=== PATIENT | female | born 1960 | race Caucasian/White ===

== ENCOUNTER → 2019-04-04 08:46 | Outpatient (BNVA) | payer BC, SELFPAY | PROVIDERS: Family Provider Nurse Practitioner Family; Visit Provider Psychiatry & Neurology Psychiatry | DX: F33.42 Major depressive disorder, recurrent, in full remission (principal) | CPT/HCPCS: 99212 ==

== ENCOUNTER → 2019-08-03 07:28 | Outpatient (BNVA) | payer BC, SELFPAY | PROVIDERS: Family Provider Nurse Practitioner Family; Visit Provider Psychiatry & Neurology Psychiatry | DX: F33.42 Major depressive disorder, recurrent, in full remission (principal) | CPT/HCPCS: 99212 ==

== ENCOUNTER → 2019-10-04 07:47 | Outpatient (BNVA) | payer BC, SELFPAY | PROVIDERS: Family Provider Nurse Practitioner Family; Visit Provider Psychiatry & Neurology Psychiatry | DX: F33.42 Major depressive disorder, recurrent, in full remission (principal) | CPT/HCPCS: 99212 ==

== ENCOUNTER 2020-01-16 07:02 | Outpatient (CLI) | payer BC, SELFPAY ==
--- NOTE | 2020-01-16 07:04 | US_ITS ---
WS: [id number] RIGHT UPPER QUADRANT ULTRASOUND HISTORY: UPPER ABD PAIN COMPARISON: None available. Liver: 15.4 cm in length. Normal size liver. Surface of the liver is slightly irregular suggesting ci rrhosis. Mildly coarsened echotexture. No bile duct dilatation. Gallbladder: Moderately distended gallbladder with stones. No pericholecystic fluid or gallbladder wa ll thickening. CBD: 0.4 cm Pancreas: Poorly visualized. Right kidney: 10.0 cm in length. Normal size and echogenicity. No hydronephrosis or mass. Aorta and IVC: Unremarkable abdominal aorta and IVC. There is a large fluid collection in the central abdomen extending over a length of 20 cm x 24 cm tra nsversely. There is mild nodularity in the posterior wall without significant increased vascularity. US/US gall bladder [id number] IMPRESSION: 1. Cholelithiasis without evidence for acute cholecystitis at this time. 2. Large minimally complex cystic mass with a few mural nodules within the per itoneal cavity. Mural nodules do not have increased vascularity by ultrasound. Cystic mass measures 20 x 24 cm. Favor this is probably ovarian in etiology and arising from the pelvis. Differential includes cystadenoma and cystadenocarcin mary. Recommend follow-up with [facility] and CT abdomen and pelvis with IV and oral co ntrast.
--- NOTE | 2020-01-16 07:05 | US_ITS ---
WS: [id number] THYROID ULTRASOUND HISTORY: HYPOTHROIDISM COMPARISON: None available. Right lobe: 3.6 cm x 0.7 cm x 1.1 cm. Volume: 1.5 cm3. Small ill-defined gland with poor margins. No nodules or increased vascularity. No adenopathy. Left lobe: 4.2 cm x 1.0 cm x 1.2 cm. Volume: 2.7 cm3. Small size gland is heterogeneous and hypoechoic to isoechoic to the adjacent soft tissue structures. No mass or nodule. No adenopathy. Isthmus: 0.3 cm. US/US thyroid [id number] IMPRESSION: Small thyroid gland consistent with diagnosis of hypothyroidism. No nodules are identified.
== END 2020-01-16 07:03 | disposition home or self-care (01) ==
LOC: RAD 07:03
PROVIDERS: Visit Provider Nurse Practitioner Family
DX: R10.10 Upper abdominal pain, unspecified (principal); E03.9 Hypothyroidism, unspecified; K80.20 Calculus of gallbladder without cholecystitis without obstruction
CPT/HCPCS: 76536; 76705

== ENCOUNTER 2020-02-05 08:59 | Outpatient (CLI) | payer BC, SELFPAY ==
--- NOTE | 2020-02-05 09:26 | CT_ITS ---
WS: [id number] CT ABDOMEN PELVIS TECHNIQUE: Contrast-enhanced CT of the abdomen and pelvis with coronal and sagittal reformatted image s. CLINICAL INFORMATION: ABNORMAL FINDINGS ON DIAGNOSTIC IMAGING OF OTHER ABDOMINAL R COMPARISON: CT 8 23,019 DLP: 1201.[address] scans at [facility] use at least one of these dose optimization techniques: automat ed exposure control; mA and/or kV adjustment per patient size (includes targeted exams where dose is matched to clinical indication); or iterative reconstruction. FINDINGS: Again seen is the large slightly complex cystic mass with a mural nodules similar to the re cent ultrasound. This measures approximately 15.3 x 23.8 x 22.1 cm. This appears to arise from the pe lvis and most likely represents ovarian neoplasm. Displacement of the surrounding bowel loops. Recomm end [employer] consultation for resection. Impingement on the dorsal superior aspect of the bladder. Normal liver. Normal portal vein and splenic vein. Small pericardial cyst is unchanged. Lung bases ar e well aerated. Splenic granulomas. Fatty atrophy of the pancreas. Adrenal glands are normal. Normal renal parenchymal enhancement. No hydronephrosis. Atrophic kidneys bilaterally. Small amount of free fluid in the pelvis. Normal caliber abdominal aorta. No pelvic or inguinal lymph adenopathy.Cholelithiasis. No gallbladder wall thickening or pericholecystic fluid. Prior postoperative changes gastric bypass. CT/CT abdomen pelvis w con* [id number] IMPRESSION: 1. Again seen is the large cystic lesion with mural nodularity arising from th e pelvis likely ovarian neoplasm such as cystadenoma/cystadenocarcinoma measuri ng 15.3 x 23.8 x 22.1 CM. Recommend [employer] consultation for resection. 2. Small amount of free fluid in the pelvis. 3. Cholelithiasis. 4. Prior gastric bypass. 5. Stable small pericardial cyst. 6. No visualized abdominal pelvic or inguinal lymphadenopathy.
[2020-02-05] MEDS: iohexol 300 mg/mL 50 mL Btl PO (11:17)
[2020-02-05] MEDS: iohexol 300 mg/mL 100 mL Btl IV (11:26)
== END 2020-02-05 09:00 | disposition home or self-care (01) ==
LOC: RADWPI 09:04
PROVIDERS: PCP Nurse Practitioner Family; Visit Provider Nurse Practitioner Family
DX: R93.89 Abnormal findings on diagnostic imaging of other specified body structures (principal); Z98.84 Bariatric surgery status; Q24.8 Other specified congenital malformations of heart; K80.20 Calculus of gallbladder without cholecystitis without obstruction
CPT/HCPCS: 74177; Q9967

== ENCOUNTER → 2020-02-06 08:48 | Outpatient (BNVA) | payer BC, SELFPAY | PROVIDERS: PCP Nurse Practitioner Family; Visit Provider Obstetrics & Gynecology | DX: R19.00 Intra-abdominal and pelvic swelling, mass and lump, unspecified site (principal) | CPT/HCPCS: 86304 ==

== ENCOUNTER 2020-02-16 07:41 | Outpatient (CLI) | payer BC, SELFPAY ==
--- NOTE | 2020-02-16 07:47 | MM_ITS ---
WS: [id number] Bilateral screening digital mammogram, 02/16/2020 Clinical Data: SCREENING Comparison: 08/26/2018, 06/10/2016, 08/02/2014. Findings: The breast parenchymal pattern shows fat replacement. No spiculated masses or clustered calcification s are seen. There are no secondary signs of carcinoma. MM/[place] [id number] Impression: 1. Negative bilateral mammogram unchanged. 2. Recommend annual screening mammograms. BIRADS: 1-Negative FOLLOW UP: 1 Year Follow-up The CAD credit checker was used.
== END 2020-02-16 07:42 | disposition home or self-care (01) ==
LOC: RADSHAW 07:44
PROVIDERS: PCP Nurse Practitioner Family; Visit Provider Nurse Practitioner Family
DX: Z12.31 Encounter for screening mammogram for malignant neoplasm of breast (principal)
CPT/HCPCS: 77067

== ENCOUNTER → 2020-03-20 07:31 | Outpatient (BNVA) | payer BC, SELFPAY | PROVIDERS: PCP Nurse Practitioner Family; Visit Provider Psychiatry & Neurology Psychiatry | DX: F33.42 Major depressive disorder, recurrent, in full remission (principal) | CPT/HCPCS: 99213 ==

== ENCOUNTER 2020-03-25 14:00 | Outpatient (CLI) | payer OTHER, SELFPAY ==
--- NOTE | 2020-03-25 16:59 | ONC CON_ITS ---
Dr. Cheek New Patient Note Patient: Alecia Meier I Unit #: [id number]: 1960 Dicatated By: Barbara Cheek M.D.Date of Visit: Mar 25, 2020 Onc MED New Patient/Consult Referring Physician: Dr. Ander Mtz M.D. History of Present Illness: Ms. Alecia meier, is a 60-year-old female recently developed progressive abdominal/pelvic pain for which she was evaluated by Dr. Gutierrez TECHNOLOGY SPECIALIST and subsequently underwent abdominal sonogram which confirmed a large complex ovarian mass and her tumor marker CA-125 was checked on February 06, 2020 was elevated at, 55.[address] scan of abdomen pelvis confirmed large cystic lesion with mural nodularity arising from pelvis likely ovarian neoplasm size 15.3 x 23 .8 x 22.1. Small amount of free fluid in the pelvis. Cholelithiasis. Prior gastric bypass but no visible pelvic or inguinal lymphadenopathy. Patient was referred to Dr. Mtz in [place] and on February 29, 2020 she underwent right resection of ovarian cancer, bilateral salpingo-oophorectomy, total abdominal hysterectomy, pelvic and para-aortic lymphadenectomy, omentectomy, multiple biopsies including right hemidiaphragm and final pathology report came back showed a right ovarian tumor size about 10 cm, endometrioid adenocarcinoma, intact, grade 3 e.g. T1 a, 10 lymph nodes were examined showed no evidence of metastatic disease e.g. N0 stage I immunohistochemistry was positive for p16, p53, Ki-67 and vimentin consistent with high-grade endometrioid carcinoma, Patient tolerated procedure well and based on high-grade e.g. grade 3 ovarian endometrioid carcinoma, as per patient she was recommended adjuvant chemotherapy with 6 cycles carboplatin/Taxol.. Patient is a diabetic, also has history of morbid obesity for which she underwent gastric bypass in 1999, as per patient about 2 years ago she was diagnosed with persistent anemia and she did require 3 units of packed RBC during her recent bilateral oophorectomy/hysterectomy done on February 29, 2020. Denies any specific complaint today, no fever chills, no nausea or vomiting, no diarrhea or constipation, no abdominal pain she has healed up pretty well from recent surgery. Past Medical History: Ms. Meier's medical history consists of history of MRSA, hyperlipidemia, hypothyroidism, opoid dependence, osteoarthritis, and type II diabetes. Past Surgical History: Ms. Meier's surgical/procedural history consists of hysterectomy/bilateral salpingectomy-oophorectomy in 2019, colonoscopy in 2018, and gastric bypass in 1999. Medications: All Day Allergy 1 Tablet (of 10 mg) Oral daily, Atorvastatin Calcium 1 Tablet (of 10 mg) Oral daily, busPIRone HCl 1 Tablet (of 15 mg) Oral b.i.d., Euthyrox 1 Tablet (of 175 mcg) Oral daily, Glucophage 1 Tablet (of 850 mg) Oral daily, Januvia 1 Tablet (of 25 mg) Oral daily, Lisinopril 1 Tablet (of 10 mg) Oral daily, Naprosyn 1 Tablet (of 500 mg) Oral b.i.d. PRN, Slow Release Iron 1 Tablet (of 47.5 mg) Tablet, controlled release Oral daily, traMADol HCl 1 Tablet (of 50 mg) Oral t.i.d. PRN, Tums Tablet, chewable Oral PRN, Zoloft 2 Tablet (of 100 mg) Oral daily Allergies: Amoxicillin and Cephalexin. Social History: Ms. Meier is single. Ms. Meier has never smoked. She drinks occasionally. drinks 1-2 glasses of alcohol every 4-6months. Family History: Ms. Meier's mother at age 76: breast cancer, and stroke, and uterine cancer. Ms. Meier's father at age 76: heart disease, and lung cancer. Review Of Symptoms: Constitutional - Appetite is diminished and weight is decreased. No fever, night sweats, or hot flashes. Energy level is poor, ENMT - Positive for sinus congestion/drainage. No mouth sores. No sore throat or difficulty swallowing, Hematologic/Lymphatic - Positive for easy bruising/bleeding, Respiratory - No shortness of breath. No cough. No pleuritic pain or hemoptysis, Cardiovascular - No angina pain. No palpitations, Gastrointestinal - No nausea or vomiting. Positive for heartburn and acid reflux. No diarrhea. Positive for constipation. No blood in the stool or black stools, Genitourinary (F) - No dysuria or hematuria. No urinary frequency. No urgency or incontinence, Musculoskeletal - Positive for joint pain, Neurologic - Positive for headache, dizziness and numbness/tingling. No other focal neurologic symptoms, Psychiatric - Positive for anxiety, depression and insomnia. Vital Signs: Performed on Mar 25, 2020 14:48: 5, 2, 0.00 (LOW), sq.m, 96 %, 90 /min, 18 /min, 126/75 mm(hg), 96.8 F (LOW), and 197.2 lbs (HIGH). Performance Status: 0 - Fully active, able to carry on all predisease activities without restrictions. (ECOG) Physical Examination: ENMT - No mouth sores, no thrush, no jaundice, Respiratory - Lungs are clear to auscultation, Cardiovascular - Regular rate and rhythm of heart, Abdomen - Soft, bowel sounds present, well-healed midline surgical scar, Extremities - No visible edema. Lab/Imaging: Most recent lab results are not available for this patient. Impression: Grade 3 ovarian endometrioid carcinoma status post right resection of ovarian cancer, bilateral salpingo-oophorectomy, total abdominal hysterectomy, pelvic and para-aortic lymphadenectomy, omentectomy, multiple biopsies including right hemidiaphragm done on February 29, 2020 Final pathology report confirmed 10 cm sized tumor involving the right ovary, endometrioid adenocarcinoma, grade 3, intact, peritoneal fluid negative implants negative and 0 out of 10 lymph nodes showed metastatic disease e.g. pT1a limited to 1 ovary (capsule intact). p N 0, MX stage I Immunohistochemistry were positive for p16, p53, Ki-67, vimentin, pattern consistent with high-grade endometrial carcinoma History of diabetes mellitus, Gastric bypass surgery for morbid obesity in 2000 Anemia since 2018, status post 3 units of packed RBCs on February 29 2020 during bilateral oophorectomy/hysterectomy for right ovarian cancer Plan: Discussed with patient regarding her disease status and treatment option, as per pathology report patient has grade 3 ovarian endometrioid carcinoma involving the right ovary for which she underwent bilateral salpingo-oophorectomy/hysterectomy on February 29, 2020, has tolerated procedure very well now with good healing. As per patient, being high risk for recurrence, she was recommended adjuvant chemotherapy with carboplatin/Taxol x6 and patient lives in [place] and decided to transfer her care to cancer center here in [place] for further adjuvant chemotherapy. Patient said she did some research on Internet and now kind of skeptical regarding systemic chemotherapy as one of her colleagues has gone through chemotherapy with significant side effects. Patient was reassured and was offered second opinion and evaluation for clinical trial, if available at tertiary care center, patient agreed, in that case , we will refer her to [facility]OLOGY SPECIALIST oncology at [place] regarding evaluation for clinical trial/second opinion. Patient will return to clinic 1 week after visit to [place] with CBC CMP and iron studies and B12 level as patient has history of gastric bypass and there is a possibility of combined iron/B12 deficiency due to malabsorption.. Signed By: Barbara Cheek M.D. <<Signature on File>>
== END 2020-03-25 14:01 | disposition home or self-care (01) ==
LOC: ONCMED 14:08
PROVIDERS: PCP Nurse Practitioner Family; Visit Provider Internal Medicine Hematology & Oncology
DX: C56.1 Malignant neoplasm of right ovary (principal); D64.9 Anemia, unspecified; Z90.722 Acquired absence of ovaries, bilateral; Z90.710 Acquired absence of both cervix and uterus; Z98.84 Bariatric surgery status; Z86.39 Personal history of other endocrine, nutritional and metabolic disease
CPT/HCPCS: 99205

== ENCOUNTER → 2020-05-01 12:57 | Outpatient (BNVA) | payer OTHER, SELFPAY | PROVIDERS: PCP Nurse Practitioner Family; Visit Provider Nurse Practitioner Family | DX: Z20.828 Contact with and (suspected) exposure to other viral communicable diseases (principal) | CPT/HCPCS: 87635 ==

== ENCOUNTER 2020-05-06 10:07 | Emergency (ER) | payer OTHER, SELFPAY ==
[2020-05-06 10:10] VITALS: BP 175/95; PULSE 78; RESP 20; TEMP 36.8; O2SAT 93; BMI 31.4
--- NOTE | 2020-05-06 10:23 | XRR_ITS ---
PROCEDURE INFORMATION: Exam: XR Chest Exam date and time: 05/06/2020 10:37 AM Age: 60 years old Clinical indication: Shortness of breath; Additional info: SOB TECHNIQUE: Imaging protocol: XR of the chest Views: 1 view. COMPARISON: No relevant prior studies available. FINDINGS: Lungs: Mild linear scarring or atelectasis is present in both lungs. There is no pneumonia. Pleural spaces: Unremarkable. No pleural effusion. No pneumothorax. Heart/Mediastinum: Unremarkable. No cardiomegaly. Bones/joints: Unremarkable. XR/XR chest 1V portable [id number] IMPRESSION: No acute cardiopulmonary abnormality.
--- NOTE | 2020-05-06 10:25 | ECG_ITS ---
[facility] Test Date: 2020-05-06 Pat Name: Alecia Meier Department: Room: Gender: Female Reimbursement Spec: : 1960 Requested By: Reyes Lowery Order Number: [id number] Joshua MD: CARLOS RONDON Measurements Intervals [place] Rate: 77 P: 0 IN: 186 QRS: -52 QRSD: 94 T: 58 QT: 388 QTc: 441 Interpretive Statements SINUS RHYTHM PATTERN CONSISTENT WITH PULMONARY DISEASE LEFT ANTERIOR FASCICULAR BLOCK [QRS AXIS <= -45, QR IN I, RS IN II] No previous ECG available for comparison Electronically Signed On 05-06-2020 18:28:37 DIVERSITY MANAGER by CARLOS RONDON [id number]
[2020-05-06 10:33] VITALS: BP 105/69; PULSE 93; RESP 20; O2SAT 90
--- NOTE | 2020-05-06 10:33 | ED_ITS ---
HPI - COVID General: Chief Complaint: COVID symptoms Stated Complaint: difficulty breathing, covid+ Time Seen by Provider: 05/06/20 10:13 Triage information: Has fever, cough or shortness of breath . Exposure to COVID + person last 14 days History of Present Illness: HPI Narrative: Patient is a 60-year-old female comes to the ED with shortness of breath. Past medical history of diabetes, hypertension, hyperlipidemia and was just diagnosed with ovarian cancer. She had total hysterectomy, there is not started any chemotherapy yet. Patient tested positive for COVID-19 on May 01 and says her symptoms started on April 28. She describes her shortness of breath as chest tightness and feels like she cannot take a deep enough breath. She reports shortness of breath worsens on exertion. Denies any chest pain. Patient does report being more anxious now that she tested positive for COVID-19 and is worried about her shortness of breath symptom. She reports very mild cough that is dry nonproductive. She had diarrhea for a day approximately 3 days ago but that has since resolved. Denies any history of DVT or PE. COVID 19 common symptoms: positive cough, non-productive cough, dyspnea, fatigue and loss of sense of smell and/or taste; negative fever(s), chills, productive cough, headache(s), throat pain, nasal congestion, nausea, vomiting or diarrhea COVID 19 other sytmptoms: negative chest pain COVID Results: Nasal/Oral Coronavirus 2019 PCR Detected H 05/01/20 12:57 05/01/20 Review of Systems Const: Reports: fatigue; Denies: fever(s) or chills Eyes: Denies: change in vision or eye discomfort ENMT: Denies: throat pain, odynophagia, nasal discharge or nasal congestion Card: Reports: dyspnea on exertion; Denies: chest pain, palpitations, edema, swelling of feet/ankles or orthopnea Resp: Reports: dyspnea and non-productive cough; Denies: productive cough GI: Denies: abdominal pain, nausea, vomiting, diarrhea, constipation or hematochezia : Denies: flank pain, dysuria or hematuria Musc: Denies: neck pain, back pain or extremity swelling Skin/Breast: Denies: rash or new lesions Neuro: Denies: headache(s), numbness in extremities or weakness in extremities Psych: Reports: anxiety (increased anxiety and worry since being diagnosed with COVID) PFSH ED PFSH: Medical History Major depressive disorder, recurrent, in full remission Family History Sister Clotting disorder Diabetes Thyroid condition Father Hyperlipidemia Hypertension Heart disease Mother Hyperlipidemia Hypertension Stroke Breast cancer mid 50's Family/Other Colon cancer paternal aunt Denies family history of Ovarian cancer Anesthesia complication Bleeding disorder Uterine cancer Social History Smoking and tobacco status: never smoked Alcohol intake: current Alcohol intake frequency: holidays/special occasions only Alcohol type: wine Physical Exam Const: COMMON NORMALS: no acute distress, patient oriented x3, healthy appearing and alert GENERAL APPEARANCE: cooperative and comfortable HENMT: COMMON NORMALS: normocephalic HEAD & SCALP: normocephalic MOUTH: Normal oral and palatal mucosa present THROAT: posterior oropharynx normal and uvula midline Neck/C-Spine: COMMON NORMALS: supple GENERAL: Yes normal visual inspection Resp: COMMON NORMALS: normal respiratory effort, No retractions, No use of a ccessory muscles and clear to auscultation bilaterally EFFORT & INSPECTION: Yes able to speak in complete sentences, No tachypneic, No respiratory distress and No labored AUSCULTATION: clear to auscultation bilaterally Cardio: COMMON NORMALS: regular rate, regular rhythm, S1 normal heart sound present, S2 normal heart sound present, No gallops present (Cardio), No clicks present (Cardio), No murmurs present (Cardio) and Peripheral pulses 2+ throughout RATE: regular rate RHYTHM: regular rhythm HEART SOUNDS: S1 normal heart sound present and S2 normal heart sound present PERIPHERAL PULSES: Peripheral pulses 2+ throughout GI: COMMON NORMALS: Normal to inspection, nondistended, normoactive bowel sounds present, Soft to palpation, non-tender and no masses PALPATION: Yes Soft to palpation : COMMON NORMALS: Yes no CVA tenderness BLADDER/KIDNEY EXAM: Yes no CVA tenderness Back/Pelvis: COMMON NORMALS: no CVA tenderness Extremity: COMMON NORMALS: normal to inspection and no pedal edema Neuro: COMMON NORMALS: patient oriented x3 and moves all extremities SENSORIUM/ORIENTATION: Yes alert Psych: MOOD & AFFECT: Yes anxious (Patient says she is been stressed and worried since testing positive for Co) Skin: GENERAL SKIN EXAM: dry skin Course ED course: I discussed with patient the possibility of getting the monoclonal antibody treatment for Covid while here in the ED. Patient has a positive Covid test and has a past medical history of diabetes, hypertension and ovarian cancer. Patient's symptoms started approximately 8 days ago so she qualifies for treatment. I discussed the risk and benefits of monoclonal antibody treatment and patient agreed signed the consent form to receive treatment. Consultations: Consultation #1: I placed order for patient to receive IV monoclonal antibody treatment. I then contacted the pharmacy to let them know about order and they said they will have it sent here to the ED once it is ready. Time: 13:47 Vital Signs: Vital signs: Vital Signs Temperature 98.3 F 05/06/20 10:10 Pulse Rate 77 05/06/20 15:48 Respiratory Rate 18 05/06/20 15:48 Blood Pressure 114/63 05/06/20 15:48 Pulse Oximetry 98 05/06/20 15:48 MDM - COVID MDM Narrative: Medical decision making narrative: Patient is a 60-year-old female comes to the ED with shortness of breath and tested positive for COVID- 19. COVID-19 test positive on May 01. Patient has a past medical history of hypertension, cervical cancer, hyperlipidemia and diabetes. Vitals were stable and patient's O2 saturation was 98% and respirations were 18. Exam was unremarkable besides patient seeming a bit anxious and worried about COVID-19. Lungs were clear to auscultation bilaterally. CBC and CMP were unremarkable. EKG showed normal sinus rhythm and no signs of [place]. Troponin negative. Chest x- ray showed no acute findings. D-dimer is elevated at 1.07. CTA of the chest was performed and it showed no PE, but did notate some possible bilateral lower lobe pneumonia, likely viral. Patient was given IV fluids and Solu-Medrol while here in the ED and I discussed with her the option of getting monoclonal antibody treatment. Patient wanted to get monoclonal antibody treatment and she signed the consent form. She was given IV monoclonal antibody treatment here in the ED. Patient was diagnosed with COVID-19 and discharged with a prescription for azithromycin and Medrol Dosepak. Return to ED precautions given. She was instructed on continuing her self quarantine. Follow-up with PCP in 7 to 10 days. Patient is to agree with plan. Lab Data: Attestation: I reviewed the patient's lab results. Labs: Lab Results 05/06/20 05/06/20 05/06/20 Range/Units 10:23 10:23 10:23 WBC 4.2 (4.0-10.0) 10^3/ uL RBC 3.93 L (4.1-5.3) 10^6/u L Hgb 11.4 L (11.5-15.3) g/dL Hct 37.0 (37.0-47.0) % MCV 94.1 (81-99) fL MCH 29.0 (28.0-34.0) pg MCHC 30.8 (30.0-36.0) g/dL RDW 14.0 (12.1-15.1) % Plt Count 206 (130-400) 10^3/c mm MPV 11.4 H (7.4-10.4) fL Neut % (Auto) 75.5 % Lymph % (Auto) 17.9 % [place] % (Auto) 5.0 % Eos % (Auto) 0.9 % Baso % (Auto) 0.2 % Neut # (Auto) 3.20 (1.8-7.7) 10^3/u L Lymph # (Auto) 0.8 (0.8-4.8) 10^3/u L [place] # (Auto) 0.2 (0.2-0.9) 10^3/u L Eos # (Auto) 0.0 (0.0-0.8) 10^3/u L Baso # (Auto) 0.0 (0.0-0.1) 10^3/u L Nucleated RBC % (a uto) 0 % Nucleated RBCs # 0.0 /100WBC D-Dimer (0-0.59) ug/mIFE U Sodium 137 (136-145) mmol/L Potassium 4.4 (3.5-5.1) mmol/L Chloride 101 (98-107) mmol/L Carbon Dioxide 23 (22-29) mmol/L Anion Gap 17.4 (5-19) BUN 19 (8-23) mg/dL Creatinine 0.9 (0.5-0.9) mg/dL GFR Calculation 63.9 L (90-130) mL/min Glucose 261 H (65-115) mg/dL Calculated Osmolal ity 295 (285-295) mOsm/k g Calcium 8.7 (8.5-10.5) mg/dL Total Bilirubin 0.4 (0.15-1.2) mg/dL AST 19 (0-32) U/L ALT 13 (0-33) U/L Alkaline Phosphata se 106 H (35-105) IU/L Troponin T Baselin e 9 (0-10) ng/L Troponin T 120 Min robert (0-10) ng/L Delta Troponin T (0-10) ABS# Total Protein 6.9 (6.6-8.7) g/dL Albumin 3.7 (3.5-5.2) g/dL Globulin 3.2 (1.3-4.6) g/dL 05/06/20 05/06/20 Range/Units 10:23 13:10 WBC (4.0-10.0) 10^3/ uL RBC (4.1-5.3) 10^6/u L Hgb (11.5-15.3) g/dL Hct (37.0-47.0) % MCV (81-99) fL MCH (28.0-34.0) pg MCHC (30.0-36.0) g/dL RDW (12.1-15.1) % Plt Count (130-400) 10^3/c mm MPV (7.4-10.4) fL Neut % (Auto) % Lymph % (Auto) % [place] % (Auto) % Eos % (Auto) % Baso % (Auto) % Neut # (Auto) (1.8-7.7) 10^3/u L Lymph # (Auto) (0.8-4.8) 10^3/u L [place] # (Auto) (0.2-0.9) 10^3/u L Eos # (Auto) (0.0-0.8) 10^3/u L Baso # (Auto) (0.0-0.1) 10^3/u L Nucleated RBC % (a uto) % Nucleated RBCs # /100WBC D-Dimer 1.07 H (0-0.59) ug/mIFE U Sodium (136-145) mmol/L Potassium (3.5-5.1) mmol/L Chloride (98-107) mmol/L Carbon Dioxide (22-29) mmol/L Anion Gap (5-19) BUN (8-23) mg/dL Creatinine (0.5-0.9) mg/dL GFR Calculation (90-130) mL/min Glucose (65-115) mg/dL Calculated Osmolal ity (285-295) mOsm/k g Calcium (8.5-10.5) mg/dL Total Bilirubin (0.15-1.2) mg/dL AST (0-32) U/L ALT (0-33) U/L Alkaline Phosphata se (35-105) IU/L Troponin T Baselin e (0-10) ng/L Troponin T 120 Min robert 9.35 (0-10) ng/L Delta Troponin T 0.35 (0-10) ABS# Total Protein (6.6-8.7) g/dL Albumin (3.5-5.2) g/dL Globulin (1.3-4.6) g/dL Imaging Data: CXR: Attestation: I personally reviewed and interpreted this imaging study as follows: Radiologist's impression: [facility] [address] XRay Report Signed Patient: Alecia Meier I Unit #: [id number] : 1960 Age/Sex: 60 / F ADM Date: 05/06/20 Loc: ER Room/Bed: Attending Dr: Ordering Provider/Ordering MD: Reyes Lowery Date of Service: 05/06/20 Procedure(s): XR chest 1V portable [id number] Accession Number(s): [id number] Report Number: [id number] PROCEDURE INFORMATION: Exam: XR Chest Exam date and time: 05/06/2020 10:37 AM Age: 60 years old Clinical indication: Shortness of breath; Additional info: SOB TECHNIQUE: Imaging protocol: XR of the chest Views: 1 view. COMPARISON: No relevant prior studies available. FINDINGS: Lungs: Mild linear scarring or atelectasis is present in both lungs. There is no pneumonia. Pleural spaces: Unremarkable. No pleural effusion. No pneumothorax. Heart/Mediastinum: Unremarkable. No cardiomegaly. Bones/joints: Unremarkable. XR/XR chest 1V portable [id number] IMPRESSION: No acute cardiopulmonary abnormality. Dictated By: Deny Patricia Signed By: Deny Patricia Signed Date/Time: 05/06/20 1050 DD/ 1049 CT Chest: Attestation: I personally reviewed and interpreted this imaging study as follows: Radiologist's impression: [facility] [address] [place] [address] CT Scan Report Signed Patient: Alecia Meier I Unit #: [id number] : 1960 Age/Sex: 60 / F ADM Date: 05/06/20 Loc: ER Room/Bed: Attending Dr: Ordering Provider/Ordering MD: Reyes Lowery Date of Service: 05/06/20 Procedure(s): CT angio chest PE protcl [id number] Accession Number(s): [id number] Report Number: [id number] WS: [id number] CT CHEST ANGIOGRAPHY WITH REFORMATS HISTORY: sob TECHNIQUE: Contiguous axial images are obtained through the chest during arterial injection of intravenous contrast. Images are reconstructed to evaluate the pulmonary arteries. MIP imaging also reviewed. All CT scans at [facility] use at least one of these dose optimization techniques: automated exposure control; mA and/or kV adjustment per patient size (includes targeted exams where dose is matched to clinical indication); or iterative reconstruction. CONTRAST: Omnipaque 350; 95 mL IV. DLP: 453.66 mGy.cm COMPARISON: None available. Very good opacification of the pulmonary arteries. Pulmonary artery is mildly prominent. No central luminal filling defects. Mild atherosclerosis aorta. There is no aneurysm. Mild enlargement of the LEFT heart chambers. No RIGHT heart strain. No pericardial or pleural effusions. Multifocal, multi lobar scattered groundglass opacifications. Increasing areas of consolidation in the periphery of the upper lungs. Mild peribronchial cuffing with lymphoid tissue. There are a few mildly prominent lymph nodes but no adenopathy. Low-attenuation mass adjacent to the RIGHT heart is probably a pericardial cyst. This was also present on the prior study from 02/05/2020 and better visualized as there was no motion at that time. Thought to be a pericardial cyst. Prior gastric bypass. Cholelithiasis. CT/CT angio chest PE protcl [id number] IMPRESSION: 1. No pulmonary embolism. 2. Bilateral groundglass opacifications and bronchial wall thickening, greatest in the lower lung alba. Correlate for pneumonitis. Covid 19 within the differential. 3. Stable pericardial cyst. 4. Cholelithiasis without acute cholecystitis. 5. Prior gastric bypass. Dictated By: Ashia Nugent DO Signed By: Ashia Nugent DO Signed Date/Time: 05/06/20 1303 DD/ 1256 EKG Data: EKG 1: Attestation: I personally reviewed and interpreted this EKG as follows: EKG interpretation date: 05/06/20 Interpretation: Sinus rhythm, 77 bpm, no ST segment elevation or depression seen. COVID Results: Nasal/Oral Coronavirus 2019 PCR Detected H 05/01/20 12:57 05/01/20 Discharge Plan Discharge Patient Disposition: Home Clinical Impression: COVID-19 Condition: Stable Prescriptions: New azithromycin 250 mg tablet See Rx Instructions .ROUTE .COMPLEX Qty: 6 RF: 0 Medrol (Alexander) 4 mg tablets,dose pack See Rx Instructions .ROUTE .COMPLEX Qty: 21 RF: 0 No Action multivitamin Tablet 1 tab PO DAILY@18 RF: 0 Januvia 25 mg tablet 25 mg PO DAILY@18 RF: 0 tramadol 50 mg tablet 50 mg PO TID PRN (Reason: Pain) RF: 0 naproxen sodium [Aleve] 220 mg tablet 440 mg PO BID PRN (Reason: Pain) RF: 0 atorvastatin 10 mg tablet 10 mg PO DAILY@2200 RF: 0 metformin 850 mg tablet 850 mg PO DAILY@08 RF: 0 lisinopril 10 mg tablet 10 mg PO DAILY@08 RF: 0 acetaminophen [Tylenol Extra Strength] 500 mg tablet 500 mg PO Q6H PRN (Reason: Pain) RF: 0 loratadine [Claritin] 10 mg tablet 10 mg PO DAILY@08 RF: 0 levothyroxine 175 mcg Tablet 175 mcg PO DAILY@08 RF: 0 Zoloft 100 mg tablet 200 mg PO DAILY@18 RF: 0 buspirone 15 mg tablet 15 mg PO BID@08,22 RF: 0 Discharge Orders: Discharge ED (Routine); Ordered 05/06/20 Ordered By: Reyes Lowery Referrals: Marialuisa Molina FNP [Primary Care Provider] - Discharge Diet: Regular Discharge Activity: Resume usual activity Patient Instructions: Upper Respiratory Infection (ED), Viral Syndrome (ED) Activity Restrictions/Additional Instructions: Follow-up with medical provider as directed in 7 to 10 days for reevaluation. Continue self quarantine as instructed. Take medications as prescribed. Drink plenty of fluids and stay hydrated. Take [id number] Tylenol or ibuprofen for any fevers. Return to the ER or your medical provider if condition worsens. Please read and understand discharge instructions. If any questions, please ask. Coding Level of Care Code ED Cad Technician for Lito Li Exam Comprehensive
[2020-05-06 10:35] LABS: Basophils % 0.2 %; Eosinophils % 0.9 %; Hemoglobin 11.4 g/dL (11.5-15.3); Lymphocytes # 0.8 10^3/uL (0.8-4.8); Lymphocytes % 17.9 %; Mean Corpuscular HGB Conc 30.8 g/dL (30.0-36.0); Mean Corpuscular Volume 94.1 fL (81-99); Mean Platelet Volume 11.4 fL (7.4-10.4); Monocytes # 0.2 10^3/uL (0.2-0.9); Neutrophils % 75.5 %; Nucleated Red Blood Cells % 0 %; Platelet Count 206 10^3/cmm (130-400); Red Blood Count 3.93 10^6/uL (4.1-5.3); White Blood Count 4.2 10^3/uL (4.0-10.0)
[2020-05-06 10:55] LABS: Troponin(5th) Baseline 9 ng/L (0-10)
[2020-05-06 11:19] LABS: D Dimer 1.07 ug/mIFEU (0-0.59)
[2020-05-06 11:22] LABS: Alanine Aminotransferase 13 U/L (0-33); Albumin Level 3.7 g/dL (3.5-5.2); Alkaline Phosphatase 106 IU/L (35-105); Anion Gap 17.4 (5-19); Aspartate Amino Transferase 19 U/L (0-32); Blood Urea Nitrogen 19 mg/dL (8-23); Calcium 8.7 mg/dL (8.5-10.5); Carbon Dioxide 23 mmol/L (22-29); Chloride 101 mmol/L (98-107); Globulin 3.2 g/dL (1.3-4.6); Glomerular Filtration Rate 63.9 mL/min (90-130); Glucose 261 mg/dL (65-115); Osmolality Calculated 295 mOsm/kg (285-295); Potassium 4.4 mmol/L (3.5-5.1); Sodium 137 mmol/L (136-145); Total Bilirubin 0.4 mg/dL (0.15-1.2); Total Protein 6.9 g/dL (6.6-8.7)
--- NOTE | 2020-05-06 11:47 | CT_ITS ---
WS: [id number] CT CHEST ANGIOGRAPHY WITH REFORMATS HISTORY: sob TECHNIQUE: Contiguous axial images are obtained through the chest during arterial injection of intrav enous contrast. Images are reconstructed to evaluate the pulmonary arteries. MIP imaging also reviewe d. All CT scans at [facility] use at least one of these dose optimization techniques: aut omated exposure control; mA and/or kV adjustment per patient size (includes targeted exams where dose is matched to clinical indication); or iterative reconstruction. CONTRAST: Omnipaque 350; 95 mL IV. DLP: 453.66 mGy.cm COMPARISON: None available. Very good opacification of the pulmonary arteries. Pulmonary artery is mildly prominent. No central l uminal filling defects. Mild atherosclerosis aorta. There is no aneurysm. Mild enlargement of the LEF T heart chambers. No RIGHT heart strain. No pericardial or pleural effusions. Multifocal, multi lobar scattered groundglass opacifications. Increasing areas of consolidation in th e periphery of the upper lungs. Mild peribronchial cuffing with lymphoid tissue. There are a few mild ly prominent lymph nodes but no adenopathy. Low-attenuation mass adjacent to the RIGHT heart is proba venancio a pericardial cyst. This was also present on the prior study from 02/05/2020 and better visualized as there was no motion at that time. Thought to be a pericardial cyst. Prior gastric bypass. Cholelithiasis. CT/CT angio chest PE protcl [id number] IMPRESSION: 1. No pulmonary embolism. 2. Bilateral groundglass opacifications and bronchial wall thickening, greates t in the lower lung alba. Correlate for pneumonitis. Covid 19 within the diff erential. 3. Stable pericardial cyst. 4. Cholelithiasis without acute cholecystitis. 5. Prior gastric bypass.
--- NOTE | 2020-05-06 12:25 | ECG_ITS ---
[facility] Test Date: 2020-05-06 Pat Name: Alecia Meier Department: Room: Gender: Female Administrative Manager: : 1960 Requested By: Reyes Lowery Order Number: [id number] Joshua MD: CARLOS RONDON Measurements Intervals [place] Rate: 77 P: 17 [place]: 183 QRS: -42 QRSD: 96 T: 38 QT: 386 QTc: 437 Interpretive Statements SINUS RHYTHM LEFT AXIS DEVIATION [QRS AXIS < -30] PATTERN CONSISTENT WITH PULMONARY DISEASE Compared to ECG 05/06/2020 10:17:54 Left-axis deviation now present Left anterior fascicular block no longer present Electronically Signed On 05-06-2020 18:30:32 C PROGRAMMER by CARLOS RONDON [email or web address]
[2020-05-06] MEDS: sodium chloride 0.9% 1,000 ML 999 ML IV (12:50)
[2020-05-06 13:03] VITALS: BP 123/65; PULSE 82; RESP 20; O2SAT 98
[2020-05-06] MEDS: LORazepam 2 mg/mL INJ 1 mL 1 MG IVP (13:06)
[2020-05-06 14:00] VITALS: BP 95/61; PULSE 75; RESP 18; O2SAT 96
[2020-05-06 14:16] LABS: Troponin 5 2HR 9.35 ng/L (0-10); Troponin 5 2HR Delta 0.35 ABS# (0-10)
[2020-05-06 15:00] VITALS: BP 125/73; PULSE 75; RESP 18; O2SAT 98
[2020-05-06 15:48] VITALS: BP 114/63; PULSE 77; RESP 18; O2SAT 98
== END 2020-05-06 16:10 | disposition home or self-care (01) ==
PROVIDERS: Emergency Provider Physician Assistant; PCP Nurse Practitioner Family
DX: U07.1 COVID-19 (principal); Z79.84 Long term (current) use of oral hypoglycemic drugs
CPT/HCPCS: 36415; 71045; 71275; 80053; 84484; 85025; 85378; 93005; 96365; 96375; 99284; J2060; J2930; J7030; Q9967

== ENCOUNTER → 2020-05-09 08:01 | Outpatient (BNVA) | payer OTHER, SELFPAY | PROVIDERS: PCP Nurse Practitioner Family; Visit Provider Psychiatry & Neurology Psychiatry | DX: F33.42 Major depressive disorder, recurrent, in full remission (principal) | CPT/HCPCS: 99213 ==

== ENCOUNTER 2020-05-15 09:53 | Outpatient (CLI) | payer OTHER, SELFPAY ==
[2020-05-15 10:39] LABS: Basophils % 0.6 %; Eosinophils # 0.1 10^3/uL (0.0-0.8); Eosinophils % 1.6 %; Hematocrit 33.6 % (37.0-47.0); Hemoglobin 10.3 g/dL (11.5-15.3); Lymphocytes # 1.7 10^3/uL (0.8-4.8); Lymphocytes % 23.3 %; Mean Corpuscular HGB Conc 30.7 g/dL (30.0-36.0); Mean Corpuscular Hemoglobin 29.4 pg (28.0-34.0); Mean Platelet Volume 10.4 fL (7.4-10.4); Monocytes # 0.4 10^3/uL (0.2-0.9); Monocytes % 6.2 %; Neutrophils # 4.78 10^3/uL (1.8-7.7); Neutrophils % 67.5 %; Nucleated Red Blood Cells % 0 %; Platelet Count 303 10^3/cmm (130-400); Red Cell Distribution Width 14.8 % (12.1-15.1); White Blood Count 7.1 10^3/uL (4.0-10.0)
[2020-05-15 11:03] LABS: Alanine Aminotransferase 12 U/L (0-33); Albumin Level 3.4 g/dL (3.5-5.2); Alkaline Phosphatase 90 IU/L (35-105); Anion Gap 11.9 (5-19); Aspartate Amino Transferase 11 U/L (0-32); Blood Urea Nitrogen 18 mg/dL (8-23); Calcium 8.7 mg/dL (8.5-10.5); Carbon Dioxide 25 mmol/L (22-29); Chloride 105 mmol/L (98-107); Ferritin 267 ng/mL (15-150); Globulin 3.1 g/dL (1.3-4.6); Glomerular Filtration Rate 56.6 mL/min (90-130); Glucose 157 mg/dL (65-115); Iron 82 ug/dL (37-145); Osmolality Calculated 289 mOsm/kg (285-295); Percent Saturation 36.7 % (20-50); Potassium 4.9 mmol/L (3.5-5.1); Sodium 137 mmol/L (136-145); Total Bilirubin 0.3 mg/dL (0.15-1.2); Total Iron Binding Capacity 223 mcg/dl; Total Protein 6.5 g/dL (6.6-8.7); Unsaturated Iron Binding 141 ug/dL (112-347)
[2020-05-15 11:23] LABS: Folate Level 5.1 ng/mL (4.8-37.3)
== END 2020-05-15 09:54 | disposition home or self-care (01) ==
LOC: ONCMED 09:56
PROVIDERS: PCP Nurse Practitioner Family; Visit Provider Internal Medicine Hematology & Oncology
DX: C56.1 Malignant neoplasm of right ovary (principal)
CPT/HCPCS: 36415; 80053; 82728; 82746; 83540; 83550; 85025

== ENCOUNTER 2020-05-16 05:43 | Outpatient (CLI) | payer OTHER, SELFPAY ==
--- NOTE | 2020-05-16 09:40 | ONC FU_ITS ---
Dr. Cheek follow up note Patient: Alecia Meier I Unit #: [id number]: 1960 Dicatated By: Barbara Cheek M.D.Date of Visit:May 16, 2020 Onc Med Follow-up/Prog Note History of Present Illness: Ms. Alecia meier, is a 60-year-old female recently developed progressive abdominal/pelvic pain for which she was evaluated by Dr. Gutierrez [employer] and subsequently underwent abdominal sonogram which confirmed a large complex ovarian mass and her tumor marker CA-125 was checked on February 06, 2020 was elevated at, 55.[address] scan of abdomen pelvis confirmed large cystic lesion with mural nodularity arising from pelvis likely ovarian neoplasm size 15.3 x 23 .8 x 22.1. Small amount of free fluid in the pelvis. Cholelithiasis. Prior gastric bypass but no visible pelvic or inguinal lymphadenopathy. Patient was referred to Dr. Mtz in [place] and on February 29, 2020 she underwent right resection of ovarian cancer, bilateral salpingo-oophorectomy, total abdominal hysterectomy, pelvic and para-aortic lymphadenectomy, omentectomy, multiple biopsies including right hemidiaphragm and final pathology report came back showed a right ovarian tumor size about 10 cm, endometrioid adenocarcinoma, intact, grade 3 e.g. T1 a, 10 lymph nodes were examined showed no evidence of metastatic disease e.g. N0 stage I immunohistochemistry was positive for p16, p53, Ki-67 and vimentin consistent with high-grade endometrioid carcinoma, Patient tolerated procedure well and based on high-grade e.g. grade 3 ovarian endometrioid carcinoma, as per patient she was recommended adjuvant chemotherapy with 6 cycles carboplatin/Taxol.. Patient is a diabetic, also has history of morbid obesity for which she underwent gastric bypass in 1999, as per patient about 2 years ago she was diagnosed with persistent anemia and she did require 3 units of packed RBC during her recent bilateral oophorectomy/hysterectomy done on February 29, 2020. Denies any specific complaint today, no fever chills, no nausea or vomiting, no diarrhea or constipation, no abdominal pain she has healed up pretty well from recent surgery. At patient's request, she was referred to [facility] [employer] [employer] oncology for second opinion and evaluation for clinical trial where she was seen by Dr. Luis Post on May 15, 2019 and his recommendations were that he agreed with her original diagnosis and recommended her to proceed with 6 cycles of carboplatin/Taxol, As per patient on May 03, 2020 she was diagnosed with Covid infection and had some breathing difficulty so went to [facility] last week, as per patient she was given some kind of infusion which is usually given within 10 days of infection and after that he felt better and last Wednesday, health department informed her that her 2 weeks quarantine is over. Came for follow-up, denies any specific complaint except chronic generalized weakness and fatigue but no fever chills, no nausea or vomiting, no shortness of breath, no jaundice, no skin rash, no diarrhea or constipation as per patient she liked Dr. Post [employer] oncology at [facility] and now ready to proceed with adjuvant chemotherapy with carboplatin/Taxol as per patient she was informed about all the side effects and possible benefits including acute and chronic peripheral neuropathy, nausea vomiting or allergic reaction or hyperglycemia especially with steroids. Medications: All Day Allergy 1 Tablet (of 10 mg) Oral daily, Atorvastatin Calcium 1 Tablet (of 10 mg) Oral daily, busPIRone HCl 1 Tablet (of 15 mg) Oral b.i.d., Euthyrox 1 Tablet (of 175 mcg) Oral daily, Glucophage 1 Tablet (of 850 mg) Oral daily, Januvia 1 Tablet (of 25 mg) Oral daily, Lisinopril 1 Tablet (of 10 mg) Oral daily, Naprosyn 1 Tablet (of 500 mg) Oral b.i.d. PRN, Slow Release Iron 1 Tablet (of 47.5 mg) Tablet, controlled release Oral daily, traMADol HCl 1 Tablet (of 50 mg) Oral t.i.d. PRN, Tums Tablet, chewable Oral PRN, Zoloft 2 Tablet (of 100 mg) Oral daily Allergies: Amoxicillin and Cephalexin. Review of Systems: Review of Systems is not available for this patient. Vital Signs: Performed on May 16, 2020 08:16 Weight - 197.8 lbs (HIGH) BSA - sq.m BMI - 0.00 (LOW) Temperature - 97.2 F (LOW) Pulse - 105 /min (HIGH) Respiration - 18 /min BP - 112/57 mm(hg) O2 Sat - 96 % Pain - 0 Fatigue - 5 Performance Status: 0 - Fully active, able to carry on all predisease activities without restrictions. (ECOG) Physical Examination: ENMT - No mouth sores, no thrush, no jaundice, Respiratory - Lungs are clear to auscultation, Cardiovascular - Regular rate and rhythm of heart, Abdomen - , Bowel sounds present, Extremities - No visible edema. Lab/Imaging: Most recent lab results are not available for this patient. Impression: Grade 3 ovarian endometrioid carcinoma status post right resection of ovarian cancer, bilateral salpingo-oophorectomy, total abdominal hysterectomy, pelvic and para-aortic lymphadenectomy, omentectomy, multiple biopsies including right hemidiaphragm done on February 29, 2020 Final pathology report confirmed 10 cm sized tumor involving the right ovary, endometrioid adenocarcinoma, grade 3, intact, peritoneal fluid negative implants negative and 0 out of 10 lymph nodes showed metastatic disease e.g. pT1a limited to 1 ovary (capsule intact). p N 0, MX stage I Immunohistochemistry were positive for p16, p53, Ki-67, vimentin, pattern consistent with high-grade endometrial carcinoma History of diabetes mellitus, Gastric bypass surgery for morbid obesity in 2000 Anemia since 2018, status post 3 units of packed RBCs on February 29 2020 during bilateral oophorectomy/hysterectomy for right ovarian cancer Plan: Discussed with patient regarding her labs white blood count 7.1 hemoglobin 10.3 hematocrit 33.6 platelets 303,000 CMP within normal limits iron saturation 36.7% ferritin 267, folic acid 5.1, iron 82, TIBC 223 Clinically, patient doing well with no new signs symptom except chronic generalized weakness and fatigue, patient went to [facility], [employer] [employer] oncology, where she was evaluated by Dr. Post, who recommended 6 cycles of chemotherapy with carboplatin/Taxol, as per patient he did discuss with her about all the side effects, possible benefits associate with chemotherapy and she agreed and ready to proceed with adjuvant chemotherapy with carboplatin/Taxol. At this point, will consider carboplatin AUC 6 and Taxol 175 mg per metered squared every 3 weeks x 6, all the side effects, possible benefits including but not limited to nausea vomiting, bone marrow suppression, hair loss, peripheral neuropathy especially with Taxol, hyperglycemia especially with steroids, patient is diabetic. Were mentioned further teaching will done by chemotherapy nurse. We will obtain approval from her insurance prior to the treatment. We will also consider Port-A-Cath placement. Patient prefer Dr. Apodaca as she knows him well. We will refer her to him for Port-A-Cath placement in the meantime will obtain approval from her insurance. Also consider diabetic teaching especially regarding sliding scale She will return to clinic 1 week after chemotherapy is initiated with CBC and CMP. Signed By: Barbara Cheek M.D. <<Signature on File>>
[2020-05-17 01:15] LABS: Vitamin B12 > 2000 pg/mL (232-1245)
== END 2020-05-16 05:44 | disposition home or self-care (01) ==
LOC: ONCMED 05:47
PROVIDERS: PCP Nurse Practitioner Family; Visit Provider Internal Medicine Hematology & Oncology
DX: C56.1 Malignant neoplasm of right ovary (principal); E11.9 Type 2 diabetes mellitus without complications; E66.01 Morbid (severe) obesity due to excess calories; D50.9 Iron deficiency anemia, unspecified; D51.9 Vitamin B12 deficiency anemia, unspecified; R53.1 Weakness; R53.82 Chronic fatigue, unspecified; Z79.899 Other long term (current) drug therapy
CPT/HCPCS: 82607; 99215

== ENCOUNTER 2020-06-03 08:51 | Day surgery (SDC) | payer OTHER, SELFPAY ==
[2020-05-31 14:45] VITALS: BMI 31.1
--- NOTE | 2020-06-03 08:58 | SC_ITS ---
WS: [id number] C-arm fluoroscopy for port placement, 06/03/2020. Clinical Data: Powerport Placement Comparison: Portable chest, 05/06/2020 Findings: A right internal jugular venous catheter has been inserted. It ends in the superior vena cava. SC/C-arm FL for CVA [id number] Impression: Placement of right internal jugular venous catheter.
--- NOTE | 2020-06-03 09:08 | W.PM.OPSUD ---
Surgery/Procedure H&P Update DATE OF PROCEDURE: June 03, 2020 DATE H&P PERFORMED: 05/23/20 H&P UPDATE INFORMATION: I have reviewed H&P completed within last 30 days, I have examined patient prior to procedure and No changes to prior documentation PREOP DIAGNOSIS: Ovarian cancer PRIMARY INDICATION FOR PROCEDURE: The same PLANNED PROCEDURE: Operation Date: 06/03/20 10:20 Proposed Procedures p Portacath Placement 00292 c56.9(Not Applicable) - Brenden Apodaca MD
[2020-06-03 09:33] LABS: Glucose Point of Care 97 mg/dL (70-110)
[2020-06-03] MEDS: sodium chloride 0.9% 1,000 ML 30 ML IV (09:33)
[2020-06-03 09:34] VITALS: BP 121/59; PULSE 62; RESP 18; TEMP 36.7; O2SAT 94
--- NOTE | 2020-06-03 10:31 | ANES.PREANE2 ---
Pre-Anesthetic Assessment Pre-Anesthetic Assessment: Height/Weight: Height 1.7 m Weight 90.265 kg Temp Pulse Resp BP Pulse Ox 98.1 F 62 18 121/59 94 06/03/20 09:34 06/03/20 09:34 06/03/20 09:34 06/03/20 09:34 06/03/20 09:34 Preop Diagnosis: Ovarian cancer Proposed Procedure: Operation Date: 06/03/20 10:20 Proposed Procedures p Portacath Placement 24934 c56.9(Not Applicable) - Brenden Apodaca MD Familial anesthetic complications: None Was Beta Stephen taken within 24 hours: N/A Was Clonidine taken within 24 hours: N/A Last intake: Intake Last Liquid Date 06/02/20 Last Liquid Time 23:00 Last Solid Date 06/02/20 Last Solid Time 23:00 Social: Social History: No alcohol and No tobacco Exam: Pre-Anes Outpt Exam: alert, oriented x 3, clear to auscultation bilaterally and regular rate & rhythm Airway: Cervical ROM: WNL MP: 3 Dentition: False Additional comments: 4 remaining teeth, 1 has hole in it CV/HEM: CV/HEM: HTN Metabolic: Metabolic: DM, Morbid obesity and Thyroid Anesthetic Plan: ASA status: 3 Anesthesia: MAC Risk of > 500 ml blood loss (7ml/kg in children): No Meds/Allergies Current Medications: Current Medications Generic Name Dose Route Start Last Admin Trade Name Freq PRN Reason Stop Dose Admin Sodium Chloride 1,000 mls @ 30 ml s/hr 06/03/20 09:00 06/03/20 09:33 Sodium Chloride 0.9% IV 06/04/20 08:59 30 mls/hr .Q24H DELIA Administration PFSH Anesthesia PFSH: Medical History Major depressive disorder, recurrent, in full remission Family History Sister Clotting disorder Diabetes Thyroid condition Father Hyperlipidemia Hypertension Heart disease Mother Hyperlipidemia Hypertension Stroke Breast cancer mid 50's Family/Other Colon cancer paternal aunt Denies family history of Ovarian cancer Anesthesia complication Bleeding disorder Uterine cancer Social History Smoking and tobacco status: never smoked Alcohol intake: current Alcohol intake frequency: holidays/special occasions only Alcohol type: wine Data Anesthesia Other Labs: Laboratory Results - last 48 hr 06/03/20 09:28 POC Glucose 97 Cardiac Studies: No Data to Display
[2020-06-03] MEDS: clindamycin 600 MG/50 ML PREMIX 100 MG IV (11:33)
[2020-06-03] MEDS: heparin, porcine 1,000 unit/mL INJ 10 mL 6000 UNIT INJECTION (12:15)
--- NOTE | 2020-06-03 12:25 | SCC_ITS ---
Procedure Done: Transinternal jugular vein PowerPort placement under ultrasound and fluoroscopic guidance. All interpretation was done by me through the whole entire procedure 15.4 seconds of fluoroscopic guidance, for a cumulative dose of 3.54 mGy, was provided to Dr. Apodaca by the radiology department. C-arm images of the chest were saved for the patient's permanent record. BARBARA
[2020-06-03] MEDS: lidocaine 2% INJ 20 mL INJECTION (12:31)
--- NOTE | 2020-06-03 12:43 | P.OP_ITS ---
Operative Report Date of procedure: June 03, 2020 Pre-op Diagnosis: Ovarian cancer Procedure Done: Transinternal jugular vein PowerPort placement under ultrasound and fluoroscopic guidance. All interpretation was done by me through the whole entire procedure Implants: Right internal jugular vein PowerPort placement Surgeon: Brenden Apodaca Apartment Assistant Manager: Vincent Zarco Circulating nurse [place] Anesthesia: MAC (Rhea Lawrence) Estimated blood loss (mL): 10 Condition: stable Disposition: same day Brief History: This is a pleasant 60 years old female patient with history of ovarian cancer referred to my practice for PowerPort placement. Full H&P and informed consent per chart Procedure: U/S Guided IJ access Patient was identified in the holding area and taken to the operative room and placed in supine position IV propofol was given by the anesthesia provider ,both arms were tucked,Time-out was done verifying the patient's name/date of stephanie h/planned procedure and destination after the procedure, all were in agreement. SCDs confirmed to be functioning, preoperative antibiotics administered per protocol, and beta isis protocol was confirmed, appropriate positioning of the patient was done by me. Medications were reviewed to assess for anticoagulant usage. Risks and benefits and prevention of central line associated blood stream infection (CLABSI) were discussed with the patient/CPOA, and a consent was obtained. Monitors were in place and monitored throughout the procedure. All necessary supplies were available prior to start. Hand hygiene was completed prior to starting. Maximum barrier technique was utilized including a sterile gown, sterile gloves with a hat and mask. Site was was prepped with [chlorhexidine] and a full body drape was placed. 5 mL of 2% lidocaine was injected into the skin with a 25 gauge needle. Prep& drape was done under the usual sterile technique, lidocaine 2% was injected at the site of the stick, started by right subclavian vein and arterial blood was retrieved after 2 sticks and at that point I decided to deviate my attention to the right internal jugular vein Right internal Juglar vein stick that retrieved venous blood was obtained from the first stick under ultrasound guidance and there was no evidence of intraluminal thrombosis, interpretation was done by me through the whole entire procedure, a guidewire was then threaded and under the guidance of fluoroscopy position was confirmed to be in the IVC and my interpretation, there was some PVC changes,were gone after the wire was pulled out some,at that point the guidewire was secured to the drapes with a hemostat and the needle was taken out. Attention was then deviated towards creation of a pocket for the port were lidocaine 2% was injected using an 15 blade knife skin incision was created at the right upper Chest,dissection using the Bovie to create a pocket for the Port-A-Cath to be accommodated, hemostasis was secured, after the port being appropriately flushed it was inserted into the pocket and a tunneler was used to accommodate the catheter of the port cath to be delivered through the incision first created at the site of the stick. I was able to retrieve the catheter at the index site of the stick. At that point under fluoroscopy an estimated length was measured for the catheter and was cut at the designed level, followed by that a dilator with the sheath introduced onto the guidewire the dilator and the wire were retrieved and the catheter of the port was introduced via the sheath where it was peeled off and the catheter maintained to be in the SVC that was confirmed with fluoroscopy, and the fluoroscopy interpretation was done by me throughout the entire procedure. Multiple flushes of the port was done by heparin and I was able to retrieve without difficulty venous blood as well as appropriate flushing was achieved. The port was kept in its pocket, 3-0 Vicryl deep subdermal interrupted sutures, skin was then closed by 4-0 Monocryl as subcuticular closure. The stick site was closed by 4-0 Monocryl and Dermabond was used followed by dressing. Patient tolerated the procedure well was taken to the recovery area Count was correct at the end of the procedure I was present for the whole entire procedure
[2020-06-03 12:46] VITALS: BP 118/87; PULSE 95; RESP 20; TEMP 36.2; O2SAT 94
--- NOTE | 2020-06-03 12:47 | XRR_ITS ---
PROCEDURE INFORMATION: Exam: XR Chest Exam date and time: 06/03/2020 12:59 PM Age: 60 years old Clinical indication: Other vascular access device placement or adjustment; Port; Additional info: Status post right internal jugular vein powerport placed TECHNIQUE: Imaging protocol: XR of the chest Views: 1 view. COMPARISON: CR XR chest 1V portable [id number] 05/06/2020 10:25 AM FINDINGS: Tubes, catheters and devices: There is a right IJ catheter whose tip is in the superior vena cava. Lungs: Unremarkable. No consolidation. Pleural spaces: Unremarkable. No pleural effusion. No pneumothorax. Heart/Mediastinum: Unremarkable. No cardiomegaly. Bones/joints: Unremarkable. XR/XR chest 1V portable [id number] IMPRESSION: There is a right IJ catheter whose tip is in the superior vena cava.
[2020-06-03 12:50] VITALS: BP 104/58; PULSE 93; RESP 13; O2SAT 94
[2020-06-03 12:55] VITALS: BP 120/75; PULSE 90; RESP 16; TEMP 36.4; O2SAT 95
[2020-06-03 13:04] VITALS: BP 135/76; PULSE 99; RESP 18; TEMP 36.1; O2SAT 100
--- NOTE | 2020-06-03 17:49 | ANE.PACU2 ---
Inpatient post-anesthesia follow up: Airway intact: Yes Vital signs: Temperature 97 F Pulse Rate 99 Respiratory Rate 18 Blood Pressure 135/76 Pulse Oximetry 100 Oxygen Delivery Me thod Room Air Oxygen Flow Rate Fraction of Inspir ed Oxygen Hydration adequate: Yes Nausea and vomiting: No Pain level: 2 Mental status: Baseline
== END 2020-06-03 13:55 | disposition home or self-care (01) ==
PROVIDERS: PCP Nurse Practitioner Family; Visit Provider Surgery
PROC: (CPT 36561; principal; 2020-06-03 10:10)
DX: C56.9 Malignant neoplasm of unspecified ovary (principal); I10 Essential (primary) hypertension; E11.9 Type 2 diabetes mellitus without complications; E66.01 Morbid (severe) obesity due to excess calories; Z68.31 Body mass index [BMI] 31.0-31.9, adult; Z79.84 Long term (current) use of oral hypoglycemic drugs; F33.9 Major depressive disorder, recurrent, unspecified
CPT/HCPCS: 36561; 36416; 71045; 77001; 82962; 96365; C1788; J1644; J2704; J3010; J3490; J7030

== ENCOUNTER 2020-06-12 07:58 | Outpatient (CLI) | payer OTHER, SELFPAY ==
[2020-06-12 08:34] LABS: Basophils % 0.5 %; Eosinophils # 0.1 10^3/uL (0.0-0.8); Eosinophils % 1.5 %; Hematocrit 33.2 % (37.0-47.0); Hemoglobin 10.2 g/dL (11.5-15.3); Lymphocytes # 1.3 10^3/uL (0.8-4.8); Lymphocytes % 20.9 %; Mean Corpuscular HGB Conc 30.7 g/dL (30.0-36.0); Mean Corpuscular Hemoglobin 29.9 pg (28.0-34.0); Mean Corpuscular Volume 97.4 fL (81-99); Mean Platelet Volume 10.3 fL (7.4-10.4); Monocytes # 0.4 10^3/uL (0.2-0.9); Monocytes % 7.2 %; Neutrophils # 4.17 10^3/uL (1.8-7.7); Neutrophils % 69.6 %; Nucleated Red Blood Cells % 0 %; Platelet Count 217 10^3/cmm (130-400); Red Blood Count 3.41 10^6/uL (4.1-5.3); Red Cell Distribution Width 14.7 % (12.1-15.1)
[2020-06-12 09:14] LABS: Alanine Aminotransferase 14 U/L (0-33); Albumin Level 3.8 g/dL (3.5-5.2); Alkaline Phosphatase 107 IU/L (35-105); Anion Gap 12.5 (5-19); Aspartate Amino Transferase 17 U/L (0-32); Blood Urea Nitrogen 18 mg/dL (8-23); Carbon Dioxide 24 mmol/L (22-29); Chloride 104 mmol/L (98-107); Globulin 2.9 g/dL (1.3-4.6); Glomerular Filtration Rate 73.2 mL/min (90-130); Glucose 152 mg/dL (65-115); Osmolality Calculated 287 mOsm/kg (285-295); Potassium 4.5 mmol/L (3.5-5.1); Sodium 136 mmol/L (136-145); Total Bilirubin 0.2 mg/dL (0.15-1.2); Total Protein 6.7 g/dL (6.6-8.7)
== END 2020-06-12 07:59 | disposition home or self-care (01) ==
LOC: ONCMED 08:02
PROVIDERS: PCP Nurse Practitioner Family; Visit Provider Internal Medicine Medical Oncology
DX: C56.1 Malignant neoplasm of right ovary (principal)
CPT/HCPCS: 36591; 80053; 85025

== ENCOUNTER 2020-06-13 06:11 | Outpatient (CLI) | payer OTHER, SELFPAY ==
[2020-06-13] MEDS: famotidine 20 mg/2 mL INJ IVP (08:55)
[2020-06-13] MEDS: sodium chloride 0.9% 250 ML 75 ML IV (08:55)
[2020-06-13] MEDS: diphenhydrAMINE 50 mg/mL SDV 1mL 25 MG IV (08:56)
[2020-06-13] MEDS: palonosetron 0.25 mg/5 mL SDV IV (09:00)
[2020-06-13] MEDS: fosaprepitant 150 MG in sodium chloride 0.9% 150 ML 300 MG IV (09:18)
== END 2020-06-13 06:12 | disposition home or self-care (01) ==
LOC: ONCMED 06:13
PROVIDERS: PCP Nurse Practitioner Family; Visit Provider Internal Medicine Medical Oncology
DX: Z51.11 Encounter for antineoplastic chemotherapy (principal); C56.1 Malignant neoplasm of right ovary
CPT/HCPCS: 96367; 96375; 96413; 96415; 96417; J1100; J1200; J1453; J2469; J3490; J7030; J7040; J7050; J9045; J9267

== ENCOUNTER 2020-06-20 06:20 | Outpatient (CLI) | payer OTHER, SELFPAY ==
[2020-06-20 14:06] LABS: Basophils % 0.9 %; Eosinophils # 0.1 10^3/uL (0.0-0.8); Eosinophils % 1.8 %; Hematocrit 35.2 % (37.0-47.0); Hemoglobin 10.9 g/dL (11.5-15.3); Lymphocytes # 1.1 10^3/uL (0.8-4.8); Lymphocytes % 34.5 %; Mean Corpuscular Hemoglobin 29.1 pg (28.0-34.0); Mean Corpuscular Volume 94.1 fL (81-99); Monocytes # 0.1 10^3/uL (0.2-0.9); Monocytes % 2.7 %; Neutrophils # 1.96 10^3/uL (1.8-7.7); Neutrophils % 59.8 %; Nucleated Red Blood Cells % 0 %; Platelet Count 159 10^3/cmm (130-400); Red Blood Count 3.74 10^6/uL (4.1-5.3); Red Cell Distribution Width 13.9 % (12.1-15.1); White Blood Count 3.3 10^3/uL (4.0-10.0)
[2020-06-20 14:27] LABS: Alanine Aminotransferase 18 U/L (0-33); Albumin Level 3.7 g/dL (3.5-5.2); Alkaline Phosphatase 101 IU/L (35-105); Anion Gap 14.7 (5-19); Aspartate Amino Transferase 14 U/L (0-32); Blood Urea Nitrogen 20 mg/dL (8-23); Calcium 8.5 mg/dL (8.5-10.5); Carbon Dioxide 21 mmol/L (22-29); Chloride 102 mmol/L (98-107); Globulin 3.1 g/dL (1.3-4.6); Glomerular Filtration Rate 73.2 mL/min (90-130); Glucose 144 mg/dL (65-115); Osmolality Calculated 281 mOsm/kg (285-295); Potassium 4.7 mmol/L (3.5-5.1); Sodium 133 mmol/L (136-145); Total Bilirubin 0.2 mg/dL (0.15-1.2); Total Protein 6.8 g/dL (6.6-8.7)
[2020-06-20 15:33] LABS: Slide Review Slide Review Perform
[2020-06-20] MEDS: famotidine 20 mg/2 mL INJ IVP (16:00)
[2020-06-20] MEDS: ondansetron 2 mg/ML SDV 2 mL 8 MG IV (16:02)
[2020-06-20] MEDS: sodium chloride 0.9% 1,000 ML 999 ML IV (16:05)
--- NOTE | 2020-07-07 00:52 | ONC FU_ITS ---
[facility] Patient Note Patient: Alecia Meier I Unit #: [id number]: 1960 Dictated By: Kate ButtDate of Visit: Jun 20, 2020 Onc MED Follow-Up/Prog Note Chief Complaint: Ovarian endometrioid carcinoma History of Present Illness: Ms. Meier is a 60-year-old female with a history of progressive abdominal/pelvic pain. She was evaluated by Dr. Gutierrez BOTTLING ROOM WORKER and subsequently underwent abdominal ultrasoud which confirmed a large complex ovarian mass. Her tumor marker/CA-125 was checked on February 06, 2020 was elevated at 55.5. Further evaluation with CT scan of abdomen pelvis confirmed large cystic lesion with mural nodularity arising from pelvis- likely ovarian neoplasm. The size of the mass was 15.3 x 23 .8 x 22.1 cm. Small amount of free fluid in the pelvis. Cholelithiasis. Prior gastric bypass but no visible pelvic or inguinal lymphadenopathy. Ms Meier was referred to Dr. Mtz in [place]. On February 29, 2020 she underwent right resection of ovarian cancer, bilateral salpingo-oophorectomy, total abdominal hysterectomy, pelvic and para-aortic lymphadenectomy, omentectomy and multiple biopsies including right hemidiaphragm. The final pathology report came back showed a right ovarian tumor size about 10 cm, endometrioid adenocarcinoma, intact, grade 3 e.g. T1 a. 10 lymph nodes were examined showed no evidence of metastatic disease e.g. N0 stage I Immunohistochemistry was positive for p16, p53, Ki-67 and vimentin consistent with high-grade endometrioid carcinoma. Patient tolerated procedure well and based on high-grade e.g. grade 3 ovarian endometrioid carcinoma, as per patient she was recommended adjuvant chemotherapy with 6 cycles carboplatin/Taxol. Patient is a diabetic, also has history of morbid obesity for which she underwent gastric bypass in 1999, as per patient about 2 years ago she was diagnosed with persistent anemia and she did require 3 units of packed RBC during her recent bilateral oophorectomy/hysterectomy done on February 29, 2020. Ms Meier was referred to [facility] BOTTLING ROOM WORKER oncology for second opinion at her request and evaluation for clinical trial. She was seen by Dr. Luis Post on May 15, 2019. His recommendations were that he agreed with her original diagnosis and recommended her to proceed with 6 cycles of carboplatin/Taxol. As per patient on May 03, 2020 she was diagnosed with Covid infection and had some breathing difficulty so went to [facility]. She did receive monoclonal antibody treatment for the COVID-19 and tolerated it well. She underwent transinternal jugular vein entheses right internal jugular vein) power port placement per Dr. Apodaca on June 03, 2020. She began her first cycle of carboplatin paclitaxel on June 13, 2020. Mrs. Meier is here today for day 8 follow-up. She states she has had a rough week and that she has had some weakness fatigue and nausea. She is just washed out. She states her appetite is down. She denies any new pain. She denies any diarrhea. She is had no peripheral neuropathy symptoms at this point. She denies any fever or chills. She denies mouth sores, sore throat or difficulty swallowing. She states her breathing is about the same may be somewhat more difficult overall but is improved today. She states that the first couple days after treatment she felt good within spent the weekend in bed and has not felt well since. She states that she notices that she is more anxious and irritable than is normal for her. We discussed that this is related to the steroid premeds. She verbalized understanding. Her ECOG today is 2. Past Medical History: History of MRSA Hyperlipidemia Hypothyroidism Opoid dependence Osteoarthritis Type II diabetes Covid in 2020 Past Surgical History: COVID 19 2nd vaccine in 2020 Covid vaccine #1 in 2020 Hysterectomy/bilateral salpingectomy-oophorectomy in 2019 Colonoscopy in 2018 Gastric bypass in 1999 Allergies: Amoxicillin and Cephalexin. Medications: All Day Allergy 1 Tablet (of 10 mg) Oral daily Atorvastatin Calcium 1 Tablet (of 10 mg) Oral daily busPIRone HCl 1 Tablet (of 15 mg) Oral b.i.d. Euthyrox 1 Tablet (of 175 mcg) Oral daily Glucophage 1 Tablet (of 850 mg) Oral daily Januvia 1 Tablet (of 25 mg) Oral daily Lisinopril 1 Tablet (of 10 mg) Oral daily Naprosyn 1 Tablet (of 500 mg) Oral b.i.d. PRN Slow Release Iron 1 Tablet (of 47.5 mg) Tablet, controlled release Oral daily traMADol HCl 1 Tablet (of 50 mg) Oral t.i.d. PRN Tums Tablet, chewable Oral PRN Zoloft 2 Tablet (of 100 mg) Oral daily Family History: Ms. Meier's mother at age 76: breast cancer, and stroke, and uterine cancer. Ms. Meier's father at age 76: heart disease, and lung cancer. Social History: Ms. Meier is single. Ms. Meier has never smoked. She drinks occasionally. drinks 1-2 glasses of alcohol every 4-6months. Review Of Symptoms: Vital Signs: Performed on Jun 20, 2020 17:21 Height - 67.00 in Pulse - 77 /min Respiration - 18 /min O2 Sat - 99 % Performed on Jun 20, 2020 15:11 Height - 67.00 in Weight - 195.2 lbs (LOW) BSA - 2.00 sq.m BMI - 30.57 (HIGH) Temperature - 97.6 F (LOW) Pulse - 127 /min (HIGH) Respiration - 18 /min BP - 146/84 mm(hg) (HIGH) O2 Sat - 97 % Pain - 3,2 - Ambulatory/capable of all self-care, unable to perform any work activities. Up and about more than 50% of waking hours. (ECOG) Physical Examination: Constitutional Alert, oriented, no acute distress. Skin pink, warm and dry. Head Normocephalic; atraumatic. Eyes Conjunctivae and sclerae are clear and without icterus. Pupils are reactive and equal. ENMT No oral exudates, ulcers, masses, thrush or mucositis. Oropharynx clear. Tongue normal. Neck Supple without masses or thyromegaly. No jugular venous distension. Hematologic/Lymphatic No petechiae or purpura. No tender or palpable lymph nodes in the cervical or supraclavicular areas. Respiratory Lungs are clear to auscultation without rhonchi or wheezing. Cardiovascular Regular rate and rhythm of heart without murmurs,clicks, gallops or rubs. Chest Right venous access device insertion site has healed well. Abdomen Non-tender, non-distended, no masses or ascites. Good bowel sounds noted in all quads. No guarding or rebound tenderness. No pulsatile masses. Back/Spine Non-tender to palpation. Extremities No visible deformities, no cyanosis, clubbing or edema. Musculoskeletal No tenderness or swelling, normal range of motion without obvious weakness. Integumentary No rashes or lesions. Neurologic No sensory or motor deficits, normal cerebellar function, normal gait. Psychiatric Alert and oriented times three. Coherent speech. Verbalizes understanding of our discussions today. Laboratory:Test performed on July 04, 2020 10:19 Sodium 140 mmol/L Potassium 4.9 mmol/L Chloride 108 mmol/L CO2 24 mmol/L Anion Gap 12.9 BUN 23 mg/dL Creatinine 0.9 mg/dL Cr Clearance (Est) 94.1500 mL/min eGFR 63.9 mL/min Glucose 84 mg/dL Osmolality - Calculated 293 mOsm/kg Calcium 8.0 mg/dL Protein, Total 6.2 g/dL Albumin 3.7 g/dL Globulin 2.5 g/dL Bilirubin, Total 0.2 mg/dL ALT (SGPT) 16 U/L AST (SGOT) 17 U/L Alkaline Phosphatase 140 IU/L WBC 3.9 10 3/uL RBC 2.85 10 6/uL HGB 8.4 g/dL HCT 27.4 % MCV 96.1 fL MCH 29.5 pg MCHC 30.7 g/dL RDW 14.6 % Platelet Count 150 10 3/cmm MPV 9.9 fL Neutrophils 2.46 10 3/uL Lymphocytes 1.1 10 3/uL Monocytes 0.3 10 3/uL Eosinophils 0.0 10 3/uL Basophils 0.0 10 3/uL Neutrophil % 62.6 % Lymphocyte % 26.7 % Monocyte % 8.4 % Eosinophil % 0.5 % Basophils % 0.5 % NRBC % 0 % Test performed on Jun 20, 2020 13:45 CBC Slide Review Slide Review Perform SLIDE REVIEW AGREES WITH AUTOMATED RESULTS Impression: Grade 3 ovarian endometrioid carcinoma status post right resection of ovarian cancer, bilateral salpingo-oophorectomy, total abdominal hysterectomy, pelvic and para-aortic lymphadenectomy, omentectomy, multiple biopsies including right hemidiaphragm done on February 29, 2020 Final pathology report confirmed 10 cm sized tumor involving the right ovary, endometrioid adenocarcinoma, grade 3, intact, peritoneal fluid negative implants negative and 0 out of 10 lymph nodes showed metastatic disease e.g. pT1a limited to 1 ovary (capsule intact). p N 0, MX stage I Immunohistochemistry were positive for p16, p53, Ki-67, vimentin, pattern consistent with high-grade endometrial carcinoma History of diabetes mellitus, Gastric bypass surgery for morbid obesity in 2000 Anemia since 2018, status post 3 units of packed RBCs on February 29 2020 during bilateral oophorectomy/hysterectomy for right ovarian cancer Plan: PROBLEMS ADDRESSED TODAY 1. Grade 3 ovarian endometrioid carcinoma status post right resection of ovarian cancer, bilateral salpingo-oophorectomy, total abdominal hysterectomy, pelvic and para-aortic lymphadenectomy, omentectomy, multiple biopsies including right hemidiaphragm done on February 29, 2020 Final pathology report confirmed 10 cm sized tumor involving the right ovary, endometrioid adenocarcinoma, grade 3, intact, peritoneal fluid negative implants negative and 0 out of 10 lymph nodes showed metastatic disease e.g. pT1a limited to 1 ovary (capsule intact). p N 0, MX stage I Immunohistochemistry were positive for p16, p53, Ki-67, vimentin, pattern consistent with high-grade endometrial carcinoma. She began her first cycle of chemotherapy with carboplatin paclitaxel on June 13, 2020. A. Today's labs reviewed in detail and discussed with Ms. Meier and a copy was given to her. WBC 3.3, hemoglobin 10.9, platelets 1 59,000, ANC is 1960. Random glucose 144 creatinine 0.8 LFTs are normal. Weight is 195.2 which is down 2 pounds from May 16, 2020. B. She has had nausea, fatigue and dehydration over the last week. She received supportive care with hydration and antiemetics today. C. We will plan to see her back in 1 week with CBC CMP for follow-up given that she has felt so washed out with cycle 1. D. She may repeat hydration daily if needed and antiemetics if warranted. E. Mrs. Meier is encouraged to contact us in the interim should questions or problems arise. F. Total time spent with this patient's care today including review of records prior to her visit; discussion of treatment plan, side effect identification and management as well as answering multiple questions and discussion and post visit documentation was 60 minutes. Signed By: Kate Butt-, [facility] Barbara Cheek MD <<Signature on File>>
== END 2020-06-20 06:21 | disposition home or self-care (01) ==
LOC: ONCMED 06:21
PROVIDERS: PCP Nurse Practitioner Family; Visit Provider Nurse Practitioner
DX: C56.1 Malignant neoplasm of right ovary (principal); E78.5 Hyperlipidemia, unspecified; E03.9 Hypothyroidism, unspecified; E11.9 Type 2 diabetes mellitus without complications; Z79.899 Other long term (current) drug therapy
CPT/HCPCS: 80053; 85025; 96361; 96365; 96375; 99215; J1100; J2405; J3490; J7030

== ENCOUNTER 2020-06-21 09:01 | Outpatient (CLI) | payer OTHER, SELFPAY ==
[2020-06-21] MEDS: famotidine 20 mg/2 mL INJ IVP (09:38)
[2020-06-21] MEDS: ondansetron 2 mg/ML SDV 2 mL 8 MG IV (09:40)
[2020-06-21] MEDS: sodium chloride 0.9% 1,000 ML 999 ML IV (09:57)
== END 2020-06-21 09:02 | disposition home or self-care (01) ==
PROVIDERS: PCP Nurse Practitioner Family; Visit Provider Nurse Practitioner
DX: C56.1 Malignant neoplasm of right ovary (principal); Z79.899 Other long term (current) drug therapy
CPT/HCPCS: 96361; 96365; 96375; J1100; J2405; J3490; J7030

== ENCOUNTER 2020-06-26 07:03 | Outpatient (CLI) | payer OTHER, SELFPAY ==
[2020-06-26 13:07] LABS: Basophils % 0.4 %; Eosinophils # 0.1 10^3/uL (0.0-0.8); Eosinophils % 2.1 %; Hematocrit 30.3 % (37.0-47.0); Hemoglobin 9.6 g/dL (11.5-15.3); Lymphocytes # 1.5 10^3/uL (0.8-4.8); Lymphocytes % 61.4 %; Mean Corpuscular HGB Conc 31.7 g/dL (30.0-36.0); Mean Corpuscular Hemoglobin 29.7 pg (28.0-34.0); Mean Corpuscular Volume 93.8 fL (81-99); Mean Platelet Volume 10.8 fL (7.4-10.4); Monocytes # 0.3 10^3/uL (0.2-0.9); Monocytes % 12.7 %; Nucleated Red Blood Cells % 0 %; Platelet Count 72 10^3/cmm (130-400); Red Blood Count 3.23 10^6/uL (4.1-5.3); Red Cell Distribution Width 13.7 % (12.1-15.1); White Blood Count 2.4 10^3/uL (4.0-10.0)
[2020-06-26 13:11] LABS: Neutrophils # 0.54 10^3/uL (1.8-7.7)
[2020-06-26 13:28] LABS: Alanine Aminotransferase 15 U/L (0-33); Albumin Level 3.6 g/dL (3.5-5.2); Alkaline Phosphatase 113 IU/L (35-105); Anion Gap 13.6 (5-19); Aspartate Amino Transferase 14 U/L (0-32); Blood Urea Nitrogen 16 mg/dL (8-23); Calcium 8.2 mg/dL (8.5-10.5); Carbon Dioxide 22 mmol/L (22-29); Chloride 105 mmol/L (98-107); Globulin 2.5 g/dL (1.3-4.6); Glomerular Filtration Rate 73.2 mL/min (90-130); Glucose 96 mg/dL (65-115); Osmolality Calculated 283 mOsm/kg (285-295); Potassium 4.6 mmol/L (3.5-5.1); Sodium 136 mmol/L (136-145); Total Bilirubin 0.2 mg/dL (0.15-1.2); Total Protein 6.1 g/dL (6.6-8.7)
--- NOTE | 2020-07-09 10:58 | ONC FU_ITS ---
[facility] Patient Note Patient: Alecia Meier I Unit #: [id number]: 1960 Dictated By: Kate ButtDate of Visit: Jun 26, 2020 Onc MED Follow-Up/Prog Note Chief Complaint: Ovarian endometrioid carcinoma History of Present Illness: Ms. Meier is a 60-year-old female with a history of progressive abdominal/pelvic pain. She was evaluated by Dr. Gutierrez DESIGN PROJECT MANAGER and subsequently underwent abdominal ultrasoud which confirmed a large complex ovarian mass. Her tumor marker/CA-125 was checked on February 06, 2020 was elevated at 55.5. Further evaluation with CT scan of abdomen pelvis confirmed large cystic lesion with mural nodularity arising from pelvis- likely ovarian neoplasm. The size of the mass was 15.3 x 23 .8 x 22.1 cm. Small amount of free fluid in the pelvis. Cholelithiasis. Prior gastric bypass but no visible pelvic or inguinal lymphadenopathy. Ms Meier was referred to Dr. Mtz in [place]. On February 29, 2020 she underwent right resection of ovarian cancer, bilateral salpingo-oophorectomy, total abdominal hysterectomy, pelvic and para-aortic lymphadenectomy, omentectomy and multiple biopsies including right hemidiaphragm. The final pathology report came back showed a right ovarian tumor size about 10 cm, endometrioid adenocarcinoma, intact, grade 3 e.g. T1 a. 10 lymph nodes were examined showed no evidence of metastatic disease e.g. N0 stage I Immunohistochemistry was positive for p16, p53, Ki-67 and vimentin consistent with high-grade endometrioid carcinoma. Patient tolerated procedure well and based on high-grade e.g. grade 3 ovarian endometrioid carcinoma, as per patient she was recommended adjuvant chemotherapy with 6 cycles carboplatin/Taxol. Ms Meier is a diabetic, also has history of morbid obesity for which she underwent gastric bypass in 1999, as per patient about 2 years ago she was diagnosed with persistent anemia and she did require 3 units of packed RBC during her recent bilateral oophorectomy/hysterectomy done on February 29, 2020. Ms Meier was referred to [facility] DESIGN PROJECT MANAGER oncology for second opinion at her request and evaluation for clinical trial. She was seen by Dr. Luis Post on May 15, 2019. His recommendations were that he agreed with her original diagnosis and recommended her to proceed with 6 cycles of carboplatin/Taxol. As per patient on May 03, 2020 she was diagnosed with Covid infection and had some breathing difficulty so went to [facility]. She did receive monoclonal antibody treatment for the COVID-19 and tolerated it well. She underwent transinternal jugular vein entheses right internal jugular vein) power port placement per Dr. Apodaca on June 03, 2020. She began her first cycle of carboplatin paclitaxel on June 13, 2020. Mrs. Meier is here today for day 14 follow-up of cycle 1 Carboplatin/paclitaxel. She was seen last week for day 8 follow-up and had required supportive care due to dehydration. She states she is feeling much better today. She is eating better. She states she is still fatigued. She denies any fever or chills. She has had no complaints of night sweats or hot flashes. She states she is had some intermittent nausea that is well controlled with her antiemetics at home. She denies any diarrhea. She denies any constipation. She has had some performance status decline since her treatment but still trying to work at [id number] where she has been employed for quite some time. She denies any bruising or bleeding. She denies any hemoptysis. She states her breathing is about the same for her. She denies any peripheral neuropathy at this time. Her ECOG is 2. Past Medical History: History of MRSA Hyperlipidemia Hypothyroidism Opoid dependence Osteoarthritis Type II diabetes Covid in 2020 Past Surgical History: COVID 19 2nd vaccine in 2020 Right internal jugular vein PowerPort placement???Dr. Apodaca in 2020 Covid vaccine #1 in 2020 Hysterectomy/bilateral salpingectomy-oophorectomy in 2019 Colonoscopy in 2018 Gastric bypass in 1999 Allergies: Amoxicillin and Cephalexin. Medications: All Day Allergy 1 Tablet (of 10 mg) Oral daily Atorvastatin Calcium 1 Tablet (of 10 mg) Oral daily busPIRone HCl 1 Tablet (of 15 mg) Oral b.i.d. Euthyrox 1 Tablet (of 175 mcg) Oral daily Glucophage 1 Tablet (of 850 mg) Oral daily Januvia 1 Tablet (of 25 mg) Oral daily Lisinopril 1 Tablet (of 10 mg) Oral daily Naprosyn 1 Tablet (of 500 mg) Oral b.i.d. PRN Slow Release Iron 1 Tablet (of 47.5 mg) Tablet, controlled release Oral daily traMADol HCl 1 Tablet (of 50 mg) Oral t.i.d. PRN Tums Tablet, chewable Oral PRN Zoloft 2 Tablet (of 100 mg) Oral daily Family History: Ms. Meier's mother at age 76: breast cancer, and stroke, and uterine cancer. Ms. Meier's father at age 76: heart disease, and lung cancer. Social History: Ms. Meier is single. Ms. Meier has never smoked. She drinks occasionally. drinks 1-2 glasses of alcohol every 4-6months. Review Of Symptoms: <See Above> Vital Signs: Performed on Jun 26, 2020 14:07 Height - 67.00 in Weight - 205.2 lbs (HIGH) BSA - 2.04 sq.m BMI - 32.14 (HIGH) Temperature - 97.0 F (LOW) Pulse - 72 /min Respiration - 18 /min BP - 130/73 mm(hg) O2 Sat - 96 % Pain - 0,1 - No physically strenuous activity, but ambulatory and able to carry out light or sedentary work (e.g. office work, light house work). (ECOG) Physical Examination: Constitutional Alert, oriented, no acute distress. Skin pink, warm and dry. Head Normocephalic; atraumatic. Eyes Conjunctivae and sclerae are clear and without icterus. Pupils are reactive and equal. Neck Supple without masses or thyromegaly. No jugular venous distension. Hematologic/Lymphatic No petechiae or purpura. No tender or palpable lymph nodes in the cervical or supraclavicular areas. Respiratory Lungs are clear to auscultation without rhonchi or wheezing. Cardiovascular Regular rate and rhythm of heart without murmurs,clicks, gallops or rubs. Chest Right venous access device insertion site has healed well. Abdomen Non-tender, non-distended, no masses or ascites. Good bowel sounds noted in all quads. No guarding or rebound tenderness. No pulsatile masses. Back/Spine Non-tender to palpation. Extremities No visible deformities, no cyanosis, clubbing or edema. Musculoskeletal No tenderness or swelling, normal range of motion without obvious weakness. Integumentary No rashes or lesions. Neurologic No sensory or motor deficits, normal cerebellar function, normal gait. Psychiatric Alert and oriented times three. Coherent speech. Verbalizes understanding of our discussions today. Laboratory:see flow sheet and below Impression: Grade 3 ovarian endometrioid carcinoma status post right resection of ovarian cancer, bilateral salpingo-oophorectomy, total abdominal hysterectomy, pelvic and para-aortic lymphadenectomy, omentectomy, multiple biopsies including right hemidiaphragm done on February 29, 2020 Final pathology report confirmed 10 cm sized tumor involving the right ovary, endometrioid adenocarcinoma, grade 3, intact, peritoneal fluid negative implants negative and 0 out of 10 lymph nodes showed metastatic disease e.g. pT1a limited to 1 ovary (capsule intact). p N 0, MX stage I Immunohistochemistry were positive for p16, p53, Ki-67, vimentin, pattern consistent with high-grade endometrial carcinoma History of diabetes mellitus, Gastric bypass surgery for morbid obesity in 2000 Anemia since 2018, status post 3 units of packed RBCs on February 29 2020 during bilateral oophorectomy/hysterectomy for right ovarian cancer Plan/Problems Addressed at this Visit: 1. Grade 3 ovarian endometrioid carcinoma status post right resection of ovarian cancer, bilateral salpingo-oophorectomy, total abdominal hysterectomy, pelvic and para-aortic lymphadenectomy, omentectomy, multiple biopsies including right hemidiaphragm done on February 29, 2020 Final pathology report confirmed 10 cm sized tumor involving the right ovary, endometrioid adenocarcinoma, grade 3, intact, peritoneal fluid negative implants negative and 0 out of 10 lymph nodes showed metastatic disease e.g. pT1a limited to 1 ovary (capsule intact). p N 0, MX stage I Immunohistochemistry were positive for p16, p53, Ki-67, vimentin, pattern consistent with high-grade endometrial carcinoma. She began her first cycle of chemotherapy with carboplatin paclitaxel on June 13, 2020. A. Today's labs reviewed in detail and discussed with Ms. Meier and a copy was given to her. WBC 2.4, hemoglobin 9.6, platelets 72,000, ANC is 540. Potassium 4.6 creatinine 0.8 random glucose is 96 LFTs are normal. Her weight is 205 today. B. She has had nausea, fatigue and dehydration for the first week after cycle 1. She received supportive care with hydration and antiemetics. She states she is feeling better overall today. C. She will start Zithromax for neutropenia as she has allergies to amoxicillin and cephalexin. She states she has been able to take Zithromax in the past with no problems. She has had problems with other antibiotics and that they upset her stomach. She is unsure about Levaquin but states she knows she can take Zithromax. D. I requested a PA for Neupogen 480 mcg for 3 days for chemo induced neutropenia with an ANC on day 14 of 540. E. I have also requested a PA for Neulasta on pro with cycle 2 for chemo induced neutropenia with an ANC of cycle 1 day 14 of 540. Her ANC prior to cycle 1 was 4170. F. We will plan to see her back in 1 week with CBC CMP for follow-up. She kenton be due for cycle 2 day 1 at that time. D. She may repeat hydration daily if needed and antiemetics if warranted. E. Mrs. Meier is encouraged to contact us in the interim should questions or problems arise. F. We did discuss potential side effects of growth factor support including bone pain, low-grade fever, nausea, fatigue, malaise and she was encouraged to try Claritin daily. She takes this routinely already for seasonal allergies. G. Ms. Meier was instructed to contact us in interim should she have any signs or symptoms of infection, any temperature greater than 100.4 or any concerns. Total time spent with this patient's care today including review of records prior to her visit; discussion of treatment plan, side effect identification and management/neutropenic precaution education as well as answering multiple questions and discussion and post visit documentation was 50 minutes. Signed By: Kate Butt-SAMANTHA, CLARY Cheek MD <<Signature on File>>
== END 2020-06-26 07:04 | disposition home or self-care (01) ==
LOC: ONCMED 07:06
PROVIDERS: PCP Nurse Practitioner Family; Visit Provider Nurse Practitioner
DX: C56.1 Malignant neoplasm of right ovary (principal); D50.9 Iron deficiency anemia, unspecified; E78.5 Hyperlipidemia, unspecified; E03.9 Hypothyroidism, unspecified; F11.20 Opioid dependence, uncomplicated; E11.9 Type 2 diabetes mellitus without complications; Z86.16 Personal history of COVID-19; Z79.899 Other long term (current) drug therapy
CPT/HCPCS: 36415; 36591; 80053; 85025; 99215

== ENCOUNTER 2020-06-27 07:58 | Outpatient (CLI) | payer OTHER, SELFPAY | END 2020-06-27 07:59 | disposition home or self-care (01) | PROVIDERS: PCP Nurse Practitioner Family; Visit Provider Nurse Practitioner | DX: C56.1 Malignant neoplasm of right ovary (principal) | CPT/HCPCS: 96372; Q5101 ==

== ENCOUNTER 2020-06-28 06:10 | Outpatient (CLI) | payer OTHER, SELFPAY ==
[2020-06-28 08:56] LABS: Basophils # 0.1 10^3/uL (0.0-0.1); Basophils % 0.7 %; Eosinophils % 0.1 %; Hematocrit 28.3 % (37.0-47.0); Hemoglobin 8.9 g/dL (11.5-15.3); Lymphocytes # 0.6 10^3/uL (0.8-4.8); Lymphocytes % 7.9 %; Mean Corpuscular HGB Conc 31.4 g/dL (30.0-36.0); Mean Corpuscular Hemoglobin 30.3 pg (28.0-34.0); Mean Corpuscular Volume 96.3 fL (81-99); Mean Platelet Volume 10.1 fL (7.4-10.4); Monocytes # 0.6 10^3/uL (0.2-0.9); Monocytes % 7.3 %; Neutrophils # 6.63 10^3/uL (1.8-7.7); Neutrophils % 82.1 %; Nucleated Red Blood Cells % 0 %; Platelet Count 52 10^3/cmm (130-400); Red Blood Count 2.94 10^6/uL (4.1-5.3); Red Cell Distribution Width 14.1 % (12.1-15.1); White Blood Count 8.1 10^3/uL (4.0-10.0)
[2020-06-28 09:34] LABS: Slide Review Slide Review Perform
== END 2020-06-28 06:11 | disposition home or self-care (01) ==
LOC: ONCMED 06:11
PROVIDERS: PCP Nurse Practitioner Family; Visit Provider Internal Medicine Hematology & Oncology
DX: C56.1 Malignant neoplasm of right ovary (principal)
CPT/HCPCS: 36591; 85025; 96372; Q5101

== ENCOUNTER 2020-07-25 05:33 | Outpatient (RCR) | payer OTHER, SELFPAY ==
[2020-07-04 10:39] LABS: Basophils % 0.5 %; Eosinophils % 0.5 %; Hematocrit 27.4 % (37.0-47.0); Hemoglobin 8.4 g/dL (11.5-15.3); Lymphocytes # 1.1 10^3/uL (0.8-4.8); Lymphocytes % 26.7 %; Mean Corpuscular HGB Conc 30.7 g/dL (30.0-36.0); Mean Corpuscular Hemoglobin 29.5 pg (28.0-34.0); Mean Corpuscular Volume 96.1 fL (81-99); Mean Platelet Volume 9.9 fL (7.4-10.4); Monocytes # 0.3 10^3/uL (0.2-0.9); Monocytes % 8.4 %; Neutrophils # 2.46 10^3/uL (1.8-7.7); Neutrophils % 62.6 %; Nucleated Red Blood Cells % 0 %; Platelet Count 150 10^3/cmm (130-400); Red Blood Count 2.85 10^6/uL (4.1-5.3); Red Cell Distribution Width 14.6 % (12.1-15.1); White Blood Count 3.9 10^3/uL (4.0-10.0)
[2020-07-04 11:01] LABS: Alanine Aminotransferase 16 U/L (0-33); Albumin Level 3.7 g/dL (3.5-5.2); Alkaline Phosphatase 140 IU/L (35-105); Anion Gap 12.9 (5-19); Aspartate Amino Transferase 17 U/L (0-32); Blood Urea Nitrogen 23 mg/dL (8-23); Carbon Dioxide 24 mmol/L (22-29); Chloride 108 mmol/L (98-107); Globulin 2.5 g/dL (1.3-4.6); Glomerular Filtration Rate 63.9 mL/min (90-130); Glucose 84 mg/dL (65-115); Osmolality Calculated 293 mOsm/kg (285-295); Potassium 4.9 mmol/L (3.5-5.1); Sodium 140 mmol/L (136-145); Total Bilirubin 0.2 mg/dL (0.15-1.2); Total Protein 6.2 g/dL (6.6-8.7)
[2020-07-04] MEDS: sodium chloride 0.9% 250 ML 75 ML IV (12:40)
[2020-07-04] MEDS: palonosetron 0.25 mg/5 mL SDV IV (12:43)
[2020-07-04] MEDS: famotidine 20 mg/2 mL INJ IVP (12:45)
[2020-07-04] MEDS: diphenhydrAMINE 50 mg/mL SDV 1mL 25 MG IV (12:46)
[2020-07-04] MEDS: dexamethasone 20 MG in sodium chloride 0.9% 50 ML 187 MG IV (12:48)
[2020-07-04 13:23] LABS: Ferritin 316 ng/mL (15-150); Iron 61 ug/dL (37-145); Percent Saturation 21.3 % (20-50); Total Iron Binding Capacity 286 mcg/dl; Unsaturated Iron Binding 225 ug/dL (112-347)
[2020-07-04 13:39] LABS: Folate Level 5.2 ng/mL (4.8-37.3)
[2020-07-04 14:28] LABS: Vitamin B12 > 2000 pg/mL (232-1245)
[2020-07-04] MEDS: pegfilgrastim 6 mg/0.6 mL Kit (onpro) SUBCUT (17:35)
[2020-07-04] MEDS: sodium chloride 0.9% (100 ml) 100 ML 75 ML (17:42)
--- NOTE | 2020-07-09 11:10 | ONC FU_ITS ---
[facility] Patient Note Patient: Alecia Meier I Unit #: [id number]: 1960 Dictated By: Kate ButtDate of Visit: July 04, 2020 Onc MED Follow-Up/Prog Note Chief Complaint: Ovarian endometrioid carcinoma History of Present Illness: Ms. Meier is a 60-year-old female with a history of progressive abdominal/pelvic pain. She was evaluated by Dr. Gutierrez DIGITAL COORDINATOR and subsequently underwent abdominal ultrasoud which confirmed a large complex ovarian mass. Her tumor marker/CA-125 was checked on February 06, 2020 was elevated at 55.5. Further evaluation with CT scan of abdomen pelvis confirmed large cystic lesion with mural nodularity arising from pelvis- likely ovarian neoplasm. The size of the mass was 15.3 x 23 .8 x 22.1 cm. Small amount of free fluid in the pelvis. Cholelithiasis. Prior gastric bypass but no visible pelvic or inguinal lymphadenopathy. Ms Meier was referred to Dr. Mtz in [place]. On February 29, 2020 she underwent right resection of ovarian cancer, bilateral salpingo-oophorectomy, total abdominal hysterectomy, pelvic and para-aortic lymphadenectomy, omentectomy and multiple biopsies including right hemidiaphragm. The final pathology report came back showed a right ovarian tumor size about 10 cm, endometrioid adenocarcinoma, intact, grade 3 e.g. T1 a. 10 lymph nodes were examined showed no evidence of metastatic disease e.g. N0 stage I Immunohistochemistry was positive for p16, p53, Ki-67 and vimentin consistent with high-grade endometrioid carcinoma. Patient tolerated procedure well and based on high-grade e.g. grade 3 ovarian endometrioid carcinoma, as per patient she was recommended adjuvant chemotherapy with 6 cycles carboplatin/Taxol. Patient is a diabetic, also has history of morbid obesity for which she underwent gastric bypass in 1999, as per patient about 2 years ago she was diagnosed with persistent anemia and she did require 3 units of packed RBC during her recent bilateral oophorectomy/hysterectomy done on February 29, 2020. Ms Meier was referred to [facility] DIGITAL COORDINATOR oncology for second opinion at her request and evaluation for clinical trial. She was seen by Dr. Luis Post on May 15, 2019. His recommendations were that he agreed with her original diagnosis and recommended her to proceed with 6 cycles of carboplatin/Taxol. As per patient on May 03, 2020 she was diagnosed with Covid infection and had some breathing difficulty so went to [facility] She did receive monoclonal antibody treatment for the COVID-19 and tolerated it well. She underwent transinternal jugular vein entheses right internal jugular vein) power port placement per Dr. Apodaca on June 03, 2020. She began her first cycle of carboplatin paclitaxel on June 13, 2020. Ms. Meier is here today for follow-up. She is due for cycle 2-day 1 carboplatin paclitaxel. She did have dehydration and declined performance status with cycle 1. She required intermittent hydration with her last hydration and supportive care with antiemetics on June 21, 2020. She did have chemo induced neutropenia on day 14 with ANC of 540. She required Neupogen 40 for 3 doses. She is here today for reassessment. She states overall she feels pretty good. She did have some bone pain with the Neupogen. She has had hydrocodone in the past for pain and states this works well for her. She very rarely uses it states her last prescription was like in December . She states she has been working. She is tolerating this well though she does have fatigue but recovers well with rest. Her appetite is good. Her energy overall is fair. She is able to do all her ADLs at home without any assistance. She denies any mouth sores, sore throat or difficulty swallowing. She denies any fever or chills. She is had no signs or symptoms of infection even with the neutropenia. She denies hemoptysis or cough. She denies any orthopnea. Has had no chest pain or palpitations. She denies any bowel or bladder issues. She has had some intermittent neuropathy symptoms but those have completely resolved. She states that that was pre-existing and does not feel that it is any worse than what it has been. She has not had any hot flashes or night sweats. She states she has occasional nausea but that is well controlled with antiemetics if she even takes them. She states sometimes it is goes away on its own if she tries to eat something. She has no new concerns today. Her ECOG is 1 today. Past Medical History: History of MRSA Hyperlipidemia Hypothyroidism Opoid dependence Osteoarthritis Type II diabetes Covid in 2020 Past Surgical History: COVID 19 2nd vaccine in 2020 Right internal jugular vein PowerPort placement???Dr. Apodaca in 2020 Covid vaccine #1 in 2020 Hysterectomy/bilateral salpingectomy-oophorectomy in 2019 Colonoscopy in 2018 Gastric bypass in 1999 Allergies: Amoxicillin and Cephalexin. Medications: All Day Allergy 1 Tablet (of 10 mg) Oral daily Atorvastatin Calcium 1 Tablet (of 10 mg) Oral daily busPIRone HCl 1 Tablet (of 15 mg) Oral b.i.d. Euthyrox 1 Tablet (of 175 mcg) Oral daily Glucophage 1 Tablet (of 850 mg) Oral daily Januvia 1 Tablet (of 25 mg) Oral daily Lisinopril 1 Tablet (of 10 mg) Oral daily Naprosyn 1 Tablet (of 500 mg) Oral b.i.d. PRN Slow Release Iron 1 Tablet (of 47.5 mg) Tablet, controlled release Oral daily traMADol HCl 1 Tablet (of 50 mg) Oral t.i.d. PRN Tums Tablet, chewable Oral PRN Zoloft 2 Tablet (of 100 mg) Oral daily Family History: Ms. Meier's mother at age 76: breast cancer, and stroke, and uterine cancer. Ms. Meier's father at age 76: heart disease, and lung cancer. Social History: Ms. Meier is single. Ms. Meier has never smoked. She drinks occasionally. drinks 1-2 glasses of alcohol every 4-6months. Review Of Symptoms: <See Above> Vital Signs: Performed on July 04, 2020 17:48 Height - 67.00 in Temperature - 97.2 F (LOW) Pulse - 80 /min Respiration - 18 /min BP - 124/76 mm(hg) O2 Sat - 97 % Performed on July 04, 2020 11:47 Height - 67.00 in Weight - 208.6 lbs (HIGH) BSA - 2.06 sq.m BMI - 32.67 (HIGH) Temperature - 97.1 F (LOW) Pulse - 88 /min Respiration - 18 /min BP - 132/76 mm(hg) O2 Sat - 96 % Pain - 2 Fatigue - 5,1 - No physically strenuous activity, but ambulatory and able to carry out light or sedentary work (e.g. office work, light house work). (ECOG) Physical Examination: Constitutional Alert, oriented, no acute distress. Skin pink, warm and dry. Head Normocephalic; atraumatic. Eyes Conjunctivae and sclerae are clear and without icterus. Pupils are reactive and equal. ENMT No oral exudates, ulcers, masses, thrush or mucositis. Oropharynx clear. Tongue normal. Neck Supple without masses or thyromegaly. No jugular venous distension. Hematologic/Lymphatic No petechiae or purpura. No tender or palpable lymph nodes in the cervical or supraclavicular areas. Respiratory Lungs are clear to auscultation without rhonchi or wheezing. Cardiovascular Regular rate and rhythm of heart without murmurs,clicks, gallops or rubs. Chest Right venous access device insertion site has healed well. Abdomen Non-tender, non-distended, no masses or ascites. Good bowel sounds noted in all quads. No guarding or rebound tenderness. No pulsatile masses. Back/Spine Non-tender to palpation. Extremities No visible deformities, no cyanosis, clubbing or edema. Musculoskeletal No tenderness or swelling, normal range of motion without obvious weakness. Integumentary No rashes or lesions. Neurologic No sensory or motor deficits, normal cerebellar function, normal gait. Psychiatric Alert and oriented times three. Coherent speech. Verbalizes understanding of our discussions today. Laboratory:Test performed on July 04, 2020 12:30 Ferritin 316 ng/mL Folate, Serum 5.2 ng/mL Iron 61 mcg/dL Vitamin B12 > 2000 pg/mL Iron Binding Capacity (TIBC) 286 mcg/dl % Iron Saturation 21.3 % UIBC 225 mcg/dL Test performed on July 04, 2020 10:19 Sodium 140 mmol/L Potassium 4.9 mmol/L Chloride 108 mmol/L CO2 24 mmol/L Anion Gap 12.9 BUN 23 mg/dL Creatinine 0.9 mg/dL Cr Clearance (Est) 94.1500 mL/min eGFR 63.9 mL/min Glucose 84 mg/dL Osmolality - Calculated 293 mOsm/kg Calcium 8.0 mg/dL Protein, Total 6.2 g/dL Albumin 3.7 g/dL Globulin 2.5 g/dL Bilirubin, Total 0.2 mg/dL ALT (SGPT) 16 U/L AST (SGOT) 17 U/L Alkaline Phosphatase 140 IU/L WBC 3.9 10 3/uL RBC 2.85 10 6/uL HGB 8.4 g/dL HCT 27.4 % MCV 96.1 fL MCH 29.5 pg MCHC 30.7 g/dL RDW 14.6 % Platelet Count 150 10 3/cmm MPV 9.9 fL Neutrophils 2.46 10 3/uL Lymphocytes 1.1 10 3/uL Monocytes 0.3 10 3/uL Eosinophils 0.0 10 3/uL Basophils 0.0 10 3/uL Neutrophil % 62.6 % Lymphocyte % 26.7 % Monocyte % 8.4 % Eosinophil % 0.5 % Basophils % 0.5 % NRBC % 0 % Test performed on Jun 20, 2020 13:45 CBC Slide Review Slide Review Perform SLIDE REVIEW AGREES WITH AUTOMATED RESULTS Impression: Grade 3 ovarian endometrioid carcinoma status post right resection of ovarian cancer, bilateral salpingo-oophorectomy, total abdominal hysterectomy, pelvic and para-aortic lymphadenectomy, omentectomy, multiple biopsies including right hemidiaphragm done on February 29, 2020 Final pathology report confirmed 10 cm sized tumor involving the right ovary, endometrioid adenocarcinoma, grade 3, intact, peritoneal fluid negative implants negative and 0 out of 10 lymph nodes showed metastatic disease e.g. pT1a limited to 1 ovary (capsule intact). p N 0, MX stage I Immunohistochemistry were positive for p16, p53, Ki-67, vimentin, pattern consistent with high-grade endometrial carcinoma History of diabetes mellitus, Gastric bypass surgery for morbid obesity in 2000 Anemia since 2018, status post 3 units of packed RBCs on February 29 2020 during bilateral oophorectomy/hysterectomy for right ovarian cancer Plan/Problems Addressed at this Visit: 1. Grade 3 ovarian endometrioid carcinoma status post right resection of ovarian cancer, bilateral salpingo-oophorectomy, total abdominal hysterectomy, pelvic and para-aortic lymphadenectomy, omentectomy, multiple biopsies including right hemidiaphragm done on February 29, 2020 Final pathology report confirmed 10 cm sized tumor involving the right ovary, endometrioid adenocarcinoma, grade 3, intact, peritoneal fluid negative implants negative and 0 out of 10 lymph nodes showed metastatic disease e.g. pT1a limited to 1 ovary (capsule intact). p N 0, MX stage I Immunohistochemistry were positive for p16, p53, Ki-67, vimentin, pattern consistent with high-grade endometrial carcinoma. She began her first cycle of chemotherapy with carboplatin paclitaxel on June 13, 2020. A. She will proceed with cycle 2-day 1 carboplatin Taxol. B. She will receive 20 mg of IV dexamethasone as she did not take her premed steroids. I offered to delay her but she has had to schedule her work schedule around her chemotherapy and is concerned that this will jeopardize her unemployment if she does not follow through with her current schedule. She is aware of the risk of anaphylaxis and is willing to proceed. She has been instructed to contact the nurses if any changes occur during administration of the chemotherapy today. C. She will have Neulasta on pro with cycle 2 for chemo induced neutropenia with an ANC of cycle 1 day 14 of 540. Her ANC prior to cycle 1 was 4170. F. We will plan to see her back in 3 weeks with CBC CMP for follow-up. She kenton be due for cycle 3 day 1 at that time. WE will check interim labs to monitor for chemotherapy induced neutropenia. D. She may repeat hydration daily if needed and antiemetics if warranted. E. Mrs. Meier is encouraged to contact us in the interim should questions or problems arise. F. We did discuss potential side effects of growth factor support including bone pain, low-grade fever, nausea, fatigue, malaise and she was encouraged to try Claritin daily. She takes this routinely already for seasonal allergies. G. We will refill her hydrocodone 5/325 for as needed use if she has bone pain related to the Neulasta. H. I have requested iron studies and B12 be drawn today as well given her anemia. She has had gastric bypass surgery in the past. If these labs cannot be added today we can draw them with her next blood counts next week. Signed By: Kate Butt-, BRIGITTE Cheek MD <<Signature on File>>
[2020-07-18 08:38] LABS: Basophils % 0.2 %; Eosinophils % 0.5 %; Hematocrit 23.2 % (37.0-47.0); Hemoglobin 7.4 g/dL (11.5-15.3); Lymphocytes # 1.5 10^3/uL (0.8-4.8); Lymphocytes % 24.9 %; Mean Corpuscular HGB Conc 31.9 g/dL (30.0-36.0); Mean Corpuscular Volume 97.1 fL (81-99); Mean Platelet Volume 11.8 fL (7.4-10.4); Monocytes # 0.4 10^3/uL (0.2-0.9); Monocytes % 6.9 %; Neutrophils % 66.8 %; Nucleated Red Blood Cells % 0 %; Platelet Count 43 10^3/cmm (130-400); Red Blood Count 2.39 10^6/uL (4.1-5.3); White Blood Count 5.8 10^3/uL (4.0-10.0)
[2020-07-18 09:05] LABS: Alanine Aminotransferase 14 U/L (0-33); Albumin Level 3.7 g/dL (3.5-5.2); Alkaline Phosphatase 138 IU/L (35-105); Anion Gap 14.7 (5-19); Aspartate Amino Transferase 14 U/L (0-32); Blood Urea Nitrogen 18 mg/dL (8-23); Calcium 8.1 mg/dL (8.5-10.5); Carbon Dioxide 23 mmol/L (22-29); Chloride 107 mmol/L (98-107); Globulin 2.6 g/dL (1.3-4.6); Glomerular Filtration Rate 85.4 mL/min (90-130); Glucose 102 mg/dL (65-115); Osmolality Calculated 292 mOsm/kg (285-295); Potassium 4.7 mmol/L (3.5-5.1); Sodium 140 mmol/L (136-145); Total Bilirubin 0.2 mg/dL (0.15-1.2); Total Protein 6.3 g/dL (6.6-8.7)
[2020-07-18 09:07] LABS: Estmated Average Glucose 126
[2020-07-18 09:15] LABS: Chol HDL Ratio 3.83 mg/dL (0.0-4.40); Cholesterol 134 mg/dL (0-200); HDL Cholesterol 35 mg/dL (60-100); LDL Cholesterol Calculated 60 mg/dL (50-129); Thyroid Stimulating Hormone 7.89 uIU/mL (0.27-4.20); Triglycerides 196 mg/dL (0-150); VLDL Cholestrol Calculation 39 mg/dL (0-30)
[2020-07-24 08:46] LABS: Basophils % 0.2 %; Eosinophils % 0.2 %; Hematocrit 22.3 % (37.0-47.0); Lymphocytes # 1.3 10^3/uL (0.8-4.8); Lymphocytes % 26.1 %; Mean Corpuscular HGB Conc 31.4 g/dL (30.0-36.0); Mean Corpuscular Hemoglobin 31.1 pg (28.0-34.0); Mean Corpuscular Volume 99.1 fL (81-99); Mean Platelet Volume 10.5 fL (7.4-10.4); Monocytes # 0.4 10^3/uL (0.2-0.9); Monocytes % 7.8 %; Neutrophils # 3.32 10^3/uL (1.8-7.7); Neutrophils % 65.1 %; Nucleated Red Blood Cells % 0 %; Platelet Count 70 10^3/cmm (130-400); Red Blood Count 2.25 10^6/uL (4.1-5.3); Red Cell Distribution Width 16.8 % (12.1-15.1); White Blood Count 5.1 10^3/uL (4.0-10.0)
[2020-07-24 08:58] LABS: Alanine Aminotransferase 9 U/L (0-33); Albumin Level 3.8 g/dL (3.5-5.2); Alkaline Phosphatase 128 IU/L (35-105); Anion Gap 12.6 (5-19); Aspartate Amino Transferase 11 U/L (0-32); Blood Urea Nitrogen 20 mg/dL (8-23); Calcium 8.3 mg/dL (8.5-10.5); Carbon Dioxide 23 mmol/L (22-29); Chloride 106 mmol/L (98-107); Globulin 2.8 g/dL (1.3-4.6); Glomerular Filtration Rate 73.2 mL/min (90-130); Glucose 108 mg/dL (65-115); Osmolality Calculated 287 mOsm/kg (285-295); Potassium 4.6 mmol/L (3.5-5.1); Sodium 137 mmol/L (136-145); Total Bilirubin 0.2 mg/dL (0.15-1.2); Total Protein 6.6 g/dL (6.6-8.7)
[2020-07-25] MEDS: diphenhydrAMINE 25 mg Capsule PO (10:00)
[2020-07-25] MEDS: sodium chloride 0.9% 250 ML 999 ML IV (10:00)
[2020-07-25] MEDS: acetaminophen 325 mg Tablet 650 MG PO (10:00)
[2020-07-25] MEDS: dexamethasone 10 mg/mL INJ 5 MG IVP (12:50)
[2020-07-25 12:55] VITALS: BP 126/59; PULSE 75; RESP 18; TEMP 36.8; O2SAT 99
[2020-07-25] MEDS: FUROsemide 10 mg/mL SDV 2mL 20 MG IV (14:40)
[2020-07-25 14:45] VITALS: BP 149/80; BP 149/82; PULSE 77; RESP 18; TEMP 36.7; O2SAT 99
--- NOTE | 2020-07-26 13:34 | ONC FU_ITS ---
Dr. Cheek follow up note Patient: Alecia Meier I Unit #: [id number]: 1960 Dicatated By: Barbara Cheek M.D.Date of Visit:July 25, 2020 Onc Med Follow-up/Prog Note History of Present Illness: Ms. Meier is a 60-year-old female with a history of progressive abdominal/pelvic pain. She was evaluated by Dr. Gutierrez INVENTORY ADMINISTRATOR and subsequently underwent abdominal ultrasoud which confirmed a large complex ovarian mass. Her tumor marker/CA-125 was checked on February 06, 2020 was elevated at 55.5. Further evaluation with CT scan of abdomen pelvis confirmed large cystic lesion with mural nodularity arising from pelvis- likely ovarian neoplasm. The size of the mass was 15.3 x 23 .8 x 22.1 cm. Small amount of free fluid in the pelvis. Cholelithiasis. Prior gastric bypass but no visible pelvic or inguinal lymphadenopathy. Ms Meier was referred to Dr. Mtz in [place]. On February 29, 2020 she underwent right resection of ovarian cancer, bilateral salpingo-oophorectomy, total abdominal hysterectomy, pelvic and para-aortic lymphadenectomy, omentectomy and multiple biopsies including right hemidiaphragm. The final pathology report came back showed a right ovarian tumor size about 10 cm, endometrioid adenocarcinoma, intact, grade 3 e.g. T1 a. 10 lymph nodes were examined showed no evidence of metastatic disease e.g. N0 stage I Immunohistochemistry was positive for p16, p53, Ki-67 and vimentin consistent with high-grade endometrioid carcinoma. Patient tolerated procedure well and based on high-grade e.g. grade 3 ovarian endometrioid carcinoma, as per patient she was recommended adjuvant chemotherapy with 6 cycles carboplatin/Taxol. Patient is a diabetic, also has history of morbid obesity for which she underwent gastric bypass in 1999, as per patient about 2 years ago she was diagnosed with persistent anemia and she did require 3 units of packed RBC during her recent bilateral oophorectomy/hysterectomy done on February 29, 2020. Ms Meier was referred to [facility] INVENTORY ADMINISTRATOR oncology for second opinion at her request and evaluation for clinical trial. She was seen by Dr. Luis Post on May 15, 2019. His recommendations were that he agreed with her original diagnosis and recommended her to proceed with 6 cycles of carboplatin/Taxol. As per patient on May 03, 2020 she was diagnosed with Covid infection and had some breathing difficulty so went to [facility]. She did receive monoclonal antibody treatment for the COVID-19 and tolerated it well. She underwent transinternal jugular vein entheses right internal jugular vein) power port placement per Dr. Apodaca on June 03, 2020. She began her first cycle of carboplatin paclitaxel on June 13, 2020. Came for follow-up, complaining of generalized weakness and fatigue, dyspnea on exertion, palpitation, patient has history of gastric bypass, now on oral iron by PMD complaining of off and on indigestion. Denies any melena or hematochezia, denies any hemoptysis or hematemesis, denies any jaundice tolerating systemic chemotherapy with carboplatin/Taxol well otherwise Medications: All Day Allergy 1 Tablet (of 10 mg) Oral daily, Atorvastatin Calcium 1 Tablet (of 10 mg) Oral daily, busPIRone HCl 1 Tablet (of 15 mg) Oral b.i.d., Euthyrox 1 Tablet (of 175 mcg) Oral daily, Glucophage 1 Tablet (of 850 mg) Oral daily, Januvia 1 Tablet (of 25 mg) Oral daily, Lisinopril 1 Tablet (of 10 mg) Oral daily, Naprosyn 1 Tablet (of 500 mg) Oral b.i.d. PRN, Slow Release Iron 1 Tablet (of 47.5 mg) Tablet, controlled release Oral daily, traMADol HCl 1 Tablet (of 50 mg) Oral t.i.d. PRN, Tums Tablet, chewable Oral PRN, Zoloft 2 Tablet (of 100 mg) Oral daily Allergies: Amoxicillin and Cephalexin. Review of Systems: Review of Systems is not available for this patient. Vital Signs: Performed on July 25, 2020 08:16 Height - 67.00 in Weight - 209.4 lbs (HIGH) BSA - 2.06 sq.m BMI - 32.80 (HIGH) Temperature - 96.9 F (LOW) Pulse - 98 /min Respiration - 18 /min BP - 134/68 mm(hg) O2 Sat - 99 % Pain - 0 Fatigue - 5 Performance Status: 1 - No physically strenuous activity, but ambulatory and able to carry out light or sedentary work (e.g. office work, light house work). (ECOG) Physical Examination: ENMT - No mouth sores, no thrush, no jaundice, Respiratory - Lungs are clear to auscultation, Cardiovascular - Regular rate and rhythm of heart, Abdomen - Soft, bowel sounds present, Extremities - No visible edema or rash. Lab/Imaging: Test performed on July 04, 2020 12:30 Ferritin 316 ng/mL Folate, Serum 5.2 ng/mL Iron 61 mcg/dL Vitamin B12 > 2000 pg/mL Iron Binding Capacity (TIBC) 286 mcg/dl % Iron Saturation 21.3 % UIBC 225 mcg/dL Test performed on July 04, 2020 10:19 Sodium 140 mmol/L Potassium 4.9 mmol/L Chloride 108 mmol/L CO2 24 mmol/L Anion Gap 12.9 BUN 23 mg/dL Creatinine 0.9 mg/dL Cr Clearance (Est) 94.1500 mL/min eGFR 63.9 mL/min Glucose 84 mg/dL Osmolality - Calculated 293 mOsm/kg Calcium 8.0 mg/dL Protein, Total 6.2 g/dL Albumin 3.7 g/dL Globulin 2.5 g/dL Bilirubin, Total 0.2 mg/dL ALT (SGPT) 16 U/L AST (SGOT) 17 U/L Alkaline Phosphatase 140 IU/L WBC 3.9 10 3/uL RBC 2.85 10 6/uL HGB 8.4 g/dL HCT 27.4 % MCV 96.1 fL MCH 29.5 pg MCHC 30.7 g/dL RDW 14.6 % Platelet Count 150 10 3/cmm MPV 9.9 fL Neutrophils 2.46 10 3/uL Lymphocytes 1.1 10 3/uL Monocytes 0.3 10 3/uL Eosinophils 0.0 10 3/uL Basophils 0.0 10 3/uL Neutrophil % 62.6 % Lymphocyte % 26.7 % Monocyte % 8.4 % Eosinophil % 0.5 % Basophils % 0.5 % NRBC % 0 % Test performed on Jun 20, 2020 13:45 CBC Slide Review Slide Review Perform SLIDE REVIEW AGREES WITH AUTOMATED RESULTS Impression: Grade 3 ovarian endometrioid carcinoma status post right resection of ovarian cancer, bilateral salpingo-oophorectomy, total abdominal hysterectomy, pelvic and para-aortic lymphadenectomy, omentectomy, multiple biopsies including right hemidiaphragm done on February 29, 2020 Final pathology report confirmed 10 cm sized tumor involving the right ovary, endometrioid adenocarcinoma, grade 3, intact, peritoneal fluid negative implants negative and 0 out of 10 lymph nodes showed metastatic disease e.g. pT1a limited to 1 ovary (capsule intact). p N 0, MX stage I Immunohistochemistry were positive for p16, p53, Ki-67, vimentin, pattern consistent with high-grade endometrial carcinoma History of diabetes mellitus, Gastric bypass surgery for morbid obesity in 1999 Anemia since 2018, status post 3 units of packed RBCs on February 29 2020 during bilateral oophorectomy/hysterectomy for right ovarian cancer Plan: Discussed with patient regarding her labs white blood count 5.1 hemoglobin 7 g hematocrit 22.3 platelets 70,000 compared to 43,000 previously CMP within normal limits, her anemia work-up done on July 04, 2020 showed iron saturation 21.3% ferritin 316 folate 5.2 iron 61 TIBC 286 B12 more than 2000 Clinically, patient doing reasonably well, now symptomatic due to progressive anemia which could be multifactorial including functional iron deficiency as her anemia work-up showed iron stores within normal limit other possibility could be due to chemotherapy induced bone marrow suppression, as patient is symptomatic we will consider 2 units of packed RBC today and also discontinue oral iron and then patient return to clinic in 1 week with CBC CMP, if thrombocytopenia resolved, will consider next cycle #3 with 3 weekly carboplatin/Taxol. Signed By: Barbara Cheek M.D. <<Signature on File>>
== END 2020-07-29 23:59 | disposition home or self-care (01) ==
LOC: ONCMED 05:33
PROVIDERS: Nurse Practitioner; PCP Nurse Practitioner Family; Visit Provider Internal Medicine Hematology & Oncology
DX: Z51.11 Encounter for antineoplastic chemotherapy (principal); C56.1 Malignant neoplasm of right ovary; E11.9 Type 2 diabetes mellitus without complications; E66.01 Morbid (severe) obesity due to excess calories; D64.9 Anemia, unspecified; Z79.899 Other long term (current) drug therapy
CPT/HCPCS: 36430; 36591; 80053; 80061; 82607; 82728; 82746; 83036; 83540; 83550; 84443; 85025; 86850; 86900; 86920; 96367; 96372; 96374; 96375; 96413; 96415; 96417; 99214; 99215; J1100; J1200; J1453; J1940; J2469; J2505; J3490; J7030; J7040; J7050; J9045; J9267; P9016

== ENCOUNTER → 2020-08-01 07:26 | Outpatient (BNVA) | payer OTHER, SELFPAY | PROVIDERS: PCP Nurse Practitioner Family; Visit Provider Psychiatry & Neurology Psychiatry | DX: F33.42 Major depressive disorder, recurrent, in full remission (principal); F41.1 Generalized anxiety disorder | CPT/HCPCS: 99213 ==

== ENCOUNTER 2020-08-26 05:49 | Outpatient (RCR) | payer OTHER, SELFPAY ==
[2020-07-31 09:22] LABS: Basophils % 0.4 %; Hematocrit 33.5 % (37.0-47.0); Hemoglobin 10.7 g/dL (11.5-15.3); Lymphocytes # 0.3 10^3/uL (0.8-4.8); Lymphocytes % 10.7 %; Mean Corpuscular HGB Conc 31.9 g/dL (30.0-36.0); Mean Corpuscular Hemoglobin 31.1 pg (28.0-34.0); Mean Corpuscular Volume 97.4 fL (81-99); Mean Platelet Volume 9.3 fL (7.4-10.4); Monocytes # 0.1 10^3/uL (0.2-0.9); Monocytes % 2.3 %; Neutrophils # 2.25 10^3/uL (1.8-7.7); Neutrophils % 85.8 %; Nucleated Red Blood Cells % 0 %; Platelet Count 280 10^3/cmm (130-400); Red Blood Count 3.44 10^6/uL (4.1-5.3); White Blood Count 2.6 10^3/uL (4.0-10.0)
[2020-07-31 09:46] LABS: Alanine Aminotransferase 12 U/L (0-33); Albumin Level 4.1 g/dL (3.5-5.2); Alkaline Phosphatase 135 IU/L (35-105); Anion Gap 14.9 (5-19); Aspartate Amino Transferase 14 U/L (0-32); Blood Urea Nitrogen 19 mg/dL (8-23); Calcium 8.9 mg/dL (8.5-10.5); Carbon Dioxide 23 mmol/L (22-29); Chloride 102 mmol/L (98-107); Globulin 3.1 g/dL (1.3-4.6); Glomerular Filtration Rate 85.4 mL/min (90-130); Glucose 252 mg/dL (65-115); Osmolality Calculated 291 mOsm/kg (285-295); Potassium 4.9 mmol/L (3.5-5.1); Sodium 135 mmol/L (136-145); Total Bilirubin 0.4 mg/dL (0.15-1.2); Total Protein 7.2 g/dL (6.6-8.7)
[2020-07-31 10:06] LABS: Slide Review Slide Review Perform
[2020-07-31 11:06] LABS: Hematocrit 34.2 % (37.0-47.0); Hemoglobin 10.9 g/dL (11.5-15.3); Lymphocytes # 0.3 10^3/uL (0.8-4.8); Mean Corpuscular HGB Conc 31.9 g/dL (30.0-36.0); Mean Corpuscular Hemoglobin 31.4 pg (28.0-34.0); Mean Corpuscular Volume 98.6 fL (81-99); Monocytes # 0.1 10^3/uL (0.2-0.9); Monocytes % 1.3 %; Neutrophils # 3.61 10^3/uL (1.8-7.7); Neutrophils % 90.4 %; Nucleated Red Blood Cells % 0 %; Platelet Count 270 10^3/cmm (130-400); Red Blood Count 3.47 10^6/uL (4.1-5.3); Red Cell Distribution Width 17.1 % (12.1-15.1)
[2020-07-31] MEDS: sodium chloride 0.9% 250 ML 75 ML IV (12:00)
[2020-07-31] MEDS: famotidine 20 mg/2 mL INJ IVP (12:02)
[2020-07-31] MEDS: diphenhydrAMINE 50 mg/mL SDV 1mL 25 MG IV (12:03)
[2020-07-31] MEDS: dexamethasone 20 MG in sodium chloride 0.9% 50 ML 187 MG IV (12:20)
[2020-07-31] MEDS: palonosetron 0.25 mg/5 mL SDV IV (12:20)
[2020-07-31] MEDS: fosaprepitant 150 MG in sodium chloride 0.9% 150 ML 300 MG IV (12:36)
--- NOTE | 2020-07-31 17:24 | ONC FU_ITS ---
Dr. Cheek follow up note Patient: Alecia Meier I Unit #: [id number]: 1960 Dicatated By: Barbara Cheek M.D.Date of Visit:Jul 31, 2020 Onc Med Follow-up/Prog Note History of Present Illness: Ms. Meier is a 60-year-old female with a history of progressive abdominal/pelvic pain. She was evaluated by Dr. Gutierrez [employer] and subsequently underwent abdominal ultrasoud which confirmed a large complex ovarian mass. Her tumor marker/CA-125 was checked on February 06, 2020 was elevated at 55.5. Further evaluation with CT scan of abdomen pelvis confirmed large cystic lesion with mural nodularity arising from pelvis- likely ovarian neoplasm. The size of the mass was 15.3 x 23 .8 x 22.1 cm. Small amount of free fluid in the pelvis. Cholelithiasis. Prior gastric bypass but no visible pelvic or inguinal lymphadenopathy. Ms Meier was referred to Dr. Mtz in [place]. On February 29, 2020 she underwent right resection of ovarian cancer, bilateral salpingo-oophorectomy, total abdominal hysterectomy, pelvic and para-aortic lymphadenectomy, omentectomy and multiple biopsies including right hemidiaphragm. The final pathology report came back showed a right ovarian tumor size about 10 cm, endometrioid adenocarcinoma, intact, grade 3 e.g. T1 a. 10 lymph nodes were examined showed no evidence of metastatic disease e.g. N0 stage I Immunohistochemistry was positive for p16, p53, Ki-67 and vimentin consistent with high-grade endometrioid carcinoma. Patient tolerated procedure well and based on high-grade e.g. grade 3 ovarian endometrioid carcinoma, as per patient she was recommended adjuvant chemotherapy with 6 cycles carboplatin/Taxol. Patient is a diabetic, also has history of morbid obesity for which she underwent gastric bypass in 1999, as per patient about 2 years ago she was diagnosed with persistent anemia and she did require 3 units of packed RBC during her recent bilateral oophorectomy/hysterectomy done on February 29, 2020. Ms Meier was referred to [facility] [employer] oncology for second opinion at her request and evaluation for clinical trial. She was seen by Dr. Luis Post on May 15, 2019. His recommendations were that he agreed with her original diagnosis and recommended her to proceed with 6 cycles of carboplatin/Taxol. As per patient on May 03, 2020 she was diagnosed with Covid infection and had some breathing difficulty so went to [facility]. She did receive monoclonal antibody treatment for the COVID-19 and tolerated it well. She underwent transinternal jugular vein entheses right internal jugular vein) power port placement per Dr. Apodaca on June 03, 2020. She began her first cycle of carboplatin paclitaxel on June 13, 2020. Came for follow-up, denies any specific complaints, feeling much better since blood transfusion for severe anemia, more energetic, no more blurred vision or double vision, no more shortness of breath or dyspnea on exertion. No fever chills, no nausea or vomiting, no diarrhea or constipation, Tolerating systemic therapy with carboplatin/Taxol well otherwise Medications: All Day Allergy 1 Tablet (of 10 mg) Oral daily, Atorvastatin Calcium 1 Tablet (of 10 mg) Oral daily, busPIRone HCl 1 Tablet (of 15 mg) Oral b.i.d., Euthyrox 1 Tablet (of 175 mcg) Oral daily, Glucophage 1 Tablet (of 850 mg) Oral daily, Januvia 1 Tablet (of 25 mg) Oral daily, Lisinopril 1 Tablet (of 10 mg) Oral daily, Naprosyn 1 Tablet (of 500 mg) Oral b.i.d. PRN, Slow Release Iron 1 Tablet (of 47.5 mg) Tablet, controlled release Oral daily, traMADol HCl 1 Tablet (of 50 mg) Oral t.i.d. PRN, Tums Tablet, chewable Oral PRN, Zoloft 2 Tablet (of 100 mg) Oral daily Allergies: Amoxicillin and Cephalexin. Review of Systems: Review of Systems is not available for this patient. Vital Signs: Performed on Jul 31, 2020 11:12 Height - 67.00 in Weight - 203.4 lbs (LOW) BSA - 2.04 sq.m BMI - 31.86 (HIGH) Temperature - 96.8 F (LOW) Pulse - 83 /min Respiration - 18 /min BP - 147/78 mm(hg) (HIGH) O2 Sat - 97 % Pain - 3 Fatigue - 4 Performance Status: 0 - Fully active, able to carry on all predisease activities without restrictions. (ECOG) Physical Examination: ENMT - No mouth sores, no thrush, no jaundice, Respiratory - Lungs are clear to auscultation , Cardiovascular - Regular rate and rhythm of heart, Abdomen - Soft, bowel sounds present, Extremities - No visible edema. Lab/Imaging: Test performed on Jul 31, 2020 11:40 Creatinine 0.7 mg/dL Cr Clearance (Est) 121.05 mL/min Test performed on Jul 31, 2020 10:55 WBC 4.0 10 3/uL RBC 3.47 10 6/uL HGB 10.9 g/dL HCT 34.2 % MCV 98.6 fL MCH 31.4 pg MCHC 31.9 g/dL RDW 17.1 % Platelet Count 270 10 3/cmm MPV 9.0 fL Neutrophils 3.61 10 3/uL Lymphocytes 0.3 10 3/uL Monocytes 0.1 10 3/uL Eosinophils 0.0 10 3/uL Basophils 0.0 10 3/uL Neutrophil % 90.4 % Lymphocyte % 8.0 % Monocyte % 1.3 % Eosinophil % 0.0 % Basophils % 0.0 % NRBC % 0 % Test performed on Jul 31, 2020 08:50 CBC Slide Review Slide Review Perform Test performed on July 04, 2020 12:30 Ferritin 316 ng/mL Folate, Serum 5.2 ng/mL Iron 61 mcg/dL Vitamin B12 > 2000 pg/mL Iron Binding Capacity (TIBC) 286 mcg/dl % Iron Saturation 21.3 % UIBC 225 mcg/dL Test performed on July 04, 2020 10:19 Sodium 140 mmol/L Potassium 4.9 mmol/L Chloride 108 mmol/L CO2 24 mmol/L Anion Gap 12.9 BUN 23 mg/dL eGFR 63.9 mL/min Glucose 84 mg/dL Osmolality - Calculated 293 mOsm/kg Calcium 8.0 mg/dL Protein, Total 6.2 g/dL Albumin 3.7 g/dL Globulin 2.5 g/dL Bilirubin, Total 0.2 mg/dL ALT (SGPT) 16 U/L AST (SGOT) 17 U/L Alkaline Phosphatase 140 IU/L Impression: Grade 3 ovarian endometrioid carcinoma status post right resection of ovarian cancer, bilateral salpingo-oophorectomy, total abdominal hysterectomy, pelvic and para-aortic lymphadenectomy, omentectomy, multiple biopsies including right hemidiaphragm done on February 29, 2020 Final pathology report confirmed 10 cm sized tumor involving the right ovary, endometrioid adenocarcinoma, grade 3, intact, peritoneal fluid negative implants negative and 0 out of 10 lymph nodes showed metastatic disease e.g. pT1a limited to 1 ovary (capsule intact). p N 0, MX stage I Immunohistochemistry were positive for p16, p53, Ki-67, vimentin, pattern consistent with high-grade endometrial carcinoma History of diabetes mellitus, Gastric bypass surgery for morbid obesity in 2000 Anemia since 2018, status post 3 units of packed RBCs on February 29 2020 during bilateral oophorectomy/hysterectomy for right ovarian cancerAnd again on July 25, 2020 for hemoglobin 7 g Plan: Discussed with patient regarding her labs white blood count 2.6 hemoglobin 10.7 hematocrit 35.5 platelets 280,000 ANC 2250, repeat CBC showed white blood count 4000 hemoglobin 10.9 g platelets 270,000 ANC 3610 and CMP within normal limits except sodium 135 Clinically, patient doing well with no new signs symptom, feeling much better since blood transfusion for severe anemia, will proceed with her scheduled third dose of systemic therapy with carboplatin/Taxol with Neulasta support today and then she will return to clinic in 2 weeks with CBC CMP Signed By: Barbara Cheek M.D. <<Signature on File>>
[2020-07-31] MEDS: pegfilgrastim 6 mg/0.6 mL Kit (onpro) SUBCUT (17:30)
[2020-08-14] MEDS: sodium chloride 0.9% 1,000 ML 999 ML IV (14:00)
[2020-08-14 14:19] LABS: Basophils % 0.2 %; Eosinophils % 0.7 %; Hematocrit 25.4 % (37.0-47.0); Hemoglobin 8.3 g/dL (11.5-15.3); Lymphocytes # 1.4 10^3/uL (0.8-4.8); Lymphocytes % 23.6 %; Mean Corpuscular HGB Conc 32.7 g/dL (30.0-36.0); Mean Corpuscular Hemoglobin 31.6 pg (28.0-34.0); Mean Corpuscular Volume 96.6 fL (81-99); Mean Platelet Volume 9.6 fL (7.4-10.4); Monocytes # 0.5 10^3/uL (0.2-0.9); Monocytes % 8.2 %; Neutrophils # 3.99 10^3/uL (1.8-7.7); Neutrophils % 66.8 %; Nucleated Red Blood Cells % 0 %; Platelet Count 34 10^3/cmm (130-400); Red Blood Count 2.63 10^6/uL (4.1-5.3); Red Cell Distribution Width 16.4 % (12.1-15.1)
[2020-08-14 14:51] LABS: Alanine Aminotransferase 19 U/L (0-33); Albumin Level 3.7 g/dL (3.5-5.2); Alkaline Phosphatase 149 IU/L (35-105); Anion Gap 13.4 (5-19); Aspartate Amino Transferase 16 U/L (0-32); Blood Urea Nitrogen 24 mg/dL (8-23); Calcium 8.2 mg/dL (8.5-10.5); Carbon Dioxide 23 mmol/L (22-29); Chloride 107 mmol/L (98-107); Globulin 2.4 g/dL (1.3-4.6); Glomerular Filtration Rate 73.2 mL/min (90-130); Glucose 131 mg/dL (65-115); Osmolality Calculated 294 mOsm/kg (285-295); Potassium 4.4 mmol/L (3.5-5.1); Sodium 139 mmol/L (136-145); Total Bilirubin 0.2 mg/dL (0.15-1.2); Total Protein 6.1 g/dL (6.6-8.7)
[2020-08-19] MEDS: sodium chloride 0.9% 1,000 ML 999 ML IV (08:30)
[2020-08-19 08:57] LABS: Hematocrit 25.1 % (37.0-47.0); Hemoglobin 8.1 g/dL (11.5-15.3); Lymphocytes # 1.9 10^3/uL (0.8-4.8); Lymphocytes % 32.2 %; Mean Corpuscular HGB Conc 32.3 g/dL (30.0-36.0); Mean Corpuscular Hemoglobin 31.2 pg (28.0-34.0); Mean Corpuscular Volume 96.5 fL (81-99); Mean Platelet Volume 10.3 fL (7.4-10.4); Monocytes # 0.4 10^3/uL (0.2-0.9); Monocytes % 6.8 %; Neutrophils # 3.62 10^3/uL (1.8-7.7); Neutrophils % 60.5 %; Nucleated Red Blood Cells % 0 %; Platelet Count 31 10^3/cmm (130-400); Red Cell Distribution Width 15.9 % (12.1-15.1)
[2020-08-19 09:21] LABS: Alanine Aminotransferase 20 U/L (0-33); Albumin Level 3.7 g/dL (3.5-5.2); Alkaline Phosphatase 134 IU/L (35-105); Anion Gap 14.4 (5-19); Aspartate Amino Transferase 15 U/L (0-32); Blood Urea Nitrogen 20 mg/dL (8-23); Calcium 8.5 mg/dL (8.5-10.5); Carbon Dioxide 23 mmol/L (22-29); Chloride 109 mmol/L (98-107); Globulin 2.6 g/dL (1.3-4.6); Glomerular Filtration Rate 73.2 mL/min (90-130); Glucose 149 mg/dL (65-115); Osmolality Calculated 299 mOsm/kg (285-295); Potassium 4.4 mmol/L (3.5-5.1); Sodium 142 mmol/L (136-145); Total Bilirubin 0.3 mg/dL (0.15-1.2); Total Protein 6.3 g/dL (6.6-8.7)
[2020-08-19] MEDS: sodium chloride 0.9% 250 ML 75 ML IV (09:45)
[2020-08-19] MEDS: diphenhydrAMINE 25 mg Capsule PO (09:45)
[2020-08-19] MEDS: acetaminophen 325 mg Tablet 650 MG PO (09:45)
[2020-08-19] MEDS: FUROsemide 10 mg/mL SDV 2mL 20 MG IV (13:00)
[2020-08-22] MEDS: sodium chloride 0.9% 1,000 mL Bolus 999 ML IV (08:13)
[2020-08-26] MEDS: sodium chloride 0.9% 1,000 ML 999 ML IV (11:45)
[2020-08-26 12:35] LABS: Basophils % 0.2 %; Eosinophils % 0.5 %; Hematocrit 30.9 % (37.0-47.0); Hemoglobin 9.9 g/dL (11.5-15.3); Lymphocytes # 1.7 10^3/uL (0.8-4.8); Lymphocytes % 28.5 %; Mean Corpuscular Hemoglobin 31.4 pg (28.0-34.0); Mean Corpuscular Volume 98.1 fL (81-99); Mean Platelet Volume 9.6 fL (7.4-10.4); Monocytes # 0.6 10^3/uL (0.2-0.9); Monocytes % 10.5 %; Neutrophils # 3.53 10^3/uL (1.8-7.7); Nucleated Red Blood Cells % 0 %; Platelet Count 153 10^3/cmm (130-400); Red Blood Count 3.15 10^6/uL (4.1-5.3); White Blood Count 5.9 10^3/uL (4.0-10.0)
--- NOTE | 2020-09-02 19:46 | ONC FU_ITS ---
[facility] Patient Note Patient: Alecia Meier I Unit #: [id number]: 1960 Dictated By: Kate ButtDate of Visit: Aug 14, 2020 Onc MED Follow-Up/Prog Note Chief Complaint: Ovarian endometrioid carcinoma History of Present Illness: Ms. Meier is a 60-year-old female with a history of progressive abdominal/pelvic pain. 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 Her tumor marker/CA-125 was checked on February 06, 2020 was elevated at 55.5. Further evaluation with CT scan of abdomen pelvis confirmed large cystic lesion with mural nodularity arising from pelvis- likely ovarian neoplasm. The size of the mass was 15.3 x 23 .8 x 22.1 cm. Small amount of free fluid in the pelvis. Cholelithiasis. Prior gastric bypass but no visible pelvic or inguinal lymphadenopathy. Ms Meeir was referred to Dr. Mtz in [place]. On February 29, 2020 she underwent right resection of ovarian cancer, bilateral salpingo-oophorectomy, total abdominal hysterectomy, pelvic and para-aortic lymphadenectomy, omentectomy and multiple biopsies including right hemidiaphragm. The final pathology report came back showed a right ovarian tumor size about 10 cm, endometrioid adenocarcinoma, intact, grade 3 e.g. T1 a. 10 lymph nodes were examined showed no evidence of metastatic disease e.g. N0 stage I Immunohistochemistry was positive for p16, p53, Ki-67 and vimentin consistent with high-grade endometrioid carcinoma. Patient tolerated procedure well and based on high-grade e.g. grade 3 ovarian endometrioid carcinoma, as per patient she was recommended adjuvant chemotherapy with 6 cycles carboplatin/Taxol. Patient is a diabetic, also has history of morbid obesity for which she underwent gastric bypass in 1999, as per patient about 2 years ago she was diagnosed with persistent anemia and she did require 3 units of packed RBC during her recent bilateral oophorectomy/hysterectomy done on February 29, 2020. Ms Meier was referred to [facility] oncology for second opinion at her request and evaluation for clinical trial. She was seen by Dr. Luis Post on May 15, 2019. His recommendations were that he agreed with her original diagnosis and recommended her to proceed with 6 cycles of carboplatin/Taxol. As per patient on May 03, 2020 she was diagnosed with Covid infection and had some breathing difficulty so went to [facility]. She did receive monoclonal antibody treatment for the COVID-19 and tolerated it well. She underwent transinternal jugular vein entheses right internal jugular vein) power port placement per Dr. Apodaca on June 03, 2020. She began her first cycle of carboplatin paclitaxel on June 13, 2020. She has now completed 3 cycles with her last treatment being on July 31, 2020. She is here today for follow-up. She states she has been very tired and just washed out. She is still trying to work. She works nights from 11 PM to 7 AM at the [employer] locally. She states she has a hard time sleeping through the day but has not tried any lorazepam at this time. She denies any nausea or vomiting. She states she is just weak and washed out after chemotherapy and is hard to go to work for the first couple of days. She denies any new pain. She has not had any fever or chills. She has had some peripheral neuropathy off and on but states it is resolved at present. She denies any orthopnea. She denies any hemoptysis. She states she has had some intermittent diarrhea but states it is controlled with diet or Imodium [id number]. She is does not feel that it has been a problem. She denies any urinary symptoms. Her ECOG is 2 today. Past Medical History: History of MRSA Hyperlipidemia Hypothyroidism Opoid dependence Osteoarthritis Type II diabetes Covid in 2020 Past Surgical History: COVID 19 2nd vaccine in 2020 Right internal jugular vein PowerPort placement???Dr. Apodaca in 2020 Covid vaccine #1 in 2020 Hysterectomy/bilateral salpingectomy-oophorectomy in 2019 Colonoscopy in 2018 Gastric bypass in 1999 Allergies: Amoxicillin and Cephalexin. Medications: All Day Allergy 1 Tablet (of 10 mg) Oral daily Atorvastatin Calcium 1 Tablet (of 10 mg) Oral daily busPIRone HCl 1 Tablet (of 15 mg) Oral b.i.d. Euthyrox 1 Tablet (of 175 mcg) Oral daily Glucophage 1 Tablet (of 850 mg) Oral daily Januvia 1 Tablet (of 25 mg) Oral daily Lisinopril 1 Tablet (of 10 mg) Oral daily Naprosyn 1 Tablet (of 500 mg) Oral b.i.d. PRN Slow Release Iron 1 Tablet (of 47.5 mg) Tablet, controlled release Oral daily traMADol HCl 1 Tablet (of 50 mg) Oral t.i.d. PRN Tums Tablet, chewable Oral PRN Zoloft 2 Tablet (of 100 mg) Oral daily Family History: Ms. Meier's mother at age 76: breast cancer, and stroke, and uterine cancer. Ms. Meier's father at age 76: heart disease, and lung cancer. Social History: Ms. Meier is single. Ms. Meier has never smoked. She drinks occasionally. Ms. Meier reports the following support systems: lives with spouse, significant other, family, or friends, lives in own house, supportive family/friends willing to assist with needs, and adequate transportation available for expected visits. Her diet consists of regular meals. She indicates her activity level as: daily activities. drinks 1-2 glasses of alcohol every 4-6months She works at [email or web address]. Review Of Symptoms: <See Above> Vital Signs: Performed on Aug 14, 2020 14:14 Height - 67.00 in Temperature - 99.2 F (HIGH) Pulse - 82 /min Respiration - 18 /min BP - 104/56 mm(hg) O2 Sat - 98 % Pain - 0 Fatigue - 6,2 - Ambulatory/capable of all self-care, unable to perform any work activities. Up and about more than 50% of waking hours. (ECOG) Physical Examination: Constitutional Alert, oriented, no acute distress. Skin pink, warm and dry. Head Normocephalic; atraumatic. Eyes Conjunctivae and sclerae are clear and without icterus. Pupils are reactive and equal. ENMT No oral exudates, ulcers, masses, thrush or mucositis. Oropharynx clear. Tongue normal. Neck Supple without masses or thyromegaly. No jugular venous distension. Hematologic/Lymphatic No petechiae or purpura. No tender or palpable lymph nodes in the cervical or supraclavicular areas. Respiratory Lungs are clear to auscultation without rhonchi or wheezing. Cardiovascular Regular rate and rhythm of heart without murmurs,clicks, gallops or rubs. Chest Right venous access device insertion site has healed well. Back/Spine Non-tender to palpation. Extremities No visible deformities, no cyanosis, clubbing or edema. Musculoskeletal No tenderness or swelling, normal range of motion without obvious weakness. Integumentary No rashes or lesions. Neurologic No sensory or motor deficits, normal cerebellar function, normal gait. Psychiatric Alert and oriented times three. Coherent speech. Verbalizes understanding of our discussions today. Impression: Grade 3 ovarian endometrioid carcinoma status post right resection of ovarian cancer, bilateral salpingo-oophorectomy, total abdominal hysterectomy, pelvic and para-aortic lymphadenectomy, omentectomy, multiple biopsies including right hemidiaphragm done on February 29, 2020 Final pathology report confirmed 10 cm sized tumor involving the right ovary, endometrioid adenocarcinoma, grade 3, intact, peritoneal fluid negative implants negative and 0 out of 10 lymph nodes showed metastatic disease e.g. pT1a limited to 1 ovary (capsule intact). p N 0, MX stage I Immunohistochemistry were positive for p16, p53, Ki-67, vimentin, pattern consistent with high-grade endometrial carcinoma History of diabetes mellitus, Gastric bypass surgery for morbid obesity in 2000 Anemia since 2018, status post 3 units of packed RBCs on February 29 2020 during bilateral oophorectomy/hysterectomy for right ovarian cancer Plan/Problems Addressed at this Visit: 1. Grade 3 ovarian endometrioid carcinoma status post right resection of ovarian cancer, bilateral salpingo-oophorectomy, total abdominal hysterectomy, pelvic and para-aortic lymphadenectomy, omentectomy, multiple biopsies including right hemidiaphragm done on February 29, 2020 Final pathology report confirmed 10 cm sized tumor involving the right ovary, endometrioid adenocarcinoma, grade 3, intact, peritoneal fluid negative implants negative and 0 out of 10 lymph nodes showed metastatic disease e.g. pT1a limited to 1 ovary (capsule intact). p N 0, MX stage I Immunohistochemistry were positive for p16, p53, Ki-67, vimentin, pattern consistent with high-grade endometrial carcinoma. She began her first cycle of chemotherapy with carboplatin paclitaxel on June 13, She completed cycle 3 on July 31, 2020. She presents with declining performance status, anemia and thrombocytopenia today. She is not having any bleeding. A. She will have hydration of 1L NS today. B. She has been offered a short course steroid taper with Dexamethasone 4 mg 1 twice daily for 1 to 2 days then 1 daily for 1 to 2 days then half daily for 1 to 2 days and stop. This is for decreased performance status. C. Today's labs reviewed in detail and discussed with Ms. meier and a copy was given to her. WBC 6.0, hemoglobin 8.3, platelets 34,000, ANC is 3990. Potassium 4.4 random glucose 131 creatinine 0.8 LFTs are normal. D. I have recommended that she have 3 times a week hydration and return on the for repeat hydration if she feels she benefits from it today. E. I have asked for her to check CBC CMP and type/screen on August 19 to determine if she may need blood transfusion at that time. F. We will plan for follow-up on August 29 for cycle 4 chemotherapy with carboplatin and Taxol. She was reminded take her premed steroids. She will have CBC CMP and type and screen at that time as well. G. Ms. Meier is encouraged to contact us in the interim should questions or problems arise. Signed By: Kate Butt-, CNP Barbara Cheek MD <<Signature on File>>
== END 2020-08-28 23:59 | disposition home or self-care (01) ==
LOC: ONCMED 05:49
PROVIDERS: Nurse Practitioner; PCP Nurse Practitioner Family; Visit Provider Internal Medicine Hematology & Oncology
DX: Z51.11 Encounter for antineoplastic chemotherapy (principal); C56.1 Malignant neoplasm of right ovary; E78.5 Hyperlipidemia, unspecified; E03.9 Hypothyroidism, unspecified; E11.9 Type 2 diabetes mellitus without complications; E66.01 Morbid (severe) obesity due to excess calories; D50.9 Iron deficiency anemia, unspecified; Z79.899 Other long term (current) drug therapy; Z86.16 Personal history of COVID-19; Z90.722 Acquired absence of ovaries, bilateral
CPT/HCPCS: 36415; 36591; 80053; 85025; 86850; 86900; 86920; 96360; 96367; 96368; 96375; 96377; 96413; 96415; 96417; 99214; 99215; J1100; J1200; J1453; J1940; J2469; J2505; J3490; J7030; J7040; J7050; J9045; J9267; P9016

== ENCOUNTER 2020-09-26 05:43 | Outpatient (RCR) | payer OTHER, SELFPAY ==
[2020-08-29 08:44] LABS: Basophils % 0.2 %; Hematocrit 33.1 % (37.0-47.0); Hemoglobin 10.5 g/dL (11.5-15.3); Lymphocytes # 0.6 10^3/uL (0.8-4.8); Lymphocytes % 9.8 %; Mean Corpuscular HGB Conc 31.7 g/dL (30.0-36.0); Mean Corpuscular Hemoglobin 31.5 pg (28.0-34.0); Mean Corpuscular Volume 99.4 fL (81-99); Mean Platelet Volume 9.3 fL (7.4-10.4); Monocytes # 0.1 10^3/uL (0.2-0.9); Neutrophils # 5.53 10^3/uL (1.8-7.7); Neutrophils % 88.5 %; Nucleated Red Blood Cells % 0 %; Platelet Count 195 10^3/cmm (130-400); Red Blood Count 3.33 10^6/uL (4.1-5.3); White Blood Count 6.2 10^3/uL (4.0-10.0)
[2020-08-29 09:06] LABS: Alanine Aminotransferase 22 U/L (0-33); Albumin Level 4.1 g/dL (3.5-5.2); Alkaline Phosphatase 136 IU/L (35-105); Anion Gap 17.9 (5-19); Aspartate Amino Transferase 22 U/L (0-32); Blood Urea Nitrogen 25 mg/dL (8-23); Calcium 8.9 mg/dL (8.5-10.5); Carbon Dioxide 18 mmol/L (22-29); Chloride 101 mmol/L (98-107); Globulin 3.1 g/dL (1.3-4.6); Glomerular Filtration Rate 56.6 mL/min (90-130); Glucose 219 mg/dL (65-115); Osmolality Calculated 285 mOsm/kg (285-295); Potassium 4.9 mmol/L (3.5-5.1); Sodium 132 mmol/L (136-145); Total Bilirubin 0.3 mg/dL (0.15-1.2); Total Protein 7.2 g/dL (6.6-8.7)
[2020-08-29] MEDS: dexamethasone 20 MG in sodium chloride 0.9% 50 ML 206.25 MG IV (11:28)
[2020-08-29] MEDS: palonosetron 0.25 mg/5 mL SDV IV (11:45)
[2020-08-29] MEDS: famotidine 20 mg/2 mL INJ IVP (11:46)
[2020-08-29] MEDS: diphenhydrAMINE 50 mg/mL SDV 1mL 25 MG IV (11:50)
[2020-08-29] MEDS: fosaprepitant 150 MG in sodium chloride 0.9% 150 ML 300 MG IV (12:00)
[2020-08-29] MEDS: pegfilgrastim 6 mg/0.6 mL Kit (onpro) SUBCUT (16:50)
--- NOTE | 2020-08-29 17:34 | ONC FU_ITS ---
Dr. Cheek follow up note Patient: Alecia Meier I Unit #: [id number]: 1960 Dicatated By: Barbara Cheek M.D.Date of Visit:Aug 29, 2020 Onc Med Follow-up/Prog Note History of Present Illness: Ms. Meier is a 60-year-old female with a history of progressive abdominal/pelvic pain. She was evaluated by Dr. Gutierrez [employer] and subsequently underwent abdominal ultrasoud which confirmed a large complex ovarian mass. Her tumor marker/CA-125 was checked on February 06, 2020 was elevated at 55.5. Further evaluation with CT scan of abdomen pelvis confirmed large cystic lesion with mural nodularity arising from pelvis- likely ovarian neoplasm. The size of the mass was 15.3 x 23 .8 x 22.1 cm. Small amount of free fluid in the pelvis. Cholelithiasis. Prior gastric bypass but no visible pelvic or inguinal lymphadenopathy. Ms Meier was referred to Dr. Mtz in [place]. On February 29, 2020 she underwent right resection of ovarian cancer, bilateral salpingo-oophorectomy, total abdominal hysterectomy, pelvic and para-aortic lymphadenectomy, omentectomy and multiple biopsies including right hemidiaphragm. The final pathology report came back showed a right ovarian tumor size about 10 cm, endometrioid adenocarcinoma, intact, grade 3 e.g. T1 a. 10 lymph nodes were examined showed no evidence of metastatic disease e.g. N0 stage I Immunohistochemistry was positive for p16, p53, Ki-67 and vimentin consistent with high-grade endometrioid carcinoma. Patient tolerated procedure well and based on high-grade e.g. grade 3 ovarian endometrioid carcinoma, as per patient she was recommended adjuvant chemotherapy with 6 cycles carboplatin/Taxol. Patient is a diabetic, also has history of morbid obesity for which she underwent gastric bypass in 1999, as per patient about 2 years ago she was diagnosed with persistent anemia and she did require 3 units of packed RBC during her recent bilateral oophorectomy/hysterectomy done on February 29, 2020. Ms Meier was referred to [facility] [employer] oncology for second opinion at her request and evaluation for clinical trial. She was seen by Dr. Luis Post on May 15, 2019. His recommendations were that he agreed with her original diagnosis and recommended her to proceed with 6 cycles of carboplatin/Taxol. As per patient on May 03, 2020 she was diagnosed with Covid infection and had some breathing difficulty so went to [facility]. She did receive monoclonal antibody treatment for the COVID-19 and tolerated it well. She underwent transinternal jugular vein entheses right internal jugular vein) power port placement per Dr. Apodaca on June 03, 2020. She began her first cycle of carboplatin paclitaxel on June 13, 2020. Came for follow-up, denies any specific complaints, no fever chills, no nausea or vomiting, no diarrhea or constipation, no jaundice, no abdominal pain or fullness, no peripheral neuropathy, tolerating systemic therapy with carboplatin/Taxol well. Medications: All Day Allergy 1 Tablet (of 10 mg) Oral daily, Atorvastatin Calcium 1 Tablet (of 10 mg) Oral daily, busPIRone HCl 1 Tablet (of 15 mg) Oral b.i.d., Euthyrox 1 Tablet (of 175 mcg) Oral daily, Glucophage 1 Tablet (of 850 mg) Oral daily, Januvia 1 Tablet (of 25 mg) Oral daily, Lisinopril 1 Tablet (of 10 mg) Oral daily, Naprosyn 1 Tablet (of 500 mg) Oral b.i.d. PRN, Slow Release Iron 1 Tablet (of 47.5 mg) Tablet, controlled release Oral daily, traMADol HCl 1 Tablet (of 50 mg) Oral t.i.d. PRN, Tums Tablet, chewable Oral PRN, Zoloft 2 Tablet (of 100 mg) Oral daily Allergies: Amoxicillin and Cephalexin. Review of Systems: Review of Systems is not available for this patient. Vital Signs: Performed on Aug 29, 2020 16:55 Height - 67.00 in Temperature - 97.3 F (LOW) Pulse - 87 /min Respiration - 18 /min BP - 114/72 mm(hg) O2 Sat - 97 % Performed on Aug 29, 2020 10:52 Height - 67.00 in Weight - 209.2 lbs (HIGH) BSA - 2.06 sq.m BMI - 32.77 (HIGH) Temperature - 97.9 F (LOW) Pulse - 88 /min Respiration - 18 /min BP - 155/79 mm(hg) (HIGH) O2 Sat - 98 % Pain - 2 Fatigue - 10 Performance Status: 0 - Fully active, able to carry on all predisease activities without restrictions. (ECOG) Physical Examination: ENMT - No mouth sores, no thrush, no jaundice, Respiratory - Lungs are clear to auscultation, Cardiovascular - Regular rate and rhythm of heart, Abdomen - Soft, bowel sounds present, Extremities - No visible edema. Lab/Imaging: Test performed on Aug 29, 2020 08:17 Sodium 132 mmol/L Potassium 4.9 mmol/L Chloride 101 mmol/L CO2 18 mmol/L Anion Gap 17.9 BUN 25 mg/dL Creatinine 1.0 mg/dL Cr Clearance (Est) 84.7400 mL/min eGFR 56.6 mL/min Glucose 219 mg/dL Osmolality - Calculated 285 mOsm/kg Calcium 8.9 mg/dL Protein, Total 7.2 g/dL Albumin 4.1 g/dL Globulin 3.1 g/dL Bilirubin, Total 0.3 mg/dL ALT (SGPT) 22 U/L AST (SGOT) 22 U/L Alkaline Phosphatase 136 IU/L WBC 6.2 10 3/uL RBC 3.33 10 6/uL HGB 10.5 g/dL HCT 33.1 % MCV 99.4 fL MCH 31.5 pg MCHC 31.7 g/dL RDW 18.0 % Platelet Count 195 10 3/cmm MPV 9.3 fL Neutrophils 5.53 10 3/uL Lymphocytes 0.6 10 3/uL Monocytes 0.1 10 3/uL Eosinophils 0.0 10 3/uL Basophils 0.0 10 3/uL Neutrophil % 88.5 % Lymphocyte % 9.8 % Monocyte % 1.0 % Eosinophil % 0.0 % Basophils % 0.2 % NRBC % 0 % Test performed on Jul 31, 2020 08:50 CBC Slide Review Slide Review Perform Test performed on July 04, 2020 12:30 Ferritin 316 ng/mL Folate, Serum 5.2 ng/mL Iron 61 mcg/dL Vitamin B12 > 2000 pg/mL Iron Binding Capacity (TIBC) 286 mcg/dl % Iron Saturation 21.3 % UIBC 225 mcg/dL Impression: Grade 3 ovarian endometrioid carcinoma status post right resection of ovarian cancer, bilateral salpingo-oophorectomy, total abdominal hysterectomy, pelvic and para-aortic lymphadenectomy, omentectomy, multiple biopsies including right hemidiaphragm done on February 29, 2020 Final pathology report confirmed 10 cm sized tumor involving the right ovary, endometrioid adenocarcinoma, grade 3, intact, peritoneal fluid negative implants negative and 0 out of 10 lymph nodes showed metastatic disease e.g. pT1a limited to 1 ovary (capsule intact). p N 0, MX stage I Immunohistochemistry were positive for p16, p53, Ki-67, vimentin, pattern consistent with high-grade endometrial carcinoma History of diabetes mellitus, Gastric bypass surgery for morbid obesity in 2000 Anemia since 2018, status post 3 units of packed RBCs on February 29 2020 during bilateral oophorectomy/hysterectomy for right ovarian cancerAnd again on July 25, 2020 for hemoglobin 7 g Plan: Discussed with patient regarding her labs white blood count 6.2 hemoglobin 10.5 hematocrit 33.1 platelets 195,000 CMP within normal limit except glucose 219 Clinically, patient doing well with no new signs symptom suggestive of disease progression, tolerating systemic therapy with carboplatin/Taxol well, will proceed with next cycle #4 today and then she will return to clinic in 2 weeks with CBC CMP As per the hyperglycemia is concerned, probably due to dexamethasone given as premedication, patient was advised to follow a sliding scale Signed By: Barbara Cheek M.D. <<Signature on File>>
[2020-08-30] MEDS: sodium chloride 0.9% 1,000 ML 999 ML IV (09:52)
[2020-09-03] MEDS: sodium chloride 0.9% 1,000 ML 999 ML IV (08:40)
[2020-09-05] MEDS: sodium chloride 0.9% 1,000 ML 999 ML IV (08:35)
[2020-09-10] MEDS: sodium chloride 0.9% 1,000 ML 999 ML IV (08:15)
[2020-09-10 08:48] LABS: Basophils # 0.1 10^3/uL (0.0-0.1); Basophils % 0.7 %; Eosinophils % 0.4 %; Hematocrit 28.2 % (37.0-47.0); Hemoglobin 8.7 g/dL (11.5-15.3); Lymphocytes # 1.3 10^3/uL (0.8-4.8); Mean Corpuscular HGB Conc 30.9 g/dL (30.0-36.0); Mean Corpuscular Hemoglobin 31.8 pg (28.0-34.0); Mean Corpuscular Volume 102.9 fL (81-99); Mean Platelet Volume 11.1 fL (7.4-10.4); Monocytes # 0.4 10^3/uL (0.2-0.9); Monocytes % 5.8 %; Neutrophils # 4.89 10^3/uL (1.8-7.7); Neutrophils % 72.9 %; Nucleated Red Blood Cells % 0 %; Platelet Count 87 10^3/cmm (130-400); Red Blood Count 2.74 10^6/uL (4.1-5.3); Red Cell Distribution Width 18.6 % (12.1-15.1); White Blood Count 6.7 10^3/uL (4.0-10.0)
[2020-09-10 09:19] LABS: Alanine Aminotransferase 15 U/L (0-33); Albumin Level 3.3 g/dL (3.5-5.2); Alkaline Phosphatase 130 IU/L (35-105); Anion Gap 16.2 (5-19); Aspartate Amino Transferase 12 U/L (0-32); Blood Urea Nitrogen 11 mg/dL (8-23); Calcium 8.2 mg/dL (8.5-10.5); Carbon Dioxide 21 mmol/L (22-29); Chloride 105 mmol/L (98-107); Globulin 2.4 g/dL (1.3-4.6); Glomerular Filtration Rate 73.2 mL/min (90-130); Glucose 306 mg/dL (65-115); Osmolality Calculated 297 mOsm/kg (285-295); Potassium 4.2 mmol/L (3.5-5.1); Sodium 138 mmol/L (136-145); Total Bilirubin 0.2 mg/dL (0.15-1.2); Total Protein 5.7 g/dL (6.6-8.7)
[2020-09-13] MEDS: sodium chloride 0.9% 1,000 ML 999 ML IV (08:25)
--- NOTE | 2020-09-15 15:33 | ONC FU_ITS ---
Dr. Cheek follow up note Patient: Alecia Meier I Unit #: [id number]: 1960 Dicatated By: Barbara Cheek M.D.Date of Visit:Sep 13, 2020 Onc Med Follow-up/Prog Note History of Present Illness: Ms. Meier is a 60-year-old female with a history of progressive abdominal/pelvic pain. She was evaluated by Dr. 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 Her tumor marker/CA-125 was checked on February 06, 2020 was elevated at 55.5. Further evaluation with CT scan of abdomen pelvis confirmed large cystic lesion with mural nodularity arising from pelvis- likely ovarian neoplasm. The size of the mass was 15.3 x 23 .8 x 22.1 cm. Small amount of free fluid in the pelvis. Cholelithiasis. Prior gastric bypass but no visible pelvic or inguinal lymphadenopathy. Ms Meier was referred to Dr. Mtz in [place]. On February 29, 2020 she underwent right resection of ovarian cancer, bilateral salpingo-oophorectomy, total abdominal hysterectomy, pelvic and para-aortic lymphadenectomy, omentectomy and multiple biopsies including right hemidiaphragm. The final pathology report came back showed a right ovarian tumor size about 10 cm, endometrioid adenocarcinoma, intact, grade 3 e.g. T1 a. 10 lymph nodes were examined showed no evidence of metastatic disease e.g. N0 stage I Immunohistochemistry was positive for p16, p53, Ki-67 and vimentin consistent with high-grade endometrioid carcinoma. Patient tolerated procedure well and based on high-grade e.g. grade 3 ovarian endometrioid carcinoma, as per patient she was recommended adjuvant chemotherapy with 6 cycles carboplatin/Taxol. Patient is a diabetic, also has history of morbid obesity for which she underwent gastric bypass in 1999, as per patient about 2 years ago she was diagnosed with persistent anemia and she did require 3 units of packed RBC during her recent bilateral oophorectomy/hysterectomy done on February 29, 2020. Ms Meier was referred to 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 She was seen by Dr. Luis Post on May 15, 2019. His recommendations were that he agreed with her original diagnosis and recommended her to proceed with 6 cycles of carboplatin/Taxol. As per patient on May 03, 2020 she was diagnosed with Covid infection and had some breathing difficulty so went to [facility] [facility]. She did receive monoclonal antibody treatment for the COVID-19 and tolerated it well. She underwent transinternal jugular vein entheses right internal jugular vein) power port placement per Dr. Apodaca on June 03, 2020. She began her first cycle of carboplatin paclitaxel on June 13, 2020. Came for follow-up, complaining of generalized weakness and fatigue otherwise no nausea or vomiting, no diarrhea or constipation, no peripheral numbness, no mouth sores, no thrush, no jaundice, no abdominal pain, tolerating systemic therapy with carboplatin/Taxol well. Medications: All Day Allergy 1 Tablet (of 10 mg) Oral daily, Atorvastatin Calcium 1 Tablet (of 10 mg) Oral daily, busPIRone HCl 1 Tablet (of 15 mg) Oral b.i.d., Euthyrox 1 Tablet (of 175 mcg) Oral daily, Glucophage 1 Tablet (of 850 mg) Oral daily, Januvia 1 Tablet (of 25 mg) Oral daily, Lisinopril 1 Tablet (of 10 mg) Oral daily, Naprosyn 1 Tablet (of 500 mg) Oral b.i.d. PRN, Slow Release Iron 1 Tablet (of 47.5 mg) Tablet, controlled release Oral daily, traMADol HCl 1 Tablet (of 50 mg) Oral t.i.d. PRN, Tums Tablet, chewable Oral PRN, Zoloft 2 Tablet (of 100 mg) Oral daily Allergies: Amoxicillin and Cephalexin. Review of Systems: Review of Systems is not available for this patient. Vital Signs: Performed on Sep 13, 2020 09:00 Height - 67.00 in Weight - 214.6 lbs (HIGH) BSA - 2.08 sq.m BMI - 33.61 (HIGH) Temperature - 96.9 F (LOW) Pulse - 73 /min Respiration - 18 /min BP - 117/71 mm(hg) O2 Sat - 99 % Pain - 3 Fatigue - 7 Performance Status: 1 - No physically strenuous activity, but ambulatory and able to carry out light or sedentary work (e.g. office work, light house work). (ECOG) Physical Examination: ENMT - No mouth sores, no thrush, no jaundice, Respiratory - Lungs are clear to auscultation, Cardiovascular - Regular rate and rhythm of heart, Abdomen - Soft, bowel sounds present, Extremities - No visible edema. Lab/Imaging: Test performed on Aug 29, 2020 08:17 Sodium 132 mmol/L Potassium 4.9 mmol/L Chloride 101 mmol/L CO2 18 mmol/L Anion Gap 17.9 BUN 25 mg/dL Creatinine 1.0 mg/dL Cr Clearance (Est) 84.7400 mL/min eGFR 56.6 mL/min Glucose 219 mg/dL Osmolality - Calculated 285 mOsm/kg Calcium 8.9 mg/dL Protein, Total 7.2 g/dL Albumin 4.1 g/dL Globulin 3.1 g/dL Bilirubin, Total 0.3 mg/dL ALT (SGPT) 22 U/L AST (SGOT) 22 U/L Alkaline Phosphatase 136 IU/L WBC 6.2 10 3/uL RBC 3.33 10 6/uL HGB 10.5 g/dL HCT 33.1 % MCV 99.4 fL MCH 31.5 pg MCHC 31.7 g/dL RDW 18.0 % Platelet Count 195 10 3/cmm MPV 9.3 fL Neutrophils 5.53 10 3/uL Lymphocytes 0.6 10 3/uL Monocytes 0.1 10 3/uL Eosinophils 0.0 10 3/uL Basophils 0.0 10 3/uL Neutrophil % 88.5 % Lymphocyte % 9.8 % Monocyte % 1.0 % Eosinophil % 0.0 % Basophils % 0.2 % NRBC % 0 % Test performed on Jul 31, 2020 08:50 CBC Slide Review Slide Review Perform Test performed on July 04, 2020 12:30 Ferritin 316 ng/mL Folate, Serum 5.2 ng/mL Iron 61 mcg/dL Vitamin B12 > 2000 pg/mL Iron Binding Capacity (TIBC) 286 mcg/dl % Iron Saturation 21.3 % UIBC 225 mcg/dL Impression: Grade 3 ovarian endometrioid carcinoma status post right resection of ovarian cancer, bilateral salpingo-oophorectomy, total abdominal hysterectomy, pelvic and para-aortic lymphadenectomy, omentectomy, multiple biopsies including right hemidiaphragm done on February 29, 2020 Final pathology report confirmed 10 cm sized tumor involving the right ovary, endometrioid adenocarcinoma, grade 3, intact, peritoneal fluid negative implants negative and 0 out of 10 lymph nodes showed metastatic disease e.g. pT1a limited to 1 ovary (capsule intact). p N 0, MX stage I Immunohistochemistry were positive for p16, p53, Ki-67, vimentin, pattern consistent with high-grade endometrial carcinoma History of diabetes mellitus, Gastric bypass surgery for morbid obesity in 2000 Anemia since 2018, status post 3 units of packed RBCs on February 29 2020 during bilateral oophorectomy/hysterectomy for right ovarian cancerAnd again on July 25, 2020 for hemoglobin 7 g Plan: Discussed with patient regarding her labs white blood count 6.7 hemoglobin 8.7 hematocrit 28.2 platelets 87,000 CMP within normal limit except glucose 306 and alk phos 130 Clinically, patient is doing reasonably well, tolerating adjuvant therapy with carboplatin/Taxol well but with expected side effects e.g. generalized weakness and fatigue, hyperglycemia which could be multifactorial Patient was advised to monitor her blood sugar and watch her diet and follow her PMDs instructions regarding hypoglycemia management Mild thrombocytopenia due to chemotherapy, will continue to monitor Anemia probably multifactorial including chemotherapy, will continue monitor her hemoglobin if less than 8 g consider blood transfusion As far as generalized weakness and fatigue is concerned, will continue hydration on as-needed basis and patient was encouraged to maintain blood sugar under control and maintain hydration and then she will return to clinic in 1 week with CBC CMP blood count looks reasonable e.g. resolution of mild thrombocytopenia, will consider cycle #5/6 chemotherapy with carboplatin/Taxol Generalized weakness and fatigue Signed By: Barbara Cheek M.D. <<Signature on File>>
[2020-09-19 16:18] LABS: Eosinophils % 0.4 %; Hematocrit 23.7 % (37.0-47.0); Hemoglobin 7.4 g/dL (11.5-15.3); Lymphocytes # 1.1 10^3/uL (0.8-4.8); Lymphocytes % 22.4 %; Mean Corpuscular HGB Conc 31.2 g/dL (30.0-36.0); Mean Corpuscular Hemoglobin 33.2 pg (28.0-34.0); Mean Corpuscular Volume 106.3 fL (81-99); Mean Platelet Volume 10.5 fL (7.4-10.4); Monocytes # 0.4 10^3/uL (0.2-0.9); Monocytes % 8.8 %; Neutrophils # 3.25 10^3/uL (1.8-7.7); Nucleated Red Blood Cells % 0 %; Platelet Count 117 10^3/cmm (130-400); Red Blood Count 2.23 10^6/uL (4.1-5.3); Red Cell Distribution Width 21.1 % (12.1-15.1); White Blood Count 4.8 10^3/uL (4.0-10.0)
[2020-09-19 16:40] LABS: Alanine Aminotransferase 13 U/L (0-33); Albumin Level 3.5 g/dL (3.5-5.2); Alkaline Phosphatase 123 IU/L (35-105); Anion Gap 12.8 (5-19); Aspartate Amino Transferase 13 U/L (0-32); Blood Urea Nitrogen 17 mg/dL (8-23); Calcium 8.4 mg/dL (8.5-10.5); Carbon Dioxide 23 mmol/L (22-29); Chloride 105 mmol/L (98-107); Globulin 2.4 g/dL (1.3-4.6); Glomerular Filtration Rate 63.9 mL/min (90-130); Glucose 92 mg/dL (65-115); Osmolality Calculated 283 mOsm/kg (285-295); Potassium 4.8 mmol/L (3.5-5.1); Sodium 136 mmol/L (136-145); Total Bilirubin 0.2 mg/dL (0.15-1.2); Total Protein 5.9 g/dL (6.6-8.7)
--- NOTE | 2020-09-20 10:25 | PC.NURSE ---
PORT-A CATH 19G 3/4 INCH
[2020-09-20] MEDS: acetaminophen 325 mg Tablet 650 MG PO (10:47)
[2020-09-20] MEDS: diphenhydrAMINE 25 mg Capsule PO (10:47)
[2020-09-20 11:10] VITALS: BP 127/76; PULSE 85; RESP 18; TEMP 36.4; O2SAT 96
[2020-09-20 11:25] VITALS: BP 127/84; PULSE 80; RESP 18; TEMP 36.4; O2SAT 95
[2020-09-20 11:50] VITALS: BP 127/73; PULSE 82; RESP 18; TEMP 36.4
--- NOTE | 2020-09-20 11:59 | PC.NURSE ---
patient sleeping. RR even and nonlabored. No outward s/s of pain
[2020-09-20 12:10] VITALS: BP 130/80; PULSE 80; RESP 18; TEMP 36.4; O2SAT 97
[2020-09-20] MEDS: sodium chloride 0.9% 250 ML 999 ML IV (12:50)
[2020-09-20 12:55] VITALS: BP 123/79; PULSE 84; RESP 18; TEMP 36.3; O2SAT 97
--- NOTE | 2020-09-20 13:39 | ONC FU_ITS ---
Dr. Cheek follow up note Patient: Alecia Meier I Unit #: [id number]: 1960 Dicatated By: Barbara Cheek M.D.Date of Visit:Sep 20, 2020 Onc Med Follow-up/Prog Note History of Present Illness: Ms. Meier is a 60-year-old female with a history of progressive abdominal/pelvic pain. She was evaluated by Dr. Gutierrez [facility] and subsequently underwent abdominal ultrasoud which confirmed a large complex ovarian mass. Her tumor marker/CA-125 was checked on February 06, 2020 was elevated at 55.5. Further evaluation with CT scan of abdomen pelvis confirmed large cystic lesion with mural nodularity arising from pelvis- likely ovarian neoplasm. The size of the mass was 15.3 x 23 .8 x 22.1 cm. Small amount of free fluid in the pelvis. Cholelithiasis. Prior gastric bypass but no visible pelvic or inguinal lymphadenopathy. Ms Meier was referred to Dr. Mtz in [place]. On February 29, 2020 she underwent right resection of ovarian cancer, bilateral salpingo-oophorectomy, total abdominal hysterectomy, pelvic and para-aortic lymphadenectomy, omentectomy and multiple biopsies including right hemidiaphragm. The final pathology report came back showed a right ovarian tumor size about 10 cm, endometrioid adenocarcinoma, intact, grade 3 e.g. T1 a. 10 lymph nodes were examined showed no evidence of metastatic disease e.g. N0 stage I Immunohistochemistry was positive for p16, p53, Ki-67 and vimentin consistent with high-grade endometrioid carcinoma. Patient tolerated procedure well and based on high-grade e.g. grade 3 ovarian endometrioid carcinoma, as per patient she was recommended adjuvant chemotherapy with 6 cycles carboplatin/Taxol. Patient is a diabetic, also has history of morbid obesity for which she underwent gastric bypass in 1999, as per patient about 2 years ago she was diagnosed with persistent anemia and she did require 3 units of packed RBC during her recent bilateral oophorectomy/hysterectomy done on February 29, 2020. Ms Meier was referred to [facility] oncology for second opinion at her request and evaluation for clinical trial. She was seen by Dr. Luis Post on May 15, 2019. His recommendations were that he agreed with her original diagnosis and recommended her to proceed with 6 cycles of carboplatin/Taxol. As per patient on May 03, 2020 she was diagnosed with Covid infection and had some breathing difficulty so went to [facility]. She did receive monoclonal antibody treatment for the COVID-19 and tolerated it well. She underwent transinternal jugular vein entheses right internal jugular vein) power port placement per Dr. Apodaca on June 03, 2020. She began her first cycle of carboplatin paclitaxel on June 13, 2020. Came for follow-up, denies any specific complaint except generalized weakness and fatigue, no nausea or vomiting, no diarrhea constipation but off and on bleeding per rectum from hemorrhoids. No hemoptysis or hematemesis, no jaundice but dyspnea on exertion and palpitation, no chest pain, no peripheral numbness. Medications: All Day Allergy 1 Tablet (of 10 mg) Oral daily, Atorvastatin Calcium 1 Tablet (of 10 mg) Oral daily, busPIRone HCl 1 Tablet (of 15 mg) Oral b.i.d., Euthyrox 1 Tablet (of 175 mcg) Oral daily, Glucophage 1 Tablet (of 850 mg) Oral daily, Januvia 1 Tablet (of 25 mg) Oral daily, Lisinopril 1 Tablet (of 10 mg) Oral daily, Naprosyn 1 Tablet (of 500 mg) Oral b.i.d. PRN, Slow Release Iron 1 Tablet (of 47.5 mg) Tablet, controlled release Oral daily, traMADol HCl 1 Tablet (of 50 mg) Oral t.i.d. PRN, Tums Tablet, chewable Oral PRN, Zoloft 2 Tablet (of 100 mg) Oral daily Allergies: Amoxicillin and Cephalexin. Review of Systems: Review of Systems is not available for this patient. Vital Signs: Performed on Sep 20, 2020 08:24 Height - 67.00 in Weight - 211 lbs (LOW) BSA - 2.07 sq.m BMI - 33.05 (HIGH) Temperature - 97.3 F (LOW) Pulse - 97 /min Respiration - 18 /min BP - 149/80 mm(hg) (HIGH) O2 Sat - 97 % Pain - 0 Fatigue - 7 Performance Status: 1 - No physically strenuous activity, but ambulatory and able to carry out light or sedentary work (e.g. office work, light house work). (ECOG) Physical Examination: ENMT - No mouth sores, no thrush, no jaundice, Respiratory - Lungs are clear to auscultation, Cardiovascular - Regular rate and rhythm of heart, Abdomen - Soft, bowel sounds present, Extremities - No visible edema. Lab/Imaging: Test performed on Sep 19, 2020 15:27 Sodium 136 mmol/L Potassium 4.8 mmol/L Chloride 105 mmol/L CO2 23 mmol/L Anion Gap 12.8 BUN 17 mg/dL Creatinine 0.9 mg/dL Cr Clearance (Est) 94.1500 mL/min eGFR 63.9 mL/min Glucose 92 mg/dL Osmolality - Calculated 283 mOsm/kg Calcium 8.4 mg/dL Protein, Total 5.9 g/dL Albumin 3.5 g/dL Globulin 2.4 g/dL Bilirubin, Total 0.2 mg/dL ALT (SGPT) 13 U/L AST (SGOT) 13 U/L Alkaline Phosphatase 123 IU/L WBC 4.8 10 3/uL RBC 2.23 10 6/uL HGB 7.4 g/dL HCT 23.7 % MCV 106.3 fL MCH 33.2 pg MCHC 31.2 g/dL RDW 21.1 % Platelet Count 117 10 3/cmm MPV 10.5 fL Neutrophils 3.25 10 3/uL Lymphocytes 1.1 10 3/uL Monocytes 0.4 10 3/uL Eosinophils 0.0 10 3/uL Basophils 0.0 10 3/uL Neutrophil % 68.0 % Lymphocyte % 22.4 % Monocyte % 8.8 % Eosinophil % 0.4 % Basophils % 0.0 % NRBC % 0 % Test performed on Jul 31, 2020 08:50 CBC Slide Review Slide Review Perform Test performed on July 04, 2020 12:30 Ferritin 316 ng/mL Folate, Serum 5.2 ng/mL Iron 61 mcg/dL Vitamin B12 > 2000 pg/mL Iron Binding Capacity (TIBC) 286 mcg/dl % Iron Saturation 21.3 % UIBC 225 mcg/dL Impression: Grade 3 ovarian endometrioid carcinoma status post right resection of ovarian cancer, bilateral salpingo-oophorectomy, total abdominal hysterectomy, pelvic and para-aortic lymphadenectomy, omentectomy, multiple biopsies including right hemidiaphragm done on February 29, 2020 Final pathology report confirmed 10 cm sized tumor involving the right ovary, endometrioid adenocarcinoma, grade 3, intact, peritoneal fluid negative implants negative and 0 out of 10 lymph nodes showed metastatic disease e.g. pT1a limited to 1 ovary (capsule intact). p N 0, MX stage I Immunohistochemistry were positive for p16, p53, Ki-67, vimentin, pattern consistent with high-grade endometrial carcinoma History of diabetes mellitus, Gastric bypass surgery for morbid obesity in 2000 Anemia since 2018, status post 3 units of packed RBCs on February 29 2020 during bilateral oophorectomy/hysterectomy for right ovarian cancerAnd again on July 25, 2020 for hemoglobin 7 g Plan: Discussed with patient regarding her labs white blood count 4.8 hemoglobin 7.4 hematocrit 23.7 platelets 117,000 compared to 87,000 previously CMP within normal limits Clinically, patient is doing reasonably well now with progressive generalized weakness and fatigue due to progressive anemia probably due to chronic blood loss due to hemorrhoidal bleeding. At this point we will check her iron studies B12 folic acid and consider two unit of packed RBC for symptomatic anemia Patient was due for her next cycle #5/6 chemotherapy with carbo/Taxol but follow-up labs shows persistent but improving mild thrombocytopenia, will hold her chemo therapy till next week, will repeat her CBC on Wednesday if it shows resolution of thrombocytopenia and improvement in her hemoglobin, patient will be advised to take steroid premedication for Taxol/carboplatin infusion on Wednesday morning Signed By: Barbara Cheek M.D. <<Signature on File>>
[2020-09-20 15:11] LABS: Folate Level 5.7 ng/mL (4.8-37.3)
[2020-09-20 15:12] LABS: Ferritin 508 ng/mL (15-150); Iron 71 ug/dL (37-145); Percent Saturation 23.1 % (20-50); Total Iron Binding Capacity 307 mcg/dl; Unsaturated Iron Binding 236 ug/dL (112-347)
[2020-09-20 15:27] LABS: Vitamin B12 > 2000 pg/mL (232-1245)
[2020-09-23 08:41] LABS: Basophils % 0.2 %; Eosinophils % 0.5 %; Hematocrit 29.1 % (37.0-47.0); Hemoglobin 9.2 g/dL (11.5-15.3); Lymphocytes # 1.1 10^3/uL (0.8-4.8); Lymphocytes % 26.7 %; Mean Corpuscular HGB Conc 31.6 g/dL (30.0-36.0); Mean Corpuscular Hemoglobin 32.7 pg (28.0-34.0); Mean Corpuscular Volume 103.6 fL (81-99); Mean Platelet Volume 9.4 fL (7.4-10.4); Monocytes # 0.4 10^3/uL (0.2-0.9); Monocytes % 9.9 %; Neutrophils # 2.51 10^3/uL (1.8-7.7); Neutrophils % 62.2 %; Nucleated Red Blood Cells % 0 %; Platelet Count 171 10^3/cmm (130-400); Red Blood Count 2.81 10^6/uL (4.1-5.3); Red Cell Distribution Width 21.6 % (12.1-15.1)
[2020-09-24] MEDS: palonosetron 0.25 mg/5 mL SDV IV (08:55)
[2020-09-24] MEDS: sodium chloride 0.9% 250 ML 75 ML IV (08:55)
[2020-09-24] MEDS: famotidine 20 mg/2 mL INJ IVP (08:56)
[2020-09-24] MEDS: diphenhydrAMINE 50 mg/mL SDV 1mL 25 MG IV (08:58)
[2020-09-24] MEDS: fosaprepitant 150 MG in sodium chloride 0.9% 150 ML 300 MG IV (09:05)
[2020-09-24] MEDS: dexamethasone 20 MG in sodium chloride 0.9% 50 ML 187 MG IV (09:30)
[2020-09-24] MEDS: pegfilgrastim 6 mg/0.6 mL Kit (onpro) SUBCUT (14:00)
== END 2020-09-28 23:59 | disposition home or self-care (01) ==
LOC: ONCMED 05:43
PROVIDERS: PCP Nurse Practitioner Family; Visit Provider Internal Medicine Hematology & Oncology
DX: Z51.11 Encounter for antineoplastic chemotherapy (principal); C56.1 Malignant neoplasm of right ovary; E11.9 Type 2 diabetes mellitus without complications; E66.01 Morbid (severe) obesity due to excess calories; D64.9 Anemia, unspecified; Z79.899 Other long term (current) drug therapy
CPT/HCPCS: 36415; 36430; 36591; 80053; 82607; 82728; 82746; 83540; 83550; 85025; 86850; 86900; 86920; 96360; 96367; 96372; 96375; 96377; 96413; 96415; 96417; 99214; 99215; J1100; J1200; J1453; J1815; J2469; J2505; J3490; J7030; J7040; J7050; J9045; J9267; P9040

== ENCOUNTER 2020-09-28 18:06 | Inpatient (IN) | payer OTHER, SELFPAY ==
[2020-09-28] VITALS (12 sets, daily range): BP systolic 129–162; BP diastolic 59–100; PULSE 62–82; RESP 17–22; O2SAT 94–97; BMI 33.0
--- NOTE | 2020-09-28 18:10 | ED_ITS ---
Documented by User: EVERARDO Husain 09/28/20 20:21 HPI - Abdominal Pain General: Chief Complaint: Abdominal Pain Stated Complaint: RIGHT UPPER QUAD PAIN Time Seen by Provider: 09/28/20 18:09 History of Present Illness: HPI narrative: 60-year-old female comes in today with complaints of right upper quadrant pain since this morning. Patient reports that she rolled over in bed and felt sudden pain in the right upper quadrant. She has been unable to get relief from pain. Patient has a history of major depressive disorder, ovarian cancer, hypothyroid, diabetes mellitus. Patient is currently under treatment for her ovarian cancer. Review of Systems General: Reports: 10 or more systems reviewed and unremarkable except in HPI and below GI: Reports: abdominal pain (Right upper quadrant) PFSH ED PFSH: Medical History Major depressive disorder, recurrent, in full remission Family History Sister Clotting disorder Diabetes Thyroid condition Father Hyperlipidemia Hypertension Heart disease Mother Hyperlipidemia Hypertension Stroke Breast cancer mid 50's Family/Other Colon cancer paternal aunt Denies family history of Ovarian cancer Anesthesia complication Bleeding disorder Uterine cancer Social History (System 08/09/20 @ 14:29 by Mercedes Chanel) Smoking and tobacco status: never smoked Alcohol intake: current Alcohol intake frequency: holidays/special occasions only Alcohol type: wine Physical Exam Const: COMMON NORMALS: no acute distress and patient oriented x3 GENERAL APPEARANCE: cooperative HENMT: COMMON NORMALS: normocephalic and Normal external nose present HEAD & SCALP: normal to inspection and normocephalic NOSE: Normal external nose present MOUTH: Normal oral and palatal mucosa present Eye: GENERAL EYE: appearance normal, both eyes and all related structures Neck/C-Spine: COMMON NORMALS: full ROM Chest: COMMONS NORMALS: normal inspection of the chest Resp: COMMON NORMALS: normal respiratory effort EFFORT & INSPECTION: Yes able to speak in complete sentences Cardio: COMMON NORMALS: regular rate and regular rhythm RATE: regular rate RHYTHM: regular rhythm GI: COMMON NORMALS: Soft to palpation AUSCULTATION: Yes Hyperactive bowel sounds present PALPATION: Yes Soft to palpation and Yes Tenderness to palpation present (GI) Details: RUQ : BLADDER/KIDNEY EXAM: Yes CVA tenderness (Mild) on the right Back/Pelvis: COMMON NORMALS: thoracic and lumbar spine normal to inspection GENERAL BACK: Yes CVA tenderness (Mild) Extremity: COMMON NORMALS: normal to inspection Neuro: COMMON NORMALS: patient oriented x3 and moves all extremities Psych: COMMON NORMALS: mental status grossly normal and cooperative Skin: COMMON NORMALS: no rashes or lesions noted GENERAL SKIN EXAM: no rashes or lesions noted Course ED course: 2014, reviewed abnormal CT with patient and recommendations for treatment with surgeon for further evaluation and care. Patient was agreeable to plan. Discussed with Dr. Pacheco who will assume care of patient for admission and surgical consult. Vital Signs: Vital signs: Vital Signs Pulse Rate 74 09/28/20 23:00 Respiratory Rate 20 H 09/28/20 23:17 Blood Pressure 162/59 09/28/20 23:00 Pulse Oximetry 94 09/28/20 23:00 MDM - Abdominal Pain MDM Narrative: Medical decision making narrative: 60-year-old female comes in this evening for concerns of abdominal pain in the right upper quadrant. Patient states that she had rolled over in bed and since then has had increasing abdominal discomfort. Patient has a history of gallstones and was concerned for a gallbladder issue. On exam abdomen was tender to touch. Bowel sounds were respirations were even, vital signs were normal. Differential diagnosis includes but not limited to cholecystitis, bowel perforation, abdominal ileus, urinary tract infection. Laboratory values noted some anemia, white count was 8000, sodium was 133, glucose was 307, CT scan noted a pneumoperitoneum with signs of inflammation in the duodenum which may be suggestive of a duodenal ulcer perforation. I reviewed this with Dr. Pacheco, attending ER physician, who agreed to assume care of patient and discussed with on-call surgeon for further treatment. Lab Data: Labs: Lab Results 09/28/20 09/28/20 09/28/20 Range/Units 18:40 18:40 18:40 WBC 8.1 (4.0-10.0) 10^3/ uL RBC 2.62 L (4.1-5.3) 10^6/u L Hgb 8.7 L (11.5-15.3) g/dL Hct 27.5 L (37.0-47.0) % MCV 105.0 H (81-99) fL MCH 33.2 (28.0-34.0) pg MCHC 31.6 (30.0-36.0) g/dL RDW 19.8 H (12.1-15.1) % Plt Count 128 L (130-400) 10^3/c mm MPV 9.7 (7.4-10.4) fL Neut % (Auto) 79.2 % Lymph % (Auto) 5.6 % [place] % (Auto) 1.7 % Eos % (Auto) 0.4 % Baso % (Auto) 1.1 % Neut # (Auto) 6.41 (1.8-7.7) 10^3/u L Lymph # (Auto) 0.5 L (0.8-4.8) 10^3/u L [place] # (Auto) 0.1 L (0.2-0.9) 10^3/u L Eos # (Auto) 0.0 (0.0-0.8) 10^3/u L Baso # (Auto) 0.1 (0.0-0.1) 10^3/u L Nucleated RBC % (a uto) 0 % Nucleated RBCs # 0.0 /100WBC Sodium 133 L (136-145) mmol/L Potassium 4.7 (3.5-5.1) mmol/L Chloride 101 (98-107) mmol/L Carbon Dioxide 20 L (22-29) mmol/L Anion Gap 16.7 (5-19) BUN 25 H (8-23) mg/dL Creatinine 0.7 (0.5-0.9) mg/dL GFR Calculation 85.4 L (90-130) mL/min Glucose 307 H (65-115) mg/dL Calculated Osmolal ity 292 (285-295) mOsm/k g Calcium 7.7 L (8.5-10.5) mg/dL Total Bilirubin 0.4 (0.15-1.2) mg/dL AST 12 (0-32) U/L ALT 12 (0-33) U/L Alkaline Phosphata se 106 H (35-105) IU/L Troponin T Baselin e 7 (0-10) ng/L Total Protein 5.4 L (6.6-8.7) g/dL Albumin 3.2 L (3.5-5.2) g/dL Globulin 2.2 (1.3-4.6) g/dL Lipase 41 (13-60) U/L Urine Color (Yellow) Urine Appearance (CLEAR) Urine pH (5-7) Ur Specific Gravit y (1.005-1.030) Urine Protein (Negative) Urine Glucose (UA) (Normal) Urine Ketones (Negative) Urine Blood (Negative) Urine Nitrate (Negative) Urine Bilirubin (Negative) Urine Urobilinogen (Negative) mg/dL Ur Leukocyte Dilcia ase (Negative) Urine RBC (0-2) /hpf Urine WBC (0-5) /hpf Ur Squamous Epith Cells (0-5) /hpf Amorphous Sediment Urine Bacteria (NONE) /hpf 09/28/20 Range/Units 19:26 WBC (4.0-10.0) 10^3/ uL RBC (4.1-5.3) 10^6/u L Hgb (11.5-15.3) g/dL Hct (37.0-47.0) % MCV (81-99) fL MCH (28.0-34.0) pg MCHC (30.0-36.0) g/dL RDW (12.1-15.1) % Plt Count (130-400) 10^3/c mm MPV (7.4-10.4) fL Neut % (Auto) % Lymph % (Auto) % [place] % (Auto) % Eos % (Auto) % Baso % (Auto) % Neut # (Auto) (1.8-7.7) 10^3/u L Lymph # (Auto) (0.8-4.8) 10^3/u L [place] # (Auto) (0.2-0.9) 10^3/u L Eos # (Auto) (0.0-0.8) 10^3/u L Baso # (Auto) (0.0-0.1) 10^3/u L Nucleated RBC % (a uto) % Nucleated RBCs # /100WBC Sodium (136-145) mmol/L Potassium (3.5-5.1) mmol/L Chloride (98-107) mmol/L Carbon Dioxide (22-29) mmol/L Anion Gap (5-19) BUN (8-23) mg/dL Creatinine (0.5-0.9) mg/dL GFR Calculation (90-130) mL/min Glucose (65-115) mg/dL Calculated Osmolal ity (285-295) mOsm/k g Calcium (8.5-10.5) mg/dL Total Bilirubin (0.15-1.2) mg/dL AST (0-32) U/L ALT (0-33) U/L Alkaline Phosphata se (35-105) IU/L Troponin T Baselin e (0-10) ng/L Total Protein (6.6-8.7) g/dL Albumin (3.5-5.2) g/dL Globulin (1.3-4.6) g/dL Lipase (13-60) U/L Urine Color Yellow (Yellow) Urine Appearance Sl hazy (CLEAR) Urine pH 6 (5-7) Ur Specific Gravit y 1.010 (1.005-1.030) Urine Protein Neg (Negative) Urine Glucose (UA) 2+ (Normal) Urine Ketones Negative (Negative) Urine Blood Neg (Negative) Urine Nitrate Negative (Negative) Urine Bilirubin Neg (Negative) Urine Urobilinogen 1 H (Negative) mg/dL Ur Leukocyte Dilcia ase Negative (Negative) Urine RBC 0-4 H (0-2) /hpf Urine WBC 5-10 H (0-5) /hpf Ur Squamous Epith Cells 0-4 H (0-5) /hpf Amorphous Sediment Not Reportable Urine Bacteria 4+ H (NONE) /hpf EKG Data ^: EKG 1: Attestation: I personally reviewed and interpreted this EKG as follows: (184, EKG shows a regular sinus rhythm at 67 bpm, no ST elevation or ectopy is noted. Computer reads some borderline left axis deviation. No comparison is available at this time.) Discharge Plan Discharge Patient Disposition: Admitted As Inpatient Admit Provider: Brenden Apodaca Clinical Impression: Perforated abdominal viscus Condition: Stable Coding Level of Care Code ED Buildings And Grounds Director for Chg Fwd Exam Comprehensive Documented by User: Jimmy Pacheco DO 09/29/20 00:18 HPI - Abdominal Pain General: Chief Complaint: Abdominal Pain Stated Complaint: RIGHT UPPER QUAD PAIN Time Seen by Provider: 09/28/20 18:09 PFSH ED PFSH: Medical History Major depressive disorder, recurrent, in full remission Family History Sister Clotting disorder Diabetes Thyroid condition Father Hyperlipidemia Hypertension Heart disease Mother Hyperlipidemia Hypertension Stroke Breast cancer mid 50's Family/Other Colon cancer paternal aunt Denies family history of Ovarian cancer Anesthesia complication Bleeding disorder Uterine cancer Social History (System 08/09/20 @ 14:29 by Mercedes Chanel) Smoking and tobacco status: never smoked Alcohol intake: current Alcohol intake frequency: holidays/special occasions only Alcohol type: wine Course Consultations: Consultation #1: robby Time: 21:02 Consultation #2: mercedes Vital Signs: Vital signs: Vital Signs Pulse Rate 74 09/28/20 23:00 Respiratory Rate 20 H 09/28/20 23:17 Blood Pressure 162/59 09/28/20 23:00 Pulse Oximetry 94 09/28/20 23:00 MDM - Abdominal Pain MDM Narrative: Medical decision making narrative: 60-year-old patient originally seen by EVERARDO Jimenez. I agree with his history, evaluation, and treatment. This patient has a duodenitis, with probable small perforation. There is fluid in the abdominal cavity as well. No large area of perforated bowel noted on original CT. I spoke with surgery. Suggestion is to repeat CT with oral contrast to see if extravasation of any contrast for perforation that study is pending. The patient has gotten Flagyl and Cipro here and will kenan nue to on admission. Fluid support, PPI drip, given that this is possibly a duodenal ulcer perforation. Hospitalist will consult. Lab Data: Labs: Lab Results 09/28/20 09/28/20 09/28/20 Range/Units 18:40 18:40 18:40 WBC 8.1 (4.0-10.0) 10^3/ uL RBC 2.62 L (4.1-5.3) 10^6/u L Hgb 8.7 L (11.5-15.3) g/dL Hct 27.5 L (37.0-47.0) % MCV 105.0 H (81-99) fL MCH 33.2 (28.0-34.0) pg MCHC 31.6 (30.0-36.0) g/dL RDW 19.8 H (12.1-15.1) % Plt Count 128 L (130-400) 10^3/c mm MPV 9.7 (7.4-10.4) fL Neut % (Auto) 79.2 % Lymph % (Auto) 5.6 % [place] % (Auto) 1.7 % Eos % (Auto) 0.4 % Baso % (Auto) 1.1 % Neut # (Auto) 6.41 (1.8-7.7) 10^3/u L Lymph # (Auto) 0.5 L (0.8-4.8) 10^3/u L [place] # (Auto) 0.1 L (0.2-0.9) 10^3/u L Eos # (Auto) 0.0 (0.0-0.8) 10^3/u L Baso # (Auto) 0.1 (0.0-0.1) 10^3/u L Nucleated RBC % (a uto) 0 % Nucleated RBCs # 0.0 /100WBC Sodium 133 L (136-145) mmol/L Potassium 4.7 (3.5-5.1) mmol/L Chloride 101 (98-107) mmol/L Carbon Dioxide 20 L (22-29) mmol/L Anion Gap 16.7 (5-19) BUN 25 H (8-23) mg/dL Creatinine 0.7 (0.5-0.9) mg/dL GFR Calculation 85.4 L (90-130) mL/min Glucose 307 H (65-115) mg/dL Calculated Osmolal ity 292 (285-295) mOsm/k g Calcium 7.7 L (8.5-10.5) mg/dL Total Bilirubin 0.4 (0.15-1.2) mg/dL AST 12 (0-32) U/L ALT 12 (0-33) U/L Alkaline Phosphata se 106 H (35-105) IU/L Troponin T Baselin e 7 (0-10) ng/L Total Protein 5.4 L (6.6-8.7) g/dL Albumin 3.2 L (3.5-5.2) g/dL Globulin 2.2 (1.3-4.6) g/dL Lipase 41 (13-60) U/L Urine Color (Yellow) Urine Appearance (CLEAR) Urine pH (5-7) Ur Specific Gravit y (1.005-1.030) Urine Protein (Negative) Urine Glucose (UA) (Normal) Urine Ketones (Negative) Urine Blood (Negative) Urine Nitrate (Negative) Urine Bilirubin (Negative) Urine Urobilinogen (Negative) mg/dL Ur Leukocyte Dilcia ase (Negative) Urine RBC (0-2) /hpf Urine WBC (0-5) /hpf Ur Squamous Epith Cells (0-5) /hpf Amorphous Sediment Urine Bacteria (NONE) /hpf 09/28/20 Range/Units 19:26 WBC (4.0-10.0) 10^3/ uL RBC (4.1-5.3) 10^6/u L Hgb (11.5-15.3) g/dL Hct (37.0-47.0) % MCV (81-99) fL MCH (28.0-34.0) pg MCHC (30.0-36.0) g/dL RDW (12.1-15.1) % Plt Count (130-400) 10^3/c mm MPV (7.4-10.4) fL Neut % (Auto) % Lymph % (Auto) % [place] % (Auto) % Eos % (Auto) % Baso % (Auto) % Neut # (Auto) (1.8-7.7) 10^3/u L Lymph # (Auto) (0.8-4.8) 10^3/u L [place] # (Auto) (0.2-0.9) 10^3/u L Eos # (Auto) (0.0-0.8) 10^3/u L Baso # (Auto) (0.0-0.1) 10^3/u L Nucleated RBC % (a uto) % Nucleated RBCs # /100WBC Sodium (136-145) mmol/L Potassium (3.5-5.1) mmol/L Chloride (98-107) mmol/L Carbon Dioxide (22-29) mmol/L Anion Gap (5-19) BUN (8-23) mg/dL Creatinine (0.5-0.9) mg/dL GFR Calculation (90-130) mL/min Glucose (65-115) mg/dL Calculated Osmolal ity (285-295) mOsm/k g Calcium (8.5-10.5) mg/dL Total Bilirubin (0.15-1.2) mg/dL AST (0-32) U/L ALT (0-33) U/L Alkaline Phosphata se (35-105) IU/L Troponin T Baselin e (0-10) ng/L Total Protein (6.6-8.7) g/dL Albumin (3.5-5.2) g/dL Globulin (1.3-4.6) g/dL Lipase (13-60) U/L Urine Color Yellow (Yellow) Urine Appearance Sl hazy (CLEAR) Urine pH 6 (5-7) Ur Specific Gravit y 1.010 (1.005-1.030) Urine Protein Neg (Negative) Urine Glucose (UA) 2+ (Normal) Urine Ketones Negative (Negative) Urine Blood Neg (Negative) Urine Nitrate Negative (Negative) Urine Bilirubin Neg (Negative) Urine Urobilinogen 1 H (Negative) mg/dL Ur Leukocyte Dilcia ase Negative (Negative) Urine RBC 0-4 H (0-2) /hpf Urine WBC 5-10 H (0-5) /hpf Ur Squamous Epith Cells 0-4 H (0-5) /hpf Amorphous Sediment Not Reportable Urine Bacteria 4+ H (NONE) /hpf Discharge Plan Discharge Patient Disposition: Admitted As Inpatient Admit Provider: Brenden Apodaca Clinical Impression: Perforated abdominal viscus Condition: Stable Coding Level of Care Code ED Buildings And Grounds Director for Chg Fwd Exam Comprehensive
--- NOTE | 2020-09-28 18:12 | ECG_ITS ---
[facility] Test Date: 2020-09-28 Pat Name: Alecia Meier Department: Room: Gender: Female Wood G[employer]er: : 1960 Requested By: Messi Gonzalez Order Number: [id number] Reading MD: CARLOS RONDON Measurements Intervals Violet Rate: 67 P: 46 SC: 171 QRS: -27 QRSD: 93 T: 59 QT: 382 QTc: 405 Interpretive Statements SINUS RHYTHM BORDERLINE LEFT AXIS DEVIATION [QRS AXIS < -20] Compared to ECG 05/06/2020 12:10:22 No significant changes Electronically Signed On 09-28-2020 20:27:32 CDT by CARLOS RONDON [email or web address]
--- NOTE | 2020-09-28 18:20 | CTR_ITS ---
PROCEDURE INFORMATION: Exam: CT Abdomen And Pelvis With Contrast Exam date and time: 09/28/2020 6:20 PM Age: 60 years old Clinical indication: Abdominal pain; Localized; Right upper quadrant (ruq); Prior surgery; Surgery date: 6+ months; Surgery type: Gastric bypass; Patient HX: HX of ovarian CA w current chemo C/O ruq abd pain; Additional info: Ruq pain TECHNIQUE: Imaging protocol: Computed tomography of the abdomen and pelvis with contrast. Radiation optimization: All CT scans at this facility use at least one of these dose optimization techniques: automated exposure control; mA and/or kV adjustment per patient size (includes targeted exams where dose is matched to clinical indication); or iterative reconstruction. Contrast material: OMNI 300; Contrast volume: 95 ml; Contrast route: INTRAVENOUS (IV); COMPARISON: CT abdomen pelvis w con* [id number] 02/05/2020 11:13 AM RADIATION DOSE METRICS: Total DLP (mGy-cm): 1909.4 FINDINGS: Liver: Normal. No mass. Gallbladder and bile ducts: Cholelithiasis. Gallbladder mildly distended without evidence of wall thickening. Negative for biliary system dilation. Pancreas: Normal. No ductal dilation. Spleen: Calcified granulomas in the spleen. Negative for splenomegaly or focal splenic mass. Adrenal glands: Normal. No mass. Kidneys and ureters: Normal. No hydronephrosis. Stomach and bowel: Surgical changes of stomach with gastric bypass surgical change noted. The wall of the duodenum is mildly thickened. Moderate fecal volume. Negative for small bowel obstruction. Appendix: No evidence of appendicitis. Intraperitoneal space: Small foci of pneumoperitoneum. Small fluid collection adjacent to the proximal duodenum on the lateral side. Small volume perihepatic free fluid in the right upper quadrant. Small collection of free fluid in the right lower quadrant of the abdomen. Vasculature: Vascular structures are patent. Scattered atherosclerosis. Negative for aneurysm or dissection. Lymph nodes: Unremarkable. No enlarged lymph nodes. Urinary bladder: Small focus of air in the bladder lumen. No bladder wall thickening. Reproductive: Hysterectomy. Bones/joints: The lumbar spine demonstrates marked discogenic and apophyseal joint degenerative changes at multiple levels. Unremarkable alignment. No fractures. No lytic bone lesion. Soft tissues: Unremarkable. CT/CT abdomen pelvis w con* [id number] IMPRESSION: Small volume of pneumoperitoneum and abdominopelvic free fluid. Suspicion for a bowel perforation. Inflammatory changes are suspected involving the proximal duodenum. Pathology such as perforated duodenal ulcer included in the differential. Clinical correlation for peritonitis necessary. Radiation Dose CTDIVOL = (mGy): DLP = 1909.4 (mGy-cm)
[2020-09-28 18:55] LABS: Basophils # 0.1 10^3/uL (0.0-0.1); Basophils % 1.1 %; Eosinophils % 0.4 %; Hematocrit 27.5 % (37.0-47.0); Hemoglobin 8.7 g/dL (11.5-15.3); Lymphocytes # 0.5 10^3/uL (0.8-4.8); Lymphocytes % 5.6 %; Mean Corpuscular HGB Conc 31.6 g/dL (30.0-36.0); Mean Corpuscular Hemoglobin 33.2 pg (28.0-34.0); Mean Platelet Volume 9.7 fL (7.4-10.4); Monocytes # 0.1 10^3/uL (0.2-0.9); Monocytes % 1.7 %; Neutrophils # 6.41 10^3/uL (1.8-7.7); Neutrophils % 79.2 %; Nucleated Red Blood Cells % 0 %; Platelet Count 128 10^3/cmm (130-400); Red Blood Count 2.62 10^6/uL (4.1-5.3); Red Cell Distribution Width 19.8 % (12.1-15.1); White Blood Count 8.1 10^3/uL (4.0-10.0)
[2020-09-28] MEDS: morphine 4 mg/mL SDV 1 mL IVP ×2 (19:00→23:17)
[2020-09-28] MEDS: sodium chloride 0.9% 500 ML 999 ML IV (19:01)
[2020-09-28] MEDS: iohexol 300 mg/mL 100 mL Btl IV (19:15)
[2020-09-28] MEDS: HYDROmorphone 1 mg/mL INJ 1 mL IVP ×2 (19:42→21:31)
[2020-09-28 19:55] LABS: Slide Review Slide Review Perform
[2020-09-28 19:57] LABS: Alanine Aminotransferase 12 U/L (0-33); Albumin Level 3.2 g/dL (3.5-5.2); Alkaline Phosphatase 106 IU/L (35-105); Anion Gap 16.7 (5-19); Aspartate Amino Transferase 12 U/L (0-32); Blood Urea Nitrogen 25 mg/dL (8-23); Calcium 7.7 mg/dL (8.5-10.5); Carbon Dioxide 20 mmol/L (22-29); Chloride 101 mmol/L (98-107); Globulin 2.2 g/dL (1.3-4.6); Glomerular Filtration Rate 85.4 mL/min (90-130); Glucose 307 mg/dL (65-115); Lipase 41 U/L (13-60); Osmolality Calculated 292 mOsm/kg (285-295); Potassium 4.7 mmol/L (3.5-5.1); Sodium 133 mmol/L (136-145); Total Bilirubin 0.4 mg/dL (0.15-1.2); Total Protein 5.4 g/dL (6.6-8.7)
[2020-09-28 19:59] LABS: Troponin(5th) Baseline 7 ng/L (0-10)
[2020-09-28] MEDS: metroNIDAZOLE IV 500 MG/100 ML PREMIX 100 MG IV (20:36)
[2020-09-28 20:43] LABS: Add Urine Microscopic? YES; Bilirubin Urine Neg (Negative); Blood Urine Neg (Negative); Glucose Urine UA 2+ (Normal); Ketones Urine Negative (Negative); Leukocyte Esterase Urine Negative (Negative); Nitrate Urine Negative (Negative); Protein Urine Neg (Negative); Urine Appearance SL Hazy (CLEAR); Urine Color Yellow (Yellow); Urobilinogen Urine 1 mg/dL (Negative); pH Urine 6 (5-7)
[2020-09-28 20:44] LABS: Add Urine Culture? Yes; Bacteria Urine 4+ /hpf; RBC Urine 0-4 /hpf (0-2); Squamous Epithelial Cell Urine 0-4 /hpf (0-5)
[2020-09-28] MEDS: ciprofloxacin 400 MG/200 ML PREMIX 200 MG IV (21:33)
--- NOTE | 2020-09-28 22:53 | CTR_ITS ---
PROCEDURE INFORMATION: Exam: CT Abdomen And Pelvis Without Contrast Exam date and time: 09/28/2020 10:53 PM Age: 60 years old Clinical indication: Condition or disease; Intestinal condition; Other: Perforation; Primary cancer: Ovarian; Prior surgery; Surgery date: 6+ months; Surgery type: Gastric bypass; Patient HX: Proximal small bowel perf TECHNIQUE: Imaging protocol: Computed tomography of the abdomen and pelvis without contrast. Radiation optimization: All CT scans at this facility use at least one of these dose optimization techniques: automated exposure control; mA and/or kV adjustment per patient size (includes targeted exams where dose is matched to clinical indication); or iterative reconstruction. Other contrast: Oral, 20ML OMNI 300, 20ML IN 450ML H20; COMPARISON: CT abdomen pelvis w con* [id number] 09/28/2020 7:05 PM RADIATION DOSE METRICS: Total DLP (mGy-cm): 2000. FINDINGS: Lungs: Mild atelectasis versus fibrosis noted at the lung bases. Liver: Unremarkable. No mass. Gallbladder and bile ducts: Gallbladder is distended, and contains multiple small calcified gallstones. No gallbladder wall thickening. No biliary dilatation. Pancreas: Unremarkable. No ductal dilation. Spleen: Calcified granulomas are noted in the spleen. Adrenal glands: The adrenal glands appear within normal limits. Kidneys and ureters: The kidneys are normal in morphology. No hydronephrosis. No solid mass. Stomach and bowel: Postop change of the stomach consistent with gastric bypass. The 1st and 2nd portions of the duodenum are thickened, with. Duodenal inflammation noted, consistent with duodenitis versus duodenal ulcer disease. No inflammatory change of the colon noted. Appendix: No evidence of appendicitis. Intraperitoneal space: There is free air/pneumoperitoneum seen in the anterior portion of the upper abdomen. Small amount of ascites in the abdomen and pelvis. Vasculature: No abdominal aortic aneurysm. Lymph nodes: No pathologically enlarged lymph nodes are demonstrated. Urinary bladder: Urinary bladder is distended with excreted contrast material. Minimal air within the bladder lumen is likely due to recent instrumentation. Reproductive: The uterus is not visualized, consistent with hysterectomy. Bones/joints: Unremarkable. No acute osseous abnormality. Soft tissues: Mild subcutaneous edema throughout the abdomen and pelvis. CT/CT abdomen pelvis wo con [id number] IMPRESSION: 1. There is free air/pneumoperitoneum seen in the anterior portion of the upper abdomen. The volume of pneumoperitoneum has increased slightly when compared to 09/28/2020 at 7:08 p.m. 2. Small amount of ascites in the abdomen and pelvis. This is unchanged. 3. The 1st and 2nd portions of the duodenum are thickened, with. Duodenal inflammation noted, consistent with duodenitis versus duodenal ulcer disease. This is the likely source of pneumoperitoneum. This is unchanged. Radiation Dose CTDIVOL = (mGy): DLP = 2001.85 (mGy-cm)
[2020-09-28] MEDS: iohexol 300 mg/mL 50 mL Btl PO (23:07)
[2020-09-28] MEDS: ondansetron 2 mg/ML SDV 2 mL 4 MG IVP (23:17)
[2020-09-29] VITALS (29 sets, daily range): BP systolic 82–177; BP diastolic 41–83; PULSE 71–140; RESP 14–24; TEMP 36.3–37.3; O2SAT 90–100
--- NOTE | 2020-09-29 00:12 | PM.CONSULT ---
Providers/Reason For Consult Consulting Physician/Specialty*: Gilma Anderson MD/Hospitalist Reason for Consult*: management of medical comorbidities Attending Physician: Brenden Apodaca MD Primary Care Provider: EEVRARDO Davidson History of Present Illness History of Present Illness Alecia Meier is a 60 year old female with Grade 3 ovarian endometrioid carcinoma status post right resection of ovarian cancer, bilateral salpingo-oophorectomy, total abdominal hysterectomy, pelvic and para-aortic lymphadenectomy, omentectomy Jan 2020 on chemo with carbo/Taxol cycle 5/6last dose wednesday, DM , mild thrombocytopenia. Presenting today with abdominal pain, predominantly right sided with genralization to whole abdomen that started this evening suddenly after returning from bathroom. no NVD. No fever. Hemodynamics stable currently. CT with perforated viscus, findings as listed below. Review of Systems General: Reports: 10 or more systems reviewed and unremarkable except in HPI and below Const: Denies: fever(s), chills or body aches Eyes: Denies: change in vision, blurry vision or photophobia ENMT: Reports: hoarseness; Denies: throat pain, enlarged tonsils, odynophagia or nasal congestion Card: Denies: chest pain, palpitations, irregular heart rhythm, edema, swelling of feet/ankles, lightheadedness, pre-syncope, dyspnea on exertion or orthopnea Resp: Denies: dyspnea, productive cough, non-productive cough, wheezing, stridor, pain on inspiration, change in phlegm color, hemoptysis or chest congestion GI: Denies: abdominal pain, nausea, vomiting, hematemesis, coffee ground emesis, dysphagia, heartburn, diarrhea, constipation, GI cramping, change in stool character, hematochezia or melena : Denies: flank pain, difficulty voiding, dysuria, urinary frequency, urinary urgency, urinary hesitancy or hematuria Musc: Denies: neck pain, back pain, extremity pain, joint swelling, joint warmth or deformity Neuro: Denies: headache(s), numbness in extremities, weakness in extremities, sensory changes, difficulty walking, frequent falls, dizziness, vertigo, behavioral changes, Slurred speech present or seizure-like activity Psych: Denies: anxiety, depression, suicidal ideation or homicidal ideation Endo: Denies: polyuria, polydipsia, tired all the time, cold intolerance or hot flashes Husam/Lymph: Denies: easy bruising or easy bleeding Meds/Allergies Home Medications and Allergies Home Medications Medication Instructions Recorded Confirmed Last Taken Type atorvastatin 10 mg tablet 10 mg PO DAILY@2200 03/20/19 06/20/20 06/02/20 History metformin 850 mg tablet 850 mg PO DAILY 03/20/19 06/20/20 06/01/20 History multivitamin 1 tab PO DAILY 03/20/19 06/20/20 06/02/20 History naproxen sodium 220 mg tablet 440 mg PO BID PRN tab 03/20/19 06/20/20 06/02/20 History sitagliptin 25 mg tablet 25 mg PO DAILY 03/20/19 06/20/20 06/02/20 History tramadol 50 mg tablet 50 mg PO TID PRN 03/20/19 06/20/20 06/02/20 History lisinopril 10 mg tablet 10 mg PO DAILY 10/03/19 06/20/20 06/02/20 History acetaminophen 500 mg tablet 500 mg PO Q6H PRN 02/06/20 06/20/20 06/01/20 History buspirone 15 mg PO BID 05/06/20 06/20/20 06/02/20 History levothyroxine 175 mcg PO DAILY 05/06/20 06/20/20 06/03/20 07:00 History sertraline [Zoloft] 200 mg PO DAILY 05/06/20 06/20/20 06/02/20 History Zyrtec 10 mg PO DAILY 05/31/20 06/20/20 06/02/20 History Allergies Allergy/AdvReac Type Severity Reaction Status Date / Time amoxicillin Allergy Unknown Unknown Verified 08/09/20 14:29 cephalexin [From Keflex] Allergy Unknown Unknown Verified 08/09/20 14:29 Penicillins Allergy Unknown Unknown Verified 08/09/20 14:29 PFSH Acute PFSH: Medical History (Updated 09/29/20 @ 04:15 by Gilma Anderson MD) Arthritis COVID-17 May 2020 Diabetes Hyperlipidemia Hypothyroidism Major depressive disorder, recurrent, in full remission Surgical History (Updated 09/29/20 @ 04:09 by Gilma Anderson MD) H/O gastric bypass 1999 H/O: hysterectomy 2020 Family History Sister Clotting disorder Diabetes Thyroid condition Father Hyperlipidemia Hypertension Heart disease Mother Hyperlipidemia Hypertension Stroke Breast cancer mid 50's Family/Other Colon cancer paternal aunt Denies family history of Ovarian cancer Anesthesia complication Bleeding disorder Uterine cancer Social History Smoking and tobacco status: never smoked Alcohol intake: current Alcohol intake frequency: holidays/special occasions only Alcohol type: wine Vitals/I&O/Wt Last Vital Signs Pulse 74 09/28/20 23:00 Resp 20 H 09/28/20 23:17 BP 162/59 09/28/20 23:00 Pulse Ox 94 09/28/20 23:00 09/28/20 09/28/20 09/29/20 14:59 22:59 06:59 Intake Total 300 / 300 Balance 300 / 300 Weight last 48 hrs Weight 95.708 kg Physical Exam Narrative: EXAM NARRATIVE: GEN: Awake, alert and oriented, no acute distress CVS: S1S2 N RS: CTA B/L Abd: Soft, non distended, bowel sounds +, mild TTP right abdomen, midline healed gastric bypass scar SYSTEM CONFIGURATION SPECIALIST: no focal neuro deficits Data Micro: Micro: Microbiology 09/28/20 20:21 Blood Culture - Pr eliminary Blood SPECIMEN [facility] 09/28/20 20:18 Blood Culture - Pr eliminary Blood SPECIMEN [facility] Other Data: Attestation for Other Data: I personally reviewed and interpreted the following: Other data: Laboratory Results WBC 8.1 10^3/uL (4.0- 10.0) 09/28/20 18:40 RBC 2.62 10^6/uL (4.1 -5.3) L 09/28/20 18:40 Hgb 8.7 g/dL (11.5-15 .3) L 09/28/20 18:40 Hct 27.5 % (37.0-47.0 ) L 09/28/20 18:40 MCV 105.0 fL (81-99) H 09/28/20 18:40 MCH 33.2 pg (28.0-34. 0) 09/28/20 18:40 MCHC 31.6 g/dL (30.0-3 6.0) 09/28/20 18:40 RDW 19.8 % (12.1-15.1 ) H 09/28/20 18:40 Plt Count 128 10^3/cmm (130 -400) L 09/28/20 18:40 MPV 9.7 fL (7.4-10.4) 09/28/20 18:40 Neut % (Auto) 79.2 % 09/28/20 18:40 Lymph % (Auto) 5.6 % 09/28/20 18:40 Gallia % (Auto) 1.7 % 09/28/20 18:40 Eos % (Auto) 0.4 % 09/28/20 18:40 Baso % (Auto) 1.1 % 09/28/20 18:40 Neut # (Auto) 6.41 10^3/uL (1.8 -7.7) 09/28/20 18:40 Lymph # (Auto) 0.5 10^3/uL (0.8- 4.8) L 09/28/20 18:40 Gallia # (Auto) 0.1 10^3/uL (0.2- 0.9) L 09/28/20 18:40 Eos # (Auto) 0.0 10^3/uL (0.0- 0.8) 09/28/20 18:40 Baso # (Auto) 0.1 10^3/uL (0.0- 0.1) 09/28/20 18:40 Nucleated RBC % (a uto) 0 % 09/28/20 18:40 Nucleated RBCs # 0.0 /100WBC 09/28/20 18:40 Sodium 133 mmol/L (136-1 45) L 09/28/20 18:40 Potassium 4.7 mmol/L (3.5-5 .1) 09/28/20 18:40 Chloride 101 mmol/L (98-10 7) 09/28/20 18:40 Carbon Dioxide 20 mmol/L (22-29) L 09/28/20 18:40 Anion Gap 16.7 (5-19) 09/28/20 18:40 BUN 25 mg/dL (8-23) H 09/28/20 18:40 Creatinine 0.7 mg/dL (0.5-0. 9) 09/28/20 18:40 GFR Calculation 85.4 mL/min (90-1 30) L 09/28/20 18:40 Glucose 307 mg/dL (65-115 ) H 09/28/20 18:40 Calculated Osmolal ity 292 mOsm/kg (285- 295) 09/28/20 18:40 Calcium 7.7 mg/dL (8.5-10 .5) L 09/28/20 18:40 Total Bilirubin 0.4 mg/dL (0.15-1 .2) 09/28/20 18:40 AST 12 U/L (0-32) 09/28/20 18:40 ALT 12 U/L (0-33) 09/28/20 18:40 Alkaline Phosphata se 106 IU/L (35-105) H 09/28/20 18:40 Troponin T Baselin e 7 ng/L (0-10) 09/28/20 18:40 Total Protein 5.4 g/dL (6.6-8.7 ) L 09/28/20 18:40 Albumin 3.2 g/dL (3.5-5.2 ) L 09/28/20 18:40 Globulin 2.2 g/dL (1.3-4.6 ) 09/28/20 18:40 Lipase 41 U/L (13-60) 09/28/20 18:40 Urine Color Yellow (Yellow) 09/28/20 19:26 Urine Appearance Sl hazy (CLEAR) 09/28/20 19:26 Urine pH 6 (5-7) 09/28/20 19:26 Ur Specific Gravit y 1.010 (1.005-1.0 30) 09/28/20 19:26 Urine Protein Neg (Negative) 09/28/20 19:26 Urine Glucose (UA) 2+ (Normal) 09/28/20 19:26 Urine Ketones Negative (Negati ve) 09/28/20 19:26 Urine Blood Neg (Negative) 09/28/20 19:26 Urine Nitrate Negative (Negati ve) 09/28/20 19:26 Urine Bilirubin Neg (Negative) 09/28/20 19:26 Urine Urobilinogen 1 mg/dL (Negative ) H 09/28/20 19:26 Ur Leukocyte Dilcia ase Negative (Negati ve) 09/28/20 19:26 Urine RBC 0-4 /hpf (0-2) H 09/28/20 19:26 Urine WBC 5-10 /hpf (0-5) H 09/28/20 19:26 Ur Squamous Epith Cells 0-4 /hpf (0-5) H 09/28/20 19:26 Amorphous Sediment Not Reportable 09/28/20 19:26 Urine Bacteria 4+ /hpf (NONE) H 09/28/20 19:26 Impressions Abdomen/Pelvis CT 09/28/20 22:53 IMPRESSION: 1. There is free air/pneumoperitoneum seen in the anterior portion of the upper abdomen. The volume of pneumoperitoneum has increased slightly when compared to 09/28/2020 at 7:08 p.m. 2. Small amount of ascites in the abdomen and pelvis. This is unchanged. 3. The 1st and 2nd portions of the duodenum are thickened, with. Duodenal inflammation noted, consistent with duodenitis versus duodenal ulcer disease. This is the likely source of pneumoperitoneum. This is unchanged. Radiation Dose CTDIVOL = (mGy): DLP = 2001.85 (mGy-cm) A&P Assessment and plan (1) Perforated abdominal viscus: appears to be perforated duodenum per CT read management per general surgery Status: Acute (2) Ovarian cancer: currently on chemotherapy LD wednesday Status: Acute (3) Diabetes: Insulin sliding scale Status: Acute (4) Anemia: likely 2/2 chemotherapy, no signs of active bleeding hemodynamically stable transfuse if Hb <7 Status: Acute (5) Thrombocytopenia: likely from chemotherapy , monitor no indicationf or platelet transfusion currently, plt 120, no bleeding Status: Acute Consult Attestations Medical Necessity Statement: per admitting note Coding Level of Care 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
[2020-09-29] MEDS: pantoprazole 40 MG in sodium chloride 0.9% (plus) 100 ML 20 MG IV ×3 (00:36→21:21)
[2020-09-29] MEDS: lactated ringers 1,000 ML 100 ML IV (00:36)
[2020-09-29] MEDS: morphine 4 mg/mL SDV 1 mL IVP (03:17)
[2020-09-29 05:24] LABS: Hematocrit 29.1 % (37.0-47.0); Hemoglobin 9.3 g/dL (11.5-15.3); Lymphocytes # 0.3 10^3/uL (0.8-4.8); Lymphocytes % 3.4 %; Mean Corpuscular Hemoglobin 33.5 pg (28.0-34.0); Mean Corpuscular Volume 104.7 fL (81-99); Monocytes # 0.3 10^3/uL (0.2-0.9); Monocytes % 3.1 %; Neutrophils # 6.68 10^3/uL (1.8-7.7); Nucleated Red Blood Cells % 0 %; Platelet Count 133 10^3/cmm (130-400); Red Blood Count 2.78 10^6/uL (4.1-5.3); Red Cell Distribution Width 19.9 % (12.1-15.1); White Blood Count 8.1 10^3/uL (4.0-10.0)
[2020-09-29] MEDS: metroNIDAZOLE IV 500 MG/100 ML PREMIX 100 MG IV ×3 (05:32→21:17)
[2020-09-29 05:51] LABS: Alanine Aminotransferase 14 U/L (0-33); Albumin Level 3.3 g/dL (3.5-5.2); Alkaline Phosphatase 103 IU/L (35-105); Anion Gap 14.2 (5-19); Aspartate Amino Transferase 11 U/L (0-32); Blood Urea Nitrogen 24 mg/dL (8-23); Calcium 7.7 mg/dL (8.5-10.5); Carbon Dioxide 23 mmol/L (22-29); Chloride 101 mmol/L (98-107); Creatinine Clr Calc Pharmacy 88.8288; Glomerular Filtration Rate 73.2 mL/min (90-130); Glucose 249 mg/dL (65-115); Osmolality Calculated 288 mOsm/kg (285-295); Potassium 5.2 mmol/L (3.5-5.1); Sodium 133 mmol/L (136-145); Total Bilirubin 0.6 mg/dL (0.15-1.2); Total Protein 5.3 g/dL (6.6-8.7)
--- NOTE | 2020-09-29 06:15 | P.HP_ITS ---
Providers/Chief Complaint Admitting Physician: Brenden Apodaca MD Primary Care Provider: EVERARDO Davidson Chief Complaint: RIGHT UPPER QUAD PAIN History of Present Illness Chief Complaint: My tumchristine hurt History of present illness: Ms Alecia Meier is a pleasant 60 year old female with history of open gastric bypass many years ago and history of ovarian cancer as the patient u ndergone bilateral salpingo-oophorectomy and total abdominal hysterectomy pelvic and para-aortic lymphadenectomy and omentectomy back in 2019 she has been on chemotherapy and she still has 1 more dose to go. Patient presents with worsening acute abdominal pain particularly in the right upper abdomen that started yesterday and as the pain got worse came to the emergency department for further work-up, patient reports that the pain was referred to the right shoulder and initially I was contacted by the ER physician that the patient has a small focus of air at the right upper quadrant with free fluid towards the right side of the abdomen. My further recommendation is to obtain a CT scan of the abdomen and pelvis with oral contrast to delineate if there is any extravasation of contrast, the repeat CT scan; 1. There is free air/pneumoperitoneum seen in the anterior portion of the upper abdomen. The volume of pneumoperitoneum has increased slightly when compared to 09/28/2020 at 7:08 p.m. 2. Small amount of ascites in the abdomen and pelvis. This is unchanged. 3. The 1st and 2nd portions of the duodenum are thickened, with. Duodenal inflammation noted, consistent with duodenitis versus duodenal ulcer disease. This is the likely source of pneumoperitoneum. This is unchanged. Patient was admitted to my service and hospitalist was consulted for management of medical comorbidities. Review of Systems General: Reports: 10 or more systems reviewed and unremarkable except in HPI and below Medications/Allergies Home Medications Medication Instructions Recorded Confirmed Last Taken Type atorvastatin 10 mg tablet 10 mg PO DAILY@2200 03/20/19 06/20/20 06/02/20 History metformin 850 mg tablet 850 mg PO DAILY 03/20/19 06/20/20 06/01/20 History multivitamin 1 tab PO DAILY 03/20/19 06/20/20 06/02/20 History naproxen sodium 220 mg tablet 440 mg PO BID PRN tab 03/20/19 06/20/20 06/02/20 History sitagliptin 25 mg tablet 25 mg PO DAILY 03/20/19 06/20/20 06/02/20 History tramadol 50 mg tablet 50 mg PO TID PRN 03/20/19 06/20/20 06/02/20 History lisinopril 10 mg tablet 10 mg PO DAILY 10/03/19 06/20/20 06/02/20 History acetaminophen 500 mg tablet 500 mg PO Q6H PRN 02/06/20 06/20/20 06/01/20 History buspirone 15 mg PO BID 05/06/20 06/20/20 06/02/20 History levothyroxine 175 mcg PO DAILY 05/06/20 06/20/20 06/03/20 07:00 History sertraline [Zoloft] 200 mg PO DAILY 05/06/20 06/20/20 06/02/20 History Zyrtec 10 mg PO DAILY 05/31/20 06/20/20 06/02/20 History Allergies Allergy/AdvReac Type Severity Reaction Status Date / Time amoxicillin Allergy Unknown Unknown Verified 08/09/20 14:29 cephalexin [From Keflex] Allergy Unknown Unknown Verified 08/09/20 14:29 Penicillins Allergy Unknown Unknown Verified 08/09/20 14:29 PFSH Acute PFSH: Medical History Arthritis COVID-17 May 2020 Diabetes Hyperlipidemia Hypothyroidism Major depressive disorder, recurrent, in full remission Surgical History H/O gastric bypass 1999 H/O: hysterectomy 2019 Family History Sister Clotting disorder Diabetes Thyroid condition Father Hyperlipidemia Hypertension Heart disease Mother Hyperlipidemia Hypertension Stroke Breast cancer mid 50's Family/Other Colon cancer paternal aunt Denies family history of Ovarian cancer Anesthesia complication Bleeding disorder Uterine cancer Social History Smoking and tobacco status: never smoked Alcohol intake: current Alcohol intake frequency: holidays/special occasions only Alcohol type: wine Vitals/I&O/Wt Last Vital Signs Temp 97.9 F 09/29/20 04:00 Pulse 79 09/29/20 04:00 Resp 16 09/29/20 04:00 BP 131/68 09/29/20 04:00 Pulse Ox 90 09/29/20 04:00 09/28/20 09/28/20 09/29/20 14:59 22:59 06:59 Intake Total 300 / 300 600 / 900 Balance 300 / 300 600 / 900 Weight last 48 hrs Weight 211 lb Physical Exam Narrative: EXAM NARRATIVE: Patient is conscious alert oriented X3 BMI 33 Head and neck examination PERRLA no masses no cervical lymphadenopathy no jaundice Cardiac examination audible S1-S2 no murmurs no gallops no arrhythmias Chest is clear bilateral,abscence of Rhonchi or wheezes,no surgical emphysema Right upper chest Port-A-Cath in place Abdomen diffuse tender particularly on the upper and right upper side of the abdomen nondistended soft no organomegaly guarding or rigidity/no signs of peritonitis Midline scars appreciated from previous surgery Extremities no cyanosis no clubbing no edema Data : 09/28/20 18:40 09/29/20 04:44 Micro: Microbiology 09/28/20 20:21 Blood Culture - Preliminary Blood SPECIMEN COLLECTED 09/28/20 20:18 Blood Culture - Preliminary Blood SPECIMEN COLLECTED A&P Assessment and plan (1) Perforated abdominal viscus: After thorough history physical examination and reviewing the chart and images with my personal interpretation, I did juvenile counselor the patient for diagnostic laparoscopy possible laparotomy with possible feeding tube placement. Patient understands that she has an underlying surgical anatomy of the gastric bypass that may make her surgery more complicated. Indications, risks, benefits and alternatives all discussed with the patient and she did agree to proceed accordingly. Informed consent per chart Status: Acute Attestations Medical Necessity Statement*: Inpatient hospitalization requiring passing 2 midnights, for perioperative care Time Spent in Patient Care: (>than 50% of time spent in counselling and/or direct pt care on unit) . 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
[2020-09-29] MEDS: ketorolac 30 mg/mL INJ 15 MG IVP (06:26)
[2020-09-29 06:34] LABS: Glucose Point of Care 255 mg/dL (70-110)
[2020-09-29] MEDS: pantoprazole 40 mg SDV IVP ×2 (07:33→17:13)
--- NOTE | 2020-09-29 07:43 | PC.NURSE ---
AM NOTE ALOPECIA NOTED - DR PLUMMER PREVIOUSLY IN ROOM - NEW ORDERS - FROY'Endy - JAZLYN HERNANDEZ FROM OR IN ROOM TO TAKE PT OFF UNIT
[2020-09-29] MEDS: acetaminophen 1,000 MG/100 ML PIGGYBACK 400 MG IV (08:05)
[2020-09-29] MEDS: heparin 5,000 unit/mL INJ 1 mL 3000 UNIT SUBCUT (08:05)
[2020-09-29] MEDS: sodium chloride 0.9% 1,000 ML 30 ML IV (08:05)
--- NOTE | 2020-09-29 08:18 | P.ANESASSM_ITS ---
Pre-Anesthetic Assessment Pre-Anesthetic Assessment: Height/Weight: Height 1.7 m Weight 95.708 kg Temp Pulse Resp BP Pulse Ox 97.8 F 95 18 177/71 93 09/29/20 07:50 09/29/20 07:50 09/29/20 07:50 09/29/20 07:50 09/29/20 07:50 Preop Diagnosis: Perforated viscus Proposed Procedure: Operation Date: 09/29/20 10:00 Proposed Procedures p Laparoscopy(Not Applicable) - Brenden Apodaca MD Was Beta Stephen taken within 24 hours: N/A Last intake: Intake Last Liquid Date 09/28/20 Last Liquid Time 21:00 Last Solid Date 09/28/20 Last Solid Time 12:00 Social: Social History: No alcohol and No tobacco Exam: Pre-Anes Outpt Exam: alert, oriented x 3, clear to auscultation bilaterally and regular rate & rhythm Airway: Submandibular: WNL Cervical ROM: WNL MP: 2 Dentition: Chipped Additional comments: Poor dentition, missing most CV/HEM: CV/HEM: Anemia Comments: Thrombocytopenia (128k) GI: Comments: Acute abdomen Metabolic: Metabolic: DM and Morbid obesity Neuropsych: Neuropsych: Depression Anesthetic Plan: ASA status: 3 Anesthesia: General Risk of > 500 ml blood loss (7ml/kg in children): No Meds/Allergies Current Medications: Current Medications Generic Name Dose Route Start Last Admin Trade Name Freq PRN Reason Stop Dose Admin Lactated Ringer's 1,000 mls @ 100 m ls/hr 09/28/20 23:46 09/29/20 00:36 Lactated Ringers IV 100 mls/hr .Q10H DELIA Administration Metronidazole 500 mg in 100 mls @ 100 mls/hr 09/29/20 05:00 09/29/20 07:09 Flagyl Iv IV Infused Q8H DELIA Infusion Sodium Chloride 1,000 mls @ 30 ml s/hr 09/29/20 08:00 09/29/20 08:05 Sodium Chloride 0.9% IV 09/30/20 07:59 30 mls/hr .Q24H DELIA Administration Morphine Sulfate 4 mg 09/28/20 23:46 09/29/20 03:17 Morphine 4 Mg/Ml Sdv 1 Ml IVP 4 mg Q4H PRN Administration SEVERE PAIN PFSH Anesthesia PFSH: Medical History Arthritis COVID-17 May 2020 Diabetes Hyperlipidemia Hypothyroidism Major depressive disorder, recurrent, in full remission Surgical History H/O gastric bypass 1999 H/O: hysterectomy 2019 Family History Sister Clotting disorder Diabetes Thyroid condition Father Hyperlipidemia Hypertension Heart disease Mother Hyperlipidemia Hypertension Stroke Breast cancer mid 50's Family/Other Colon cancer paternal aunt Denies family history of Ovarian cancer Anesthesia complication Bleeding disorder Uterine cancer Social History Smoking and tobacco status: never smoked Alcohol intake: current Alcohol intake frequency: holidays/special occasions only Alcohol type: wine Data Anesthesia CBC & Chem 7: 09/28/20 18:40 09/29/20 04:44 Other Labs: Laboratory Results - last 48 hr 09/28/20 09/28/20 09/28/20 18:40 18:40 18:40 WBC 8.1 RBC 2.62 L Hgb 8.7 L Hct 27.5 L MCV 105.0 H MCH 33.2 MCHC 31.6 RDW 19.8 H Plt Count 128 L MPV 9.7 Neut % (Auto) 79.2 Lymph % (Auto) 5.6 [place] % (Auto) 1.7 Eos % (Auto) 0.4 Baso % (Auto) 1.1 Neut # (Auto) 6.41 Lymph # (Auto) 0.5 L [place] # (Auto) 0.1 L Eos # (Auto) 0.0 Baso # (Auto) 0.1 Nucleated RBC % (auto) 0 Nucleated RBCs # 0.0 Sodium 133 L Potassium 4.7 Chloride 101 Carbon Dioxide 20 L Anion Gap 16.7 BUN 25 H Creatinine 0.7 GFR Calculation 85.4 L Glucose 307 H POC Glucose Calculated Osmolality 292 Calcium 7.7 L Total Bilirubin 0.4 AST 12 ALT 12 Alkaline Phosphatase 106 H Troponin T Baseline 7 Total Protein 5.4 L Albumin 3.2 L Globulin 2.2 Lipase 41 Urine Color Urine Appearance Urine pH Ur Specific [place] Urine Protein Urine Glucose (UA) Urine Ketones Urine Blood Urine Nitrate Urine Bilirubin Urine Urobilinogen Ur Leukocyte Esterase Urine RBC Urine WBC Ur Squamous Epith Cells Amorphous Sediment Urine Bacteria 09/28/20 09/29/20 09/29/20 19:26 04:44 06:29 WBC RBC Hgb Hct MCV MCH MCHC RDW Plt Count MPV Neut % (Auto) Lymph % (Auto) [place] % (Auto) Eos % (Auto) Baso % (Auto) Neut # (Auto) Lymph # (Auto) [place] # (Auto) Eos # (Auto) Baso # (Auto) Nucleated RBC % (auto) Nucleated RBCs # Sodium 133 L Potassium 5.2 H Chloride 101 Carbon Dioxide 23 Anion Gap 14.2 BUN 24 H Creatinine 0.8 GFR Calculation 73.2 L Glucose 249 H POC Glucose 255 H Calculated Osmolality 288 Calcium 7.7 L Total Bilirubin 0.6 AST 11 ALT 14 Alkaline Phosphatase 103 Troponin T Baseline Total Protein 5.3 L Albumin 3.3 L Globulin 2.0 Lipase Urine Color Yellow Urine Appearance Sl hazy Urine pH 6 Ur Specific [place] 1.010 Urine Protein Neg Urine Glucose (UA) 2+ Urine Ketones Negative Urine Blood Neg Urine Nitrate Negative Urine Bilirubin Neg Urine Urobilinogen 1 H Ur Leukocyte Esterase Negative Urine RBC 0-4 H Urine WBC 5-10 H Ur Squamous Epith Cells 0-4 H Amorphous Sediment Not Reportable Urine Bacteria 4+ H Micro: Microbiology 09/28/20 20:21 Blood Culture - Preliminary Blood SPECIMEN COLLECTED 09/28/20 20:18 Blood Culture - Preliminary Blood SPECIMEN COLLECTED Cardiac Studies: No Data to Display
[2020-09-29 09:38] LABS: Slide Review Slide Review Perform
[2020-09-29 09:39] LABS: Neutrophils % 93.5 %
[2020-09-29] MEDS: sodium chloride 0.9% SDV 10 mL 40 ML (10:42)
--- NOTE | 2020-09-29 10:54 | P.OP_ITS ---
Operative Report Date of procedure: September 29, 2020 Pre-op Diagnosis: Perforated viscus Post-op Diagnosis: Perforated duodenal ulcer of the anterior aspect of the first part of the duodenum Post-op Findings: Biliary peritonitis Procedure Done: 1-Laparoscopic extensive adhesiolysis exceeded 1 hour of the operative time 2-Laparoscopic repair of perforated duodenal ulcer of the first part 3-Omental Devin patch 4-Peritoneal lavage 8-Oxovk-[id number] drain placement Implants: 19 Portuguese round Trevor drain Large piece of Surgicel at the site of liver dissect Surgeon: Brenden Apodaca Geophysical Engineer: computed tomography technician [place] Circulating nurse Alena DICK Anesthesia: General (MARAH Grjialva and Dr. Dangelo) Estimated blood loss (mL): 100 IV fluids (mL): 1,000 Urine output (mL): 300 Findings: Extensive adhesions between the liver and the small bowel and [place] stomach Adhesions between the falciform ligament and the omentum Encasing the site of the perforation with the right dome of the liver Condition: stable Disposition: floor Brief History: Perforated duodenal ulcer Procedure: Patient was identified in the holding area, patient was then taken to the operating room were the patient was placed in supine position, intubated by anesthesia, patient was already on therapeutic antibiotics .Timeout was done verifying the patient's name/date of /planned procedure and destination after the procedure, all were in agreement. SCDs confirmed to be functioning and beta isis protocol was confirmed, heparin subcu 3000 units were given prior to the procedure. Both arms were at 90 degrees to the patient's body and all pressure points were padded, a Lemus catheter was inserted by the circulating nurse revealing clear urine. The patient was appropriately secured to the operating table. Prep and drape of the abdomen was done under the usual sterile technique, started by right upper quadrant 5 mm Optiview trocar using a 5 mm zero scope and safe entrance to the abdominal cavity was achieved.Insufflation of gas up to 15mmHg and 40 L of flow.Patient was noticed to have extensive intra-abdominal adhesions towards the upper midline and towards the right dome of the liver and some towards the lower midline also there was evidence of bilious content towards the right paracolic gutter and right quadrant., I decided to add an additional 5 mm trocar towards the right lower side of the abdomen under direct visualization and cautiously I started taking adhesions down using sharp and blunt dissection under direct visualization, At that point I decided to add a 12 mm trocar towards the midline of the abdomen under direct visualization and cameras were switched to 10 mm 30 degree scope, adhesiolysis exceeded One hour of the operative time due to the extensive nature of adhesions. Extensive adhesiolysis was achieved using LigaSure device as well, also the falciform ligament was taken down Mobilizing the [place] stomach from the above adhesions of the omentum and the liver in addition to mobilizing the omentum from encasing the gallbladder and the site of the perforation. and further dissection was done revealing the site of the perforation at the anterior aspect of the first part of the duodenum, with less 1 cm ulcer perforation, revealing bilious content. The right upper 5 mm trocar was switched to 12 mm trocar under direct vision I decided at this point to apply a figure of eight 2-0 silk sutures x2 and the site of the perforation was closed in a 2 layer fashion without encroaching on the lumen, omental flap was placed on top of the site of the perforation and stitched down to the healthier part of the duodenum(Devin patch-like fashion). Copious and thorough irrigation was achieved followed by placement of large p iece of Surgicel at the site of the dissection followed by placement of 19 Portuguese round Trevor drain at the site of the perforation.That was brought from the right sided 5 mm trocar that was secured to the skin with 2/0 nylon. TAP (transversus abdominous plain peripheral nerve block )block using Exparel 20 mL Exparel 40 ml Normal saline 20 ml bupivacaine 0.25% 30 mL on each side injected 20 mL injected the port sites Final laparoscopic survey was done showing no injuries to intra-abdominal structures or bleeding, at this point under direct visualization, The 12 mm port sites were closed by grainy needle using an #1 PDS as well as the one at the right subcostal region that was closed by 2-0 Vicryl. All trocars were taken out under direct vision. The rest of the stab incisions were closed by skin jimmie after irrigation, followed by dry dressing in the form of Band-Aids. Patient overall tolerated the procedure well The count of instruments, needle and sponges was completed at the end of the procedure. Lemus catheter was left in place . I was present for the whole entire procedure patient was then transferred to the PACU area in stable condition.
--- NOTE | 2020-09-29 11:08 | P.PCN_ITS ---
PACU note PACU note: VSS, Good respiratory effort, report to TUBING TESTER Post-Anesthesia Exam: awake
--- NOTE | 2020-09-29 11:08 | PM.PACU ---
PACU note PACU note: VSS, Good respiratory effort, report to SHRIMP BOAT CAPTAIN Post-Anesthesia Exam: awake
--- NOTE | 2020-09-29 11:12 | PM.PN ---
Subjective Subjective: Interval history: To be taken to the OR today No overnight event Vitals/I&O/Wt Last Vital Signs Temp 99.1 F 09/29/20 11:07 Pulse 140 H 09/29/20 11:07 Resp 18 09/29/20 11:07 BP 129/76 09/29/20 11:07 Pulse Ox 99 09/29/20 11:07 09/28/20 09/29/20 09/29/20 22:59 06:59 14:59 Intake Total 300 / 300 600 / 900 200 / 200 Output Total 300 / 300 Balance 300 / 300 600 / 900 -100 / -100 Weight last 48 hrs Weight 95.708 kg Physical Exam Narrative: EXAM NARRATIVE: Awake alert oriented x3 GCS 15 No active chest pain S1, S2 no murmur or signs of heart failure PERRLA, EOMI surgical scar abdomen noted Abdomen diffuse tender right abdomen Right upper chest Port-A-Cath in place Legs without edema cyanosis or gangrene no joint swelling Data : 09/29/20 04:44 09/29/20 04:44 Micro: Microbiology 09/28/20 20:21 Blood Culture - Preliminary Blood SPECIMEN COLLECTED 09/28/20 20:18 Blood Culture - Preliminary Blood SPECIMEN COLLECTED A&P Assessment and plan (1) Anemia: Status: Acute (2) Diabetes: Status: Acute (3) Perforated abdominal viscus: Status: Acute (4) Ovarian cancer: Status: Acute (5) Major depressive disorder, recurrent, in full remission: Status: Acute Additional A&P Information Perforated viscus with clinical signs of localized peritonitis Duodenal ulcer perforation to be taken to the OR today by Dr. Apodaca Planning for laparoscopic procedure Has been kept n.p.o. no overnight event Postop day 0 Diet to be advanced tomorrow No DVT prophylaxis for next 24 hours in case she requires revision Will resume her medications postoperatively Continue IV fluid maintenance rate Insulin-dependent diabetes Hyperglycemia noted, anticipating improvement with normal saline maintenance fluid Accu-Cheks every 6 hours during n.p.o. status Chemotherapy related anemia Macrocytic anemia B12 folate level should not be repeated, last level 09/20 Hemoglobin stable Transfuse if hemoglobin less than 7 Major depressive disorder: Compensated for now History of hypothyroidism: Her levothyroxine can be resumed tomorrow as half-life is about 7 days okay to hold it for today Medications on hold Metformin: Naproxen: Antihyperglycemics, DVT prophylaxis SCDs N.p.o. diet to be advanced tomorrow after evaluation by general surgery Full code Attestations Medical Necessity Statement*: As per general surgery Time Spent in Patient Care: less than 15 minutes Coding Level of Care Code Acute Process Project Engineer for g Fwd Diagnoses Anemia D64.9 Diabetes E11.9 Perforated abdominal viscus R19.8 Ovarian cancer C56.9 Major depressive disorder, recurrent, in full remission F33.42
[2020-09-29] MEDS: ondansetron 2 mg/ML SDV 2 mL 4 MG IVP (11:21)
[2020-09-29] MEDS: ciprofloxacin 400 MG/200 ML PREMIX 200 MG IV ×2 (11:34→21:16)
[2020-09-29] MEDS: albumin 12.5 GM/250 ML VIAL IV (12:06)
--- NOTE | 2020-09-29 12:11 | SUR.PHASEI ---
1200 BP 88/40. HR 109. Albumin 12.5 gm 250 mL ordered. Will continue to monitor.
--- NOTE | 2020-09-29 12:20 | ANE.PACU2 ---
Inpatient post-anesthesia follow up: Airway intact: Yes Vital signs: Temperature 99.1 F Pulse Rate [Monito r] 70 Pulse Rate 86 Respiratory Rate 22 Blood Pressure [Ri ght Arm] 156/90 Blood Pressure 85/41 Pulse Oximetry 97 Oxygen Delivery Me thod Nasal Cannula Oxygen Flow Rate 2 Fraction of Inspir ed Oxygen Hydration adequate: Yes Nausea and vomiting: No Pain level: 2 Mental status: Baseline
--- NOTE | 2020-09-29 12:53 | SUR.PHASEI ---
1240 BP stable at 112/48. HR 85. Sao2 97% on O2 at 2L via NC. Pt denies pain or N/V. Drainage to RLQ drain decreasing. Total of 500 mL bloody drainage emptied. 100 mL cristiano urine drained from ibarra upon transfer to floor. Report given to JAZLYN Barahona. Pt sister at bedside.
--- NOTE | 2020-09-29 12:53 | PC.NURSE ---
FROM OR UP VIA BED WITH MARY RN AT SIDE - PLACED ON OXYGEN AT 2LNC - TELE PLACED ON PER ORDER - THIERNO PIID NOTED TO BE INTACT - WILL BEGIN POST OP ORDERS - LUNGS COARSE THROUGHOUT - ABD SOFT WITH NO DISTENTION - BS HYPOACTIVE - X2 LARGE BAND AIDS AND ONE GAUZE DRESSING NOTED TO HAVE SMALL AMOUNT OF DRAINAGE TO DRESSINGS - WILL MONITOR - VISHAL EMPTIED OF 60CC SANGINOUS DRAINAGE - MCCORMICK PATENT WITH YELLOW URINE - PPP - VSS - SISTER AT BEDSIDE - HAND HELD CALL LIGHT IN REACH
[2020-09-29] MEDS: dextrose 5%-sod chloride 0.9% 1,000 ML 30 ML IV (13:04)
--- NOTE | 2020-09-29 13:12 | PC.PHAR ---
pt states she takes care of her own medications-pt states she only uses insulin while she is on steroids-ext med history shows novolin r flexpen last filled on 05/27/20 ss as directed-notes are made in the pharmacy comments
[2020-09-29 16:29] LABS: Glucose Point of Care 354 mg/dL (70-110)
[2020-09-29 17:04] LABS: Glucose Point of Care 282 mg/dL (70-110)
--- NOTE | 2020-09-29 18:14 | PC.NURSE ---
END OF SHIFT SUMMARY DR PLUMMER JUST IN ROOM - PT HAS RESTED QUIETLY POSTOPERATIVELY WITH SISTER AT SIDE - PAIN HAS BEEN WELL CONTROLLED UP TO THIS POINT - MORPHINE IVP GIVEN PER PT REQUEST WITH ICE PACK PLACED TO ABD PER DR PLUMMER ORDER - OXYGEN REMAINS IN PLACE PER NC - IV REMAINS PATENT TO LEFT AND RIGHT WRIST AREAS VIA PUMP WITH PROTONIX INFUSING TO RIGHT WRIST AREA - ABD NOTED TO HAVE SMALL AMOUNT OF DRAINAGE TO BANDAGE - VISHAL IS COMPRESSED AND HAS RELEASED APPROX 240ML OF SANGINOUS FLUID - DR PLUMMER ORDERED CHANGE OF VISHAL BULB - HOUSE SUPV NOTIFIED OF NEED - MCCORMICK REMAINS PATENT WITH GOOD URINE OUTPUT - BLE SCD'S IN PLACE - PT HAS TOLERATED ICE CHIPS
[2020-09-29 20:59] LABS: Glucose Point of Care 163 mg/dL (70-110)
[2020-09-30] VITALS (14 sets, daily range): BP systolic 110–136; BP diastolic 69–83; PULSE 90–132; RESP 16–24; TEMP 36.7–38.2; O2SAT 90–98
[2020-09-30] MEDS: morphine 4 mg/mL SDV 1 mL IVP (01:51)
[2020-09-30] MEDS: pantoprazole 40 MG in sodium chloride 0.9% (plus) 100 ML 20 MG IV ×5 (02:09→21:31)
[2020-09-30] MEDS: dextrose 5%-sod chloride 0.9% 1,000 ML 75 ML IV ×2 (05:34→21:34)
[2020-09-30] MEDS: metroNIDAZOLE IV 500 MG/100 ML PREMIX 100 MG IV ×3 (05:36→21:28)
[2020-09-30 06:00] LABS: Alanine Aminotransferase 105 U/L (0-33); Albumin Level 2.7 g/dL (3.5-5.2); Alkaline Phosphatase 79 IU/L (35-105); Anion Gap 12.3 (5-19); Aspartate Amino Transferase 64 U/L (0-32); Blood Urea Nitrogen 18 mg/dL (8-23); Calcium 7.7 mg/dL (8.5-10.5); Carbon Dioxide 20 mmol/L (22-29); Chloride 109 mmol/L (98-107); Globulin 2.5 g/dL (1.3-4.6); Glomerular Filtration Rate 63.9 mL/min (90-130); Glucose 168 mg/dL (65-115); Magnesium 1.7 mg/dL (1.7-2.3); Osmolality Calculated 290 mOsm/kg (285-295); Potassium 4.3 mmol/L (3.5-5.1); Sodium 137 mmol/L (136-145); Total Bilirubin 0.5 mg/dL (0.15-1.2); Total Protein 5.2 g/dL (6.6-8.7)
[2020-09-30 06:03] LABS: Procalcitonin 3.96 ng/mL (0-0.5)
--- NOTE | 2020-09-30 06:17 | P.PN_ITS ---
Subjective Subjective: Interval history: Patient was seen and examined, overall doing well and complains of some muscle spasms towards the right side. Sanguinous output per drain which slowing down. Adequate urine output. Maintained to have stable vital signs. Medications: Reviewed: Yes Vitals/I&O/Wt Last Vital Signs Temp 98.9 F 09/30/20 04:00 Pulse 100 09/30/20 04:00 Resp 17 09/30/20 04:00 BP 111/70 09/30/20 04:00 Pulse Ox 96 09/30/20 04:00 09/29/20 09/29/20 09/30/20 14:59 22:59 06:59 Intake Total 1782 / 1782 3569 / 5351 96 / 5447 Output Total 1460 / 1460 460 / 1920 1035 / 2955 Balance 322 / 322 3109 / 3431 -939 / 2492 Weight last 48 hrs Weight 211 lb Physical Exam Narrative: EXAM NARRATIVE: Patient is conscious alert oriented X3 Nasal cannula BMI 33 Head and neck examination PERRLA no masses no cervical lymphadenopathy no jaundice Cardiac examination audible S1-S2 no murmurs no gallops no arrhythmias Chest fair air entry bilateral Abdomen nontender set at the incision and drain sites nondistended soft no organomegaly guarding or rigidity/no signs of peritonitis. Lemus catheter in place with clear urine Urinary Catheter Management^: Lemus: Cath Placed During This Visit: yes Urinary Catheter Date of Insertion: 09/29/20 Urinary Catheter Time of Insertion: 08:00 Data : 09/30/20 04:59 09/30/20 04:59 Micro: Microbiology 09/28/20 20:21 Blood Culture - Preliminary Blood NEGATIVE TO DATE 09/28/20 20:18 Blood Culture - Preliminary Blood NEGATIVE TO DATE A&P Assessment and plan (1) Perforated abdominal viscus: Patient is a status post diagnostic laparoscopy with repair of perforated duodenal ulcer and placement of intra-abdominal drain. 09/29/2020 1-As the patient had history of gastric bypass there is no direct continuity between her GI and the site of the perforation. We will plan to have the patient starts on ice chips and popsicles for now. 2-Patient can resume her pertinent home medications per hospitalist service 3-encourage ambulation with assistance,SCDs for mechanical DVT prophylaxis 4-DC Lemus catheter 5-wean off O2 and incentive spirometer every hour 6-management of medical comorbidities per hospitalist service, I appreciate the input. 7-Monitor drain output Status: Resolved Attestations Medical Necessity Statement*: Patient requiring inpatient hospitalization passing 2 midnights for perioperative care of laparoscopic repair perforated duodenal ulcer and medical management of medical comorbidities. Time Spent in Patient Care: (>than 50% of time spent in counselling and/or direct pt care on unit) . Coding Level of Care Code Acute Public Health Director for Chg Fwd Diagnoses Perforated abdominal viscus R19.8
[2020-09-30 06:37] LABS: Basophils # 0.1 10^3/uL (0.0-0.1); Basophils % 2.5 %; Hematocrit 25.7 % (37.0-47.0); Hemoglobin 7.6 g/dL (11.5-15.3); Lymphocytes # 0.2 10^3/uL (0.8-4.8); Lymphocytes % 6.1 %; Mean Corpuscular HGB Conc 29.6 g/dL (30.0-36.0); Mean Corpuscular Hemoglobin 33.2 pg (28.0-34.0); Mean Corpuscular Volume 112.2 fL (81-99); Mean Platelet Volume 9.9 fL (7.4-10.4); Monocytes # 0.3 10^3/uL (0.2-0.9); Monocytes % 7.5 %; Neutrophils # 2.96 10^3/uL (1.8-7.7); Neutrophils % 82.2 %; Nucleated Red Blood Cells % 0 %; Platelet Count 94 10^3/cmm (130-400); Red Blood Count 2.29 10^6/uL (4.1-5.3); Red Cell Distribution Width 20.4 % (12.1-15.1); White Blood Count 3.6 10^3/uL (4.0-10.0)
[2020-09-30 06:39] LABS: Slide Review Slide Review Perform
[2020-09-30 06:44] LABS: Glucose Point of Care 160 mg/dL (70-110)
[2020-09-30] MEDS: levothyroxine 175 mcg Tablet PO (08:24)
[2020-09-30] MEDS: lisinopril 10 mg Tablet PO (08:24)
[2020-09-30] MEDS: sertraline 100 mg Tablet 200 MG PO (08:24)
--- NOTE | 2020-09-30 09:49 | PC.NURSE ---
notified Dr Gaona that patient has positive urine culture, Gram negative.
[2020-09-30] MEDS: ciprofloxacin 400 MG/200 ML PREMIX 200 MG IV ×2 (10:55→23:33)
[2020-09-30 11:07] LABS: Glucose Point of Care 152 mg/dL (70-110)
--- NOTE | 2020-09-30 12:30 | P.PN_ITS ---
Subjective Subjective: Interval history: Patient was seen and examined, this morning, currently she is passing flatus, no bowel movement yet, VISHAL drain in place Sanguinous output. Currently she has remained afebrile, other vitals and labs have been reviewed. Medications: Reviewed: Yes Vitals/I&O/Wt Last Vital Signs Temp 99.2 F 09/30/20 11:11 Pulse 121 H 09/30/20 11:11 Resp 18 09/30/20 11:11 BP 132/83 09/30/20 11:11 Pulse Ox 91 09/30/20 11:11 09/29/20 09/30/20 09/30/20 22:59 06:59 14:59 Intake Total 3569 / 5351 291.667 / 5642.667 170 / 170 Output Total 460 / 1920 1035 / 2955 400 / 400 Balance 3109 / 3431 -743.333 / 2687.667 -230 / -230 Weight last 48 hrs Weight 95.708 kg Physical Exam Const: COMMON NORMALS: patient oriented x3 HENMT: COMMON NORMALS: normocephalic and atraumatic HEAD & SCALP: normocephalic and atraumatic Chest: CHEST: Yes Symmetrical chest wall rise Resp: COMMON NORMALS: normal respiratory effort, No retractions, No use of accessory muscles and clear to auscultation bilaterally EFFORT & INSPECTION: Yes symmetric chest movement AUSCULTATION: clear to auscultation bilaterally Cardio: COMMON NORMALS: regular rate, regular rhythm, S1 normal heart sound present, S2 normal heart sound present, No gallops present (Cardio), No murmurs present (Cardio), No rub (Cardio) and Peripheral pulses 2+ throughout RATE: r egular rate RHYTHM: regular rhythm HEART SOUNDS: S1 normal heart sound present and S2 normal heart sound present PERIPHERAL PULSES: Peripheral pulses 2+ throughout GI: COMMON NORMALS: Soft to palpation, non-tender, No hepatosplenomegaly present and no masses AUSCULTATION: Yes normoactive bowel sounds PALPATION: Yes Soft to palpation and Yes No hepatosplenomegaly present RECTAL EXAM: deferred OTHER: VISHAL drain in place Extremity: COMMON NORMALS: no clubbing, cyanosis or edema and no pedal edema Neuro: COMMON NORMALS: patient oriented x3 Urinary Catheter Management^: Lemus: Cath Placed During This Visit: yes, but has since been removed by the nurse Urinary Catheter Date of Insertion: 09/29/20 Urinary Catheter Time of Insertion: 08:00 Date Urinary Catheter Removed: 09/30/20 Time Urinary Catheter Discontinued: 08:30 Data : 09/30/20 04:59 09/30/20 04:59 Micro: Microbiology 09/28/20 19:26 Urine Culture - Preliminary Urine,Clean Catch Gram Negative Rods 09/28/20 20:21 Blood Culture - Preliminary Blood NEGATIVE TO DATE 09/28/20 20:18 Blood Culture - Preliminary Blood NEGATIVE TO DATE A&P Assessment and plan (1) Anemia: likely 2/2 chemotherapy, no signs of active bleeding hemodynamically stable transfuse if Hb <7 Status: Acute (2) Diabetes: Insulin sliding scale Status: Acute (3) Perforated abdominal viscus: appears to be perforated duodenum per CT read management per general surgery Status: Resolved (4) Ovarian cancer: currently on chemotherapy LD wednesday Status: Acute (5) Major depressive disorder, recurrent, in full remission: Status: Acute (6) UTI (urinary tract infection): Status: Acute (7) Tachycardia: Status: Acute Additional A&P Information Perforated viscus with clinical signs of localized peritonitis Duodenal ulcer perforation to be taken to the OR today by Dr. Apodaca Planning for laparoscopic procedure Has been kept n.p.o. no overnight event Postop day 0 Diet to be advanced tomorrow No DVT prophylaxis for next 24 hours in case she requires revision Will resume her medications postoperatively Continue IV fluid maintenance rate Insulin-dependent diabetes Hyperglycemia noted, anticipating improvement with normal saline maintenance fluid Accu-Cheks every 6 hours during n.p.o. status Chemotherapy related anemia Macrocytic anemia B12 folate level should not be repeated, last level 09/20 Hemoglobin stable Transfuse if hemoglobin less than 7 Tachycardia: Follow EKG Metoprolol tartrate 5 mg IV every 4H prn as needed for heart rate greater than 110. Adequate pain control. Monitor CBC to rule out any acute bleed Major depressive disorder: Compensated for now History of hypothyroidism: Her levothyroxine can be resumed tomorrow as half- life is about 7 days okay to hold it for today Medications on hold Metformin: Naproxen: Antihyperglycemics, DVT prophylaxis SCDs N.p.o. diet to be advanced tomorrow after evaluation by general surgery Full code Attestations Medical Necessity Statement*: Per primary team. Coding Level of Care Code Acute Records Manager for Chg Fwd Diagnoses Anemia D64.9 Diabetes E11.9 Perforated abdominal viscus R19.8 Ovarian cancer C56.9 Major depressive disorder, recurrent, in full remission F33.42 UTI (urinary tract infection) N39.0 Tachycardia R00.0
[2020-09-30 16:54] LABS: Glucose Point of Care 162 mg/dL (70-110)
[2020-09-30] MEDS: BuSPIRONE 10 mg Tablet 15 MG PO (17:29)
--- NOTE | 2020-09-30 18:44 | PC.NURSE ---
notified Dr Apodaca and Jimenez that patient's heart rate went up to 147 when she was walking. it has been in 120 when laying today. Rcvd order from Dr Apodaca for EKG. Toll Service Observer put order in.
[2020-09-30] MEDS: metoprolol tartrate 1 mg/1 mL SDV 5 mL 5 MG IV (19:44)
[2020-09-30 21:10] LABS: Glucose Point of Care 164 mg/dL (70-110)
[2020-10-01] VITALS (14 sets, daily range): BP systolic 131–166; BP diastolic 67–90; PULSE 87–131; RESP 14–20; TEMP 36.9–37.8; O2SAT 93–98
[2020-10-01] MEDS: pantoprazole 40 MG in sodium chloride 0.9% (plus) 100 ML 20 MG IV ×5 (02:45→22:26)
[2020-10-01 03:09] LABS: Hematocrit 21.4 % (37.0-47.0); Hemoglobin 6.7 g/dL (11.5-15.3); Mean Corpuscular HGB Conc 31.3 g/dL (30.0-36.0); Mean Corpuscular Hemoglobin 33.7 pg (28.0-34.0); Mean Corpuscular Volume 107.5 fL (81-99); Mean Platelet Volume 9.8 fL (7.4-10.4); Platelet Count 70 10^3/cmm (130-400); Red Blood Count 1.99 10^6/uL (4.1-5.3); Red Cell Distribution Width 19.9 % (12.1-15.1); White Blood Count 2.3 10^3/uL (4.0-10.0)
[2020-10-01 03:36] LABS: Alanine Aminotransferase 230 U/L (0-33); Albumin Level 2.5 g/dL (3.5-5.2); Alkaline Phosphatase 81 IU/L (35-105); Anion Gap 10.7 (5-19); Aspartate Amino Transferase 168 U/L (0-32); Blood Urea Nitrogen 12 mg/dL (8-23); Calcium 7.6 mg/dL (8.5-10.5); Carbon Dioxide 19 mmol/L (22-29); Chloride 105 mmol/L (98-107); Creatinine Clr Calc Pharmacy 88.8288; Globulin 2.2 g/dL (1.3-4.6); Glomerular Filtration Rate 73.2 mL/min (90-130); Glucose 155 mg/dL (65-115); Osmolality Calculated 275 mOsm/kg (285-295); Potassium 3.7 mmol/L (3.5-5.1); Sodium 131 mmol/L (136-145); Total Bilirubin 0.5 mg/dL (0.15-1.2); Total Protein 4.7 g/dL (6.6-8.7)
[2020-10-01 04:07] LABS: Absolute Segmented Neutrophil 1.6 10/cmm (1.6-7.1); Band Neutrophils Absolute 0.4 10^3/cmm (0.0-1.2); Eosinophils 0 %; Lymphocytes 7 %; Lymphocytes Absolute 0.2 10^3/cmm (1.2-3.4); Monocytes Absolute 0.1 10^3/cmm (0.1-0.6); Platelet Estimate Decreased (Normal); Segmented Neutrophils 69 %; Total Cells Counted 100 (0-100)
[2020-10-01] MEDS: metroNIDAZOLE IV 500 MG/100 ML PREMIX 100 MG IV ×3 (04:29→20:44)
[2020-10-01] MEDS: HYDROcodone-acetaminophen 5-325 mg Tablet 1 TAB PO ×3 (04:46→18:02)
--- NOTE | 2020-10-01 06:04 | PM.PN ---
Subjective Subjective: Interval history: Patient was seen and examined, patient sustained sinus tachycardia EKG was done. Patient shows trend of hemoglobin of 6.7 g and initially she has a baseline anemia. She maintains otherwise good urine output and she did develop a temp of 100.8. Continues to be on Cipro and Flagyl. Last chemotherapy was done last week and I did discuss the case with Dr. Cheek yesterday does not believe that the patient should be on specific precautions at this point. Also on her labs patient was noticed to have a platelet count of 70,000Without signs of bleeding Medications: Reviewed: Yes Vitals/I&O/Wt Last Vital Signs Temp 99.6 F 10/01/20 04:00 Pulse 113 H 10/01/20 04:00 Resp 20 H 10/01/20 04:00 BP 152/80 10/01/20 04:00 Pulse Ox 95 10/01/20 04:00 09/30/20 09/30/20 10/01/20 14:59 22:59 06:59 Intake Total 370 / 370 1279.667 / 1649.667 200 / 1849.667 Output Total 400 / 400 420 / 820 200 / 1020 Balance -30 / -30 859.667 / 829.667 0 / 829.667 Physical Exam Narrative: EXAM NARRATIVE: Patient is conscious alert oriented X3 BMI 33 Head and neck examination PERRLA no masses no cervical lymphadenopathy no jaundice Cardiac examination audible S1-S2 no murmurs no gallops no arrhythmias Chest is clear bilateral,abscence of Rhonchi or wheezes,no surgical emphysema Abdomen nontender nondistended soft no organomegaly guarding or rigidity/no signs of peritonitis Incisions are clean dry and intact and skin jimmie in place and drain shows serosanguineous output and has been slowing down. Extremities no cyanosis no clubbing no edema Urinary Catheter Management^: Lemus: Cath Placed During This Visit: yes, but has since been removed by the nurse Urinary Catheter Date of Insertion: 09/29/20 Urinary Catheter Time of Insertion: 08:00 Date Urinary Catheter Removed: 09/30/20 Time Urinary Catheter Discontinued: 08:30 Data : 10/01/20 02:40 10/01/20 02:40 Micro: Microbiology 09/28/20 19:26 Urine Culture - Preliminary Urine,Clean Catch Gram Negative Rods A&P Assessment and plan (1) Perforated abdominal viscus: Patient is a status post diagnostic laparoscopy with repair of perforated duodenal ulcer and placement of intra-abdominal drain. 09/29/2020 1-based on the presence of a hemoglobin of 6.7 g and presence of tachycardia will type and cross 2 units and start her 1 unit of packed RBCs 2-start the patient on clear liquid 3-encourage ambulation with assistance,SCDs for mechanical DVT prophylaxis 4-monitor platelet count closely 5-wean off O2 and incentive spirometer every hour 6-management of medical comorbidities per hospitalist service, I appreciate the input. 7-Monitor drain output 8-we'll drop fluids to 50 mL/h and will replace calcium Status: Resolved Attestations Medical Necessity Statement*: Patient requiring inpatient hospitalization passing 2 midnights for perioperative care of laparoscopic repair perforated duodenal ulcer and medical management of medical comorbidities. Patient requiring blood transfusion, due to anemia associated with tachycardia. Time Spent in Patient Care: (>than 50% of time spent in counselling and/or direct pt care on unit). Coding Level of Care Code Acute Regular Senior Care Provider for Lito Li Diagnoses Perforated abdominal viscus R19.8
[2020-10-01 06:08] LABS: Glucose Point of Care 183 mg/dL (70-110)
[2020-10-01] MEDS: sertraline 100 mg Tablet 200 MG PO (08:30)
[2020-10-01] MEDS: BuSPIRONE 10 mg Tablet 15 MG PO ×2 (08:30→17:57)
[2020-10-01] MEDS: levothyroxine 175 mcg Tablet PO (08:31)
[2020-10-01] MEDS: lisinopril 10 mg Tablet PO (08:31)
--- NOTE | 2020-10-01 08:37 | ECG_ITS ---
[facility] Test Date: 2020-10-01 Pat Name: Alecia Meier Department: Room: 269 Gender: Female Pipe Welder: avelino JEFFREYB: 1960 Requested By: Martín Gaona Order Number: [id number] Reading MD: CARLOS RONDON Measurements Intervals [place] Rate: 94 P: 68 TN: 170 QRS: -31 QRSD: 99 T: 32 QT: 327 QTc: 410 Interpretive Statements SINUS RHYTHM MARKED LEFT AXIS DEVIATION [QRS AXIS < -30] PATTERN CONSISTENT WITH PULMONARY DISEASE Compared to ECG 09/28/2020 18:39:44 No significant changes Electronically Signed On 10-01-2020 22:37:26 CDT by CARLOS RONDON [id number]
--- NOTE | 2020-10-01 09:40 | P.PN_ITS ---
Subjective Subjective: Interval history: Patient was seen and examined this morning, denies any active complaints, currently she is on clear liquid diet, hemoglobin has dropped to 6.7, platelet count has also dropped to 70,000, WBC has also dropped to 2.3L, has no active signs of bleeding, was in sinus tach last night, likely secondary to anemia. T-max noted to be: 100.8.Current plan is to wetzel sfuse 2 units PRBC Medications: Reviewed: Yes Vitals/I&O/Wt Last Vital Signs Temp 99.5 F 10/01/20 08:00 Pulse 110 H 10/01/20 08:00 Resp 16 10/01/20 08:00 BP 144/67 10/01/20 08:00 Pulse Ox 95 10/01/20 08:00 09/30/20 10/01/20 10/01/20 22:59 06:59 14:59 Intake Total 1279.667 / 1649.667 500 / 2149.667 847.5 / 847.5 Output Total 420 / 820 202 / 1022 Balance 859.667 / 829.667 298 / 1127.667 847.5 / 847.5 Physical Exam Const: COMMON NORMALS: patient oriented x3 HENMT: COMMON NORMALS: normocephalic and atraumatic HEAD & SCALP: normocephalic and atraumatic Chest: CHEST: Yes Symmetrical chest wall rise Resp: COMMON NORMALS: normal respiratory effort, No retractions, No use of accessory muscles and clear to auscultation bilaterally EFFORT & INSPECTION: Yes symmetric chest movement AUSCULTATION: clear to auscultation bilaterally Cardio: COMMON NORMALS: regular rate, regular rhythm, S1 normal heart sound present, S2 normal heart sound present, No gallops present (Cardio), No murmurs present (Cardio), No rub (Cardio) and Peripheral pulses 2+ throughout RATE: regular rate RHYTHM: regular rhythm HEART SOUNDS: S1 normal heart sound present and S2 normal heart sound present PERIPHERAL PULSES: Peripheral pulses 2+ throughout GI: COMMON NORMALS: Soft to palpation, non-tender, No hepatosplenomegaly present and no masses AUSCULTATION: Yes normoactive bowel sounds PALPATION: Yes Soft to palpation and Yes No hepatosplenomegaly present RECTAL EXAM: deferred OTHER: VISHAL drain in place Extremity: COMMON NORMALS: no clubbing, cyanosis or edema and no pedal edema Neuro: COMMON NORMALS: patient oriented x3 Urinary Catheter Management^: Lemus: Cath Placed During This Visit: yes, but has since been removed by the nurse Urinary Catheter Date of Insertion: 09/29/20 Urinary Catheter Time of Insertion: 08:00 Date Urinary Catheter Removed: 09/30/20 Time Urinary Catheter Discontinued: 08:30 Data : 10/01/20 02:40 10/01/20 02:40 Micro: Microbiology 09/28/20 19:26 Urine Culture - Preliminary Urine,Clean Catch Gram Negative Rods A&P Assessment and plan (1) Anemia: likely 2/2 chemotherapy, no signs of active bleeding hemodynamically stable transfuse if Hb <7 Status: Acute (2) Diabetes: Insulin sliding scale Status: Acute (3) Perforated abdominal viscus: appears to be perforated duodenum per CT read management per general surgery Status: Resolved (4) Ovarian cancer: currently on chemotherapy LD wednesday Status: Acute (5) Major depressive disorder, recurrent, in full remission: Status: Acute (6) UTI (urinary tract infection): Status: Acute (7) Tachycardia: Status: Acute Additional A&P Information Perforated viscus with clinical signs of localized peritonitis Duodenal ulcer perforation to be taken to the OR today by Dr. Apodaca Planning for laparoscopic procedure Has been kept n.p.o. no overnight event Postop day 0 Diet to be advanced tomorrow No DVT prophylaxis for next 24 hours in case she requires revision Will resume her medications postoperatively Continue IV fluid maintenance rate Insulin-dependent diabetes Hyperglycemia noted, anticipating improvement with normal saline maintenance fluid Accu-Cheks every 6 hours during n.p.o. status Chemotherapy related anemia Macrocytic anemia B12 folate level should not be repeated, last level 09/20 Status post 2 unit PRBC transfusion Transfuse to maintain hemoglobin greater than 7 Thrombocytopenia: Likely related to chemotherapy No active signs of bleeding, no petechiae. Monitor CBC Tachycardia: EKG: Sinus tachycardia Major depressive disorder: Compensated for now Hypothyroidism: Levothyroxine 175 mcg p.o. daily DVT prophylaxis SCDs Full code Attestations Medical Necessity Statement*: Per primary team Coding Level of Care Code Acute [employer] for Chg Fwd Diagnoses Anemia D64.9 Diabetes E11.9 Perforated abdominal viscus R19.8 Ovarian cancer C56.9 Major depressive disorder, recurrent, in full remission F33.42 UTI (urinary tract infection) N39.0 Tachycardia R00.0
[2020-10-01] MEDS: ciprofloxacin 400 MG/200 ML PREMIX 200 MG IV ×2 (10:23→22:32)
--- NOTE | 2020-10-01 11:05 | PC.NURSE ---
rcvd verbal order from Dr Gaona to put patient on reverse isolation. abstract writer put order in.
[2020-10-01 11:16] LABS: Glucose Point of Care 194 mg/dL (70-110)
--- NOTE | 2020-10-01 11:36 | PC.NURSE ---
started administration of first unit of blood.
[2020-10-01] MEDS: sodium chloride 0.9% (100 ml) 100 ML 50 ML (13:36)
[2020-10-01 17:35] LABS: Glucose Point of Care 111 mg/dL (70-110)
[2020-10-01 21:13] LABS: Glucose Point of Care 194 mg/dL (70-110)
[2020-10-02] VITALS (10 sets, daily range): BP systolic 109–157; BP diastolic 61–86; PULSE 80–95; RESP 16–24; TEMP 37.3–38.3; O2SAT 95–96
[2020-10-02] MEDS: dextrose 5%-sod chloride 0.9% 1,000 ML 50 ML IV (00:21)
[2020-10-02 02:45] LABS: Hematocrit 23.7 % (37.0-47.0); Hemoglobin 7.6 g/dL (11.5-15.3); Mean Corpuscular HGB Conc 32.1 g/dL (30.0-36.0); Mean Corpuscular Hemoglobin 32.5 pg (28.0-34.0); Mean Corpuscular Volume 101.3 fL (81-99); Mean Platelet Volume 10.4 fL (7.4-10.4); Platelet Count 70 10^3/cmm (130-400); Red Blood Count 2.34 10^6/uL (4.1-5.3); Red Cell Distribution Width 20.6 % (12.1-15.1); White Blood Count 2.6 10^3/uL (4.0-10.0)
[2020-10-02 03:02] LABS: Alanine Aminotransferase 144 U/L (0-33); Albumin Level 2.4 g/dL (3.5-5.2); Alkaline Phosphatase 97 IU/L (35-105); Anion Gap 12.4 (5-19); Aspartate Amino Transferase 35 U/L (0-32); Blood Urea Nitrogen 10 mg/dL (8-23); Calcium 7.7 mg/dL (8.5-10.5); Carbon Dioxide 20 mmol/L (22-29); Chloride 104 mmol/L (98-107); Globulin 2.5 g/dL (1.3-4.6); Glomerular Filtration Rate 85.4 mL/min (90-130); Glucose 99 mg/dL (65-115); Osmolality Calculated 275 mOsm/kg (285-295); Potassium 3.4 mmol/L (3.5-5.1); Sodium 133 mmol/L (136-145); Total Bilirubin 0.5 mg/dL (0.15-1.2); Total Protein 4.9 g/dL (6.6-8.7)
[2020-10-02 03:14] LABS: Absolute Segmented Neutrophil 1.5 10/cmm (1.6-7.1); Band Neutrophils Absolute 0.5 10^3/cmm (0.0-1.2); Eosinophils 1 %; Lymphocytes 9 %; Lymphocytes Absolute 0.2 10^3/cmm (1.2-3.4); Monocytes Absolute 0.3 10^3/cmm (0.1-0.6); Segmented Neutrophils 57 %; Slide Review Slide Review Perform; Total Cells Counted 100 (0-100)
[2020-10-02 03:15] LABS: Platelet Estimate Decreased (Normal)
[2020-10-02] MEDS: metroNIDAZOLE IV 500 MG/100 ML PREMIX 100 MG IV ×3 (06:00→21:46)
[2020-10-02 06:53] LABS: Glucose Point of Care 145 mg/dL (70-110)
--- NOTE | 2020-10-02 07:10 | XR_ITS ---
WS: [id number] Portable AP upright chest, 10/02/2020 Clinical Data: fever,R/O PNEUMONIA Comparison: Portable chest, 06/03/2020. Findings: There is minimal basilar atelectasis over the surface of both diaphragms. No definite pneum onia is seen. The heart size is normal. The pulmonary vascularity is not increased. The aortic arch a nd descending aorta show calcification and tortuosity. The right internal jugular venous catheter end s in the superior vena cava. Monitor leads are on the chest wall. XR/XR chest 1V portable [id number] Impression: 1. Minimal bibasilar atelectasis or surfaces of both diaphragms. 2. Atherosclerosis.
--- NOTE | 2020-10-02 07:32 | PM.PN ---
Subjective Subjective: Interval history: Patient received 1 unit of packed RBCs yesterday. With a current hemoglobin of 7.6 and platelet of 70, adequate urine output yet unfortunately the patient developed a fever of 100.9 likely concerning for underlying pneumonia, patient was seen and examined. Potassium was noticed to be low as well as calcium Medications: Reviewed: Yes Vitals/I&O/Wt Last Vital Signs Temp 100.9 F H 10/02/20 04:25 Pulse 91 10/02/20 06:00 Resp 16 10/02/20 04:25 BP 153/74 10/02/20 04:25 Pulse Ox 95 10/02/20 04:25 10/01/20 10/02/20 10/02/20 22:59 06:59 14:59 Intake Total 760 / 2266.0 540 / 2806.0 Output Total 500 / 500 500 / 1000 Balance 260 / 1766.0 40 / 1806.0 Physical Exam Narrative: EXAM NARRATIVE: Patient is conscious alert oriented X3 BMI 33 Head and neck examination PERRLA no masses no cervical lymphadenopathy no jaundice Cardiac examination audible S1-S2 no murmurs no gallops no arrhythmias Chest is clear bilateral,abscence of Rhonchi or wheezes,no surgical emphysema Abdomen nontender except mildly at the incision sites, skin jimmie in place and incisions are clean dry and intact nondistended soft no organomegaly guarding or rigidity/no signs of peritonitis. Right-sided abdominal drain in place with minimal serous output. Urinary Catheter Management^: Lemus: Cath Placed During This Visit: yes, but has since been removed by the nurse Urinary Catheter Date of Insertion: 09/29/20 Urinary Catheter Time of Insertion: 08:00 Date Urinary Catheter Removed: 09/30/20 Time Urinary Catheter Discontinued: 08:30 Data : 10/02/20 02:15 10/02/20 02:15 Micro: Microbiology 09/28/20 19:26 Urine Culture - Final Urine,Clean Catch Escherichia coli A&P Assessment and plan (1) Perforated abdominal viscus: Patient is a status post diagnostic laparoscopy with repair of perforated duodenal ulcer and placement of intra-abdominal drain. 09/29/2020 1-more education about the importance about incentive spirometer every hour, chest x-ray was obtained and shows concerning for pneumonic patch on the right side, will defer to hospitalist service for further management. 2-we will advance to full liquid diet and add Glucerna 3-encourage ambulation with assistance,SCDs for mechanical DVT prophylaxis 4-we will continue monitor platelet count closely 5-wean off O2, will add request for home O2 eval 6-management of medical comorbidities per hospitalist service, I appreciate the input. 7-Monitor drain output 8-replacement of electrolytes and saline lock 9-we will DC PPI drip and switch to Protonix 40 mg IV Status: Resolved Attestations Medical Necessity Statement*: Patient requiring inpatient hospitalization passing 2 midnights for perioperative care of laparoscopic repair perforated duodenal ulcer and medical management of medical comorbidities. Patient required blood transfusion, due to anemia associated with tachycardia. Developed a fever of 100.9 pending work-up and continuation of IV antimicrobial therapy. Replacement of electrolytes. Coding Level of Care Code Acute Biomedical Equipment Technician for g Fwd Diagnoses Perforated abdominal viscus R19.8
[2020-10-02] MEDS: potassium chloride oral liq 20 mEq/15 mL UDC 40 MEQ PO (09:20)
[2020-10-02] MEDS: pantoprazole 40 mg SDV IVP ×2 (09:21→18:34)
[2020-10-02] MEDS: calcium carb-vit d 500mg-200unit 1 Tablet 1 EACH PO ×2 (09:21→18:34)
[2020-10-02] MEDS: sertraline 100 mg Tablet 200 MG PO (09:21)
[2020-10-02] MEDS: lisinopril 10 mg Tablet PO (09:22)
[2020-10-02] MEDS: levothyroxine 175 mcg Tablet PO (09:22)
[2020-10-02] MEDS: BuSPIRONE 10 mg Tablet 15 MG PO ×2 (09:22→18:34)
[2020-10-02] MEDS: ciprofloxacin 400 MG/200 ML PREMIX 200 MG IV ×2 (10:39→23:26)
[2020-10-02 11:52] LABS: Glucose Point of Care 201 mg/dL (70-110)
--- NOTE | 2020-10-02 12:24 | P.PN_ITS ---
Subjective Subjective: Interval history: Patient continue to have low grade temperature spike. Medications: Reviewed: Yes Vitals/I&O/Wt Last Vital Signs Temp 100.0 F H 10/02/20 08:00 Pulse 92 10/02/20 08:00 Resp 18 10/02/20 08:00 BP 157/86 10/02/20 08:00 Pulse Ox 95 10/02/20 08:00 10/01/20 10/02/20 10/02/20 22:59 06:59 14:59 Intake Total 760 / 2266.0 540 / 2806.0 380 / 380 Output Total 500 / 500 500 / 1000 Balance 260 / 1766.0 40 / 1806.0 380 / 380 Physical Exam Const: COMMON NORMALS: patient oriented x3 HENMT: COMMON NORMALS: normocephalic and atraumatic HEAD & SCALP: normocephalic and atraumatic Chest: CHEST: Yes Symmetrical chest wall rise Resp: COMMON NORMALS: normal respiratory effort, No retractions, No use of accessory muscles and clear to auscultation bilaterally EFFORT & INSPECTION: Yes symmetric chest movement AUSCULTATION: clear to auscultation bilaterally Cardio: COMMON NORMALS: regular rate, regular rhythm, S1 normal heart sound present, S2 normal heart sound present, No gallops present (Cardio), No murmurs present (Cardio), No rub (Cardio) and Peripheral pulses 2+ throughout RATE: regular rate RHYTHM: regular rhythm HEART SOUNDS: S1 normal heart sound present and S2 normal heart sound present PERIPHERAL PULSES: Peripheral pulses 2+ throughout GI: COMMON NORMALS: Soft to palpation, non-tender, No hepatosplenomegaly present and no masses AUSCULTATION: Yes normoactive bowel sounds P ALPATION: Yes Soft to palpation and Yes No hepatosplenomegaly present RECTAL EXAM: deferred OTHER: VISHAL drain in place Extremity: COMMON NORMALS: no clubbing, cyanosis or edema and no pedal edema Neuro: COMMON NORMALS: patient oriented x3 Urinary Catheter Management^: Lemus: Cath Placed During This Visit: yes, but has since been removed by the nurse Urinary Catheter Date of Insertion: 09/29/20 Urinary Catheter Time of Insertion: 08:00 Date Urinary Catheter Removed: 09/30/20 Time Urinary Catheter Discontinued: 08:30 Data : 10/02/20 02:15 10/02/20 02:15 Micro: Microbiology 09/28/20 19:26 Urine Culture - Final Urine,Clean Catch Escherichia coli A&P Assessment and plan (1) Anemia: likely 2/2 chemotherapy, no signs of active bleeding hemodynamically stable transfuse if Hb <7 Status: Acute (2) Diabetes: Insulin sliding scale Status: Acute (3) Perforated abdominal viscus: appears to be perforated duodenum per CT read management per general surgery Status: Resolved (4) Ovarian cancer: currently on chemotherapy LD wednesday Status: Acute (5) Major depressive disorder, recurrent, in full remission: Status: Acute (6) UTI (urinary tract infection): Status: Acute (7) Tachycardia: Status: Acute Additional A&P Information Perforated viscus with clinical signs of localized peritonitis Duodenal ulcer perforation to be taken to the OR today by Dr. Apodaca Planning for laparoscopic procedure Has been kept n.p.o. no overnight event Postop day 0 Diet to be advanced tomorrow No DVT prophylaxis for next 24 hours in case she requires revision Will resume her medications postoperatively Continue IV fluid maintenance rate Insulin-dependent diabetes Hyperglycemia noted, anticipating improvement with normal saline maintenance fluid Accu-Cheks every 6 hours during n.p.o. status Chemotherapy related anemia Macrocytic anemia B12 folate level should not be repeated, last level 09/20 Status post 2 unit PRBC transfusion Transfuse to maintain hemoglobin greater than 7 Thrombocytopenia: Likely related to chemotherapy No active signs of bleeding, no petechiae. Monitor CBC Tachycardia: EKG: Sinus tachycardia Major depressive disorder: Compensated for now Hypothyroidism: Levothyroxine 175 mcg p.o. daily DVT prophylaxis SCDs Full code Attestations Medical Necessity Statement*: Patient needs to be in hospital for the management of Pefortaed viscus and for monitoring of low grade fever. Coding Level of Care Code Acute Natural Resources Professor for Chg Fwd Exam Detailed Diagnoses Anemia D64.9 Diabetes E11.9 Perforated abdominal viscus R19.8 Ovarian cancer C56.9 Major depressive disorder, recurrent, in full remission F33.42 UTI (urinary tract infection) N39.0 Tachycardia R00.0
[2020-10-02] MEDS: HYDROcodone-acetaminophen 5-325 mg Tablet 1 TAB PO ×2 (14:40→19:51)
--- NOTE | 2020-10-02 15:04 | PC.NUTR ---
Nutrition note: Received call from nurse Goldberg requesting this RD to discuss supplement preferences with pt. Glucerna already ordered per MD. Discussed flavor options with pt and updated diet information accordingly. Notified pt that if Glucerna is not well tolerated, other higher-CHO options are available and could be considered. No triggers for nutritional assessment at this time, will assess at LOS or per further consult.
[2020-10-02 16:58] LABS: Glucose Point of Care 138 mg/dL (70-110)
--- NOTE | 2020-10-02 18:04 | PC.NURSE ---
Ambulation Pt walked with me and her sister 185 feet. checked o2 prior to walking it was 97% on RA and 92% after the walk sitting in chair.
[2020-10-02 20:53] LABS: Glucose Point of Care 145 mg/dL (70-110)
[2020-10-03] VITALS: BP 125/77; PULSE 84; RESP 23; TEMP 37.7; O2SAT 94
[2020-10-03 02:56] LABS: Basophils # 0.1 10^3/uL (0.0-0.1); Basophils % 1.8 %; Hematocrit 25.1 % (37.0-47.0); Hemoglobin 7.8 g/dL (11.5-15.3); Lymphocytes # 0.3 10^3/uL (0.8-4.8); Lymphocytes % 6.7 %; Mean Corpuscular HGB Conc 31.1 g/dL (30.0-36.0); Mean Corpuscular Hemoglobin 33.2 pg (28.0-34.0); Mean Corpuscular Volume 106.8 fL (81-99); Mean Platelet Volume 10.9 fL (7.4-10.4); Monocytes # 0.5 10^3/uL (0.2-0.9); Monocytes % 13.4 %; Neutrophils # 2.98 10^3/uL (1.8-7.7); Neutrophils % 76.8 %; Nucleated Red Blood Cells % 0 %; Platelet Count 59 10^3/cmm (130-400); Red Blood Count 2.35 10^6/uL (4.1-5.3); Red Cell Distribution Width 20.2 % (12.1-15.1); White Blood Count 3.9 10^3/uL (4.0-10.0)
[2020-10-03 03:14] LABS: Alanine Aminotransferase 91 U/L (0-33); Albumin Level 2.3 g/dL (3.5-5.2); Alkaline Phosphatase 114 IU/L (35-105); Aspartate Amino Transferase 17 U/L (0-32); Blood Urea Nitrogen 8 mg/dL (8-23); Calcium 7.9 mg/dL (8.5-10.5); Carbon Dioxide 21 mmol/L (22-29); Chloride 103 mmol/L (98-107); Creatinine Clr Calc Pharmacy 88.8288; Globulin 2.9 g/dL (1.3-4.6); Glomerular Filtration Rate 73.2 mL/min (90-130); Glucose 110 mg/dL (65-115); Osmolality Calculated 277 mOsm/kg (285-295); Sodium 134 mmol/L (136-145); Total Bilirubin 0.4 mg/dL (0.15-1.2); Total Protein 5.2 g/dL (6.6-8.7)
[2020-10-03 03:18] LABS: Anion Gap 13.2 (5-19); Potassium 3.2 mmol/L (3.5-5.1)
[2020-10-03 03:20] LABS: Procalcitonin 1.04 ng/mL (0-0.5)
[2020-10-03 04:00] VITALS: BP 164/86; PULSE 96; RESP 21; TEMP 37.2; O2SAT 94
[2020-10-03] MEDS: metroNIDAZOLE IV 500 MG/100 ML PREMIX 100 MG IV (04:00)
[2020-10-03 04:22] LABS: Slide Review Slide Review Perform
[2020-10-03] MEDS: pantoprazole 40 mg SDV IVP (06:06)
--- NOTE | 2020-10-03 06:13 | PC.NURSE ---
Addendum entered by Debbie Navarro LPN 10/03/20 06:20: Patient had 20 ml's out from VISHAL drain throughout the night. 15mls emptied around 0000 and only 5mls from 0000 till 0630. Original Note: Shift Note Frequent safety and comfort rounds continue. Orders and/or nursing care completed as indicated. Patient monitored for response to intervention and treatment(s). Education provided includes pain management, frequent use of IS, signs and symptoms of infection. Patient had small grade temp most of the night. and day yesterday. minimal complaints of pain. Had bowel movement yesterday and passing gas. Will continue to monitor.
--- NOTE | 2020-10-03 06:43 | PM.PN ---
Subjective Subjective: Interval history: Patient overall feels well patient overall feels well. No acute events overnight. Tolerating p.o. intake and passing gas and having loose stools Medications: Reviewed: Yes Vitals/I&O/Wt Last Vital Signs Temp 99.0 F 10/03/20 04:00 Pulse 96 10/03/20 04:00 Resp 21 H 10/03/20 04:00 BP 164/86 10/03/20 04:00 Pulse Ox 94 10/03/20 04:00 10/02/20 10/02/20 10/03/20 14:59 22:59 06:59 Intake Total 840 / 840 460 / 1300 200 / 1500 Output Total 1300 / 1300 800 / 2100 1070 / 3170 Balance -460 / -460 -340 / -800 -870 / -1670 Physical Exam Narrative: EXAM NARRATIVE: Patient is conscious alert oriented X3 BMI 33 Head and neck examination PERRLA no masses no cervical lymphadenopathy no jaundice Abdomen nontender nondistended soft no organomegaly guarding or rigidity/no signs of peritonitis Right upper drain in place with minimal serous output Urinary Catheter Management^: Lemus: Cath Placed During This Visit: yes, but has since been removed by the nurse Urinary Catheter Date of Insertion: 09/29/20 Urinary Catheter Time of Insertion: 08:00 Date Urinary Catheter Removed: 09/30/20 Time Urinary Catheter Discontinued: 08:30 Data : 10/03/20 02:23 10/03/20 02:23 A&P Assessment and plan (1) Perforated abdominal viscus: Patient is a status post diagnostic laparoscopy with repair of perforated duodenal ulcer and placement of intra-abdominal drain. 09/29/2020 From surgical standpoint patient seems to be more appropriate now for potential discharge home Patient be discharged on PPI therapy Protonix 40 mg twice daily Return to surgery office in 1 week for potential drain removal Can be advanced to soft GI diet upon discharge Return to oncology services to discuss continuity of chemotherapy P.o. antimicrobial therapy for 5 to 7 days upon discharge Drain care and teaching Assurance and education All questions have been answered and all concerns have been addressed to patient's satisfaction. Status: Resolved Attestations Medical Necessity Statement*: Patient required inpatient hospitalization passing 2 midnights for perioperative care of laparoscopic repair perforated duodenal ulcer and medical management of medical comorbidities. Patient required blood transfusion, due to anemia associated with tachycardia. Time Spent in Patient Care: (>than 50% of time spent in counselling and/or direct pt care on unit). Coding Level of Care Code Acute Distribution A Class Lineman for Chg Fwd Diagnoses Perforated abdominal viscus R19.8
[2020-10-03 07:07] LABS: Glucose Point of Care 153 mg/dL (70-110)
[2020-10-03 08:00] VITALS: BP 164/86; PULSE 86; RESP 17; TEMP 36.8; O2SAT 97
[2020-10-03] MEDS: sertraline 100 mg Tablet 200 MG PO (08:40)
[2020-10-03] MEDS: calcium carb-vit d 500mg-200unit 1 Tablet 1 EACH PO (08:40)
[2020-10-03] MEDS: dextrose 5%-sod chloride 0.9% 1,000 ML 50 ML IV (08:40)
[2020-10-03] MEDS: BuSPIRONE 10 mg Tablet 15 MG PO (08:40)
[2020-10-03] MEDS: lisinopril 10 mg Tablet PO (08:40)
[2020-10-03] MEDS: levothyroxine 175 mcg Tablet PO (08:40)
[2020-10-03] MEDS: ciprofloxacin 400 MG/200 ML PREMIX 200 MG IV (10:22)
--- NOTE | 2020-10-03 10:49 | PC.CHAP ---
Pastoral Care Encounter/Spiritual Assessment Type of Contact [] Declined waiter/waitress room service visit [] Patient/Family/Request visit [] Outpatient visit [] Follow-up visit [] Physician referral [] Code/Alert [x] Routine visit [] Staff referral [] Actively dying [] Patient sleeping [] Family support [] [] Out of room [] Palliative care [] [x] Receiving care in room [] Pre-surgical visit [] Trauma [] Long length of stay [] ICU visit [] Other: Relational/Emotional Strength [x] Patient feels connected with others/family/visitors/staff [] Distress [] Loneliness/isolation [] Abandonment Spirituality of Patient [x] Person of Gayla [] Attends Orthodox of their Gayla [x] Believes in Prayer [] Reads Bible or Islam materials [] There are Spiritual issues to be addressed Aircraft Manager Interventions [x] Prayer [x] Active listening [x] Non-anxious presence [x] Spiritual/emotional support [] Crisis/trauma care [x] Spiritual counseling [] Bereavement support [] Provided bereavement packet [] Provided Bible/devotional materials [] Provided toy/stuffed animal, coloring book to patient or family member [] Provided Communion [] Anointing/[place] [] Salvation [x] Completed spiritual assessment [] Other: Impact on Illness or Injury [] Angry [] Fearful [] Anxious [] Often cries [] Exhaustion [] Unable to work [] Unable to attend pentecostalism [] Unable to walk/stand [] Unable to read [] Unable to drive [] Unable to eat/drink [] Unable to sleep [] Unable to be with family [] Patient intubated [] Other: Summary feels good going home Time spent with patient 5 mins
[2020-10-03 11:38] VITALS: BP 110/70; PULSE 88; RESP 17; TEMP 37.1; O2SAT 97
[2020-10-03 11:42] LABS: Glucose Point of Care 231 mg/dL (70-110)
[2020-10-03 16:44] VITALS: BP 110/70; PULSE 88; RESP 17; TEMP 37.1; O2SAT 97
--- NOTE | 2020-10-03 17:30 | P.DS_ITS ---
Discharge Providers Date of Admission: 09/28/20 22:27 Date of Discharge: October 03, 2020 Attending Provider at Admission: Brenden Apodaca MD Attending Provider at Discharge: Martín Gaona MD Primary Care Provider: EVERARDO Davidson Diagnoses at Discharge Discharge Diagnosis (1) Perforated abdominal viscus: Status: Resolved Reason for Visit Reason for Visit: RIGHT UPPER QUAD PAIN Hospital Course Hospital Course Alecia Meier is a 60 year old female with Grade 3 ovarian endometrioid carcinoma status post right resection of ovarian cancer, bilateral salpingo- oophorectomy, total abdominal hysterectomy, pelvic and para-aortic lymphadenectomy, omentectomy Jan 2020 on chemo with carbo/Taxol cycle 5/6last dose wednesday, DM , mild thrombocytopenia. Presenting today with abdominal pain, predominantly right sided with genralization to whole abdomen that started this evening suddenly after returning from bathroom. no NVD. No fever. Hemodynamics stable currently. CT with perforated viscus.She was admitted for management of Perforated abdominal viscus:status post diagnostic laparoscopy with repair of perforated duodenal ulcer and placement of intra-abdominal drain. 09/29/2020.She was empirically kept on metronidazole and ciprofloxacin during the hospital stay , and was discharged on Metro and Cipro for additional 4 days, as well as Protonix 40 mg p.o. twice daily. During the hospital stay patient also had low- grade temperature spike of noted T-max was 100.7: Blood cultures were negative: Urine culture during the hospital stay grew E. coli: Sensitive to ciprofloxacin.X-ray chest was: Normal: Procalcitonin was trending down:Prior to discharge patient remained afebrile for more than 24 hours.During the hospital stay she also had pancytopenia likely secondary to chemotherapy side effect, for her macrocytic anemia:Status post 2 unit PRBC transfusion.Posttransfusion h&h was stable. Thrombocytopenia was monitored: No active signs of bleeding, no petechiae no purpura. For her hypothyroidism she was continued on levothyroxine 175 mcg p.o. daily. For the UTI urine culture grew E. coli she was continued on ciprofloxacin.For her ovarian cancer: currently on chemotherapy. Patient responded well to the above medical and surgical management.She was discharged home with VISHAL drain in place.She will follow Dr. Apodaca as an outpatient in 1 week time. Physical Exam Const: COMMON NORMALS: patient oriented x3 HENMT: COMMON NORMALS: normocephalic and atraumatic HEAD & SCALP: normocephalic and atraumatic Chest: CHEST: Yes Symmetrical chest wall rise Resp: COMMON NORMALS: normal respiratory effort, No retractions, No use of accessory muscles and clear to auscultation bilaterally EFFORT & INSPECTION: Yes symmetric chest movement AUSCULTATION: clear to auscultation bilaterally Cardio: COMMON NORMALS: regular rate, regular rhythm, S1 normal heart sound present, S2 normal heart sound present, No gallops present (Cardio), No murmurs present (Cardio), No rub (Cardio) and Peripheral pulses 2+ throughout RATE: regular rate RHYTHM: regular rhythm HEART SOUNDS: S1 normal heart sound present and S2 normal heart sound present PERIPHERAL PULSES: Peripheral pulses 2+ throughout GI: COMMON NORMALS: Soft to palpation, non-tender, No hepatosplenomegaly present and no masses AUSCULTATION: Yes normoactive bowel sounds PALPATION: Yes Soft to palpation and Yes No hepatosplenomegaly present RECTAL EXAM: deferred OTHER: VISHAL drain in place Extremity: COMMON NORMALS: no clubbing, cyanosis or edema and no pedal edema Neuro: COMMON NORMALS: patient oriented x3 Urinary Catheter Management^: Lemus: Cath Placed During This Visit: yes, but has since been removed by the nurse Urinary Catheter Date of Insertion: 09/29/20 Urinary Catheter Time of Insertion: 08:00 Date Urinary Catheter Removed: 09/30/20 Time Urinary Catheter Discontinued: 08:30 Discharge Data Data Completed and Pending: Completed Studies During Hospitalization Category Date Time Status CT abdomen pelvis w con* [id number] Urge nt Cat Scan 09/28/20 18:[address] abdomen pelvis wo con [id number] Urge nt Cat Scan 09/28/20 22:53 Completed XR chest 1V abraham ble [id number] Urgent Exams 10/02/20 07:10 Completed Pending at discharge Category Date Time Status ES surgery / GI i mages Routine Exams 09/29/20 09:14 Ordered Blood Culture Sta t Lab 09/28/20 20:21 Results Leukocyte Reduced RBC Stat Lab 10/01/20 10:08 Results Type and Screen S tat Lab 10/01/20 10:08 Results Labs from last 24 hours 10/03/20 10/03/20 10/03/20 11:37 07:04 02:23 WBC RBC Hgb Hct MCV MCH MCHC RDW Plt Count MPV Neut % (Auto) Lymph % (Auto) [place] % (Auto) Eos % (Auto) Baso % (Auto) Neut # (Auto) Lymph # (Auto) [place] # (Auto) Eos # (Auto) Baso # (Auto) Nucleated RBC % (a uto) Nucleated RBCs # Sodium 134 L Potassium 3.2 L Chloride 103 Carbon Dioxide 21 L Anion Gap 13.2 BUN 8 Creatinine 0.8 GFR Calculation 73.2 L Glucose 110 POC Glucose 231 H 153 H Calculated Osmolal ity 277 L Calcium 7.9 L Total Bilirubin 0.4 AST 17 ALT 91 H Alkaline Phosphata se 114 H Total Protein 5.2 L Albumin 2.3 L Globulin 2.9 Procalcitonin 1.04 H 10/03/20 10/02/20 02:23 20:47 WBC 3.9 L RBC 2.35 L Hgb 7.8 L Hct 25.1 L MCV 106.8 H MCH 33.2 MCHC 31.1 RDW 20.2 H Plt Count 59 L MPV 10.9 H Neut % (Auto) 76.8 Lymph % (Auto) 6.7 [place] % (Auto) 13.4 Eos % (Auto) 0.0 Baso % (Auto) 1.8 Neut # (Auto) 2.98 Lymph # (Auto) 0.3 L [place] # (Auto) 0.5 Eos # (Auto) 0.0 Baso # (Auto) 0.1 Nucleated RBC % (a uto) 0 Nucleated RBCs # 0.0 Sodium Potassium Chloride Carbon Dioxide Anion Gap BUN Creatinine GFR Calculation Glucose POC Glucose 145 H Calculated Osmolal ity Calcium Total Bilirubin AST ALT Alkaline Phosphata se Total Protein Albumin Globulin Procalcitonin Vitals: Last Vital Signs Temp 98.7 F 10/03/20 16:44 Pulse 88 10/03/20 16:44 Resp 17 10/03/20 16:44 BP 110/70 10/03/20 16:44 Pulse Ox 97 10/03/20 16:44 Discharge Plan Discharge Patient Disposition: Home Condition: Stable Prescriptions: New metronidazole 500 mg tablet 500 mg PO BID 4 Days Qty: 8 RF: 0 ciprofloxacin HCl 500 mg tablet 500 mg PO BID 4 Days Qty: 8 RF: 0 Protonix 40 mg tablet,delayed release (DR/EC) 40 mg PO BIDWMEAL Qty: 60 RF: 3 hydrocodone-acetaminophen 5-325 mg tablet 1 tab PO Q6H PRN (Reason: pain) Qty: 28 RF: 0 Continued Januvia 25 mg tablet 25 mg PO DAILY RF: 0 tramadol 50 mg tablet 50 mg PO TID PRN (Reason: Pain) RF: 0 atorvastatin 10 mg tablet 10 mg PO DAILY@2200 RF: 0 metformin 850 mg tablet 850 mg PO DAILY RF: 0 lisinopril 10 mg tablet 10 mg PO QAM RF: 0 levothyroxine 175 mcg Tablet 175 mcg PO QAM RF: 0 sertraline [Zoloft] 100 mg tablet 200 mg PO DAILY RF: 0 buspirone 15 mg tablet 15 mg PO BID RF: 0 hydrocodone-acetaminophen 5-325 mg tablet 1 - 2 tab PO Q4H PRN (Reason: Pain) RF: 0 dexamethasone 4 mg tablet See Rx Instructions .ROUTE .COMPLEX RF: 0 lorazepam 1 mg tablet 0.5 - 1 mg PO TID PRN (Reason: Nausea) RF: 0 Claritin 10 mg Tablet 10 mg PO DAILY RF: 0 Novolin R Flexpen 100 unit/mL (3 mL) insulin pen See Rx Instructions .ROUTE .COMPLEX RF: 0 Discontinued naproxen 500 mg tablet 500 mg PO BID PRN (Reason: Pain) RF: 0 Discharge Orders: Discharge Order (Routine); Ordered 10/03/20 Ordered By: Martín Gaona Referrals: Brenden Apodaca MD [Physician] - 10/10/20 3:40 pm (Return to surgery office in 1 week) Molina,EVERARDO Elam [Primary Care Provider] - 10/15/20 10:00 am Discharge Diet: Diabetic and GI Soft Discharge Activity: Increase activity as tolerated Patient Instructions: Ciprofloxacin (By mouth), Hydrocodone/Acetaminophen (By mouth), Metronidazole (By mouth), Pantoprazole (By mouth), Laparoscopy, Soft Diet (GEN), Opioid Safety Activity Restrictions/Additional Instructions: 1. Patient can shower after 48 hours from surgery 2. Drain care education 3. Up and walking as tolerated 4. Do not lift more than 5 pounds first 2 weeks after surgery and not more than 25 pounds 6 to 8 weeks after surgery. 5. Do not operate heavy machinery or drive while using pain medications. 6.Contact the office or return to the ER for worsening nausea vomiting fevers or chills, or noticing any redness around incision sites or discharge. Discharge Attestations Time Spent in Discharge Care*: less than 30 min Specific Discharge Activities: educating patient, educating and/or supporting family/caregiver, discussing with pcp/other providers, discussing with adult protective caseworker/social workers/dc planners, documenting/other paperwork and evaluating patient/reviewing data Status at Discharge: Cognitive status at discharge: cognitively intact , Behavioral status at discharge: cooperative , Functional status at discharge: independent ambulation Overall status at discharge: patient is back to baseline Quality Metrics Clinical Quality Measures During this hospital stay, did patient experience: None Coding Level of Care Code Acute Chg FW DC note Diagnoses Perforated abdominal viscus R19.8
== END 2020-10-03 16:30 | disposition home or self-care (01) | DRG 329 ==
LOC: ER 21:21 → MEDSURG 23:40
PROVIDERS: Internal Medicine; Nurse Practitioner Family; Admitting Provider Surgery; Emergency Provider Emergency Medicine; PCP Nurse Practitioner Family; Visit Provider Internal Medicine
PROC: 0DU947Z Supplement Duodenum with Autologous Tissue Substitute, Percutaneous Endoscopic Approach (ICD-10-PCS; CPT 49320; principal; 2020-09-29 10:00)
PROC: 0DU947Z Supplement Duodenum with Autologous Tissue Substitute, Percutaneous Endoscopic Approach (ICD-10-PCS; 2020-09-29 10:00)
PROC: 0BQT4ZZ Repair Diaphragm, Percutaneous Endoscopic Approach (ICD-10-PCS; 2020-09-29 10:00)
DX: K26.1 Acute duodenal ulcer with perforation (principal); K65.9 Peritonitis, unspecified; D61.810 Antineoplastic chemotherapy induced pancytopenia; C56.9 Malignant neoplasm of unspecified ovary; N39.0 Urinary tract infection, site not specified; Z86.16 Personal history of COVID-19; F33.42 Major depressive disorder, recurrent, in full remission; E03.9 Hypothyroidism, unspecified; E11.9 Type 2 diabetes mellitus without complications; D64.81 Anemia due to antineoplastic chemotherapy; T45.1X5A Adverse effect of antineoplastic and immunosuppressive drugs, initial encounter; Z90.710 Acquired absence of both cervix and uterus; Z79.899 Other long term (current) drug therapy; D69.59 Other secondary thrombocytopenia; E78.5 Hyperlipidemia, unspecified; Z98.84 Bariatric surgery status; K66.0 Peritoneal adhesions (postprocedural) (postinfection); Z95.828 Presence of other vascular implants and grafts; B96.20 Unspecified Escherichia coli [E. coli] as the cause of diseases classified elsewhere; Z79.891 Long term (current) use of opiate analgesic; Z79.4 Long term (current) use of insulin; R00.0 Tachycardia, unspecified
CPT/HCPCS: 36415; 36416; 36430; 71045; 74176; 74177; 80053; 81001; 82962; 83690; 83735; 84145; 84484; 85007; 85025; 85027; 86850; 86900; 86920; 87040; 87077; 87086; 87186; 93005; 96365; 96372; 96374; 96375; 99285; A7015; C9113; C9290; J0330; J0610; J0744; J1100; J1170; J1644; J1815; J1885; J2270; J2370; J2405; J2704; J2710; J3010; J3490; J7030; J7040; P9016; P9041; Q9967; S0030

== ENCOUNTER 2020-10-22 05:35 | Outpatient (RCR) | payer OTHER, SELFPAY ==
[2020-10-14] MEDS: LORazepam 2 mg/mL INJ 1 mL 1 MG IV (10:00)
[2020-10-14] MEDS: sodium chloride 0.9% 1,000 ML 999 ML IV (14:20)
[2020-10-14 14:34] LABS: Basophils % 0.4 %; Eosinophils % 0.1 %; Hematocrit 24.8 % (37.0-47.0); Hemoglobin 7.7 g/dL (11.5-15.3); Lymphocytes # 1.3 10^3/uL (0.8-4.8); Lymphocytes % 18.5 %; Mean Corpuscular Hemoglobin 32.9 pg (28.0-34.0); Mean Platelet Volume 11.1 fL (7.4-10.4); Monocytes # 0.5 10^3/uL (0.2-0.9); Monocytes % 6.5 %; Neutrophils # 5.25 10^3/uL (1.8-7.7); Neutrophils % 74.1 %; Nucleated Red Blood Cells % 0 %; Platelet Count 69 10^3/cmm (130-400); Red Blood Count 2.34 10^6/uL (4.1-5.3); Red Cell Distribution Width 19.1 % (12.1-15.1); White Blood Count 7.1 10^3/uL (4.0-10.0)
[2020-10-14 15:12] LABS: Alanine Aminotransferase 10 U/L (0-33); Alkaline Phosphatase 119 IU/L (35-105); Aspartate Amino Transferase 11 U/L (0-32); Blood Urea Nitrogen 12 mg/dL (8-23); Carbon Dioxide 23 mmol/L (22-29); Chloride 100 mmol/L (98-107); Glomerular Filtration Rate 63.9 mL/min (90-130); Glucose 188 mg/dL (65-115); Osmolality Calculated 283 mOsm/kg (285-295); Sodium 134 mmol/L (136-145); Total Bilirubin 0.4 mg/dL (0.15-1.2)
[2020-10-15] MEDS: ondansetron 2 mg/ML SDV 2 mL 8 MG IVP (09:45)
[2020-10-15] MEDS: sodium chloride 0.9% 1,000 ML 999 ML IV (09:45)
[2020-10-15 10:30] LABS: Basophils % 0.4 %; Eosinophils % 0.1 %; Hematocrit 23.4 % (37.0-47.0); Hemoglobin 7.1 g/dL (11.5-15.3); Lymphocytes # 1.2 10^3/uL (0.8-4.8); Lymphocytes % 18.1 %; Mean Corpuscular HGB Conc 30.3 g/dL (30.0-36.0); Mean Corpuscular Hemoglobin 32.4 pg (28.0-34.0); Mean Corpuscular Volume 106.8 fl (81-99); Monocytes # 0.4 10^3/uL (0.2-0.9); Monocytes % 6.6 %; Neutrophils # 4.95 10^3/uL (1.8-7.7); Neutrophils % 74.4 %; Nucleated Red Blood Cells % 0 %; Platelet Count 68 10^3/cmm (130-400); Red Blood Count 2.19 10^6/uL (4.1-5.3); Red Cell Distribution Width 19.1 % (12.1-15.1); White Blood Count 6.7 10^3/uL (4.0-10.0)
[2020-10-15] MEDS: sodium chloride 0.9% 250 ML 999 ML IV (10:45)
[2020-10-15] MEDS: acetaminophen 325 mg Tablet 650 MG PO (10:45)
[2020-10-15] MEDS: diphenhydrAMINE 25 mg Capsule PO (10:45)
[2020-10-15 10:54] LABS: Alanine Aminotransferase 9 U/L (0-33); Albumin Level 2.7 g/dL (3.5-5.2); Alkaline Phosphatase 112 IU/L (35-105); Anion Gap 14.1 (5-19); Aspartate Amino Transferase 9 U/L (0-32); Blood Urea Nitrogen 11 mg/dL (8-23); Carbon Dioxide 23 mmol/L (22-29); Chloride 98 mmol/L (98-107); Globulin 4.8 g/dL (1.3-4.6); Glomerular Filtration Rate 63.9 mL/min (90-130); Glucose 250 mg/dL (65-115); Osmolality Calculated 280 mOsm/kg (285-295); Potassium 4.1 mmol/L (3.5-5.1); Sodium 131 mmol/L (136-145); Total Bilirubin 0.3 mg/dL (0.15-1.2); Total Protein 7.5 g/dL (6.6-8.7)
[2020-10-15] MEDS: FUROsemide 10 mg/mL SDV 2mL 20 MG IV (13:00)
[2020-10-15] MEDS: sodium chloride 0.9% (100 ml) 100 ML 75 ML (13:14)
--- NOTE | 2020-10-16 12:13 | ONC FU_ITS ---
Dr. Cheek follow up note Patient: Alecia Meier I Unit #: [id number]: [id number] Dicatated By: Barbara Cheek M.D.Date of Visit:Oct 15, 2020 Onc Med Follow-up/Prog Note History of Present Illness: Ms. Meier is a 60-year-old female with a history of progressive abdominal/pelvic pain. She was evaluated by Dr. Gutierrez [employer] and subsequently underwent abdominal ultrasoud which confirmed a large complex ovarian mass. Her tumor marker/CA-125 was checked on February 06, 2020 was elevated at 55.5. Further evaluation with CT scan of abdomen pelvis confirmed large cystic lesion with mural nodularity arising from pelvis- likely ovarian neoplasm. The size of the mass was 15.3 x 23 .8 x 22.1 cm. Small amount of free fluid in the pelvis. Cholelithiasis. Prior gastric bypass but no visible pelvic or inguinal lymphadenopathy. Ms Meier was referred to Dr. Mtz in [place]. On February 29, 2020 she underwent right resection of ovarian cancer, bilateral salpingo-oophorectomy, total abdominal hysterectomy, pelvic and para-aortic lymphadenectomy, omentectomy and multiple biopsies including right hemidiaphragm. The final pathology report came back showed a right ovarian tumor size about 10 cm, endometrioid adenocarcinoma, intact, grade 3 e.g. T1 a. 10 lymph nodes were examined showed no evidence of metastatic disease e.g. N0 stage I Immunohistochemistry was positive for p16, p53, Ki-67 and vimentin consistent with high-grade endometrioid carcinoma. Patient tolerated procedure well and based on high-grade e.g. grade 3 ovarian endometrioid carcinoma, as per patient she was recommended adjuvant chemotherapy with 6 cycles carboplatin/Taxol. Patient is a diabetic, also has history of morbid obesity for which she underwent gastric bypass in 1999, as per patient about 2 years ago she was diagnosed with persistent anemia and she did require 3 units of packed RBC during her recent bilateral oophorectomy/hysterectomy done on February 29, 2020. Ms Meier was referred to [facility] oncology for second opinion at her request and evaluation for clinical trial. She was seen by Dr. Luis Post on May 15, 2019. His recommendations were that he agreed with her original diagnosis and recommended her to proceed with 6 cycles of carboplatin/Taxol. As per patient on May 03, 2020 she was diagnosed with Covid infection and had some breathing difficulty so went to [facility]. She did receive monoclonal antibody treatment for the COVID-19 and tolerated it well. She underwent transinternal jugular vein entheses right internal jugular vein) power port placement per Dr. Apodaca on June 03, 2020. She began her first cycle of carboplatin paclitaxel on June 13, 2020. Came for follow-up, complaining of generalized weakness and fatigue, dyspnea on exertion,And nausea and vomited x1 this morning, no chest pain., No jaundice , no fever chills, , no diarrhea constipation, no melena or hematochezia no hemoptysis or hematemesis, no worsening of mild peripheral numbness tolerating systemic therapy with carboplatin/Taxol reasonably well Medications: All Day Allergy 1 Tablet (of 10 mg) Oral daily, Atorvastatin Calcium 1 Tablet (of 10 mg) Oral daily, busPIRone HCl 1 Tablet (of 15 mg) Oral b.i.d., Euthyrox 1 Tablet (of 175 mcg) Oral daily, Glucophage 1 Tablet (of 850 mg) Oral daily, Januvia 1 Tablet (of 25 mg) Oral daily, Lisinopril 1 Tablet (of 10 mg) Oral daily, Naprosyn 1 Tablet (of 500 mg) Oral b.i.d. PRN, Slow Release Iron 1 Tablet (of 47.5 mg) Tablet, controlled release Oral daily, traMADol HCl 1 Tablet (of 50 mg) Oral t.i.d. PRN, Tums Tablet, chewable Oral PRN, Zoloft 2 Tablet (of 100 mg) Oral daily Allergies: Amoxicillin and Cephalexin. Review of Systems: Review of Systems is not available for this patient. Vital Signs: Performed on Oct 15, 2020 10:58 Height - 67.00 in Temperature - 96.5 F (LOW) Pulse - 103 /min (HIGH) Respiration - 18 /min BP - 113/76 mm(hg) O2 Sat - 100 % Pain - 0 Fatigue - 9 Performance Status: 2 - Ambulatory/capable of all self-care, unable to perform any work activities. Up and about more than 50% of waking hours. (ECOG) Physical Examination: ENMT - No mouth sores but dry oral mucosa no mucositis or thrush, no jaundice, Respiratory - Lungs are clear to auscultation, Cardiovascular - Regular rate and rhythm of heart, Abdomen - Soft, bowel sounds present, Extremities - No visible edema. Lab/Imaging: Test performed on Sep 19, 2020 15:27 Sodium 136 mmol/L Potassium 4.8 mmol/L Chloride 105 mmol/L CO2 23 mmol/L Anion Gap 12.8 BUN 17 mg/dL Creatinine 0.9 mg/dL Cr Clearance (Est) 94.1500 mL/min eGFR 63.9 mL/min Glucose 92 mg/dL Osmolality - Calculated 283 mOsm/kg Calcium 8.4 mg/dL Protein, Total 5.9 g/dL Albumin 3.5 g/dL Globulin 2.4 g/dL Bilirubin, Total 0.2 mg/dL ALT (SGPT) 13 U/L AST (SGOT) 13 U/L Alkaline Phosphatase 123 IU/L WBC 4.8 10 3/uL RBC 2.23 10 6/uL HGB 7.4 g/dL HCT 23.7 % MCV 106.3 fL MCH 33.2 pg MCHC 31.2 g/dL RDW 21.1 % Platelet Count 117 10 3/cmm MPV 10.5 fL Neutrophils 3.25 10 3/uL Lymphocytes 1.1 10 3/uL Monocytes 0.4 10 3/uL Eosinophils 0.0 10 3/uL Basophils 0.0 10 3/uL Neutrophil % 68.0 % Lymphocyte % 22.4 % Monocyte % 8.8 % Eosinophil % 0.4 % Basophils % 0.0 % NRBC % 0 % Test performed on Jul 31, 2020 08:50 CBC Slide Review Slide Review Perform Test performed on July 04, 2020 12:30 Ferritin 316 ng/mL Folate, Serum 5.2 ng/mL Iron 61 mcg/dL Vitamin B12 > 2000 pg/mL Iron Binding Capacity (TIBC) 286 mcg/dl % Iron Saturation 21.3 % UIBC 225 mcg/dL Impression: Grade 3 ovarian endometrioid carcinoma status post right resection of ovarian cancer, bilateral salpingo-oophorectomy, total abdominal hysterectomy, pelvic and para-aortic lymphadenectomy, omentectomy, multiple biopsies including right hemidiaphragm done on February 29, 2020 Final pathology report confirmed 10 cm sized tumor involving the right ovary, endometrioid adenocarcinoma, grade 3, intact, peritoneal fluid negative implants negative and 0 out of 10 lymph nodes showed metastatic disease e.g. pT1a limited to 1 ovary (capsule intact). p N 0, MX stage I Immunohistochemistry were positive for p16, p53, Ki-67, vimentin, pattern consistent with high-grade endometrial carcinoma History of diabetes mellitus, Gastric bypass surgery for morbid obesity in 2000 Anemia since 2018, status post 3 units of packed RBCs on February 29 2020 during bilateral oophorectomy/hysterectomy for right ovarian cancerAnd again on July 25, 2020 for hemoglobin 7 g Plan: Discussed with patient regarding her labs white blood count 7.1 hemoglobin 7.7 hematocrit 24.8 platelets 69,000 CMP within normal limit except glucose 188 Clinically, patient doing reasonably well now in mild to moderate distress due to mild nausea and also vomited x1 this morning and somewhat emotional as her roommate does not understand her situation and not very nice to her and also complaining of generalized weakness and fatigue, unable to cook for herself. No follow-ups CBC shows progressive anemia and hemoglobin is now 7.7 compared to 9.2 g prior to last chemotherapy and anemia work-up done on September 20, 2020 was inconclusive as iron studies, B12 were in normal range so etiology of her anemia could be chemotherapy-induced. At this point, will consider antiemetic, Zofran/dexamethasone and antianxiety and also consider hydration and because of progressive, symptomatic anemia, will consider 2 units of packed RBC today and then she will return to clinic in 1 week with CBC CMP and if there is resolution of moderate thrombocytopenia and white blood count in reasonable range, will consider last dose of chemotherapy with carboplatin/Taxol, Patient was advised to maintain hydration. Signed By: Barbara Cheek M.D. <<Signature on File>>
[2020-10-22 09:37] LABS: Basophils % 0.4 %; Eosinophils % 0.5 %; Hemoglobin 9.7 g/dL (11.5-15.3); Lymphocytes # 1.8 10^3/uL (0.8-4.8); Lymphocytes % 24.4 %; Mean Corpuscular HGB Conc 31.3 g/dL (30.0-36.0); Mean Corpuscular Hemoglobin 31.9 pg (28.0-34.0); Mean Platelet Volume 9.7 fL (7.4-10.4); Monocytes # 0.5 10^3/uL (0.2-0.9); Monocytes % 6.9 %; Neutrophils # 4.94 10^3/uL (1.8-7.7); Neutrophils % 67.3 %; Nucleated Red Blood Cells % 0 %; Platelet Count 147 10^3/cmm (130-400); Red Blood Count 3.04 10^6/uL (4.1-5.3); Red Cell Distribution Width 19.4 % (12.1-15.1); White Blood Count 7.4 10^3/uL (4.0-10.0)
[2020-10-22 10:00] LABS: Alanine Aminotransferase 8 U/L (0-33); Albumin Level 3.2 g/dL (3.5-5.2); Alkaline Phosphatase 101 IU/L (35-105); Anion Gap 16.5 (5-19); Aspartate Amino Transferase 11 U/L (0-32); Blood Urea Nitrogen 17 mg/dL (8-23); Calcium 8.9 mg/dL (8.5-10.5); Carbon Dioxide 23 mmol/L (22-29); Chloride 97 mmol/L (98-107); Globulin 4.7 g/dL (1.3-4.6); Glomerular Filtration Rate 50.7 mL/min (90-130); Glucose 226 mg/dL (65-115); Osmolality Calculated 283 mOsm/kg (285-295); Potassium 4.5 mmol/L (3.5-5.1); Sodium 132 mmol/L (136-145); Total Bilirubin 0.4 mg/dL (0.15-1.2); Total Protein 7.9 g/dL (6.6-8.7)
[2020-10-22] MEDS: sodium chloride 0.9% 500 ML 999 ML IV (11:00)
--- NOTE | 2020-10-22 11:15 | ONC FU_ITS ---
Dr. Cheek follow up note Patient: Alecia Meier I Unit #: [id number]: 1960 Dicatated By: Barbara Cheek M.D.Date of Visit:Oct 22, 2020 Onc Med Follow-up/Prog Note History of Present Illness: Ms. Meier is a 60-year-old female with a history of progressive abdominal/pelvic pain. She was evaluated by Dr. Gutierrez DISTRIBUTION SALES REPRESENTATIVE and subsequently underwent abdominal ultrasoud which confirmed a large complex ovarian mass. Her tumor marker/CA-125 was checked on February 06, 2020 was elevated at 55.5. Further evaluation with CT scan of abdomen pelvis confirmed large cystic lesion with mural nodularity arising from pelvis- likely ovarian neoplasm. The size of the mass was 15.3 x 23 .8 x 22.1 cm. Small amount of free fluid in the pelvis. Cholelithiasis. Prior gastric bypass but no visible pelvic or inguinal lymphadenopathy. Ms Meier was referred to Dr. Mtz in [place]. On February 29, 2020 she underwent right resection of ovarian cancer, bilateral salpingo-oophorectomy, total abdominal hysterectomy, pelvic and para-aortic lymphadenectomy, omentectomy and multiple biopsies including right hemidiaphragm. The final pathology report came back showed a right ovarian tumor size about 10 cm, endometrioid adenocarcinoma, intact, grade 3 e.g. T1 a. 10 lymph nodes were examined showed no evidence of metastatic disease e.g. N0 stage I Immunohistochemistry was positive for p16, p53, Ki-67 and vimentin consistent with high-grade endometrioid carcinoma. Patient tolerated procedure well and based on high-grade e.g. grade 3 ovarian endometrioid carcinoma, as per patient she was recommended adjuvant chemotherapy with 6 cycles carboplatin/Taxol. Patient is a diabetic, also has history of morbid obesity for which she underwent gastric bypass in 1999, as per patient about 2 years ago she was diagnosed with persistent anemia and she did require 3 units of packed RBC during her recent bilateral oophorectomy/hysterectomy done on February 29, 2020. Ms Meier was referred to [facility] DISTRIBUTION SALES REPRESENTATIVE oncology for second opinion at her request and evaluation for clinical trial. She was seen by Dr. Luis Post on May 15, 2019. His recommendations were that he agreed with her original diagnosis and recommended her to proceed with 6 cycles of carboplatin/Taxol. As per patient on May 03, 2020 she was diagnosed with Covid infection and had some breathing difficulty so went to [facility]. She did receive monoclonal antibody treatment for the COVID-19 and tolerated it well. She underwent transinternal jugular vein entheses right internal jugular vein) power port placement per Dr. Apodaca on June 03, 2020. She began her first cycle of carboplatin paclitaxel on June 13, 2020. Came for follow-up, denies any specific complaints, except generalized weakness and fatigue, tolerated 2 units of packed RBC well, no fever chills, no nausea or vomiting, no diarrhea or constipation no melena or hematochezia, no jaundice, patient is emotional because of her roommate, who is not cooperative with her and not understanding her. Patient did not take her premedication for Taxol today as she wants to postpone chemotherapy for another week. Medications: All Day Allergy 1 Tablet (of 10 mg) Oral daily, Atorvastatin Calcium 1 Tablet (of 10 mg) Oral daily, Bactrim DS 1 Tablet (of 800-160 mg) Oral b.i.d., busPIRone HCl 1 Tablet (of 15 mg) Oral b.i.d., Euthyrox 1 Tablet (of 175 mcg) Oral daily, Glucophage 1 Tablet (of 850 mg) Oral daily, Januvia 1 Tablet (of 25 mg) Oral daily, Lisinopril 1 Tablet (of 10 mg) Oral daily, Pantoprazole Sodium 1 Tablet (of 40 mg) Tablet, enteric coated Oral b.i.d., Slow Release Iron 1 Tablet (of 47.5 mg) Tablet, controlled release Oral daily, traMADol HCl 1 Tablet (of 50 mg) Oral t.i.d. PRN, Tums Tablet, chewable Oral PRN, Zoloft 2 Tablet (of 100 mg) Oral daily Allergies: Amoxicillin and Cephalexin. Review of Systems: Review of Systems is not available for this patient. Vital Signs: Performed on Oct 22, 2020 10:37 Height - 67.00 in Weight - 191.2 lbs (LOW) BSA - 1.98 sq.m BMI - 29.95 Temperature - 97 F (LOW) Pulse - 96 /min Respiration - 18 /min BP - 136/81 mm(hg) O2 Sat - 100 % Pain - 0 Fatigue - 8 Performance Status: 1 - No physically strenuous activity, but ambulatory and able to carry out light or sedentary work (e.g. office work, light house work). (ECOG) Physical Examination: ENMT - No mouth sores, no thrush, no jaundice, Respiratory - Lungs are clear to auscultation, Cardiovascular - Regular rate and rhythm of heart, Abdomen - Soft, bowel sounds present, Extremities - No visible edema. Lab/Imaging: Test performed on Sep 19, 2020 15:27 Sodium 136 mmol/L Potassium 4.8 mmol/L Chloride 105 mmol/L CO2 23 mmol/L Anion Gap 12.8 BUN 17 mg/dL Creatinine 0.9 mg/dL Cr Clearance (Est) 94.1500 mL/min eGFR 63.9 mL/min Glucose 92 mg/dL Osmolality - Calculated 283 mOsm/kg Calcium 8.4 mg/dL Protein, Total 5.9 g/dL Albumin 3.5 g/dL Globulin 2.4 g/dL Bilirubin, Total 0.2 mg/dL ALT (SGPT) 13 U/L AST (SGOT) 13 U/L Alkaline Phosphatase 123 IU/L WBC 4.8 10 3/uL RBC 2.23 10 6/uL HGB 7.4 g/dL HCT 23.7 % MCV 106.3 fL MCH 33.2 pg MCHC 31.2 g/dL RDW 21.1 % Platelet Count 117 10 3/cmm MPV 10.5 fL Neutrophils 3.25 10 3/uL Lymphocytes 1.1 10 3/uL Monocytes 0.4 10 3/uL Eosinophils 0.0 10 3/uL Basophils 0.0 10 3/uL Neutrophil % 68.0 % Lymphocyte % 22.4 % Monocyte % 8.8 % Eosinophil % 0.4 % Basophils % 0.0 % NRBC % 0 % Test performed on Jul 31, 2020 08:50 CBC Slide Review Slide Review Perform Test performed on July 04, 2020 12:30 Ferritin 316 ng/mL Folate, Serum 5.2 ng/mL Iron 61 mcg/dL Vitamin B12 > 2000 pg/mL Iron Binding Capacity (TIBC) 286 mcg/dl % Iron Saturation 21.3 % UIBC 225 mcg/dL Impression: Grade 3 ovarian endometrioid carcinoma status post right resection of ovarian cancer, bilateral salpingo-oophorectomy, total abdominal hysterectomy, pelvic and para-aortic lymphadenectomy, omentectomy, multiple biopsies including right hemidiaphragm done on February 29, 2020 Final pathology report confirmed 10 cm sized tumor involving the right ovary, endometrioid adenocarcinoma, grade 3, intact, peritoneal fluid negative implants negative and 0 out of 10 lymph nodes showed metastatic disease e.g. pT1a limited to 1 ovary (capsule intact). p N 0, MX stage I Immunohistochemistry were positive for p16, p53, Ki-67, vimentin, pattern consistent with high-grade endometrial carcinoma History of diabetes mellitus, Gastric bypass surgery for morbid obesity in 2000 Anemia since 2018, status post 3 units of packed RBCs on February 29 2020 during bilateral oophorectomy/hysterectomy for right ovarian cancerAnd again on July 25, 2020 for hemoglobin 7 g Plan: Discussed with patient regarding her labs white blood count 7.4 hemoglobin 9.7 g compared to 7.1 prior to blood transfusion, hematocrit 31 platelets 147,000 CMP within normal limit except glucose 225 and sodium 132 and creatinine 1.1 Clinically, patient is doing reasonably well, now in mild to moderate distress due to emotional issues she is experiencing with her roommate, patient is on antidepression and being followed by psychiatric Dr. Wallace, patient is in touch with him. Patient is due for her final dose of adjuvant chemotherapy with carboplatin/Taxol but patient did not take her premedication for Taxol infusion and wants to postpone chemotherapy for 1 week. In the meantime patient was advised to maintain oral hydration and nutrition, we will hydrate her as on needed basis. We will give her normal saline 500 cc today As far as anemia is concerned, patient has history of gastric bypass, so most likely due to iron malabsorption her anemia work-up showed iron levels on the low side of normal range which could be due to multiple blood transfusions she received recently, will consider Injectafer 750 mg IV weekly x2 Return to clinic in 1 week with CBC CMP and patient was advised to take premedication with steroids prior to Taxol infusion. Signed By: Barbara Cheek M.D. <<Signature on File>>
== END 2020-10-29 23:59 | disposition home or self-care (01) ==
LOC: ONCMED 05:35
PROVIDERS: PCP Nurse Practitioner Family; Visit Provider Internal Medicine Hematology & Oncology
DX: C56.1 Malignant neoplasm of right ovary (principal); E11.9 Type 2 diabetes mellitus without complications; D64.9 Anemia, unspecified; Z79.899 Other long term (current) drug therapy; Z92.21 Personal history of antineoplastic chemotherapy
CPT/HCPCS: 80053; 85025; 86850; 86900; 86920; 96360; 96365; 96375; 99214; 99215; J1100; J1940; J2060; J2405; J7030; J7040; J7050; P9016; P9040

== ENCOUNTER 2020-11-28 06:21 | Outpatient (RCR) | payer OTHER, SELFPAY ==
[2020-10-30] MEDS: ferric carboxy (IVPB) 750 MG in sodium chloride 0.9% (100 ml) 100 ML 460 MG IV (08:45)
[2020-10-30 08:48] LABS: Hematocrit 26.7 % (37.0-47.0); Hemoglobin 8.5 g/dL (11.5-15.3); Lymphocytes # 0.6 10^3/uL (0.8-4.8); Lymphocytes % 12.1 %; Mean Corpuscular HGB Conc 31.8 g/dL (30.0-36.0); Mean Corpuscular Hemoglobin 32.3 pg (28.0-34.0); Mean Corpuscular Volume 101.5 fl (81-99); Monocytes # 0.1 10^3/uL (0.2-0.9); Neutrophils # 4.19 10^3/uL (1.8-7.7); Neutrophils % 86.1 %; Nucleated Red Blood Cells % 0 %; Platelet Count 230 10^3/cmm (130-400); Red Blood Count 2.63 10^6/uL (4.1-5.3); Red Cell Distribution Width 19.4 % (12.1-15.1); White Blood Count 4.9 10^3/uL (4.0-10.0)
[2020-10-30 09:32] LABS: Alanine Aminotransferase 8 U/L (0-33); Albumin Level 3.5 g/dL (3.5-5.2); Alkaline Phosphatase 117 IU/L (35-105); Anion Gap 19.4 (5-19); Aspartate Amino Transferase 9 U/L (0-32); Blood Urea Nitrogen 16 mg/dL (8-23); Calcium 9.4 mg/dL (8.5-10.5); Carbon Dioxide 22 mmol/L (22-29); Chloride 95 mmol/L (98-107); Globulin 4.3 g/dL (1.3-4.6); Glomerular Filtration Rate 63.9 mL/min (90-130); Glucose 278 mg/dL (65-115); Osmolality Calculated 285 mOsm/kg (285-295); Potassium 4.4 mmol/L (3.5-5.1); Sodium 132 mmol/L (136-145); Total Bilirubin 0.5 mg/dL (0.15-1.2); Total Protein 7.8 g/dL (6.6-8.7)
[2020-10-30] MEDS: palonosetron 0.25 mg/5 mL SDV IV (11:10)
[2020-10-30] MEDS: sodium chloride 0.9% 250 ML 75 ML IV (11:10)
[2020-10-30] MEDS: famotidine 20 mg/2 mL INJ IVP (11:11)
[2020-10-30] MEDS: diphenhydrAMINE 50 mg/mL SDV 1mL 25 MG IV (11:13)
[2020-10-30] MEDS: fosaprepitant 150 MG in sodium chloride 0.9% 150 ML 300 MG IV (11:15)
[2020-10-30] MEDS: dexamethasone 20 MG in sodium chloride 0.9% 50 ML 187 MG IV (11:35)
[2020-10-30] MEDS: pegfilgrastim 6 mg/0.6 mL Kit (onpro) SUBCUT (16:05)
--- NOTE | 2020-10-31 13:32 | ONC FU_ITS ---
Dr. Cheek follow up note Patient: Alecia Meier I Unit #: [id number]: 1960 Dicatated By: Barbara Cheek M.D.Date of Visit:Oct 30, 2020 Onc Med Follow-up/Prog Note History of Present Illness: Ms. Meier is a 60-year-old female with a history of progressive abdominal/pelvic pain. She was evaluated by Dr. Gutierrez REHABILITATION THERAPY TECHNICIAN and subsequently underwent abdominal ultrasoud which confirmed a large complex ovarian mass. Her tumor marker/CA-125 was checked on February 06, 2020 was elevated at 55.5. Further evaluation with CT scan of abdomen pelvis confirmed large cystic lesion with mural nodularity arising from pelvis- likely ovarian neoplasm. The size of the mass was 15.3 x 23 .8 x 22.1 cm. Small amount of free fluid in the pelvis. Cholelithiasis. Prior gastric bypass but no visible pelvic or inguinal lymphadenopathy. Ms Meier was referred to Dr. Mtz in [place]. On February 29, 2020 she underwent right resection of ovarian cancer, bilateral salpingo-oophorectomy, total abdominal hysterectomy, pelvic and para-aortic lymphadenectomy, omentectomy and multiple biopsies including right hemidiaphragm. The final pathology report came back showed a right ovarian tumor size about 10 cm, endometrioid adenocarcinoma, intact, grade 3 e.g. T1 a. 10 lymph nodes were examined showed no evidence of metastatic disease e.g. N0 stage I Immunohistochemistry was positive for p16, p53, Ki-67 and vimentin consistent with high-grade endometrioid carcinoma. Patient tolerated procedure well and based on high-grade e.g. grade 3 ovarian endometrioid carcinoma, as per patient she was recommended adjuvant chemotherapy with 6 cycles carboplatin/Taxol. Patient is a diabetic, also has history of morbid obesity for which she underwent gastric bypass in 1999, as per patient about 2 years ago she was diagnosed with persistent anemia and she did require 3 units of packed RBC during her recent bilateral oophorectomy/hysterectomy done on February 29, 2020. Ms Meier was referred to [facility] REHABILITATION THERAPY TECHNICIAN oncology for second opinion at her request and evaluation for clinical trial. She was seen by Dr. Luis Post on May 15, 2019. His recommendations were that he agreed with her original diagnosis and recommended her to proceed with 6 cycles of carboplatin/Taxol. As per patient on May 03, 2020 she was diagnosed with Covid infection and had some breathing difficulty so went to [facility]. She did receive monoclonal antibody treatment for the COVID-19 and tolerated it well. She underwent transinternal jugular vein entheses right internal jugular vein) power port placement per Dr. Apodaca on June 03, 2020. She began her first cycle of carboplatin paclitaxel on June 13, 2020.Completed 6 cycles of chemotherapy with carboplatin/Taxol on October 30, 2020 Came for follow-up, denies any specific complaints except generalized weakness and fatigue otherwise no fever chills, no nausea or vomiting, no diarrhea constipation, no mouth sores, no thrush, no jaundice, no shortness of breath or palpitation at rest but dyspnea on exertion. No melena hematochezia, no hemoptysis or hematemesis. Tolerating adjuvant therapy with carboplatin/Taxol well and patient is here to receive final dose of her adjuvant therapy with carboplatin/Taxol today. Medications: All Day Allergy 1 Tablet (of 10 mg) Oral daily, Atorvastatin Calcium 1 Tablet (of 10 mg) Oral daily, Bactrim DS 1 Tablet (of 800-160 mg) Oral b.i.d., busPIRone HCl 1 Tablet (of 15 mg) Oral b.i.d., Euthyrox 1 Tablet (of 175 mcg) Oral daily, Glucophage 1 Tablet (of 850 mg) Oral daily, Januvia 1 Tablet (of 25 mg) Oral daily, Lisinopril 1 Tablet (of 10 mg) Oral daily, Pantoprazole Sodium 1 Tablet (of 40 mg) Tablet, enteric coated Oral b.i.d., Slow Release Iron 1 Tablet (of 47.5 mg) Tablet, controlled release Oral daily, traMADol HCl 1 Tablet (of 50 mg) Oral t.i.d. PRN, Tums Tablet, chewable Oral PRN, Zoloft 2 Tablet (of 100 mg) Oral daily Allergies: Amoxicillin and Cephalexin. Review of Systems: Review of Systems is not available for this patient. Vital Signs: Performed on Oct 30, 2020 10:55 Height - 67.00 in Weight - 191 lbs (LOW) BSA - 1.98 sq.m BMI - 29.92 Temperature - 97.6 F (LOW) Pulse - 77 /min Respiration - 18 /min BP - 96/67 mm(hg) O2 Sat - 95 % (LOW) Pain - 0 Fatigue - 6 Performed on Oct 30, 2020 10:08 Height - 67.00 in Temperature - 97.6 F (LOW) Pulse - 77 /min Respiration - 18 /min BP - 96/67 mm(hg) O2 Sat - 95 % (LOW) Pain - 0 Fatigue - 5 Performance Status: 0 - Fully active, able to carry on all predisease activities without restrictions. (ECOG) Physical Examination: ENMT - No mouth sores, no thrush, no jaundice, Respiratory - Lungs are clear to auscultation, Cardiovascular - Regular rate and rhythm of heart, Abdomen - Soft, bowel sounds present, Extremities - No visible edema. Lab/Imaging: Test performed on Oct 30, 2020 10:19 Creatinine 0.9 mg/dL Cr Clearance (Est) 94.15 mL/min Test performed on Sep 19, 2020 15:27 Sodium 136 mmol/L Potassium 4.8 mmol/L Chloride 105 mmol/L CO2 23 mmol/L Anion Gap 12.8 BUN 17 mg/dL eGFR 63.9 mL/min Glucose 92 mg/dL Osmolality - Calculated 283 mOsm/kg Calcium 8.4 mg/dL Protein, Total 5.9 g/dL Albumin 3.5 g/dL Globulin 2.4 g/dL Bilirubin, Total 0.2 mg/dL ALT (SGPT) 13 U/L AST (SGOT) 13 U/L Alkaline Phosphatase 123 IU/L WBC 4.8 10 3/uL RBC 2.23 10 6/uL HGB 7.4 g/dL HCT 23.7 % MCV 106.3 fL MCH 33.2 pg MCHC 31.2 g/dL RDW 21.1 % Platelet Count 117 10 3/cmm MPV 10.5 fL Neutrophils 3.25 10 3/uL Lymphocytes 1.1 10 3/uL Monocytes 0.4 10 3/uL Eosinophils 0.0 10 3/uL Basophils 0.0 10 3/uL Neutrophil % 68.0 % Lymphocyte % 22.4 % Monocyte % 8.8 % Eosinophil % 0.4 % Basophils % 0.0 % NRBC % 0 % Test performed on Jul 31, 2020 08:50 CBC Slide Review Slide Review Perform Test performed on July 04, 2020 12:30 Ferritin 316 ng/mL Folate, Serum 5.2 ng/mL Iron 61 mcg/dL Vitamin B12 > 2000 pg/mL Iron Binding Capacity (TIBC) 286 mcg/dl % Iron Saturation 21.3 % UIBC 225 mcg/dL Impression: Grade 3 ovarian endometrioid carcinoma status post right resection of ovarian cancer, bilateral salpingo-oophorectomy, total abdominal hysterectomy, pelvic and para-aortic lymphadenectomy, omentectomy, multiple biopsies including right hemidiaphragm done on February 29, 2020 Final pathology report confirmed 10 cm sized tumor involving the right ovary, endometrioid adenocarcinoma, grade 3, intact, peritoneal fluid negative implants negative and 0 out of 10 lymph nodes showed metastatic disease e.g. pT1a limited to 1 ovary (capsule intact). p N 0, MX stage I Immunohistochemistry were positive for p16, p53, Ki-67, vimentin, pattern consistent with high-grade endometrial carcinoma Started on adjuvant chemotherapy with carboplatin/Taxol on June 13, 2020 and completed recommended 6 cycles on October 30, 2020 History of diabetes mellitus, Gastric bypass surgery for morbid obesity in 2000 Anemia since 2018, status post 3 units of packed RBCs on February 29 2020 during bilateral oophorectomy/hysterectomy for right ovarian cancerAnd again on July 25, 2020 for hemoglobin 7 g Plan: Discussed with patient regarding her labs white blood count 4.9 hemoglobin 8.5 hematocrit 26.7 platelets 230,000 CMP within normal limit except sodium 132 glucose 278 Clinically, patient doing reasonably well, tolerating adjuvant chemotherapy with carboplatin/Taxol well but with expected side effects, will proceed with cycle #6/6 of adjuvant chemotherapy with carboplatin/Taxol today and then she will return to clinic in 1 week with CBC CMP As far as anemia is concerned, will consider parenteral iron Injectafer 750 IV weekly x2 and she received first dose today and then 1 next week and then will monitor her blood counts we will also check her copper level, sometime patient with a history of gastric bypass usually develop copper deficiency which in return can cause anemia. And if is low, will consider supplement. Signed By: Barbara Cheek M.D. <<Signature on File>>
[2020-11-06] MEDS: ferric carboxy (IVPB) 750 MG in sodium chloride 0.9% (100 ml) 100 ML 460 MG IV (14:25)
[2020-11-06] MEDS: ondansetron 2 mg/ML SDV 2 mL 4 MG IVP (15:05)
[2020-11-14 08:38] LABS: Basophils % 0.1 %; Hematocrit 22.8 % (37.0-47.0); Hemoglobin 7.4 g/dL (11.5-15.3); Lymphocytes # 1.2 10^3/uL (0.8-4.8); Lymphocytes % 13.7 %; Mean Corpuscular HGB Conc 32.5 g/dL (30.0-36.0); Mean Corpuscular Hemoglobin 32.5 pg (28.0-34.0); Mean Platelet Volume 10.3 fL (7.4-10.4); Monocytes # 0.4 10^3/uL (0.2-0.9); Neutrophils # 6.82 10^3/uL (1.8-7.7); Neutrophils % 80.4 %; Nucleated Red Blood Cells % 0 %; Red Blood Count 2.28 10^6/uL (4.1-5.3); Red Cell Distribution Width 19.5 % (12.1-15.1); White Blood Count 8.5 10^3/uL (4.0-10.0)
[2020-11-14] MEDS: sodium chloride 0.9% 1,000 ML 999 ML IV (08:40)
[2020-11-14 09:05] LABS: Alanine Aminotransferase 16 U/L (0-33); Albumin Level 3.7 g/dL (3.5-5.2); Alkaline Phosphatase 126 IU/L (35-105); Aspartate Amino Transferase 12 U/L (0-32); Blood Urea Nitrogen 22 mg/dL (8-23); Calcium 8.9 mg/dL (8.5-10.5); Carbon Dioxide 20 mmol/L (22-29); Chloride 101 mmol/L (98-107); Globulin 3.7 g/dL (1.3-4.6); Glomerular Filtration Rate 56.6 mL/min (90-130); Glucose 206 mg/dL (65-115); Osmolality Calculated 293 mOsm/kg (285-295); Sodium 137 mmol/L (136-145); Total Bilirubin 0.3 mg/dL (0.15-1.2); Total Protein 7.4 g/dL (6.6-8.7)
[2020-11-14 09:25] LABS: Platelet Count 24 10^3/cmm (130-400)
[2020-11-14 09:26] LABS: Slide Review Slide Review Perform
--- NOTE | 2020-11-14 10:48 | ONC FU_ITS ---
Dr. Cheek follow up note Patient: Alecia Meier I Unit #: [id number]: 1960 Dicatated By: Barbara Cheek M.D.Date of Visit:Nov 14, 2020 Onc Med Follow-up/Prog Note History of Present Illness: Ms. Meier is a 60-year-old female with a history of progressive abdominal/pelvic pain. She was evaluated by Dr. Gutierrez IMAGE PROCESSING ENGINEER and subsequently underwent abdominal ultrasoud which confirmed a large complex ovarian mass. Her tumor marker/CA-125 was checked on February 06, 2020 was elevated at 55.5. Further evaluation with CT scan of abdomen pelvis confirmed large cystic lesion with mural nodularity arising from pelvis- likely ovarian neoplasm. The size of the mass was 15.3 x 23 .8 x 22.1 cm. Small amount of free fluid in the pelvis. Cholelithiasis. Prior gastric bypass but no visible pelvic or inguinal lymphadenopathy. Ms Meier was referred to Dr. Mtz in [place]. On February 29, 2020 she underwent right resection of ovarian cancer, bilateral salpingo-oophorectomy, total abdominal hysterectomy, pelvic and para-aortic lymphadenectomy, omentectomy and multiple biopsies including right hemidiaphragm. The final pathology report came back showed a right ovarian tumor size about 10 cm, endometrioid adenocarcinoma, intact, grade 3 e.g. T1 a. 10 lymph nodes were examined showed no evidence of metastatic disease e.g. N0 stage I Immunohistochemistry was positive for p16, p53, Ki-67 and vimentin consistent with high-grade endometrioid carcinoma. Patient tolerated procedure well and based on high-grade e.g. grade 3 ovarian endometrioid carcinoma, as per patient she was recommended adjuvant chemotherapy with 6 cycles carboplatin/Taxol. Patient is a diabetic, also has history of morbid obesity for which she underwent gastric bypass in 1999, as per patient about 2 years ago she was diagnosed with persistent anemia and she did require 3 units of packed RBC during her recent bilateral oophorectomy/hysterectomy done on February 29, 2020. Ms Meier was referred to [facility] IMAGE PROCESSING ENGINEER oncology for second opinion at her request and evaluation for clinical trial. She was seen by Dr. Luis Post on May 15, 2019. His recommendations were that he agreed with her original diagnosis and recommended her to proceed with 6 cycles of carboplatin/Taxol. As per patient on May 03, 2020 she was diagnosed with Covid infection and had some breathing difficulty so went to [facility]. She did receive monoclonal antibody treatment for the COVID-19 and tolerated it well. She underwent transinternal jugular vein entheses right internal jugular vein) power port placement per Dr. Apodaca on June 03, 2020. She began her first cycle of carboplatin paclitaxel on June 13, 2020.Completed 6 cycles of chemotherapy with carboplatin/Taxol on October 30, 2020 Came for follow-up, complaining of generalized weakness and fatigue, no melena or hematochezia, no hemoptysis hematemesis, no nosebleed or gum bleed, no fever chills, no peripheral neuropathy. Now recovering from her adjuvant chemotherapy, No chest pain or palpitation at rest Medications: All Day Allergy 1 Tablet (of 10 mg) Oral daily, Atorvastatin Calcium 1 Tablet (of 10 mg) Oral daily, Bactrim DS 1 Tablet (of 800-160 mg) Oral b.i.d., busPIRone HCl 1 Tablet (of 15 mg) Oral b.i.d., Euthyrox 1 Tablet (of 175 mcg) Oral daily, Glucophage 1 Tablet (of 850 mg) Oral daily, Januvia 1 Tablet (of 25 mg) Oral daily, Lisinopril 1 Tablet (of 10 mg) Oral daily, Pantoprazole Sodium 1 Tablet (of 40 mg) Tablet, enteric coated Oral b.i.d., Slow Release Iron 1 Tablet (of 47.5 mg) Tablet, controlled release Oral daily, traMADol HCl 1 Tablet (of 50 mg) Oral t.i.d. PRN, Tums Tablet, chewable Oral PRN, Zoloft 2 Tablet (of 100 mg) Oral daily Allergies: Amoxicillin and Cephalexin. Review of Systems: Review of Systems is not available for this patient. Vital Signs: Performed on Nov 14, 2020 08:33 Height - 67.00 in Temperature - 97.2 F (LOW) Pulse - 92 /min Respiration - 18 /min BP - 120/80 mm(hg) O2 Sat - 100 % Pain - 0 Fatigue - 7 Performance Status: 1 - No physically strenuous activity, but ambulatory and able to carry out light or sedentary work (e.g. office work, light house work). (ECOG) Physical Examination: ENMT - No mouth sores, no thrush, no jaundice, Respiratory - Lungs are clear to auscultation, Cardiovascular - Regular rate and rhythm of heart, Gastrointestinal - Soft, bowel sounds present, Extremities - No visible edema. Lab/Imaging: Test performed on Oct 30, 2020 10:19 Creatinine 0.9 mg/dL Cr Clearance (Est) 94.15 mL/min Test performed on Sep 19, 2020 15:27 Sodium 136 mmol/L Potassium 4.8 mmol/L Chloride 105 mmol/L CO2 23 mmol/L Anion Gap 12.8 BUN 17 mg/dL eGFR 63.9 mL/min Glucose 92 mg/dL Osmolality - Calculated 283 mOsm/kg Calcium 8.4 mg/dL Protein, Total 5.9 g/dL Albumin 3.5 g/dL Globulin 2.4 g/dL Bilirubin, Total 0.2 mg/dL ALT (SGPT) 13 U/L AST (SGOT) 13 U/L Alkaline Phosphatase 123 IU/L WBC 4.8 10 3/uL RBC 2.23 10 6/uL HGB 7.4 g/dL HCT 23.7 % MCV 106.3 fL MCH 33.2 pg MCHC 31.2 g/dL RDW 21.1 % Platelet Count 117 10 3/cmm MPV 10.5 fL Neutrophils 3.25 10 3/uL Lymphocytes 1.1 10 3/uL Monocytes 0.4 10 3/uL Eosinophils 0.0 10 3/uL Basophils 0.0 10 3/uL Neutrophil % 68.0 % Lymphocyte % 22.4 % Monocyte % 8.8 % Eosinophil % 0.4 % Basophils % 0.0 % NRBC % 0 % Test performed on Jul 31, 2020 08:50 CBC Slide Review Slide Review Perform Test performed on July 04, 2020 12:30 Ferritin 316 ng/mL Folate, Serum 5.2 ng/mL Iron 61 mcg/dL Vitamin B12 > 2000 pg/mL Iron Binding Capacity (TIBC) 286 mcg/dl % Iron Saturation 21.3 % UIBC 225 mcg/dL Impression: Grade 3 ovarian endometrioid carcinoma status post right resection of ovarian cancer, bilateral salpingo-oophorectomy, total abdominal hysterectomy, pelvic and para-aortic lymphadenectomy, omentectomy, multiple biopsies including right hemidiaphragm done on February 29, 2020 Final pathology report confirmed 10 cm sized tumor involving the right ovary, endometrioid adenocarcinoma, grade 3, intact, peritoneal fluid negative implants negative and 0 out of 10 lymph nodes showed metastatic disease e.g. pT1a limited to 1 ovary (capsule intact). p N 0, MX stage I Immunohistochemistry were positive for p16, p53, Ki-67, vimentin, pattern consistent with high-grade endometrial carcinoma Started on adjuvant chemotherapy with carboplatin/Taxol on and completed recommended 6 cycles on October 30, 2020 History of diabetes mellitus, Gastric bypass surgery for morbid obesity in 2000 Anemia since 2018, status post 3 units of packed RBCs on February 29 2020 during bilateral oophorectomy/hysterectomy for right ovarian cancerAnd again on July 25, 2020 for hemoglobin 7 g Plan: Discussed with patient regarding her labs white blood count 8.5 hemoglobin 7.4 hematocrit 22.8 platelets 24,000 absolute neutrophil count 6820 CMP within normal limit except glucose 206 Clinically, patient is doing reasonably well, now recovering from her adjuvant chemotherapy with carboplatin/Taxol which she completed on October 30, 2020, today's labs shows progressive severe anemia, which is multifactorial including iron deficiency, at this point will consider 2 units of packed RBC, and follow her labs She also has severe thrombocytopenia due to chemotherapy, patient was advised to avoid any kind of trauma and also use soft brush to avoid gum bleeding and not to blow nose. Return to clinic in 1 week with CBC CMP Patient was advised to monitor her blood sugar and follow with the diabetic diet and recommendations by PMD Signed By: Barbara Cheek M.D. <<Signature on File>>
[2020-11-19] MEDS: sodium chloride 0.9% 1,000 ML 999 ML IV (14:08)
[2020-11-19 15:07] LABS: Hematocrit 26.8 % (37.0-47.0); Hemoglobin 8.5 g/dL (11.5-15.3); Lymphocytes # 1.6 10^3/uL (0.8-4.8); Lymphocytes % 37.3 %; Mean Corpuscular HGB Conc 31.7 g/dL (30.0-36.0); Mean Corpuscular Hemoglobin 31.3 pg (28.0-34.0); Mean Corpuscular Volume 98.5 fl (81-99); Mean Platelet Volume 11.2 fL (7.4-10.4); Monocytes # 0.4 10^3/uL (0.2-0.9); Monocytes % 8.9 %; Neutrophils # 2.21 10^3/uL (1.8-7.7); Neutrophils % 53.3 %; Nucleated Red Blood Cells % 0 %; Platelet Count 33 10^3/cmm (130-400); Red Blood Count 2.72 10^6/uL (4.1-5.3); Red Cell Distribution Width 18.3 % (12.1-15.1); White Blood Count 4.2 10^3/uL (4.0-10.0)
[2020-11-19 15:10] LABS: Alanine Aminotransferase 10 U/L (0-33); Albumin Level 3.2 g/dL (3.5-5.2); Alkaline Phosphatase 105 IU/L (35-105); Anion Gap 12.3 (5-19); Aspartate Amino Transferase 9 U/L (0-32); Blood Urea Nitrogen 16 mg/dL (8-23); Calcium 8.6 mg/dL (8.5-10.5); Carbon Dioxide 22 mmol/L (22-29); Chloride 104 mmol/L (98-107); Globulin 3.3 g/dL (1.3-4.6); Glomerular Filtration Rate 73.2 mL/min (90-130); Glucose 112 mg/dL (65-115); Osmolality Calculated 282 mOsm/kg (285-295); Potassium 3.3 mmol/L (3.5-5.1); Sodium 135 mmol/L (136-145); Total Bilirubin 0.3 mg/dL (0.15-1.2); Total Protein 6.5 g/dL (6.6-8.7)
[2020-11-19 15:23] LABS: Ferritin 2308 ng/mL (15-150)
[2020-11-20 09:52] LABS: Reticulocyte % 1.7 % (0.5-2.0)
[2020-11-20 10:48] LABS: Folate Level 7.8 ng/mL (4.8-37.3)
[2020-11-20 10:54] LABS: Iron 102 ug/dL (37-145); Lactate Dehydrogenase 144 U/L (135-214); Percent Saturation 61.4 % (20-50); Thyroid Stimulating Hormone 22.55 uIU/mL (0.27-4.20); Total Iron Binding Capacity 166 mcg/dl; Unsaturated Iron Binding 64 ug/dL (112-347); Vitamin B12 1890 pg/mL (232-1245)
[2020-11-20 10:57] LABS: Eosinophils % 0.2 %; Hemoglobin 8.6 g/dL (11.5-15.3); Lymphocytes # 1.9 10^3/uL (0.8-4.8); Lymphocytes % 38.9 %; Mean Corpuscular HGB Conc 31.9 g/dL (30.0-36.0); Mean Corpuscular Hemoglobin 31.7 pg (28.0-34.0); Mean Corpuscular Volume 99.6 fl (81-99); Mean Platelet Volume 11.4 fL (7.4-10.4); Monocytes # 0.4 10^3/uL (0.2-0.9); Neutrophils # 2.45 10^3/uL (1.8-7.7); Neutrophils % 51.5 %; Nucleated Red Blood Cells % 0 %; Platelet Count 43 10^3/cmm (130-400); Red Blood Count 2.71 10^6/uL (4.1-5.3); Red Cell Distribution Width 18.6 % (12.1-15.1); White Blood Count 4.8 10^3/uL (4.0-10.0)
--- NOTE | 2020-11-20 15:32 | ONC FU_ITS ---
Dr. Cheek follow up note Patient: Alecia Meier I Unit #: [id number]: [id number] Dicatated By: Barbara Cheek M.D.Date of Visit:Nov 20, 2020 Onc Med Follow-up/Prog Note History of Present Illness: Ms. Meier is a 60-year-old female with a history of progressive abdominal/pelvic pain. She was evaluated by Dr. Gutierrez [employer] and subsequently underwent abdominal ultrasoud which confirmed a large complex ovarian mass. Her tumor marker/CA-125 was checked on February 06, 2020 was elevated at 55.5. Further evaluation with CT scan of abdomen pelvis confirmed large cystic lesion with mural nodularity arising from pelvis- likely ovarian neoplasm. The size of the mass was 15.3 x 23 .8 x 22.1 cm. Small amount of free fluid in the pelvis. Cholelithiasis. Prior gastric bypass but no visible pelvic or inguinal lymphadenopathy. Ms Meier was referred to Dr. Mtz in [place]. On February 29, 2020 she underwent right resection of ovarian cancer, bilateral salpingo-oophorectomy, total abdominal hysterectomy, pelvic and para-aortic lymphadenectomy, omentectomy and multiple biopsies including right hemidiaphragm. The final pathology report came back showed a right ovarian tumor size about 10 cm, endometrioid adenocarcinoma, intact, grade 3 e.g. T1 a. 10 lymph nodes were examined showed no evidence of metastatic disease e.g. N0 stage I Immunohistochemistry was positive for p16, p53, Ki-67 and vimentin consistent with high-grade endometrioid carcinoma. Patient tolerated procedure well and based on high-grade e.g. grade 3 ovarian endometrioid carcinoma, as per patient she was recommended adjuvant chemotherapy with 6 cycles carboplatin/Taxol. Patient is a diabetic, also has history of morbid obesity for which she underwent gastric bypass in 1999, as per patient about 2 years ago she was diagnosed with persistent anemia and she did require 3 units of packed RBC during her recent bilateral oophorectomy/hysterectomy done on February 29, 2020. Ms Meier was referred to [facility] [employer] oncology for second opinion at her request and evaluation for clinical trial. She was seen by Dr. Luis Post on May 15, 2019. His recommendations were that he agreed with her original diagnosis and recommended her to proceed with 6 cycles of carboplatin/Taxol. As per patient on May 03, 2020 she was diagnosed with Covid infection and had some breathing difficulty so went to [facility]. She did receive monoclonal antibody treatment for the COVID-19 and tolerated it well. She underwent transinternal jugular vein entheses right internal jugular vein) power port placement per Dr. Apodaca on June 03, 2020. She began her first cycle of carboplatin paclitaxel on June 13, 2020.Completed 6 cycles of chemotherapy with carboplatin/Taxol on October 30, 2020 Came for follow-up, denies any specific complaints. In fact feeling better after blood transfusion given yesterday, denies any melena or hematochezia denies any hemoptysis or hematemesis denies any jaundice, denies any abdominal pain, denies any indigestion heartburn denies any nosebleed or gum bleed or hematuria. Denies any night sweats. But generalized weakness and fatigue but overall better. No petechiae or ecchymosis. Medications: All Day Allergy 1 Tablet (of 10 mg) Oral daily, Atorvastatin Calcium 1 Tablet (of 10 mg) Oral daily, Bactrim DS 1 Tablet (of 800-160 mg) Oral b.i.d., busPIRone HCl 1 Tablet (of 15 mg) Oral b.i.d., Euthyrox 1 Tablet (of 175 mcg) Oral daily, Glucophage 1 Tablet (of 850 mg) Oral daily, Januvia 1 Tablet (of 25 mg) Oral daily, Lisinopril 1 Tablet (of 10 mg) Oral daily, Pantoprazole Sodium 1 Tablet (of 40 mg) Tablet, enteric coated Oral b.i.d., Slow Release Iron 1 Tablet (of 47.5 mg) Tablet, controlled release Oral daily, traMADol HCl 1 Tablet (of 50 mg) Oral t.i.d. PRN, Tums Tablet, chewable Oral PRN, Zoloft 2 Tablet (of 100 mg) Oral daily Allergies: Amoxicillin and Cephalexin. Review of Systems: Review of Systems is not available for this patient. Vital Signs: Performed on Nov 20, 2020 08:13 Height - 67.00 in Weight - 196.2 lbs (HIGH) BSA - 2.01 sq.m BMI - 30.73 (HIGH) Temperature - 97.4 F (LOW) Pulse - 81 /min Respiration - 18 /min BP - 121/77 mm(hg) O2 Sat - 97 % Pain - 3 Fatigue - 6 Performance Status: 0 - Fully active, able to carry on all predisease activities without restrictions. (ECOG) Physical Examination: ENMT - No mouth sores no thrush no jaundice, Respiratory - Lungs are clear to auscultation, Cardiovascular - Regular rate and rhythm of heart, Abdomen - Soft, bowel sounds present, Extremities - Trace edema. Lab/Imaging: Test performed on Oct 30, 2020 10:19 Creatinine 0.9 mg/dL Cr Clearance (Est) 94.15 mL/min Test performed on Sep 19, 2020 15:27 Sodium 136 mmol/L Potassium 4.8 mmol/L Chloride 105 mmol/L CO2 23 mmol/L Anion Gap 12.8 BUN 17 mg/dL eGFR 63.9 mL/min Glucose 92 mg/dL Osmolality - Calculated 283 mOsm/kg Calcium 8.4 mg/dL Protein, Total 5.9 g/dL Albumin 3.5 g/dL Globulin 2.4 g/dL Bilirubin, Total 0.2 mg/dL ALT (SGPT) 13 U/L AST (SGOT) 13 U/L Alkaline Phosphatase 123 IU/L WBC 4.8 10 3/uL RBC 2.23 10 6/uL HGB 7.4 g/dL HCT 23.7 % MCV 106.3 fL MCH 33.2 pg MCHC 31.2 g/dL RDW 21.1 % Platelet Count 117 10 3/cmm MPV 10.5 fL Neutrophils 3.25 10 3/uL Lymphocytes 1.1 10 3/uL Monocytes 0.4 10 3/uL Eosinophils 0.0 10 3/uL Basophils 0.0 10 3/uL Neutrophil % 68.0 % Lymphocyte % 22.4 % Monocyte % 8.8 % Eosinophil % 0.4 % Basophils % 0.0 % NRBC % 0 % Test performed on Jul 31, 2020 08:50 CBC Slide Review Slide Review Perform Test performed on July 04, 2020 12:30 Ferritin 316 ng/mL Folate, Serum 5.2 ng/mL Iron 61 mcg/dL Vitamin B12 > 2000 pg/mL Iron Binding Capacity (TIBC) 286 mcg/dl % Iron Saturation 21.3 % UIBC 225 mcg/dL Impression: Grade 3 ovarian endometrioid carcinoma status post right resection of ovarian cancer, bilateral salpingo-oophorectomy, total abdominal hysterectomy, pelvic and para-aortic lymphadenectomy, omentectomy, multiple biopsies including right hemidiaphragm done on February 29, 2020 Final pathology report confirmed 10 cm sized tumor involving the right ovary, endometrioid adenocarcinoma, grade 3, intact, peritoneal fluid negative implants negative and 0 out of 10 lymph nodes showed metastatic disease e.g. pT1a limited to 1 ovary (capsule intact). p N 0, MX stage I Immunohistochemistry were positive for p16, p53, Ki-67, vimentin, pattern consistent with high-grade endometrial carcinoma Started on adjuvant chemotherapy with carboplatin/Taxol on and completed recommended 6 cycles on October 30, 2020 History of diabetes mellitus, Gastric bypass surgery for morbid obesity in 2000 Anemia since 2018, status post 3 units of packed RBCs on February 29 2020 during bilateral oophorectomy/hysterectomy for right ovarian cancerAnd again on July 25, 2020 for hemoglobin 7 g Plan: Discussed with patient regarding her labs from yesterday white blood count 4.2 hemoglobin 8.5 g compared to 7.4 on November 14 prior to blood transfusion, hematocrit 26.8 MCV 95 platelets 33,000 compared to 24,000 last week Clinically, patient is doing reasonably well, with no new signs symptoms in fact feeling better after recent blood transfusion, she also received iron infusion on November 06, 2020, as per her anemia is a concern, etiology appears multifactorial, patient has history of gastric bypass, there is a possibility she may have persistent iron deficiency due to chronic blood loss but patient denies any gross bleeding. Other possibility could be minerals deficiency like copper or zinc which can cause bone marrow suppression but she has been maintaining white blood count and platelet count in a decent range although her recent lab work-up shows severe thrombocytopenia which is most likely due to chemotherapy and now with upward trend, will continue to monitor. At this point, will proceed with anemia work-up which include iron studies, B12, folic acid, reticulocyte count, LDH, copper level, zinc level Melissa test, haptoglobin and also repeat CBC at then if anemia work-up remained inconclusive, will consider bone marrow evaluation Patient to return to clinic in 1 week with CBC Signed By: Barbara Cheek M.D. <<Signature on File>>
[2020-11-22] MEDS: sodium chloride 0.9% 1,000 ML 999 ML IV (08:42)
[2020-11-28] MEDS: sodium chloride 0.9% 1,000 ML 999 ML IV (08:40)
[2020-11-28 09:14] LABS: Eosinophils % 0.2 %; Hematocrit 26.3 % (37.0-47.0); Hemoglobin 8.2 g/dL (11.5-15.3); Lymphocytes # 1.2 10^3/uL (0.8-4.8); Mean Corpuscular HGB Conc 31.2 g/dL (30.0-36.0); Mean Corpuscular Hemoglobin 32.5 pg (28.0-34.0); Mean Corpuscular Volume 104.4 fl (81-99); Mean Platelet Volume 9.9 fL (7.4-10.4); Monocytes # 0.6 10^3/uL (0.2-0.9); Monocytes % 10.4 %; Nucleated Red Blood Cells % 0 %; Platelet Count 145 10^3/cmm (130-400); Red Blood Count 2.52 10^6/uL (4.1-5.3); Red Cell Distribution Width 21.3 % (12.1-15.1); White Blood Count 5.3 10^3/uL (4.0-10.0)
[2020-11-28 09:46] LABS: Alanine Aminotransferase 8 U/L (0-33); Albumin Level 3.4 g/dL (3.5-5.2); Alkaline Phosphatase 120 IU/L (35-105); Anion Gap 15.5 (5-19); Aspartate Amino Transferase 12 U/L (0-32); Blood Urea Nitrogen 12 mg/dL (8-23); Calcium 8.9 mg/dL (8.5-10.5); Carbon Dioxide 24 mmol/L (22-29); Chloride 103 mmol/L (98-107); Globulin 3.4 g/dL (1.3-4.6); Glomerular Filtration Rate 73.2 mL/min (90-130); Glucose 77 mg/dL (65-115); Osmolality Calculated 285 mOsm/kg (285-295); Potassium 4.5 mmol/L (3.5-5.1); Sodium 138 mmol/L (136-145); Total Bilirubin 0.3 mg/dL (0.15-1.2); Total Protein 6.8 g/dL (6.6-8.7)
--- NOTE | 2020-11-28 14:12 | ONC FU_ITS ---
Dr. Cheek follow up note Patient: Alecia Meier I Unit #: [id number]: [id number] Dicatated By: Barbara Cheek M.D.Date of Visit:Nov 28, 2020 Onc Med Follow-up/Prog Note History of Present Illness: Ms. Meier is a 60-year-old female with a history of progressive abdominal/pelvic pain. She was evaluated by Dr. Gutierrez [employer] and subsequently underwent abdominal ultrasoud which confirmed a large complex ovarian mass. Her tumor marker/CA-125 was checked on February 06, 2020 was elevated at 55.5. Further evaluation with CT scan of abdomen pelvis confirmed large cystic lesion with mural nodularity arising from pelvis- likely ovarian neoplasm. The size of the mass was 15.3 x 23 .8 x 22.1 cm. Small amount of free fluid in the pelvis. Cholelithiasis. Prior gastric bypass but no visible pelvic or inguinal lymphadenopathy. Ms Meier was referred to Dr. Mtz in [place]. On February 29, 2020 she underwent right resection of ovarian cancer, bilateral salpingo-oophorectomy, total abdominal hysterectomy, pelvic and para-aortic lymphadenectomy, omentectomy and multiple biopsies including right hemidiaphragm. The final pathology report came back showed a right ovarian tumor size about 10 cm, endometrioid adenocarcinoma, intact, grade 3 e.g. T1 a. 10 lymph nodes were examined showed no evidence of metastatic disease e.g. N0 stage I Immunohistochemistry was positive for p16, p53, Ki-67 and vimentin consistent with high-grade endometrioid carcinoma. Patient tolerated procedure well and based on high-grade e.g. grade 3 ovarian endometrioid carcinoma, as per patient she was recommended adjuvant chemotherapy with 6 cycles carboplatin/Taxol. Patient is a diabetic, also has history of morbid obesity for which she underwent gastric bypass in 1999, as per patient about 2 years ago she was diagnosed with persistent anemia and she did require 3 units of packed RBC during her recent bilateral oophorectomy/hysterectomy done on February 29, 2020. Ms Meier was referred to [facility] [employer] oncology for second opinion at her request and evaluation for clinical trial. She was seen by Dr. Luis Post on May 15, 2019. His recommendations were that he agreed with her original diagnosis and recommended her to proceed with 6 cycles of carboplatin/Taxol. As per patient on May 03, 2020 she was diagnosed with Covid infection and had some breathing difficulty so went to [facility]. She did receive monoclonal antibody treatment for the COVID-19 and tolerated it well. She underwent transinternal jugular vein entheses right internal jugular vein) power port placement per Dr. Apodaca on June 03, 2020. She began her first cycle of carboplatin paclitaxel on June 13, 2020.Completed 6 cycles of chemotherapy with carboplatin/Taxol on October 30, 2020 Came for follow-up, denies any specific complaint except generalized weakness and fatigue, but is improving, denies any melena or hematochezia denies any hemoptysis hematemesis denies any jaundice, denies any abdominal pain denies any fever chills, patient has history of hypothyroidism for which she is on Synthroid 175 mcg daily but patient said she is noncompliant and in the recent past has been missing her thyroid supplement. Medications: All Day Allergy 1 Tablet (of 10 mg) Oral daily, Atorvastatin Calcium 1 Tablet (of 10 mg) Oral daily, Bactrim DS 1 Tablet (of 800-160 mg) Oral b.i.d., busPIRone HCl 1 Tablet (of 15 mg) Oral b.i.d., Euthyrox 1 Tablet (of 175 mcg) Oral daily, Glucophage 1 Tablet (of 850 mg) Oral daily, Januvia 1 Tablet (of 25 mg) Oral daily, Lisinopril 1 Tablet (of 10 mg) Oral daily, Pantoprazole Sodium 1 Tablet (of 40 mg) Tablet, enteric coated Oral b.i.d., Slow Release Iron 1 Tablet (of 47.5 mg) Tablet, controlled release Oral daily, traMADol HCl 1 Tablet (of 50 mg) Oral t.i.d. PRN, Tums Tablet, chewable Oral PRN, Zoloft 2 Tablet (of 100 mg) Oral daily Allergies: Amoxicillin and Cephalexin. Review of Systems: Review of Systems is not available for this patient. Vital Signs: Performed on Nov 28, 2020 09:59 Height - 67.00 in Temperature - 97.4 F (LOW) Pulse - 74 /min Respiration - 18 /min BP - 107/78 mm(hg) O2 Sat - 100 % Pain - 1 Fatigue - 4 Performance Status: 0 - Fully active, able to carry on all predisease activities without restrictions. (ECOG) Physical Examination: ENMT - No mouth sores, no thrush, no jaundice, Respiratory - Lungs are clear to auscultation, Cardiovascular - Regular rate and rhythm of heart, Abdomen - Soft, bowel sounds present, Extremities - No visible edema. Lab/Imaging: Test performed on Oct 30, 2020 10:19 Creatinine 0.9 mg/dL Cr Clearance (Est) 94.15 mL/min Test performed on Sep 19, 2020 15:27 Sodium 136 mmol/L Potassium 4.8 mmol/L Chloride 105 mmol/L CO2 23 mmol/L Anion Gap 12.8 BUN 17 mg/dL eGFR 63.9 mL/min Glucose 92 mg/dL Osmolality - Calculated 283 mOsm/kg Calcium 8.4 mg/dL Protein, Total 5.9 g/dL Albumin 3.5 g/dL Globulin 2.4 g/dL Bilirubin, Total 0.2 mg/dL ALT (SGPT) 13 U/L AST (SGOT) 13 U/L Alkaline Phosphatase 123 IU/L WBC 4.8 10 3/uL RBC 2.23 10 6/uL HGB 7.4 g/dL HCT 23.7 % MCV 106.3 fL MCH 33.2 pg MCHC 31.2 g/dL RDW 21.1 % Platelet Count 117 10 3/cmm MPV 10.5 fL Neutrophils 3.25 10 3/uL Lymphocytes 1.1 10 3/uL Monocytes 0.4 10 3/uL Eosinophils 0.0 10 3/uL Basophils 0.0 10 3/uL Neutrophil % 68.0 % Lymphocyte % 22.4 % Monocyte % 8.8 % Eosinophil % 0.4 % Basophils % 0.0 % NRBC % 0 % Test performed on Jul 31, 2020 08:50 CBC Slide Review Slide Review Perform Test performed on July 04, 2020 12:30 Ferritin 316 ng/mL Folate, Serum 5.2 ng/mL Iron 61 mcg/dL Vitamin B12 > 2000 pg/mL Iron Binding Capacity (TIBC) 286 mcg/dl % Iron Saturation 21.3 % UIBC 225 mcg/dL Impression: Grade 3 ovarian endometrioid carcinoma status post right resection of ovarian cancer, bilateral salpingo-oophorectomy, total abdominal hysterectomy, pelvic and para-aortic lymphadenectomy, omentectomy, multiple biopsies including right hemidiaphragm done on February 29, 2020 Final pathology report confirmed 10 cm sized tumor involving the right ovary, endometrioid adenocarcinoma, grade 3, intact, peritoneal fluid negative implants negative and 0 out of 10 lymph nodes showed metastatic disease e.g. pT1a limited to 1 ovary (capsule intact). p N 0, MX stage I Immunohistochemistry were positive for p16, p53, Ki-67, vimentin, pattern consistent with high-grade endometrial carcinoma Started on adjuvant chemotherapy with carboplatin/Taxol on and completed recommended 6 cycles on October 30, 2020 History of diabetes mellitus, Gastric bypass surgery for morbid obesity in 2000 Anemia since 2018, status post 3 units of packed RBCs on February 29 2020 during bilateral oophorectomy/hysterectomy for right ovarian cancerAnd again on July 25, 2020 for hemoglobin 7 g History of hypothyroidism, diagnosed in 1994, on supplement Plan: Discussed with patient regarding her labs white blood count 5.3 hemoglobin 8.2 hematocrit 26.3 platelets 145,000 CMP within normal limits, her anemia work-up done last week showed iron saturation 61.4%, ferritin 2308, iron 102, B12 1890, TSH 22.55 Clinically, patient doing reasonably well without any new signs symptom but generalized weakness and fatigue which could be due to severe hypothyroidism as patient has history of hypothyroidism and supposed to be on Synthroid 175 mcg p.o. daily but patient admits being noncompliant, patient was advised to take thyroid supplement diligently and we will monitor TSH, she return to clinic in 1 week with CBC and TSH, as her anemia work-up remains inconclusive, there is a possibility her anemia could be due to severe hypothyroidism and with adequate thyroid supplement, it may improve otherwise we may consider bone marrow evaluation. We will also refer her to endocrinology, as patient has never seen endocrinology before and she also has family history of hypothyroidism in her sister. Return to clinic in 1 week with CBC and TSH Signed By: Barbara Cheek M.D. <<Signature on File>>
[2020-11-29 11:58] LABS: Copper Level 124 mcg/dL (70-175)
[2020-11-29 12:23] LABS: Zinc Level, Serum or Plasma 42 mcg/dL (60-130)
== END 2020-11-28 23:59 | disposition home or self-care (01) ==
LOC: ONCMED 06:21
PROVIDERS: PCP Nurse Practitioner Family; Visit Provider Internal Medicine Hematology & Oncology
DX: Z51.11 Encounter for antineoplastic chemotherapy (principal); C56.1 Malignant neoplasm of right ovary; E11.9 Type 2 diabetes mellitus without complications; E66.01 Morbid (severe) obesity due to excess calories; D50.9 Iron deficiency anemia, unspecified; E03.9 Hypothyroidism, unspecified; Z90.710 Acquired absence of both cervix and uterus; Z92.21 Personal history of antineoplastic chemotherapy; Z79.899 Other long term (current) drug therapy
CPT/HCPCS: 36591; 80053; 82525; 82607; 82728; 82746; 83010; 83540; 83550; 83615; 84443; 84630; 85025; 85045; 86850; 86880; 86900; 86920; 96360; 96365; 96367; 96375; 96377; 96413; 96415; 96417; 99214; 99215; J1100; J1200; J1439; J1453; J2405; J2469; J2505; J3490; J7030; J7040; J7050; J9045; J9267; P9016

== ENCOUNTER → 2020-12-19 08:22 | Outpatient (BNVA) | payer OTHER, SELFPAY | PROVIDERS: PCP Nurse Practitioner Family; Referring Provider Internal Medicine Hematology & Oncology; Visit Provider Internal Medicine | DX: E03.9 Hypothyroidism, unspecified (principal) | CPT/HCPCS: 99204 ==

== ENCOUNTER 2020-12-24 11:30 | Outpatient (RCR) | payer OTHER, SELFPAY ==
[2020-12-05] MEDS: sodium chloride 0.9% 1,000 ML 999 ML IV (09:30)
[2020-12-05 09:43] LABS: Basophils % 0.1 %; Eosinophils % 0.1 %; Hematocrit 26.4 % (37.0-47.0); Hemoglobin 8.3 g/dL (11.5-15.3); Lymphocytes % 14.8 %; Mean Corpuscular HGB Conc 31.4 g/dL (30.0-36.0); Mean Corpuscular Hemoglobin 33.5 pg (28.0-34.0); Mean Corpuscular Volume 106.5 fl (81-99); Mean Platelet Volume 9.4 fL (7.4-10.4); Monocytes # 0.7 10^3/uL (0.2-0.9); Monocytes % 10.2 %; Neutrophils # 5.03 10^3/uL (1.8-7.7); Neutrophils % 74.4 %; Nucleated Red Blood Cells % 0 %; Platelet Count 175 10^3/cmm (130-400); Red Blood Count 2.48 10^6/uL (4.1-5.3); White Blood Count 6.8 10^3/uL (4.0-10.0)
[2020-12-05 10:23] LABS: Thyroid Stimulating Hormone 0.31 uIU/mL (0.27-4.20)
[2020-12-16 10:56] LABS: Basophils % 0.4 %; Eosinophils % 0.8 %; Hematocrit 26.5 % (37.0-47.0); Hemoglobin 8.2 g/dL (11.5-15.3); Lymphocytes # 1.5 10^3/uL (0.8-4.8); Lymphocytes % 27.3 %; Mean Corpuscular HGB Conc 30.9 g/dL (30.0-36.0); Mean Corpuscular Hemoglobin 33.1 pg (28.0-34.0); Mean Corpuscular Volume 106.9 fl (81-99); Mean Platelet Volume 9.6 fL (7.4-10.4); Monocytes # 0.5 10^3/uL (0.2-0.9); Monocytes % 9.2 %; Neutrophils % 61.9 %; Nucleated Red Blood Cells % 0 %; Platelet Count 199 10^3/cmm (130-400); Red Blood Count 2.48 10^6/uL (4.1-5.3); Red Cell Distribution Width 21.4 % (12.1-15.1); White Blood Count 5.3 10^3/uL (4.0-10.0)
[2020-12-16 11:26] LABS: Alanine Aminotransferase 12 U/L (0-33); Albumin Level 3.7 g/dL (3.5-5.2); Alkaline Phosphatase 94 IU/L (35-105); Anion Gap 16.3 (5-19); Aspartate Amino Transferase 14 U/L (0-32); Blood Urea Nitrogen 19 mg/dL (8-23); Calcium 9.3 mg/dL (8.5-10.5); Carbon Dioxide 22 mmol/L (22-29); Chloride 103 mmol/L (98-107); Globulin 3.3 g/dL (1.3-4.6); Glomerular Filtration Rate 45.8 mL/min (90-130); Glucose 102 mg/dL (65-115); Osmolality Calculated 286 mOsm/kg (285-295); Potassium 4.3 mmol/L (3.5-5.1); Sodium 137 mmol/L (136-145); Total Bilirubin 0.3 mg/dL (0.15-1.2)
--- NOTE | 2020-12-18 09:43 | XR_ITS ---
WS: [id number] Chest 2 views, 12/18/2020 Clinical Data: PERSISTENT COUGH/AML Comparison: Portable chest, 10/02/2020. Findings: No nodules, masses or effusions are seen. The heart is normal. The pulmonary vascularity is not increased. No pneumonia or pneumothorax is seen. The aortic arch shows calcification and tortuos ity. The right internal jugular venous catheter remains in good position. XR/XR chest 2V* [id number] Impression: Atherosclerosis.
[2020-12-23 16:03] LABS: Basophils % 0.3 %; Eosinophils # 0.1 10^3/uL (0.0-0.8); Eosinophils % 1.3 %; Hematocrit 26.2 % (37.0-47.0); Lymphocytes # 1.1 10^3/uL (0.8-4.8); Lymphocytes % 27.8 %; Mean Corpuscular HGB Conc 30.5 g/dL (30.0-36.0); Mean Corpuscular Hemoglobin 33.6 pg (28.0-34.0); Mean Corpuscular Volume 110.1 fl (81-99); Mean Platelet Volume 9.9 fL (7.4-10.4); Monocytes # 0.4 10^3/uL (0.2-0.9); Monocytes % 9.4 %; Neutrophils # 2.41 10^3/uL (1.8-7.7); Neutrophils % 60.9 %; Nucleated Red Blood Cells % 0 %; Platelet Count 161 10^3/cmm (130-400); Red Blood Count 2.38 10^6/uL (4.1-5.3); Red Cell Distribution Width 19.9 % (12.1-15.1)
[2020-12-23 16:37] LABS: Alanine Aminotransferase 11 U/L (0-33); Albumin Level 3.5 g/dL (3.5-5.2); Alkaline Phosphatase 78 IU/L (35-105); Anion Gap 14.2 (5-19); Aspartate Amino Transferase 13 U/L (0-32); Blood Urea Nitrogen 16 mg/dL (8-23); Calcium 8.9 mg/dL (8.5-10.5); Carbon Dioxide 24 mmol/L (22-29); Chloride 105 mmol/L (98-107); Free T4 Free Thyroxine 1.93 ng/dL (0.82-1.77); Glomerular Filtration Rate 56.6 mL/min (90-130); Glucose 156 mg/dL (65-115); Osmolality Calculated 292 mOsm/kg (285-295); Potassium 4.2 mmol/L (3.5-5.1); Sodium 139 mmol/L (136-145); Thyroid Stimulating Hormone 0.07 uIU/mL (0.27-4.20); Total Bilirubin 0.2 mg/dL (0.15-1.2); Total Protein 6.5 g/dL (6.6-8.7)
--- NOTE | 2020-12-24 10:24 | CT_ITS ---
WS: [id number] CT CHEST, ABDOMEN, AND PELVIS TECHNIQUE: Contrast-enhanced CT of the chest, abdomen, and pelvis with coronal and sagittal reformatt ed images. CLINICAL INFORMATION: OVARIAN CANCER, CHEMO FOLLOW UP, NAUSEA/DRY HEAVES, LQ PAIN COMPARISON: CT 09/28/2020 and 05/06/2020. 02/05/2020, 8 23,019 DLP: 2345.[address] scans at [facility] use at least one of these dose optimization techniques: automated e xposure control; mA and/or kV adjustment per patient size (includes targeted exams where dose is matc hed to clinical indication); or iterative reconstruction. CT CHEST: Mild chronic emphysematous changes. No acute pulmonary infiltrates. No focal pneumonia or pleural flu id. No suspicious pulmonary parenchymal opacities. Normal caliber thoracic aorta. Aortic calcificatio n. Proximal main pulmonary arteries are normal. Normal caliber descending thoracic aorta. No mediasti nal or hilar lymphadenopathy. No axillary lymphadenopathy. Hypertrophic changes thoracic spine. Stabl e pericardial cyst . CT ABDOMEN AND PELVIS:No abdominal or pelvic lymphadenopathy.Dilated contrast-filled loop of small tiki wel in the left upper quadrant adjacent to anastomotic sutures suspicious for stricture. Dilated loop of small bowel measures 6.4 cm in maximum dimension. The majority of the oral contrast with delayed transit in the left upper quadrant. This is difficult to further evaluate due to tortuosity. Previous postoperative changes hysterectomy. Prior gastric bypass. Interval duodenal ulcer repair Cho lelithiasis. Diffuse fatty infiltration of the liver with hepatomegaly. Splenic granulomas. Fatty atr ophy of the pancreas. Adrenal glands are normal. SNormal renal parenchymal enhancement. Bilateral sindy al cortical atrophy. Normal caliber abdominal aorta. Right lower quadrant ostomy tract or laparascopi c tract. Rectal constipation.Disc space narrowing worse at L4-L5 and L5-S1. CT/CT chest abd pel w con* IMPRESSION: 1. Dilated contrast-filled loop of proximal small bowel in the left upper quad rant adjacent to anastomotic sutures suspicious for stricture with partial smal l bowel obstruction. Dilated loop of small bowel measures 6.4 cm in maximum dim ension with dense contrast and delayed emptying 2. Cholelithiasis. 3. Prior gastric bypass. 4. Prior hysterectomy. 5. Both lungs are well aerated. No suspicious parenchymal opacities. 6. No mediastinal or hilar lymphadenopathy. 7. Evidence of recent ostomy takedown or laparoscopic track right lower quadra nt. Message left for Re Montejo NP at 12/24/2020 1:14 PM.
[2020-12-24] MEDS: iohexol 300 mg/mL 50 mL Btl PO (10:25)
[2020-12-24] MEDS: iohexol 300 mg/mL 100 mL Btl IV (11:33)
[2020-12-24 13:58] LABS: Thyroid Peroxidase Antobodies 2 IU/mL (<9)
[2020-12-24 16:27] LABS: Thyroglobulin AB 259 IU/mL (< or = 1)
--- NOTE | 2020-12-25 00:09 | ONC FU_ITS ---
[facility] Patient Note Patient: Alecia Meier I Unit #: [id number]: 1960 Dictated By: Kate ButtDate of Visit: Dec 16, 2020 Onc MED Follow-Up/Prog Note Chief Complaint: Ovarian endometrioid carcinoma History of Present Illness: Ms. Meier is a 60-year-old female with a history of progressive abdominal/pelvic pain. She was evaluated by Dr. Gutierrez [employer] and subsequently underwent abdominal ultrasoud which confirmed a large complex ovarian mass. Her tumor marker/CA-125 was checked on February 06, 2020 was elevated at 55.5. Further evaluation with CT scan of abdomen pelvis confirmed large cystic lesion with mural nodularity arising from pelvis- likely ovarian neoplasm. The size of the mass was 15.3 x 23 .8 x 22.1 cm. Small amount of free fluid in the pelvis. Cholelithiasis. Prior gastric bypass but no visible pelvic or inguinal lymphadenopathy. Ms Meier was referred to Dr. Mtz in [place]. On February 29, 2020 she underwent right resection of ovarian cancer, bilateral salpingo-oophorectomy, total abdominal hysterectomy, pelvic and para-aortic lymphadenectomy, omentectomy and multiple biopsies including right hemidiaphragm. The final pathology report came back showed a right ovarian tumor size about 10 cm, endometrioid adenocarcinoma, intact, grade 3 e.g. T1 a. 10 lymph nodes were examined showed no evidence of metastatic disease e.g. N0 stage I Immunohistochemistry was positive for p16, p53, Ki-67 and vimentin consistent with high-grade endometrioid carcinoma. Patient tolerated procedure well and based on high-grade e.g. grade 3 ovarian endometrioid carcinoma, as per patient she was recommended adjuvant chemotherapy with 6 cycles carboplatin/Taxol. Patient is a diabetic, also has history of morbid obesity for which she underwent gastric bypass in 1999, as per patient about 2 years ago she was diagnosed with persistent anemia and she did require 3 units of packed RBC during her recent bilateral oophorectomy/hysterectomy done on February 29, 2020. Ms Meier was referred to [facility] [employer] oncology for second opinion at her request and evaluation for clinical trial. She was seen by Dr. Luis Post on May 15, 2019. His recommendations were that he agreed with her original diagnosis and recommended her to proceed with 6 cycles of carboplatin/Taxol. As per patient on May 03, 2020 she was diagnosed with Covid infection and had some breathing difficulty so went to [facility]. She did receive monoclonal antibody treatment for the COVID-19 and tolerated it well. She underwent transinternal jugular vein entheses right internal jugular vein) power port placement per Dr. Apodaca on June 03, 2020. She began her first cycle of carboplatin paclitaxel on June 13, 2020.Completed 6 cycles of chemotherapy with carboplatin/Taxol on October 30, 2020 Ms. Meier had follow-up with Dr. Cheek on November 28, 2020. At that follow-up visit she continued to have generalized weakness and fatigue but was slowly improving. It also noted that she had been noncompliant with her thyroid medications. Her TSH was noted to be 22.55 at that time [address] Dr. Cheek reinforced that she needed to take her thyroid supplementation diligently. She continued to have problems with anemia and was referred to endocrinology for monitoring of her hypothyroidism as well. She also has a strong family history of hypothyroidism per her report. Ms. Meier is here today for follow-up of her anemia. Her last TSH was on December 05, 2020 at which time it was 0.31 and she reports that she had been compliant with her thyroid medication. She has no new concerns today. She is feeling much better overall. She still can work although she is tired. Her anxiety is much improved today as well. She denies any fever or chills. She has had no new shortness of breath and denies orthopnea. She states she is having shortness of breath with just minimal exertion. She states she can walk 8 feet and feel really winded . She states this is really not new but it certainly no better. She denies any wheezing or hemoptysis at this time. She denies chest pain or palpitations. She states her bowels are normal for her. She continues to have some intermittent abdominal pain which she states bothers her more than anything. She is just so concerned that her cancer will return. She states that the pain is in the left upper quadrant and she is having more nausea and dry heaves. She states again her bowels are moving well. She states she has tried to stay hydrated as well. She states she noticed abdominal pain a lot after eating and can only limit that things currently. She denies any lower extremity edema. Her ECOG is 1 although she is short of breath with minimal exertion. Past Medical History: History of MRSA Hyperlipidemia Hypothyroidism Opoid dependence Osteoarthritis Type II diabetes Covid in 2020 Past Surgical History: COVID 19 2nd vaccine in 2020 Right internal jugular vein PowerPort placement???Dr. Apodaca in 2020 Covid vaccine #1 in 2020 Hysterectomy/bilateral salpingectomy-oophorectomy in 2019 Colonoscopy in 2018 Gastric bypass in 1999 Allergies: Amoxicillin and Cephalexin. Medications: All Day Allergy 1 Tablet (of 10 mg) Oral daily Atorvastatin Calcium 1 Tablet (of 10 mg) Oral daily Bactrim DS 1 Tablet (of 800-160 mg) Oral b.i.d. busPIRone HCl 1 Tablet (of 15 mg) Oral b.i.d. Cipro Tablet Oral b.i.d. Euthyrox 1 Tablet (of 175 mcg) Oral daily Glucophage 1 Tablet (of 850 mg) Oral daily Januvia 1 Tablet (of 25 mg) Oral daily Lisinopril 1 Tablet (of 10 mg) Oral daily Pantoprazole Sodium 1 Tablet (of 40 mg) Tablet, enteric coated Oral b.i.d. Slow Release Iron 1 Tablet (of 47.5 mg) Tablet, controlled release Oral daily traMADol HCl 1 Tablet (of 50 mg) Oral t.i.d. PRN Tums Tablet, chewable Oral PRN Zoloft 2 Tablet (of 100 mg) Oral daily Family History: Ms. Meier's mother at age 76: breast cancer, and stroke, and uterine cancer. Ms. Meier's father at age 76: heart disease, and lung cancer. Social History: Ms. Meier is single. Ms. Meier has never smoked. She drinks occasionally. Ms. Meier reports the following support systems: lives with spouse, significant other, family, or friends, lives in own house, supportive family/friends willing to assist with needs, and adequate transportation available for expected visits. Her diet consists of regular meals. She indicates her activity level as: daily activities. drinks 1-2 glasses of alcohol every 4-6months She works at [employer]. Review Of Symptoms: <See Above> Vital Signs: Performed on Dec 16, 2020 12:35 Height - 67.00 in Weight - 190.4 lbs (LOW) BSA - 1.98 sq.m BMI - 29.82 Temperature - 97.9 F (LOW) Pulse - 81 /min Respiration - 18 /min BP - 119/75 mm(hg) O2 Sat - 100 % Pain - 3 Fatigue - 5,1 - No physically strenuous activity, but ambulatory and able to carry out light or sedentary work (e.g. office work, light house work). (ECOG) Physical Examination: Constitutional Alert, oriented, no acute distress. Skin pink, warm and dry. Head Normocephalic; atraumatic. Eyes Conjunctivae and sclerae are clear and without icterus. Pupils are reactive and equal. ENMT No oral exudates, ulcers, masses, thrush or mucositis. Oropharynx clear. Tongue normal. Neck Supple without masses or thyromegaly. No jugular venous distension. Hematologic/Lymphatic No petechiae or purpura. No tender or palpable lymph nodes in the cervical or supraclavicular areas. Respiratory Lungs are clear to auscultation without rhonchi or wheezing. Cardiovascular Regular rate and rhythm of heart without murmurs,clicks, gallops or rubs. Chest Right venous access device insertion site has healed well. Abdomen Non-tender, non-distended, no masses or ascites. Good bowel sounds noted in all quads. No guarding or rebound tenderness. No pulsatile masses. Back/Spine Non-tender to palpation. Extremities No visible deformities, no cyanosis, clubbing or edema. Musculoskeletal No tenderness or swelling, normal range of motion without obvious weakness. Integumentary No rashes or lesions. Neurologic No sensory or motor deficits, normal cerebellar function, normal gait. Psychiatric Alert and oriented times three. Coherent speech. Verbalizes understanding of our discussions today. Laboratory:Test performed on Dec 16, 2020 10:16 Sodium 137 mmol/L Potassium 4.3 mmol/L Chloride 103 mmol/L CO2 22 mmol/L Anion Gap 16.3 BUN 19 mg/dL Creatinine 1.2 mg/dL Cr Clearance (Est) 70.6100 mL/min eGFR 45.8 mL/min Glucose 102 mg/dL Osmolality - Calculated 286 mOsm/kg Calcium 9.3 mg/dL Protein, Total 7.0 g/dL Albumin 3.7 g/dL Globulin 3.3 g/dL Bilirubin, Total 0.3 mg/dL ALT (SGPT) 12 U/L AST (SGOT) 14 U/L Alkaline Phosphatase 94 IU/L WBC 5.3 10 3/uL RBC 2.48 10 6/uL HGB 8.2 g/dL HCT 26.5 % MCV 106.9 fl MCH 33.1 pg MCHC 30.9 g/dL RDW 21.4 % Platelet Count 199 10 3/cmm MPV 9.6 fL Neutrophils 3.30 10 3/uL Lymphocytes 1.5 10 3/uL Monocytes 0.5 10 3/uL Eosinophils 0.0 10 3/uL Basophils 0.0 10 3/uL Neutrophil % 61.9 % Lymphocyte % 27.3 % Monocyte % 9.2 % Eosinophil % 0.8 % Basophils % 0.4 % NRBC % 0 % Anti-D Negative Blood Type ON Antibody Screen (Gel) NEGATIVE Test performed on Jul 31, 2020 08:50 CBC Slide Review Slide Review Perform Test performed on July 04, 2020 12:30 Ferritin 316 ng/mL Folate, Serum 5.2 ng/mL Iron 61 mcg/dL Vitamin B12 > 2000 pg/mL Iron Binding Capacity (TIBC) 286 mcg/dl % Iron Saturation 21.3 % UIBC 225 mcg/dL Impression: Grade 3 ovarian endometrioid carcinoma status post right resection of ovarian cancer, bilateral salpingo-oophorectomy, total abdominal hysterectomy, pelvic and para-aortic lymphadenectomy, omentectomy, multiple biopsies including right hemidiaphragm done on February 29, 2020 Final pathology report confirmed 10 cm sized tumor involving the right ovary, endometrioid adenocarcinoma, grade 3, intact, peritoneal fluid negative implants negative and 0 out of 10 lymph nodes showed metastatic disease e.g. pT1a limited to 1 ovary (capsule intact). p N 0, MX stage I Immunohistochemistry were positive for p16, p53, Ki-67, vimentin, pattern consistent with high-grade endometrial carcinoma Started on adjuvant chemotherapy with carboplatin/Taxol on and completed recommended 6 cycles on October 30, 2020 History of diabetes mellitus, Gastric bypass surgery for morbid obesity in 2000 Anemia since 2018, status post 3 units of packed RBCs on February 29 2020 during bilateral oophorectomy/hysterectomy for right ovarian cancerAnd again on July 25, 2020 for hemoglobin 7 g History of hypothyroidism, diagnosed in 1994, on supplement Plan/Problems Addressed at this Visit: 1. hypothyroidism-noncompliance with thyroid replacment. A. This has corrected with compliance of her thyroid supplementation. Her TSH on 12/05/2020 was 0.31. B. She will continue to follow with endocrinology when she establishes care there. 2. Ovarian cancer. A. She is having dry heaves nausea and persistent left upper quadrant pain. We will proceed with CT of the abdomen pelvis with contrast for further follow-up. B. We will also include a CT of the chest for persistent shortness of breath. This may be anemia related but she does have a history of ovarian cancer. C. Today's labs reviewed in detail and discussed with Mr=job Meier and a copy was given to her. WBC is 5.3, hemoglobin 8.2 which is stable platelets are 199. ANC is 3300. Potassium 4.3 creatinine 1.2 random glucose was 102 and LFTs were normal. Her weight is down 6 pounds from her November 20 weight of 196 she is 190 today. She attributes this to the nausea and dry heaves. 3. Persistent anemia of unknown etiology. A. Her anemia is stable at 8.2 today. She does not feel that she has transfusion ready at this point. She admits to having some nausea vomiting/dry heaves last night at work. Her creatinine is elevated at 1.2 and BUN is 19. She is dehydrated today. She was offered fluids/supportive care but she states that she will increase her oral intake as she is feeling better at this time. Her LFTs are normal. We did discuss that she may need bone marrow biopsy but she can discuss this further with Dr. Cheek at her follow-up with him in 2 weeks. I have asked for repeat CBC CMP and type and screen at that time. Ms. Meier instructed to contact us in the interim if questions or problems arise. We will call her with the results of the CT once that is available. Signed By: Kate Butt-SAMANTHA, AOBRIGITTE Cheek MD <<Signature on File>>
== END 2020-12-29 23:59 | disposition home or self-care (01) ==
LOC: RADWPI 11:30
PROVIDERS: Internal Medicine Hematology & Oncology; PCP Nurse Practitioner Family; Referring Provider Internal Medicine; Visit Provider Nurse Practitioner
DX: Z08 Encounter for follow-up examination after completed treatment for malignant neoplasm (principal); Z85.43 Personal history of malignant neoplasm of ovary; E11.9 Type 2 diabetes mellitus without complications; D64.9 Anemia, unspecified; E03.9 Hypothyroidism, unspecified; Z79.899 Other long term (current) drug therapy; Z92.21 Personal history of antineoplastic chemotherapy
CPT/HCPCS: 36591; 71046; 71260; 74177; 80053; 84439; 84443; 85025; 86376; 86800; 86850; 86900; 96360; 99214; J7030; Q9967

== ENCOUNTER 2021-01-02 15:24 | Outpatient (CLI) | payer OTHER, SELFPAY ==
[2021-01-02 17:09] LABS: Basophils % 0.5 %; Eosinophils # 0.1 10^3/uL (0.0-0.8); Eosinophils % 1.8 %; Hematocrit 27.5 % (37.0-47.0); Hemoglobin 8.7 g/dL (11.5-15.3); Lymphocytes % 26.1 %; Mean Corpuscular HGB Conc 31.6 g/dL (30.0-36.0); Mean Corpuscular Hemoglobin 34.8 pg (28.0-34.0); Mean Platelet Volume 9.8 fL (7.4-10.4); Monocytes # 0.3 10^3/uL (0.2-0.9); Monocytes % 8.6 %; Neutrophils # 2.48 10^3/uL (1.8-7.7); Neutrophils % 62.7 %; Nucleated Red Blood Cells % 0 %; Platelet Count 149 10^3/cmm (130-400); Red Cell Distribution Width 17.3 % (12.1-15.1)
[2021-01-02 17:37] LABS: Alanine Aminotransferase 14 U/L (0-33); Albumin Level 3.6 g/dL (3.5-5.2); Alkaline Phosphatase 79 IU/L (35-105); Anion Gap 12.5 (5-19); Aspartate Amino Transferase 16 U/L (0-32); Blood Urea Nitrogen 16 mg/dL (8-23); Carbon Dioxide 26 mmol/L (22-29); Chloride 104 mmol/L (98-107); Globulin 2.7 g/dL (1.3-4.6); Glomerular Filtration Rate 63.9 mL/min (90-130); Glucose 103 mg/dL (65-115); Osmolality Calculated 287 mOsm/kg (285-295); Potassium 4.5 mmol/L (3.5-5.1); Sodium 138 mmol/L (136-145); Total Bilirubin 0.3 mg/dL (0.15-1.2); Total Protein 6.3 g/dL (6.6-8.7)
== END 2021-01-02 15:25 | disposition home or self-care (01) ==
LOC: ONCMED 15:26
PROVIDERS: PCP Nurse Practitioner Family; Visit Provider Internal Medicine Hematology & Oncology
DX: C56.1 Malignant neoplasm of right ovary (principal)
CPT/HCPCS: 36591; 80053; 85025

== ENCOUNTER 2021-01-03 08:25 | Outpatient (RCR) | payer OTHER, SELFPAY ==
--- NOTE | 2021-03-07 08:50 | ONC FU_ITS ---
Dr. Cheek follow up note Patient: Alecia Meier I Unit #: [id number]: 1960 Dicatated By: Barbara Cheek M.D.Date of Visit:Jan 03, 2021 Onc Med Follow-up/Prog Note History of Present Illness: Ms. Meier is a 60-year-old female with a history of progressive abdominal/pelvic pain. She was evaluated by Dr. Gutierrez [employer] and subsequently underwent abdominal ultrasoud which confirmed a large complex ovarian mass. Her tumor marker/CA-125 was checked on February 06, 2020 was elevated at 55.5. Further evaluation with CT scan of abdomen pelvis confirmed large cystic lesion with mural nodularity arising from pelvis- likely ovarian neoplasm. The size of the mass was 15.3 x 23 .8 x 22.1 cm. Small amount of free fluid in the pelvis. Cholelithiasis. Prior gastric bypass but no visible pelvic or inguinal lymphadenopathy. Ms Meier was referred to Dr. Mtz in [place]. On February 29, 2020 she underwent right resection of ovarian cancer, bilateral salpingo-oophorectomy, total abdominal hysterectomy, pelvic and para-aortic lymphadenectomy, omentectomy and multiple biopsies including right hemidiaphragm. The final pathology report came back showed a right ovarian tumor size about 10 cm, endometrioid adenocarcinoma, intact, grade 3 e.g. T1 a. 10 lymph nodes were examined showed no evidence of metastatic disease e.g. N0 stage I Immunohistochemistry was positive for p16, p53, Ki-67 and vimentin consistent with high-grade endometrioid carcinoma. Patient tolerated procedure well and based on high-grade e.g. grade 3 ovarian endometrioid carcinoma, as per patient she was recommended adjuvant chemotherapy with 6 cycles carboplatin/Taxol. Patient is a diabetic, also has history of morbid obesity for which she underwent gastric bypass in 1999, as per patient about 2 years ago she was diagnosed with persistent anemia and she did require 3 units of packed RBC during her recent bilateral oophorectomy/hysterectomy done on February 29, 2020. Ms Meier was referred to [facility] [employer] oncology for second opinion at her request and evaluation for clinical trial. She was seen by Dr. Luis Post on May 15, 2019. His recommendations were that he agreed with her original diagnosis and recommended her to proceed with 6 cycles of carboplatin/Taxol. As per patient on May 03, 2020 she was diagnosed with Covid infection and had some breathing difficulty so went to [facility]. She did receive monoclonal antibody treatment for the COVID-19 and tolerated it well. She underwent transinternal jugular vein entheses right internal jugular vein) power port placement per Dr. Apodaca on June 03, 2020. She began her first cycle of carboplatin paclitaxel on June 13, 2020.Completed 6 cycles of chemotherapy with carboplatin/Taxol on October 30, 2020 CT scan of chest abdomen pelvis done on December 24, 2020 showed dilated contrast filled loop of proximal small bowel in the left upper quadrant adjacent to anastomotic suture suspicious for stricture with a partial small bowel obstruction. Dilated loop of small bowel measures 6.4 cm maximum diameter with contrast and delayed emptying. Cholelithiasis. Prior gastric bypass. Prior hysterectomy. Evidence of recent ostomy takedown or laparoscopic track right lower quadrant. No central lymphadenopathy. Came for follow-up, denies any specific complaint except generalized weakness and fatigue which is improving now, patient has seen endocrinology for history of hypothyroidism, further work-up is in progress. She is also following Dr. Apodaca for post duodenal ulcer repair, as per patient the wound is healing well. Patient denies any abdominal pain denies any nausea or vomiting denies any diarrhea or constipation denies any melena or hematochezia denies any jaundice denies any shortness of breath at rest but mild dyspnea on exertion but no chest pain. No abdominal fullness Medications: All Day Allergy 1 Tablet (of 10 mg) Oral daily, Atorvastatin Calcium 1 Tablet (of 10 mg) Oral daily, Bactrim DS 1 Tablet (of 800-160 mg) Oral b.i.d., busPIRone HCl 1 Tablet (of 15 mg) Oral b.i.d., Cipro Tablet Oral b.i.d., Euthyrox 1 Tablet (of 175 mcg) Oral daily, Glucophage 1 Tablet (of 850 mg) Oral daily, Januvia 1 Tablet (of 25 mg) Oral daily, Lisinopril 1 Tablet (of 10 mg) Oral daily, Pantoprazole Sodium 1 Tablet (of 40 mg) Tablet, enteric coated Oral b.i.d., Slow Release Iron 1 Tablet (of 47.5 mg) Tablet, controlled release Oral daily, traMADol HCl 1 Tablet (of 50 mg) Oral t.i.d. PRN, Tums Tablet, chewable Oral PRN, Zoloft 2 Tablet (of 100 mg) Oral daily Allergies: Amoxicillin and Cephalexin. Review of Systems: Review of Systems is not available for this patient. Vital Signs: Performed on Jan 03, 2021 08:34 Height - 67.00 in Weight - 197.4 lbs (HIGH) BSA - 2.01 sq.m BMI - 30.92 (HIGH) Temperature - 96.9 F (LOW) Pulse - 71 /min Respiration - 18 /min BP - 119/61 mm(hg) O2 Sat - 99 % Pain - 0 Fatigue - 4 Performance Status: 0 - Fully active, able to carry on all predisease activities without restrictions. (ECOG) Physical Examination: ENMT - No mouth sores, no thrush, no jaundice, Respiratory - Lungs are clear to auscultation, Cardiovascular - Regular rate and rhythm of heart, Abdomen - Soft, bowel sounds present, Extremities - No visible edema. Lab/Imaging: Test performed on Dec 16, 2020 10:16 Sodium 137 mmol/L Potassium 4.3 mmol/L Chloride 103 mmol/L CO2 22 mmol/L Anion Gap 16.3 BUN 19 mg/dL Creatinine 1.2 mg/dL Cr Clearance (Est) 70.6100 mL/min eGFR 45.8 mL/min Glucose 102 mg/dL Osmolality - Calculated 286 mOsm/kg Calcium 9.3 mg/dL Protein, Total 7.0 g/dL Albumin 3.7 g/dL Globulin 3.3 g/dL Bilirubin, Total 0.3 mg/dL ALT (SGPT) 12 U/L AST (SGOT) 14 U/L Alkaline Phosphatase 94 IU/L WBC 5.3 10 3/uL RBC 2.48 10 6/uL HGB 8.2 g/dL HCT 26.5 % MCV 106.9 fl MCH 33.1 pg MCHC 30.9 g/dL RDW 21.4 % Platelet Count 199 10 3/cmm MPV 9.6 fL Neutrophils 3.30 10 3/uL Lymphocytes 1.5 10 3/uL Monocytes 0.5 10 3/uL Eosinophils 0.0 10 3/uL Basophils 0.0 10 3/uL Neutrophil % 61.9 % Lymphocyte % 27.3 % Monocyte % 9.2 % Eosinophil % 0.8 % Basophils % 0.4 % NRBC % 0 % Anti-D Negative Blood Type ON Antibody Screen (Gel) NEGATIVE Test performed on Jul 31, 2020 08:50 CBC Slide Review Slide Review Perform Impression: Grade 3 ovarian endometrioid carcinoma status post right resection of ovarian cancer, bilateral salpingo-oophorectomy, total abdominal hysterectomy, pelvic and para-aortic lymphadenectomy, omentectomy, multiple biopsies including right hemidiaphragm done on February 29, 2020 Final pathology report confirmed 10 cm sized tumor involving the right ovary, endometrioid adenocarcinoma, grade 3, intact, peritoneal fluid negative implants negative and 0 out of 10 lymph nodes showed metastatic disease e.g. pT1a limited to 1 ovary (capsule intact). p N 0, MX stage I Immunohistochemistry were positive for p16, p53, Ki-67, vimentin, pattern consistent with high-grade endometrial carcinoma Started on adjuvant chemotherapy with carboplatin/Taxol on and completed recommended 6 cycles on October 30, 2020 History of diabetes mellitus, Gastric bypass surgery for morbid obesity in 2000 Anemia since 2018, status post 3 units of packed RBCs on February 29 2020 during bilateral oophorectomy/hysterectomy for right ovarian cancerAnd again on July 25, 2020 for hemoglobin 7 g History of hypothyroidism, diagnosed in 1994, on supplement Plan: Discussed with patient regarding her labs white blood count 4 hemoglobin 8.7 hematocrit 27.5 platelets 149,000 CMP within normal limits Clinically, patient is doing well with no new signs symptoms suggestive of recurrence of disease. Her follow-up lab work-up shows persistent but now improving macrocytic anemia etiology remains unclear but could be multifactorial as patient has history of gastric bypass and her lab work-up done recently showed low zinc level, also has history of hypothyroidism, now being managed by endocrinology. At this point, we will try zinc supplement for a month and repeat CBC in a month along with zinc level and if she has persistent anemia, will consider repeating her iron studies B12 reticulocyte count if remained inconclusive, will consider bone marrow evaluation. As far as, CT scan of chest abdomen pelvis done on December 24, 2020 findings concern, patient is not symptomatic and scheduled to see Dr. Apodaca next week and we will request Dr. Apodaca to review her CT scan of abdomen , Patient was advised to call us in case she has any persistent nausea or vomiting or abdominal pain or abdominal distention. Patient return to clinic in 1 month with CBC, zinc level and if needed anemia work-up. Signed By: Barbara Cheek M.D. <<Signature on File>>
== END 2021-01-28 23:59 | disposition home or self-care (01) ==
LOC: ONCMED 08:25
PROVIDERS: PCP Nurse Practitioner Family; Referring Provider Internal Medicine; Visit Provider Nurse Practitioner
DX: C54.1 Malignant neoplasm of endometrium (principal); E11.9 Type 2 diabetes mellitus without complications; D52.0 Dietary folate deficiency anemia; E03.9 Hypothyroidism, unspecified; Z79.84 Long term (current) use of oral hypoglycemic drugs; Z79.899 Other long term (current) drug therapy; Z92.21 Personal history of antineoplastic chemotherapy; Z98.84 Bariatric surgery status
CPT/HCPCS: 99215

== ENCOUNTER 2021-01-09 07:37 | Outpatient (CLI) | payer OTHER, SELFPAY ==
--- NOTE | 2021-01-09 07:47 | XR_ITS ---
WS: [id number] Lumbar spine, AP, L5-S1 spot, both obliques, and lateral position, 01/09/2021 Clinical Data: LOW BACK PAIN Comparison: None. Findings: No compression fractures are seen. There is degenerative disc narrowing at all levels from T12-L1 thr ough L5-S1 with accompanying osteoarthritis. The oblique films show no spondylolysis. There is no spo ndylolisthesis. There is a small probable postsurgical clip adjacent to the right side of the L3 vert ebral body. There are surgical items on the left side of the true pelvis. The transverse processes a nd SI joints are normal. There are left upper quadrant small surgical jimmie. XR/XR lumbar spine min 4V [id number] Impression: 1. Osteoarthritis of all the lumbar vertebral bodies. 2. Degenerative disc narrowing from T12-L1 through L5-S1. 3. Negative for spondylolysis or spondylolisthesis.
--- NOTE | 2021-01-09 07:47 | XR_ITS ---
WS: [id number] Cervical spine, 5 views including both obliques, 01/09/2021 Clinical Data: CERVICALGIA/NECK PAIN Comparison: Cervical spine, 06/12/2008. Findings: No compression fractures are seen. There is degenerative disc narrowing at C5-C6 and C6-C7 with accompanying anterior osteophytes. The oblique films show neural foraminal encroachment at C5-C6 and C6-C7 bilaterally.. There is no prevertebral soft tissue swelling. The odontoid is unremarkable. The soft tissues of the neck and the lung apices are normal. There is a Port-A-Cath entering the rig ht internal jugular vein and ending in the superior vena cava. XR/XR cervical spine 4-5V [id number] Impression: 1. Degenerative disc narrowing at C5-C6 and C6-C7 with anterior osteophytes. 2. Bilateral neural foraminal encroachment at C5-C6 and C6-C7.
== END 2021-01-09 07:38 | disposition home or self-care (01) ==
LOC: RAD 07:40
PROVIDERS: PCP Nurse Practitioner Family; Visit Provider Nurse Practitioner Family
DX: M54.2 Cervicalgia (principal); M54.50 Low back pain, unspecified; M47.816 Spondylosis without myelopathy or radiculopathy, lumbar region; M25.78 Osteophyte, vertebrae
CPT/HCPCS: 72050; 72110

== ENCOUNTER 2021-02-04 06:08 | Outpatient (RCR) | payer OTHER, SELFPAY ==
[2021-02-03 14:02] LABS: Basophils % 0.5 %; Eosinophils # 0.1 10^3/uL (0.0-0.8); Eosinophils % 2.4 %; Hematocrit 31.1 % (37.0-47.0); Hemoglobin 10.1 g/dL (11.5-15.3); Lymphocytes # 1.1 10^3/uL (0.8-4.8); Lymphocytes % 29.5 %; Mean Corpuscular HGB Conc 32.5 g/dL (30.0-36.0); Mean Corpuscular Hemoglobin 34.9 pg (28.0-34.0); Mean Corpuscular Volume 107.6 fl (81-99); Mean Platelet Volume 9.8 fL (7.4-10.4); Monocytes # 0.3 10^3/uL (0.2-0.9); Monocytes % 8.7 %; Neutrophils # 2.17 10^3/uL (1.8-7.7); Neutrophils % 58.9 %; Nucleated Red Blood Cells % 0 %; Platelet Count 130 10^3/cmm (130-400); Red Blood Count 2.89 10^6/uL (4.1-5.3); White Blood Count 3.7 10^3/uL (4.0-10.0)
[2021-02-03 14:49] LABS: Alanine Aminotransferase 27 U/L (0-33); Albumin Level 3.6 g/dL (3.5-5.2); Alkaline Phosphatase 105 IU/L (35-105); Anion Gap 17.4 (5-19); Aspartate Amino Transferase 24 U/L (0-32); Blood Urea Nitrogen 18 mg/dL (8-23); Calcium 8.4 mg/dL (8.5-10.5); Carbon Dioxide 21 mmol/L (22-29); Chloride 108 mmol/L (98-107); Globulin 2.9 g/dL (1.3-4.6); Glomerular Filtration Rate 56.4 mL/min (90-130); Glucose 193 mg/dL (65-115); Iron 75 ug/dL (37-145); Osmolality Calculated 301 mOsm/kg (285-295); Percent Saturation 40.7 % (20-50); Potassium 4.4 mmol/L (3.5-5.1); Sodium 142 mmol/L (136-145); Total Bilirubin 0.2 mg/dL (0.15-1.2); Total Iron Binding Capacity 184 mcg/dl; Total Protein 6.5 g/dL (6.6-8.7); Unsaturated Iron Binding 109 ug/dL (112-347)
[2021-02-03 15:02] LABS: Ferritin 1393 ng/mL (15-150)
--- NOTE | 2021-02-04 14:52 | ONC FU_ITS ---
Dr. Cheek follow up note Patient: Alecia Meier I Unit #: [id number]: [id number] Dicatated By: Barbara Cheek M.D.Date of Visit:Feb 04, 2021 Onc Med Follow-up/Prog Note History of Present Illness: Ms. Meier is a 61-year-old female with a history of progressive abdominal/pelvic pain. She was evaluated by Dr. Gutierrez [employer] and subsequently underwent abdominal ultrasoud which confirmed a large complex ovarian mass. Her tumor marker/CA-125 was checked on February 06, 2020 was elevated at 55.5. Further evaluation with CT scan of abdomen pelvis confirmed large cystic lesion with mural nodularity arising from pelvis- likely ovarian neoplasm. The size of the mass was 15.3 x 23 .8 x 22.1 cm. Small amount of free fluid in the pelvis. Cholelithiasis. Prior gastric bypass but no visible pelvic or inguinal lymphadenopathy. Ms Meier was referred to Dr. Mtz in [place]. On February 29, 2020 she underwent right resection of ovarian cancer, bilateral salpingo-oophorectomy, total abdominal hysterectomy, pelvic and para-aortic lymphadenectomy, omentectomy and multiple biopsies including right hemidiaphragm. The final pathology report came back showed a right ovarian tumor size about 10 cm, endometrioid adenocarcinoma, intact, grade 3 e.g. T1 a. 10 lymph nodes were examined showed no evidence of metastatic disease e.g. N0 stage I Immunohistochemistry was positive for p16, p53, Ki-67 and vimentin consistent with high-grade endometrioid carcinoma. Patient tolerated procedure well and based on high-grade e.g. grade 3 ovarian endometrioid carcinoma, as per patient she was recommended adjuvant chemotherapy with 6 cycles carboplatin/Taxol. Patient is a diabetic, also has history of morbid obesity for which she underwent gastric bypass in 1999, as per patient about 2 years ago she was diagnosed with persistent anemia and she did require 3 units of packed RBC during her recent bilateral oophorectomy/hysterectomy done on February 29, 2020. Ms Meier was referred to [facility] [employer] oncology for second opinion at her request and evaluation for clinical trial. She was seen by Dr. Luis Post on May 15, 2019. His recommendations were that he agreed with her original diagnosis and recommended her to proceed with 6 cycles of carboplatin/Taxol. As per patient on May 03, 2020 she was diagnosed with Covid infection and had some breathing difficulty so went to [facility]. She did receive monoclonal antibody treatment for the COVID-19 and tolerated it well. She underwent transinternal jugular vein entheses right internal jugular vein) power port placement per Dr. Apodaca on June 03, 2020. She began her first cycle of carboplatin paclitaxel on June 13, 2020.Completed 6 cycles of chemotherapy with carboplatin/Taxol on October 30, 2020 CT scan of chest abdomen pelvis done on December 24, 2020 showed dilated contrast filled loop of proximal small bowel in the left upper quadrant adjacent to anastomotic suture suspicious for stricture with a partial small bowel obstruction. Dilated loop of small bowel measures 6.4 cm maximum diameter with contrast and delayed emptying. Cholelithiasis. Prior gastric bypass. Prior hysterectomy. Evidence of recent ostomy takedown or laparoscopic track right lower quadrant. No central lymphadenopathy. Came for follow-up, denies any specific complaint, in fact feeling more energetic, denies any melena or hematochezia, or hemoptysis or hematemesis, denies any jaundice, denies any abdominal pain, denies any shortness of breath or palpitation, overall patient is happy with improvement in her performance status, Medications: All Day Allergy 1 Tablet (of 10 mg) Oral daily, Atorvastatin Calcium 1 Tablet (of 10 mg) Oral daily, Bactrim DS 1 Tablet (of 800-160 mg) Oral b.i.d., busPIRone HCl 1 Tablet (of 15 mg) Oral b.i.d., Cipro Tablet Oral b.i.d., Euthyrox 1 Tablet (of 175 mcg) Oral daily, Lisinopril 1 Tablet (of 10 mg) Oral daily, Pantoprazole Sodium 1 Tablet (of 40 mg) Tablet, enteric coated Oral b.i.d., Slow Release Iron 1 Tablet (of 47.5 mg) Tablet, controlled release Oral daily, traMADol HCl 1 Tablet (of 50 mg) Oral t.i.d. PRN, Tums Tablet, chewable Oral PRN, Zoloft 2 Tablet (of 100 mg) Oral daily Allergies: Amoxicillin and Cephalexin. Review of Systems: Review of Systems is not available for this patient. Vital Signs: Performed on Feb 04, 2021 09:15 Height - 67.00 in Weight - 193.8 lbs (LOW) BSA - 2.00 sq.m BMI - 30.35 (HIGH) Temperature - 98.1 F (LOW) Pulse - 80 /min Respiration - 16 /min BP - 127/73 mm(hg) O2 Sat - 98 % Pain - 2 Fatigue - 2 Performance Status: 0 - Fully active, able to carry on all predisease activities without restrictions. (ECOG) Physical Examination: ENMT - No mouth sores, no thrush, no jaundice, Respiratory - Lungs are clear to auscultation, Cardiovascular - Regular rate and rhythm of heart , Abdomen - Soft, bowel sounds present, Extremities - No visible edema. Lab/Imaging: Test performed on Dec 16, 2020 10:16 Sodium 137 mmol/L Potassium 4.3 mmol/L Chloride 103 mmol/L CO2 22 mmol/L Anion Gap 16.3 BUN 19 mg/dL Creatinine 1.2 mg/dL Cr Clearance (Est) 70.6100 mL/min eGFR 45.8 mL/min Glucose 102 mg/dL Osmolality - Calculated 286 mOsm/kg Calcium 9.3 mg/dL Protein, Total 7.0 g/dL Albumin 3.7 g/dL Globulin 3.3 g/dL Bilirubin, Total 0.3 mg/dL ALT (SGPT) 12 U/L AST (SGOT) 14 U/L Alkaline Phosphatase 94 IU/L WBC 5.3 10 3/uL RBC 2.48 10 6/uL HGB 8.2 g/dL HCT 26.5 % MCV 106.9 fl MCH 33.1 pg MCHC 30.9 g/dL RDW 21.4 % Platelet Count 199 10 3/cmm MPV 9.6 fL Neutrophils 3.30 10 3/uL Lymphocytes 1.5 10 3/uL Monocytes 0.5 10 3/uL Eosinophils 0.0 10 3/uL Basophils 0.0 10 3/uL Neutrophil % 61.9 % Lymphocyte % 27.3 % Monocyte % 9.2 % Eosinophil % 0.8 % Basophils % 0.4 % NRBC % 0 % Anti-D Negative Blood Type ON Antibody Screen (Gel) NEGATIVE Impression: Grade 3 ovarian endometrioid carcinoma status post right resection of ovarian cancer, bilateral salpingo-oophorectomy, total abdominal hysterectomy, pelvic and para-aortic lymphadenectomy, omentectomy, multiple biopsies including right hemidiaphragm done on February 29, 2020 Final pathology report confirmed 10 cm sized tumor involving the right ovary, endometrioid adenocarcinoma, grade 3, intact, peritoneal fluid negative implants negative and 0 out of 10 lymph nodes showed metastatic disease e.g. pT1a limited to 1 ovary (capsule intact). p N 0, MX stage I Immunohistochemistry were positive for p16, p53, Ki-67, vimentin, pattern consistent with high-grade endometrial carcinoma Started on adjuvant chemotherapy with carboplatin/Taxol on and completed recommended 6 cycles on October 30, 2020 History of diabetes mellitus, Gastric bypass surgery for morbid obesity in 1999 Anemia since 2018, status post 3 units of packed RBCs on February 29 2020 during bilateral oophorectomy/hysterectomy for right ovarian cancerAnd again on July 25, 2020 for hemoglobin 7 g History of hypothyroidism, diagnosed in 1994, on supplement Plan: Discussed with patient regarding her labs white blood count 3.7 hemoglobin 10.1 hematocrit 31.1 platelets 130,000 MCV 107.6 CMP within normal limits except glucose 193.repeat anemia work-up showed iron saturation 40.7 ferritin 1393 iron 75 TIBC 134 Clinically, patient is doing well, with no new signs symptom suggestive of recurrence of disease her follow-up labs shows improvement in her hemoglobin but fluctuating mild leukopenia, we will continue to monitor, patient will continue with [id number] multivitamin her anemia work-up remains inconclusive, she will return to clinic in 1 month with CBC and port maintenance, if there is no improvement or there is a worsening of her blood counts, may consider bone marrow evaluation. As per patient her neck pain is also improving with physical therapy, as her PMD did MRI scan of C-spine on January 09, 2021 which shows degenerative disc narrowing at C5-6 and C6-7 with anterior osteophytes. Bilateral neural foramina encroachment at C5 - 6 and C6-7 Patient also had MRI scan of lumbosacral area which shows osteoarthritis of 4 lumbar vertebral bodies. And degenerative disc narrowing at T12-L1 and through L5-S1. Signed By: Barbara Cheek M.D. <<Signature on File>>
[2021-02-09 06:16] LABS: Zinc Level, Serum or Plasma 46 mcg/dL (60-130)
== END 2021-02-28 23:59 | disposition home or self-care (01) ==
LOC: ONCMED 06:08
PROVIDERS: Nurse Practitioner; PCP Nurse Practitioner Family; Referring Provider Internal Medicine; Visit Provider Internal Medicine Hematology & Oncology
DX: Z08 Encounter for follow-up examination after completed treatment for malignant neoplasm (principal); Z85.41 Personal history of malignant neoplasm of cervix uteri; Z90.710 Acquired absence of both cervix and uterus; D64.9 Anemia, unspecified; E03.9 Hypothyroidism, unspecified; M50.322 Other cervical disc degeneration at C5-C6 level; M50.323 Other cervical disc degeneration at C6-C7 level; M51.35 Other intervertebral disc degeneration, thoracolumbar region; M51.37 Other intervertebral disc degeneration, lumbosacral region; Z79.899 Other long term (current) drug therapy; Z86.39 Personal history of other endocrine, nutritional and metabolic disease; Z92.21 Personal history of antineoplastic chemotherapy; Z98.84 Bariatric surgery status
CPT/HCPCS: 36591; 80053; 82728; 83540; 83550; 84630; 85025; 99214

== ENCOUNTER 2021-03-10 11:30 | Outpatient (RCR) | payer OTHER, SELFPAY ==
[2021-03-10 12:04] LABS: Basophils % 0.4 %; Eosinophils # 0.1 10^3/uL (0.0-0.8); Eosinophils % 1.3 %; Hematocrit 32.6 % (37.0-47.0); Hemoglobin 10.3 g/dL (11.5-15.3); Lymphocytes # 1.6 10^3/uL (0.8-4.8); Lymphocytes % 33.8 %; Mean Corpuscular HGB Conc 31.6 g/dL (30.0-36.0); Mean Corpuscular Hemoglobin 34.1 pg (28.0-34.0); Mean Corpuscular Volume 107.9 fl (81-99); Mean Platelet Volume 9.1 fL (7.4-10.4); Monocytes # 0.4 10^3/uL (0.2-0.9); Monocytes % 7.9 %; Neutrophils # 2.58 10^3/uL (1.8-7.7); Neutrophils % 56.4 %; Nucleated Red Blood Cells % 0 %; Platelet Count 141 10^3/cmm (130-400); Red Blood Count 3.02 10^6/uL (4.1-5.3); Red Cell Distribution Width 11.8 % (12.1-15.1); White Blood Count 4.6 10^3/uL (4.0-10.0)
--- NOTE | 2021-03-10 13:26 | ONC FU_ITS ---
Dr. Cheek follow up note Patient: Alecia Meier I Unit #: [id number]: 1960 Dicatated By: Barbara Cheek M.D.Date of Visit:Mar 10, 2021 Onc Med Follow-up/Prog Note History of Present Illness: Ms. Meier is a 61-year-old female with a history of progressive abdominal/pelvic pain. She was evaluated by Dr. Gutierrez [employer] and subsequently underwent abdominal ultrasoud which confirmed a large complex ovarian mass. Her tumor marker/CA-125 was checked on February 06, 2020 was elevated at 55.5. Further evaluation with CT scan of abdomen pelvis confirmed large cystic lesion with mural nodularity arising from pelvis- likely ovarian neoplasm. The size of the mass was 15.3 x 23 .8 x 22.1 cm. Small amount of free fluid in the pelvis. Cholelithiasis. Prior gastric bypass but no visible pelvic or inguinal lymphadenopathy. Ms Meier was referred to Dr. Mtz in [place]. On February 29, 2020 she underwent right resection of ovarian cancer, bilateral salpingo-oophorectomy, total abdominal hysterectomy, pelvic and para-aortic lymphadenectomy, omentectomy and multiple biopsies including right hemidiaphragm. The final pathology report came back showed a right ovarian tumor size about 10 cm, endometrioid adenocarcinoma, intact, grade 3 e.g. T1 a. 10 lymph nodes were examined showed no evidence of metastatic disease e.g. N0 stage I Immunohistochemistry was positive for p16, p53, Ki-67 and vimentin consistent with high-grade endometrioid carcinoma. Patient tolerated procedure well and based on high-grade e.g. grade 3 ovarian endometrioid carcinoma, as per patient she was recommended adjuvant chemotherapy with 6 cycles carboplatin/Taxol. Patient is a diabetic, also has history of morbid obesity for which she underwent gastric bypass in 1999, as per patient about 2 years ago she was diagnosed with persistent anemia and she did require 3 units of packed RBC during her recent bilateral oophorectomy/hysterectomy done on February 29, 2020. Ms Meier was referred to [facility] [employer] oncology for second opinion at her request and evaluation for clinical trial. She was seen by Dr. Luis Post on May 15, 2019. His recommendations were that he agreed with her original diagnosis and recommended her to proceed with 6 cycles of carboplatin/Taxol. As per patient on May 03, 2020 she was diagnosed with Covid infection and had some breathing difficulty so went to [facility]. She did receive monoclonal antibody treatment for the COVID-19 and tolerated it well. She underwent transinternal jugular vein entheses right internal jugular vein) power port placement per Dr. Apodaca on June 03, 2020. She began her first cycle of carboplatin paclitaxel on June 13, 2020.Completed 6 cycles of chemotherapy with carboplatin/Taxol on October 30, 2020 CT scan of chest abdomen pelvis done on December 24, 2020 showed dilated contrast filled loop of proximal small bowel in the left upper quadrant adjacent to anastomotic suture suspicious for stricture with a partial small bowel obstruction. Dilated loop of small bowel measures 6.4 cm maximum diameter with contrast and delayed emptying. Cholelithiasis. Prior gastric bypass. Prior hysterectomy. Evidence of recent ostomy takedown or laparoscopic track right lower quadrant. No central lymphadenopathy. Came for follow-up, denies any specific complaints, no fever or chills, no nausea or vomiting, no diarrhea or constipation, no melena hematochezia no hemoptysis hematemesis, patient has persistent right lower quadrant postsurgical wound, which being managed by Dr. Apodaca, patient has follow-up appointment with him on coming Wednesday. Overall feeling well more energetic, trying [id number] multivitamin Medications: All Day Allergy 1 Tablet (of 10 mg) Oral daily, Atorvastatin Calcium 1 Tablet (of 10 mg) Oral daily, Bactrim DS 1 Tablet (of 800-160 mg) Oral b.i.d., busPIRone HCl 1 Tablet (of 15 mg) Oral b.i.d., Cipro Tablet Oral b.i.d., Euthyrox 1 Tablet (of 175 mcg) Oral daily, Lisinopril 1 Tablet (of 10 mg) Oral daily, Pantoprazole Sodium 1 Tablet (of 40 mg) Tablet, enteric coated Oral b.i.d., Slow Release Iron 1 Tablet (of 47.5 mg) Tablet, controlled release Oral daily, traMADol HCl 1 Tablet (of 50 mg) Oral t.i.d. PRN, Tums Tablet, chewable Oral PRN, Zoloft 2 Tablet (of 100 mg) Oral daily Allergies: Amoxicillin and Cephalexin. Review of Systems: Review of Systems is not available for this patient. Vital Signs: Performed on Mar 10, 2021 12:50 Height - 67.00 in Weight - 196.4 lbs (HIGH) BSA - 2.01 sq.m BMI - 30.76 (HIGH) Temperature - 97.1 F (LOW) Pulse - 91 /min Respiration - 17 /min BP - 119/75 mm(hg) O2 Sat - 99 % Pain - 0 Fatigue - 0 Performance Status: 0 - Fully active, able to carry on all predisease activities without restrictions. (ECOG) Physical Examination: ENMT - No mouth sores, no thrush, no jaundice, no cervical lymphadenopathy, Respiratory - Lungs are clear to auscultation, Cardiovascular - Regular rate and rhythm of heart, Abdomen - Soft, bowel sounds present, Extremities - No visible edema. Lab/Imaging: Test performed on Dec 16, 2020 10:16 Sodium 137 mmol/L Potassium 4.3 mmol/L Chloride 103 mmol/L CO2 22 mmol/L Anion Gap 16.3 BUN 19 mg/dL Creatinine 1.2 mg/dL Cr Clearance (Est) 70.6100 mL/min eGFR 45.8 mL/min Glucose 102 mg/dL Osmolality - Calculated 286 mOsm/kg Calcium 9.3 mg/dL Protein, Total 7.0 g/dL Albumin 3.7 g/dL Globulin 3.3 g/dL Bilirubin, Total 0.3 mg/dL ALT (SGPT) 12 U/L AST (SGOT) 14 U/L Alkaline Phosphatase 94 IU/L WBC 5.3 10 3/uL RBC 2.48 10 6/uL HGB 8.2 g/dL HCT 26.5 % MCV 106.9 fl MCH 33.1 pg MCHC 30.9 g/dL RDW 21.4 % Platelet Count 199 10 3/cmm MPV 9.6 fL Neutrophils 3.30 10 3/uL Lymphocytes 1.5 10 3/uL Monocytes 0.5 10 3/uL Eosinophils 0.0 10 3/uL Basophils 0.0 10 3/uL Neutrophil % 61.9 % Lymphocyte % 27.3 % Monocyte % 9.2 % Eosinophil % 0.8 % Basophils % 0.4 % NRBC % 0 % Anti-D Negative Blood Type ON Antibody Screen (Gel) NEGATIVE Impression: Grade 3 ovarian endometrioid carcinoma status post right resection of ovarian cancer, bilateral salpingo-oophorectomy, total abdominal hysterectomy, pelvic and para-aortic lymphadenectomy, omentectomy, multiple biopsies including right hemidiaphragm done on February 29, 2020 Final pathology report confirmed 10 cm sized tumor involving the right ovary, endometrioid adenocarcinoma, grade 3, intact, peritoneal fluid negative implants negative and 0 out of 10 lymph nodes showed metastatic disease e.g. pT1a limited to 1 ovary (capsule intact). p N 0, MX stage I Immunohistochemistry were positive for p16, p53, Ki-67, vimentin, pattern consistent with high-grade endometrial carcinoma Started on adjuvant chemotherapy with carboplatin/Taxol on and completed recommended 6 cycles on October 30, 2020 History of diabetes mellitus, Gastric bypass surgery for morbid obesity in 2000 Anemia since 2018, status post 3 units of packed RBCs on February 29 2020 during bilateral oophorectomy/hysterectomy for right ovarian cancerAnd again on July 25, 2020 for hemoglobin 7 g History of hypothyroidism, diagnosed in 1994, on supplement Plan: Discussed with patient regarding her labs white blood count 4.6 hemoglobin 10.3 g compared to 10.1 previously and 8.7 prior to that, hematocrit 32.6 platelets 141,000 Clinically, patient doing well with no new signs symptoms just of recurrence of disease, follow-up labs shows persistent mild anemia but with some improvement, patient has history of gastric bypass surgery, recently done lab work-up shows adequate iron stores, patient on multivitamins, she was advised to try sublingual B12 or parenteral B12 as she may have underlying malabsorption due to gastric bypass. We will continue to monitor she will return to clinic in 2 months with CBC, iron studies and B12 level, in the meantime continue with monthly port maintenance. Signed By: Barbara Cheek M.D. <<Signature on File>>
== END 2021-03-31 23:59 | disposition home or self-care (01) ==
LOC: ONCMED 11:30
PROVIDERS: PCP Nurse Practitioner Family; Referring Provider Internal Medicine; Visit Provider Internal Medicine Hematology & Oncology
DX: Z08 Encounter for follow-up examination after completed treatment for malignant neoplasm (principal); Z85.43 Personal history of malignant neoplasm of ovary; E11.9 Type 2 diabetes mellitus without complications; D51.9 Vitamin B12 deficiency anemia, unspecified; E03.9 Hypothyroidism, unspecified; Z98.84 Bariatric surgery status; Z92.21 Personal history of antineoplastic chemotherapy; Z79.899 Other long term (current) drug therapy
CPT/HCPCS: 36591; 85025; 99214

== ENCOUNTER 2021-04-10 06:29 | Outpatient (RCR) | payer OTHER, SELFPAY | END 2021-04-28 23:59 | disposition home or self-care (01) | LOC: ONCMED 06:29 | PROVIDERS: PCP Nurse Practitioner Family; Visit Provider Internal Medicine Hematology & Oncology | DX: Z45.2 Encounter for adjustment and management of vascular access device (principal) | CPT/HCPCS: 96523 ==

== ENCOUNTER 2021-04-28 09:33 | Outpatient (CLI) | payer OTHER, SELFPAY ==
[2021-04-28 10:38] LABS: Estmated Average Glucose 120; Hemoglobin A1C 5.8 % (4.0-6.0)
[2021-04-28 10:54] LABS: Free T4 Free Thyroxine 1.27 ng/dL (0.82-1.77); Thyroid Stimulating Hormone 0.22 uIU/mL (0.27-4.20)
== END 2021-04-28 09:34 | disposition home or self-care (01) ==
LOC: LAB 09:35
PROVIDERS: PCP Nurse Practitioner Family; Visit Provider Internal Medicine
DX: E03.9 Hypothyroidism, unspecified (principal)
CPT/HCPCS: 83036; 84439; 84443

== ENCOUNTER 2021-05-08 09:19 | Outpatient (RCR) | payer OTHER, SELFPAY ==
[2021-05-08 10:07] LABS: Basophils % 0.5 %; Eosinophils # 0.1 10^3/uL (0.0-0.8); Eosinophils % 1.7 %; Hematocrit 30.9 % (37.0-47.0); Hemoglobin 9.9 g/dL (11.5-15.3); Lymphocytes # 1.3 10^3/uL (0.8-4.8); Lymphocytes % 29.5 %; Mean Corpuscular Hemoglobin 34.4 pg (28.0-34.0); Mean Corpuscular Volume 107.3 fl (81-99); Mean Platelet Volume 9.6 fL (7.4-10.4); Monocytes # 0.4 10^3/uL (0.2-0.9); Monocytes % 9.7 %; Neutrophils # 2.48 10^3/uL (1.8-7.7); Neutrophils % 58.4 %; Nucleated Red Blood Cells % 0 %; Platelet Count 156 10^3/cmm (130-400); Red Blood Count 2.88 10^6/uL (4.1-5.3); White Blood Count 4.2 10^3/uL (4.0-10.0)
[2021-05-08 10:43] LABS: Iron 65 ug/dL (37-145); Percent Saturation 28.6 % (20-50); Total Iron Binding Capacity 227 mcg/dl; Unsaturated Iron Binding 162 ug/dL (112-347)
[2021-05-08 10:57] LABS: Vitamin B12 1183 pg/mL (232-1245)
[2021-05-08 10:59] LABS: Ferritin 1259 ng/mL (15-150)
--- NOTE | 2021-05-09 11:56 | ONC FU_ITS ---
Dr. Cheek follow up note Patient: Alecia Meier I Unit #: [id number]: 1960 Dicatated By: Barbara Cheek M.D.Date of Visit:May 08, 2021 Onc Med Follow-up/Prog Note History of Present Illness: Ms. Meier is a 61-year-old female with a history of progressive abdominal/pelvic pain. She was evaluated by Dr. Gutierrez FINISHING INSPECTOR and subsequently underwent abdominal ultrasoud which confirmed a large complex ovarian mass. Her tumor marker/CA-125 was checked on February 06, 2020 was elevated at 55.5. Further evaluation with CT scan of abdomen pelvis confirmed large cystic lesion with mural nodularity arising from pelvis- likely ovarian neoplasm. The size of the mass was 15.3 x 23 .8 x 22.1 cm. Small amount of free fluid in the pelvis. Cholelithiasis. Prior gastric bypass but no visible pelvic or inguinal lymphadenopathy. Ms Meier was referred to Dr. Mtz in [place]. On February 29, 2020 she underwent right resection of ovarian cancer, bilateral salpingo-oophorectomy, total abdominal hysterectomy, pelvic and para-aortic lymphadenectomy, omentectomy and multiple biopsies including right hemidiaphragm. The final pathology report came back showed a right ovarian tumor size about 10 cm, endometrioid adenocarcinoma, intact, grade 3 e.g. T1 a. 10 lymph nodes were examined showed no evidence of metastatic disease e.g. N0 stage I Immunohistochemistry was positive for p16, p53, Ki-67 and vimentin consistent with high-grade endometrioid carcinoma. Patient tolerated procedure well and based on high-grade e.g. grade 3 ovarian endometrioid carcinoma, as per patient she was recommended adjuvant chemotherapy with 6 cycles carboplatin/Taxol. Patient is a diabetic, also has history of morbid obesity for which she underwent gastric bypass in 1999, as per patient about 2 years ago she was diagnosed with persistent anemia and she did require 3 units of packed RBC during her recent bilateral oophorectomy/hysterectomy done on February 29, 2020. Ms Meier was referred to [facility] FINISHING INSPECTOR oncology for second opinion at her request and evaluation for clinical trial. She was seen by Dr. Luis Post on May 15, 2019. His recommendations were that he agreed with her original diagnosis and recommended her to proceed with 6 cycles of carboplatin/Taxol. As per patient on May 03, 2020 she was diagnosed with Covid infection and had some breathing difficulty so went to [facility]. She did receive monoclonal antibody treatment for the COVID-19 and tolerated it well. She underwent transinternal jugular vein entheses right internal jugular vein) power port placement per Dr. Apodaca on June 03, 2020. She began her first cycle of carboplatin paclitaxel on June 13, 2020.Completed 6 cycles of chemotherapy with carboplatin/Taxol on October 30, 2020 CT scan of chest abdomen pelvis done on December 24, 2020 showed dilated contrast filled loop of proximal small bowel in the left upper quadrant adjacent to anastomotic suture suspicious for stricture with a partial small bowel obstruction. Dilated loop of small bowel measures 6.4 cm maximum diameter with contrast and delayed emptying. Cholelithiasis. Prior gastric bypass. Prior hysterectomy. Evidence of recent ostomy takedown or laparoscopic track right lower quadrant. No central lymphadenopathy. Came for follow-up, denies any specific complaint except generalized weakness and fatigue, no nausea or vomiting, no diarrhea or constipation, no melena or hematochezia, no hemoptysis hematemesis, as per patient endocrinology is managing her thyroid problem and adjusting her medications. No chest pain, no shortness of breath at rest. But mild dyspnea on exertion, patient is taking [id number] multivitamins Medications: All Day Allergy 1 Tablet (of 10 mg) Oral daily, Atorvastatin Calcium 1 Tablet (of 10 mg) Oral daily, B-12 1 Tablet Oral daily, busPIRone HCl 1 Tablet (of 15 mg) Oral b.i.d., Euthyrox 1 Tablet (of 175 mcg) Oral daily, Lisinopril 1 Tablet (of 10 mg) Oral daily, Pantoprazole Sodium 1 Tablet (of 40 mg) Tablet, enteric coated Oral b.i.d., Slow Release Iron 1 Tablet (of 47.5 mg) Tablet, controlled release Oral daily, traMADol HCl 1 Tablet (of 50 mg) Oral t.i.d. PRN, Tums Tablet, chewable Oral PRN, Zoloft 2 Tablet (of 100 mg) Oral daily Allergies: Amoxicillin and Cephalexin. Review of Systems: Review of Systems is not available for this patient. Vital Signs: Performed on May 08, 2021 11:15 Height - 67.00 in Weight - 201.6 lbs (HIGH) BSA - 2.03 sq.m BMI - 31.58 (HIGH) Temperature - 97.1 F (LOW) Pulse - 78 /min Respiration - 16 /min BP - 134/67 mm(hg) O2 Sat - 97 % Pain - 1 Fatigue - 4 Performance Status: 0 - Fully active, able to carry on all predisease activities without restrictions. (ECOG) Physical Examination: ENMT - No mouth sores, no thrush, no jaundice, Respiratory - Lungs are clear to auscultation, Cardiovascular - Regular rate and rhythm of heart, Abdomen - Soft, bowel sounds present, Extremities - No visible edema. Lab/Imaging: Test performed on Dec 16, 2020 10:16 Sodium 137 mmol/L Potassium 4.3 mmol/L Chloride 103 mmol/L CO2 22 mmol/L Anion Gap 16.3 BUN 19 mg/dL Creatinine 1.2 mg/dL Cr Clearance (Est) 70.6100 mL/min eGFR 45.8 mL/min Glucose 102 mg/dL Osmolality - Calculated 286 mOsm/kg Calcium 9.3 mg/dL Protein, Total 7.0 g/dL Albumin 3.7 g/dL Globulin 3.3 g/dL Bilirubin, Total 0.3 mg/dL ALT (SGPT) 12 U/L AST (SGOT) 14 U/L Alkaline Phosphatase 94 IU/L WBC 5.3 10 3/uL RBC 2.48 10 6/uL HGB 8.2 g/dL HCT 26.5 % MCV 106.9 fl MCH 33.1 pg MCHC 30.9 g/dL RDW 21.4 % Platelet Count 199 10 3/cmm MPV 9.6 fL Neutrophils 3.30 10 3/uL Lymphocytes 1.5 10 3/uL Monocytes 0.5 10 3/uL Eosinophils 0.0 10 3/uL Basophils 0.0 10 3/uL Neutrophil % 61.9 % Lymphocyte % 27.3 % Monocyte % 9.2 % Eosinophil % 0.8 % Basophils % 0.4 % NRBC % 0 % Anti-D Negative Blood Type ON Antibody Screen (Gel) NEGATIVE Impression: Grade 3 ovarian endometrioid carcinoma status post right resection of ovarian cancer, bilateral salpingo-oophorectomy, total abdominal hysterectomy, pelvic and para-aortic lymphadenectomy, omentectomy, multiple biopsies including right hemidiaphragm done on February 29, 2020 Final pathology report confirmed 10 cm sized tumor involving the right ovary, endometrioid adenocarcinoma, grade 3, intact, peritoneal fluid negative implants negative and 0 out of 10 lymph nodes showed metastatic disease e.g. pT1a limited to 1 ovary (capsule intact). p N 0, MX stage I Immunohistochemistry were positive for p16, p53, Ki-67, vimentin, pattern consistent with high-grade endometrial carcinoma Started on adjuvant chemotherapy with carboplatin/Taxol on and completed recommended 6 cycles on October 30, 2020 History of diabetes mellitus, Gastric bypass surgery for morbid obesity in 2000 Anemia since 2018, status post 3 units of packed RBCs on February 29 2020 during bilateral oophorectomy/hysterectomy for right ovarian cancerAnd again on July 25, 2020 for hemoglobin 7 g History of hypothyroidism, diagnosed in 1994, on supplement Plan: Discussed with patient regarding her labs white blood count 4.2 hemoglobin 9.9 compared to 10.3 previously hematocrit 30.9 MCV 107.3 platelets 1 56,000 and her anemia work-up showed ferritin 1259 iron saturation 28.6 iron 65 TIBC 227 B12 1183, zinc level was 46, normal being 60-1 30 and copper level was 124 which is within normal range Clinically, patient doing well with no new signs symptom history of recurrence of disease but patient has persistent moderate anemia, etiology remains unclear as anemia work-up is inconclusive but her zinc level was low, although copper level was within normal range so etiology of her anemia could be due to zinc deficiency or she may have underlying myelodysplasia, at this point patient was advised to take zinc supplement and then repeat her CBC and zinc level in 1 month if it shows improvement then continue if not then may consider bone marrow evaluation in the meantime, continue monthly port maintenance. Signed By: Barbara Cheek M.D. <<Signature on File>>
== END 2021-05-29 23:59 | disposition home or self-care (01) ==
LOC: ONCMED 09:19
PROVIDERS: PCP Nurse Practitioner Family; Visit Provider Internal Medicine Hematology & Oncology
DX: Z08 Encounter for follow-up examination after completed treatment for malignant neoplasm (principal); Z85.43 Personal history of malignant neoplasm of ovary; Z90.710 Acquired absence of both cervix and uterus; E11.9 Type 2 diabetes mellitus without complications; D64.9 Anemia, unspecified; E03.9 Hypothyroidism, unspecified; Z79.899 Other long term (current) drug therapy; Z79.4 Long term (current) use of insulin; Z92.21 Personal history of antineoplastic chemotherapy
CPT/HCPCS: 36591; 82607; 82728; 83540; 83550; 85025; 99214

== ENCOUNTER 2021-05-16 11:32 | Outpatient (CLI) | payer OTHER, SELFPAY ==
[2021-05-16 12:38] LABS: Thyroid Stimulating Hormone 0.58 uIU/mL (0.27-4.20)
== END 2021-05-16 11:33 | disposition home or self-care (01) ==
PROVIDERS: PCP Nurse Practitioner Family; Visit Provider Internal Medicine
DX: E03.8 Other specified hypothyroidism (principal); E06.3 Autoimmune thyroiditis
CPT/HCPCS: 84443

== ENCOUNTER 2021-06-16 10:33 | Day surgery (SDC) | payer OTHER, SELFPAY ==
[2021-06-13 09:49] VITALS: BMI 32.1
[2021-06-16 10:57] VITALS: BP 158/81; PULSE 71; RESP 18; TEMP 36.6; O2SAT 100
[2021-06-16] MEDS: sodium chloride 0.9% 1,000 ML 30 ML IV (11:09)
[2021-06-16 11:27] LABS: Basophils % 0.2 %; Eosinophils # 0.1 10^3/uL (0.0-0.8); Hematocrit 33.2 % (37.0-47.0); Hemoglobin 10.6 g/dL (11.5-15.3); Lymphocytes # 1.5 10^3/uL (0.8-4.8); Lymphocytes % 28.9 %; Mean Corpuscular HGB Conc 31.9 g/dL (30.0-36.0); Mean Corpuscular Hemoglobin 34.1 pg (28.0-34.0); Mean Corpuscular Volume 106.8 fl (81-99); Mean Platelet Volume 9.7 fL (7.4-10.4); Monocytes # 0.3 10^3/uL (0.2-0.9); Monocytes % 6.1 %; Neutrophils # 3.32 10^3/uL (1.8-7.7); Neutrophils % 63.6 %; Nucleated Red Blood Cells % 0 %; Platelet Count 164 10^3/cmm (130-400); Red Blood Count 3.11 10^6/uL (4.1-5.3); White Blood Count 5.2 10^3/uL (4.0-10.0)
--- NOTE | 2021-06-16 11:43 | ANES.PREANE2 ---
Documented by User: Hattie Gama CRNA 06/16/21 11:48 Pre-Anesthetic Assessment Height/Weight: Height 1.7 m Weight 92.986 kg Temp Pulse Resp BP Pulse Ox 97.8 F 71 18 158/81 100 06/16/21 10:57 06/16/21 10:57 06/16/21 10:57 06/16/21 10:57 06/16/21 10:57 Preop Diagnosis: Perforated viscus Operation Date: 06/16/21 12:00 Proposed Procedures p Bone Marrow Biospy With Aspiration(Not Applicable) - Barbara Cheek MD Familial anesthetic complications: none Was Beta Stephen taken within 24 hours: N/A Last intake: Intake Last Liquid Date 06/15/21 Last Liquid Time 23:59 Last Solid Date 06/15/21 Last Solid Time 23:59 Social No alcohol and No tobacco Airway Submandibular: within normal limits Mallampati: Class II Dentition: false Comments: Comments: tooth on lower left jaw loose Pulmonary None reported CV/HEM Arrythmia (sinus tachycardia) and Hypertension None reported Hepatic None reported GI Gastroesophageal Reflux Disease Metabolic Diabetes Mellitus, Hyperlipidemia, Morbid Obesity and Thyroid Disease [facility] Osteoarthritis/DJD chronic neck pain Neuropsych Anxiety, Depression and Neuropathy (upper extremities) Anesthetic Plan ASA status: 3 Anesthesia: MAC Medications/Allergies Home Medications Medication Instructions Recorded Confirmed Last Taken Type atorvastatin 10 mg tablet 10 mg PO DAILY@2200 03/20/19 06/13/21 06/16/21 03:00 History tramadol 50 mg tablet 50 mg PO TID PRN 03/20/19 06/13/21 06/16/21 03:00 History lisinopril 10 mg tablet 10 mg PO QAM 10/03/19 06/13/21 06/15/21 15:00 History levothyroxine 175 mcg tablet 175 mcg PO QAM 05/06/20 06/13/21 06/15/21 15:00 History loratadine 10 mg tablet (Claritin) 10 mg PO DAILY 09/29/20 06/13/21 06/15/21 15:00 History acetaminophen 500 mg oral powder 1,000 mg PO BID PRN ea 12/19/20 06/13/21 06/16/21 03:00 History packet (Tylenol Extra Strength) multivitamin 1 tab PO DAILY 12/19/20 06/13/21 06/16/21 03:00 History buspirone 15 mg tablet 15 mg PO BID #60 tab 01/31/21 06/13/21 06/16/21 03:00 Rx sertraline 100 mg tablet (Zoloft) 200 mg PO DAILY #60 tab 01/31/21 06/13/21 06/16/21 03:00 Rx pantoprazole 40 mg tablet,delayed 40 mg PO BIDWMEAL #60 tab 02/03/21 06/13/21 06/16/21 03:00 Rx release (Protonix) ferrous sulfate 325 mg (65 mg 325 mg PO DAILY 04/21/21 06/13/21 06/16/21 03:00 History iron) tablet (Feosol) zinc 50 mg tablet 50 mg PO DAILY 06/13/21 06/13/21 06/16/21 03:00 History Allergies Allergy/AdvReac Type Severity Reaction Status Date / Time amoxicillin Allergy Unknown Unknown Verified 06/13/21 09:45 cephalexin [From Keflex] Allergy Unknown Unknown Verified 06/13/21 09:45 Penicillins Allergy Unknown Unknown Verified 06/13/21 09:45 Current Medications Generic Name Dose Route Start Last Admin Trade Name Freq PRN Reason Stop Dose Admin Sodium Chloride 1,000 mls @ 30 mls/hr 06/16/21 10:45 06/16/21 11:09 Sodium Chloride 0.9% IV 06/17/21 10:44 30 mls/hr .Q24H DELIA Administration PFSH Anesthesia Medical History Anemia Arthritis COVID-17 May 2020 Diabetes Diabetes Hyperlipidemia Hypothyroidism Major depressive disorder, recurrent, in full remission Ovarian cancer Perforated abdominal viscus Psychiatric care Tachycardia Thrombocytopenia UTI (urinary tract infection) Surgical History H/O gastric bypass 1999 H/O: hysterectomy 2019 Family History Sister Clotting disorder Diabetes Thyroid condition Father Hyperlipidemia Hypertension Heart disease Mother Hyperlipidemia Hypertension Stroke Breast cancer mid 50's Family/Other Colon cancer paternal aunt Denies family history of Ovarian cancer Anesthesia complication Bleeding disorder Uterine cancer Social History Smoking and tobacco status: never smoked Second hand smoke exposure: No Smoking risk assessment/counseling performed?: No Alcohol intake: current Alcohol intake frequency: holidays/special occasions only Alcohol type: wine Desire information about alcohol rehabilitation?: No Counseling given: No Desire information about substance/drug rehabilitation?: No Counseling given: Yes Adopted: No Caregiver/support person: No Lives independently: Yes Household members: other Housing: Apartment Marital status: Single Highest education level completed: Bachelor's Degree service: No Current occupational status: employed History of recent travel: No Data Anesthesia : 06/16/21 11:07 Short CBC 06/16/21 Range/Units 11:07 WBC 5.2 (4.0-10.0) 10^3/uL Hgb 10.6 L (11.5-15.3) g/dL Hct 33.2 L (37.0-47.0) % MCV 106.8 H (81-99) fl Plt Count 164 (130-400) 10^3/cmm Neut % (Auto) 63.6 % Neut # (Auto) 3.32 (1.8-7.7) 10^3/uL Cardiac Studies: No Data to Display
--- NOTE | 2021-06-16 12:29 | W.PM.OPSUD ---
Surgery/Procedure H&P Update DATE OF PROCEDURE: June 16, 2021 DATE H&P PERFORMED: 05/08/21 CHANGES TO PREVIOUS DOCUMENTATION: Evaluated and examined, patient has history of anemia and her anemia work-up remained inconclusive, concern is regarding myelodysplasia, now scheduled for bone marrow evaluation. PREOP DIAGNOSIS: Perforated viscus PLANNED PROCEDURE: Operation Date: 06/16/21 12:00 Proposed Procedures p Bone Marrow Biospy With Aspiration(Not Applicable) - Barbara Cheek MD
--- NOTE | 2021-06-16 12:56 | P.PCN_ITS ---
Bone Marrow Biopsy Bone Marrow Biopsy: I was consulted by [] office regarding bone marrow biopsy on [Alecia jackie]. Briefly, the patient is a [61] year old [Female] with [Anemia]. In the Outpatient Services Department, with nursing staff and laboratory technologists in attendance, the procedure was discussed with the patient. Appropriate consent form had been signed. Appropriate alternatives, benefits and risks of procedure were discussed with the patient and she was pre- operatively assessed with a history and physical by myself and cleared for the biopsy procedure. The patient did request IV sedation and that was provided by the Anesthesia Department. Under aseptic condition right posterior iliac area was cleaned and prepped, local anesthesia was given, about 15 cc of bone marrow aspirate and core biopsy was obtained, patient tolerated procedure well, specimen was sent for routine histopathology and cytogenetics and FISH for MDS Thank you for allowing me to participate in this patient's care and diagnosis. Coding Level of Care Code Acute Community Service Aide for Lito Li Medical Decision Making Straight Forward
[2021-06-16 13:02] VITALS: BP 93/49; PULSE 60; RESP 16; TEMP 36.3; O2SAT 100
[2021-06-16 13:16] VITALS: BP 107/59; PULSE 58; RESP 18; O2SAT 100
--- NOTE | 2021-06-16 15:13 | ANE.PACU2 ---
Inpatient post-anesthesia follow up: Airway intact: Yes Vital signs: Temperature 97.4 F Pulse Rate 58 Respiratory Rate 18 Blood Pressure 107/59 Pulse Oximetry 100 Oxygen Delivery Me thod Room Air Oxygen Flow Rate 3 Fraction of Inspir ed Oxygen Hydration adequate: Yes Nausea and vomiting: No Pain level: 1 Mental status: Baseline
[2021-06-18 13:23] LABS: Leukemia Profile (BBPL) See Report; Lymphoma Profile (BBPL) See Report
[2021-06-24 08:37] LABS: Miscellaneous Test See Scanned Lab Rpt
[2021-06-25 09:39] LABS: Miscellaneous Test See Scanned Lab Rpt
== END 2021-06-16 13:43 | disposition home or self-care (01) ==
PROVIDERS: PCP Nurse Practitioner Family; Visit Provider Internal Medicine Hematology & Oncology
PROC: 07DT3ZX Extraction of Bone Marrow, Percutaneous Approach, Diagnostic (ICD-10-PCS; CPT 38222; principal; 2021-06-16 12:00)
DX: D64.9 Anemia, unspecified (principal); K21.9 Gastro-esophageal reflux disease without esophagitis; E78.5 Hyperlipidemia, unspecified; E66.01 Morbid (severe) obesity due to excess calories; Z68.32 Body mass index [BMI] 32.0-32.9, adult; E11.40 Type 2 diabetes mellitus with diabetic neuropathy, unspecified; M19.90 Unspecified osteoarthritis, unspecified site; E03.9 Hypothyroidism, unspecified; Z85.43 Personal history of malignant neoplasm of ovary; Z98.1 Arthrodesis status
CPT/HCPCS: 36415; 38222; 85025; 88184; 88185; 88237; 88264; 88305; 88311; 88367; 88374; J2704; J7030

== ENCOUNTER 2021-06-26 06:36 | Outpatient (RCR) | payer OTHER, SELFPAY ==
[2021-06-10 08:31] LABS: Basophils % 0.4 %; Eosinophils # 0.1 10^3/uL (0.0-0.8); Eosinophils % 1.4 %; Hematocrit 31.3 % (37.0-47.0); Hemoglobin 10.1 g/dL (11.5-15.3); Lymphocytes # 1.1 10^3/uL (0.8-4.8); Lymphocytes % 23.2 %; Mean Corpuscular HGB Conc 32.3 g/dL (30.0-36.0); Mean Corpuscular Hemoglobin 34.2 pg (28.0-34.0); Mean Corpuscular Volume 106.1 fl (81-99); Mean Platelet Volume 9.5 fL (7.4-10.4); Monocytes # 0.3 10^3/uL (0.2-0.9); Monocytes % 6.4 %; Neutrophils # 3.33 10^3/uL (1.8-7.7); Neutrophils % 68.4 %; Nucleated Red Blood Cells % 0 %; Platelet Count 143 10^3/cmm (130-400); Red Blood Count 2.95 10^6/uL (4.1-5.3); White Blood Count 4.9 10^3/uL (4.0-10.0)
--- NOTE | 2021-06-11 17:20 | ONC FU_ITS ---
Dr. Cheek follow up note Patient: Alecia Meier I Unit #: [id number]: 1960 Dicatated By: Barbara Cheek M.D.Date of Visit:Jun 10, 2021 Onc Med Follow-up/Prog Note History of Present Illness: Ms. Meier is a 61-year-old female with a history of progressive abdominal/pelvic pain. She was evaluated by Dr. Guteirrez SAIL CUTTER and subsequently underwent abdominal ultrasoud which confirmed a large complex ovarian mass. Her tumor marker/CA-125 was checked on February 06, 2020 was elevated at 55.5. Further evaluation with CT scan of abdomen pelvis confirmed large cystic lesion with mural nodularity arising from pelvis- likely ovarian neoplasm. The size of the mass was 15.3 x 23 .8 x 22.1 cm. Small amount of free fluid in the pelvis. Cholelithiasis. Prior gastric bypass but no visible pelvic or inguinal lymphadenopathy. Ms Meier was referred to Dr. Mtz in [place]. On February 29, 2020 she underwent right resection of ovarian cancer, bilateral salpingo-oophorectomy, total abdominal hysterectomy, pelvic and para-aortic lymphadenectomy, omentectomy and multiple biopsies including right hemidiaphragm. The final pathology report came back showed a right ovarian tumor size about 10 cm, endometrioid adenocarcinoma, intact, grade 3 e.g. T1 a. 10 lymph nodes were examined showed no evidence of metastatic disease e.g. N0 stage I Immunohistochemistry was positive for p16, p53, Ki-67 and vimentin consistent with high-grade endometrioid carcinoma. Patient tolerated procedure well and based on high-grade e.g. grade 3 ovarian endometrioid carcinoma, as per patient she was recommended adjuvant chemotherapy with 6 cycles carboplatin/Taxol. Patient is a diabetic, also has history of morbid obesity for which she underwent gastric bypass in 1999, as per patient about 2 years ago she was diagnosed with persistent anemia and she did require 3 units of packed RBC during her recent bilateral oophorectomy/hysterectomy done on February 29, 2020. Ms Meier was referred to [facility] oncology for second opinion at her request and evaluation for clinical trial. She was seen by Dr. Luis Post on May 15, 2019. His recommendations were that he agreed with her original diagnosis and recommended her to proceed with 6 cycles of carboplatin/Taxol. As per patient on May 03, 2020 she was diagnosed with Covid infection and had some breathing difficulty so went to [facility]. She did receive monoclonal antibody treatment for the COVID-19 and tolerated it well. She underwent transinternal jugular vein entheses right internal jugular vein) power port placement per Dr. Apodaca on June 03, 2020. She began her first cycle of carboplatin paclitaxel on June 13, 2020.Completed 6 cycles of chemotherapy with carboplatin/Taxol on October 30, 2020 CT scan of chest abdomen pelvis done on December 24, 2020 showed dilated contrast filled loop of proximal small bowel in the left upper quadrant adjacent to anastomotic suture suspicious for stricture with a partial small bowel obstruction. Dilated loop of small bowel measures 6.4 cm maximum diameter with contrast and delayed emptying. Cholelithiasis. Prior gastric bypass. Prior hysterectomy. Evidence of recent ostomy takedown or laparoscopic track right lower quadrant. No central lymphadenopathy. Came for follow-up, denies any specific complaint except persistent generalized weakness and fatigue, no nausea or vomiting, no diarrhea or constipation, no melena hematochezia, no hemoptysis hematemesis, no fever chills, no jaundice, no chest pain or palpitation, no shortness of breath at rest but dyspnea on exertion. Medications: All Day Allergy 1 Tablet (of 10 mg) Oral daily, Atorvastatin Calcium 1 Tablet (of 10 mg) Oral daily, B-12 1 Tablet Oral daily, busPIRone HCl 1 Tablet (of 15 mg) Oral b.i.d., Euthyrox 1 Tablet (of 175 mcg) Oral daily, Lisinopril 1 Tablet (of 10 mg) Oral daily, Pantoprazole Sodium 1 Tablet (of 40 mg) Tablet, enteric coated Oral b.i.d., Slow Release Iron 1 Tablet (of 47.5 mg) Tablet, controlled release Oral daily, traMADol HCl 1 Tablet (of 50 mg) Oral t.i.d. PRN, Tums Tablet, chewable Oral PRN, Zoloft 2 Tablet (of 100 mg) Oral daily Allergies: Amoxicillin and Cephalexin. Review of Systems: Review of Systems is not available for this patient. Vital Signs: Performed on Jun 10, 2021 10:16 Height - 67.00 in Weight - 205.2 lbs (HIGH) BSA - 2.04 sq.m BMI - 32.14 (HIGH) Temperature - 97.9 F (LOW) Pulse - 93 /min Respiration - 16 /min BP - 125/74 mm(hg) O2 Sat - 97 % Pain - 2 Fatigue - 3 Performance Status: 0 - Fully active, able to carry on all predisease activities without restrictions. (ECOG) Physical Examination: ENMT - No mouth sores, no thrush, no jaundice, Respiratory - Lungs are clear to auscultation, Cardiovascular - Regular rate and rhythm of heart, Abdomen - Soft, bowel sounds present, Extremities - No visible edema. Lab/Imaging: Test performed on Dec 16, 2020 10:16 Sodium 137 mmol/L Potassium 4.3 mmol/L Chloride 103 mmol/L CO2 22 mmol/L Anion Gap 16.3 BUN 19 mg/dL Creatinine 1.2 mg/dL Cr Clearance (Est) 70.6100 mL/min eGFR 45.8 mL/min Glucose 102 mg/dL Osmolality - Calculated 286 mOsm/kg Calcium 9.3 mg/dL Protein, Total 7.0 g/dL Albumin 3.7 g/dL Globulin 3.3 g/dL Bilirubin, Total 0.3 mg/dL ALT (SGPT) 12 U/L AST (SGOT) 14 U/L Alkaline Phosphatase 94 IU/L WBC 5.3 10 3/uL RBC 2.48 10 6/uL HGB 8.2 g/dL HCT 26.5 % MCV 106.9 fl MCH 33.1 pg MCHC 30.9 g/dL RDW 21.4 % Platelet Count 199 10 3/cmm MPV 9.6 fL Neutrophils 3.30 10 3/uL Lymphocytes 1.5 10 3/uL Monocytes 0.5 10 3/uL Eosinophils 0.0 10 3/uL Basophils 0.0 10 3/uL Neutrophil % 61.9 % Lymphocyte % 27.3 % Monocyte % 9.2 % Eosinophil % 0.8 % Basophils % 0.4 % NRBC % 0 % Anti-D Negative Blood Type ON Antibody Screen (Gel) NEGATIVE Impression: Grade 3 ovarian endometrioid carcinoma status post right resection of ovarian cancer, bilateral salpingo-oophorectomy, total abdominal hysterectomy, pelvic and para-aortic lymphadenectomy, omentectomy, multiple biopsies including right hemidiaphragm done on February 29, 2020 Final pathology report confirmed 10 cm sized tumor involving the right ovary, endometrioid adenocarcinoma, grade 3, intact, peritoneal fluid negative implants negative and 0 out of 10 lymph nodes showed metastatic disease e.g. pT1a limited to 1 ovary (capsule intact). p N 0, MX stage I Immunohistochemistry were positive for p16, p53, Ki-67, vimentin, pattern consistent with high-grade endometrial carcinoma Started on adjuvant chemotherapy with carboplatin/Taxol on and completed recommended 6 cycles on October 30, 2020 History of diabetes mellitus, Gastric bypass surgery for morbid obesity in 1999 Anemia since 2018, status post 3 units of packed RBCs on February 29 2020 during bilateral oophorectomy/hysterectomy for right ovarian cancerAnd again on July 25, 2020 for hemoglobin 7 g History of hypothyroidism, diagnosed in 1994, on supplement Plan: Discussed with patient regarding her labs white blood count 4.9 hemoglobin 10.1 g hematocrit 31.3 platelets 143,000 iron studies showed iron saturation 28.6% ferritin 1259, iron 65 TIBC 227 B12 1183 Clinically, patient doing reasonably well, now with persistent mild/moderate anemia, anemia work-up remained inconclusive, at this point we will consider bone marrow evaluation to rule out underlying myelodysplasia. As per patient her sister has history of anemia since childhood, she was diagnosed with some sort of genetic disorder causing anemia. As far as generalized weakness and fatigue is concerned, it appears multifactorial, considering her weight sleep apnea cannot be ruled out, as per patient she has history of sleep apnea and in the past she used to use CPAP machine and that he used to help her but one time she lost her insurance and could not afford CPAP machine and since then she has not used CPAP machine. She also has history of chronic neck pain for which she was undergoing physical therapy that did not help her, now orthopedic evaluation is under consideration Signed By: Barbara Cheek M.D. <<Signature on File>>
[2021-06-12 20:27] LABS: Zinc Level, Serum or Plasma 76 mcg/dL (60-130)
--- NOTE | 2021-06-29 17:38 | ONC FU_ITS ---
Dr. Cheek follow up note Patient: Alecia Meier I Unit #: [id number]: 1960 Dicatated By: Barbara Cheek M.D.Date of Visit:Jun 26, 2021 Onc Med Follow-up/Prog Note History of Present Illness: Ms. Meier is a 61-year-old female with a history of progressive abdominal/pelvic pain. She was evaluated by Dr. Gutierrez [employer] and subsequently underwent abdominal ultrasoud which confirmed a large complex ovarian mass. Her tumor marker/CA-125 was checked on February 06, 2020 was elevated at 55.5. Further evaluation with CT scan of abdomen pelvis confirmed large cystic lesion with mural nodularity arising from pelvis- likely ovarian neoplasm. The size of the mass was 15.3 x 23 .8 x 22.1 cm. Small amount of free fluid in the pelvis. Cholelithiasis. Prior gastric bypass but no visible pelvic or inguinal lymphadenopathy. Ms Meier was referred to Dr. Mtz in [place]. On February 29, 2020 she underwent right resection of ovarian cancer, bilateral salpingo-oophorectomy, total abdominal hysterectomy, pelvic and para-aortic lymphadenectomy, omentectomy and multiple biopsies including right hemidiaphragm. The final pathology report came back showed a right ovarian tumor size about 10 cm, endometrioid adenocarcinoma, intact, grade 3 e.g. T1 a. 10 lymph nodes were examined showed no evidence of metastatic disease e.g. N0 stage I Immunohistochemistry was positive for p16, p53, Ki-67 and vimentin consistent with high-grade endometrioid carcinoma. Patient tolerated procedure well and based on high-grade e.g. grade 3 ovarian endometrioid carcinoma, as per patient she was recommended adjuvant chemotherapy with 6 cycles carboplatin/Taxol. Patient is a diabetic, also has history of morbid obesity for which she underwent gastric bypass in 1999, as per patient about 2 years ago she was diagnosed with persistent anemia and she did require 3 units of packed RBC during her recent bilateral oophorectomy/hysterectomy done on February 29, 2020. Ms Meier was referred to [facility] oncology for second opinion at her request and evaluation for clinical trial. She was seen by Dr. Luis Post on May 15, 2019. His recommendations were that he agreed with her original diagnosis and recommended her to proceed with 6 cycles of carboplatin/Taxol. As per patient on May 03, 2020 she was diagnosed with Covid infection and had some breathing difficulty so went [place] [facility] She did receive monoclonal antibody treatment for the COVID-19 and tolerated it well. She underwent transinternal jugular vein entheses right internal jugular vein) power port placement per Dr. Apodaca on June 03, 2020. She began her first cycle of carboplatin paclitaxel on June 13, 2020.Completed 6 cycles of chemotherapy with carboplatin/Taxol on October 30, 2020 CT scan of chest abdomen pelvis done on December 24, 2020 showed dilated contrast filled loop of proximal small bowel in the left upper quadrant adjacent to anastomotic suture suspicious for stricture with a partial small bowel obstruction. Dilated loop of small bowel measures 6.4 cm maximum diameter with contrast and delayed emptying. Cholelithiasis. Prior gastric bypass. Prior hysterectomy. Evidence of recent ostomy takedown or laparoscopic track right lower quadrant. No central lymphadenopathy. For persistent anemia with normal iron stores and B12 level, bone marrow evaluation was planned and done on June 16, 2021 which showed normocellular bone marrow for age, 20 to 40%, no overt dyspoietic or megaloblastic changes seen. No bone marrow infiltrative disorder detected. Markedly increased storage iron and no ring sideroblasts. No significant reticulin fibrosis. Flow cytometry did not detect any aberrant myeloid or lymphoid population. FISH for MDS was also negative. Came for follow-up, denies any specific complaints except off-and-on generalized weakness and fatigue which is somewhat improving, she is also attributing this to her night schedule at work otherwise, no fever chills, no nausea or vomiting, no melena or hematochezia, also having some off-and-on tingling in upper extremities for which she is undergoing MRI scan of C-spine as planned by orthopedics. Medications: All Day Allergy 1 Tablet (of 10 mg) Oral daily, Atorvastatin Calcium 1 Tablet (of 10 mg) Oral daily, B-12 1 Tablet Oral daily, busPIRone HCl 1 Tablet (of 15 mg) Oral b.i.d., Euthyrox 1 Tablet (of 175 mcg) Oral daily, Lisinopril 1 Tablet (of 10 mg) Oral daily, Pantoprazole Sodium 1 Tablet (of 40 mg) Tablet, enteric coated Oral b.i.d., Slow Release Iron 1 Tablet (of 47.5 mg) Tablet, controlled release Oral daily, traMADol HCl 1 Tablet (of 50 mg) Oral t.i.d. PRN, Tums Tablet, chewable Oral PRN, Zoloft 2 Tablet (of 100 mg) Oral daily Allergies: Amoxicillin and Cephalexin. Review of Systems: Review of Systems is not available for this patient. Vital Signs: Performed on Jun 26, 2021 13:36 Height - 67.00 in Weight - 205.0 lbs (LOW) BSA - 2.04 sq.m BMI - 32.11 (HIGH) Temperature - 97.6 F (LOW) Pulse - 81 /min Respiration - 18 /min BP - 109/69 mm(hg) O2 Sat - 97 % Pain - 2 Fatigue - 3 Performance Status: 0 - Fully active, able to carry on all predisease activities without restrictions. (ECOG) Physical Examination: ENMT - No mouth sores, no thrush, no jaundice, no cervical lymphadenopathy, Respiratory - Lungs are clear to auscultation, Cardiovascular - Regular rate and rhythm of heart, Abdomen - Soft, bowel sounds present, Extremities - No visible edema. Lab/Imaging: Most recent lab results are not available for this patient. Impression: Grade 3 ovarian endometrioid carcinoma status post right resection of ovarian cancer, bilateral salpingo-oophorectomy, total abdominal hysterectomy, pelvic and para-aortic lymphadenectomy, omentectomy, multiple biopsies including right hemidiaphragm done on February 29, 2020 Final pathology report confirmed 10 cm sized tumor involving the right ovary, endometrioid adenocarcinoma, grade 3, intact, peritoneal fluid negative implants negative and 0 out of 10 lymph nodes showed metastatic disease e.g. pT1a limited to 1 ovary (capsule intact). p N 0, MX stage I Immunohistochemistry were positive for p16, p53, Ki-67, vimentin, pattern consistent with high-grade endometrial carcinoma Started on adjuvant chemotherapy with carboplatin/Taxol on and completed recommended 6 cycles on October 30, 2020 History of diabetes mellitus, Gastric bypass surgery for morbid obesity in 1999 Anemia since 2018, status post 3 units of packed RBCs on February 29 2020 during bilateral oophorectomy/hysterectomy for right ovarian cancerAnd again on July 25, 2020 for hemoglobin 7 g History of hypothyroidism, diagnosed in 1994, on supplement Plan: Discussed with patient regarding her bone marrow findings which showed no obvious findings suggestive of MDS, FISH and flow cytometry was also unremarkable. Etiology of her mild/moderate anemia remained inconclusive, patient has history of gastric bypass, so it could be due to mineral deficiency as her B12 level, iron studies were within normal limits, will continue to monitor and she will return to clinic in 2-1/2 months with CBC if it shows persistent anemia, may consider checking folate, RBC folate and methylmalonic acid level and homocystine level. In the meantime she will continue with monthly port maintenance Signed By: Barbara Cheek M.D. <<Signature on File>>
== END 2021-06-28 23:59 | disposition home or self-care (01) ==
LOC: ONCMED 06:36
PROVIDERS: PCP Nurse Practitioner Family; Visit Provider Internal Medicine Hematology & Oncology
DX: Z08 Encounter for follow-up examination after completed treatment for malignant neoplasm (principal); Z85.43 Personal history of malignant neoplasm of ovary; Z90.710 Acquired absence of both cervix and uterus; E11.9 Type 2 diabetes mellitus without complications; Z98.84 Bariatric surgery status; D64.9 Anemia, unspecified; E03.9 Hypothyroidism, unspecified; Z79.899 Other long term (current) drug therapy; Z92.21 Personal history of antineoplastic chemotherapy
CPT/HCPCS: 36591; 84630; 85025; 99214; 99215

== ENCOUNTER 2021-07-10 15:07 | Oncology outpatient (recurring) (ONCR) | payer OTHER, SELFPAY | END 2021-07-29 23:59 | disposition home or self-care (01) | PROVIDERS: PCP Nurse Practitioner Family; Visit Provider Internal Medicine Hematology & Oncology | DX: Z45.2 Encounter for adjustment and management of vascular access device (principal) | CPT/HCPCS: 96523 ==

== ENCOUNTER 2021-07-14 08:22 | Outpatient (CLI) | payer OTHER, SELFPAY ==
--- NOTE | 2021-07-14 08:28 | MM_ITS ---
WS: [id number] BILATERAL SCREENING DIGITAL BREAST TOMOSYNTHESIS MAMMOGRAM WITH CAD HISTORY: SCREENING COMPARISON: 02/16/2020 and 08/26/2018 Bilateral CC and MLO views with tomosynthesis and synthetic mammography submitted. Computer aided det ection analyzed. Breast composition: There are scattered areas of fibroglandular density. No suspicious masses, microc alcifications or architectural distortion. Benign calcification posterior RIGHT breast. MM/[place] [id number] IMPRESSION: BI-RADS: 2-Benign FOLLOW UP: 1 Year Follow-up
== END 2021-07-14 08:23 | disposition home or self-care (01) ==
PROVIDERS: PCP Nurse Practitioner Family; Visit Provider Nurse Practitioner Family
DX: Z12.31 Encounter for screening mammogram for malignant neoplasm of breast (principal)
CPT/HCPCS: 77063; 77067

== ENCOUNTER 2021-07-19 18:19 | Observation (INO) | payer OTHER, SELFPAY ==
[2021-07-19 18:25] VITALS: BP 111/69; PULSE 137; RESP 18; TEMP 39; O2SAT 93; BMI 32.5
--- NOTE | 2021-07-19 18:32 | ECG_ITS ---
[facility] Test Date: 2021-07-19 Pat Name: Alecia Meier Department: Room: 258 Gender: Female Emergency Room Specialist: : 1960 Requested By: Lan Gerard Order Number: [id number] Joshua MD: David Garcia M.D. Measurements Intervals [place] Rate: 128 P: 29 [place]: 175 QRS: -60 QRSD: 93 T: 61 QT: 296 QTc: 432 Interpretive Statements SINUS TACHYCARDIA LEFT ANTERIOR FASCICULAR BLOCK [QRS AXIS <= -45, QR IN I, RS IN II] POSSIBLE ANTERIOR MYOCARDIAL INFARCTION , OF INDETERMINATE AGE [30 ms Q WAVE IN V3/V4, OR R < 0.2 mV IN V4] Compared to ECG 10/01/2020 11:19:57 Left anterior fascicular block now present Myocardial infarct finding now present Sinus rhythm no longer present Left-axis deviation no longer present Electronically Signed On 07-20-2021 12:13:26 CDT by David Garcia M.D. [id number]
--- NOTE | 2021-07-19 18:32 | XRR_ITS ---
PROCEDURE INFORMATION: Exam: XR Chest Exam date and time: 07/19/2021 6:55 PM Age: 61 years old Clinical indication: Fever TECHNIQUE: Imaging protocol: XR of the chest. Views: 1 view. COMPARISON: CT chest abd pel w con* 12/24/2020 11:31 AM FINDINGS: Tubes, catheters and devices: Right IJ [id number] with tip over the distal SVC. Lungs: Minimal atelectasis in the right mid lung. The lungs are otherwise clear. No consolidation. Pleural spaces: Unremarkable. No pleural effusion. No pneumothorax. Heart/Mediastinum: Unremarkable. No cardiomegaly. Bones/joints: Sclerotic density in the right humerus is most likely a bone island. XR/XR chest 1V portable [id number] IMPRESSION: No acute findings.
--- NOTE | 2021-07-19 18:40 | W.ED.ARRPALP ---
HPI - Arrhythmia/Palpitations General: Chief Complaint: Arrhythmia/Palpitations Stated Complaint: AFIB WITH RVR; FEVER Time Seen by Provider: 07/19/21 18:26 Source: patient and EMS Mode of arrival: EMS Limitations: no limitations History of Present Illness: 61-year-old female states over the last 2 days she been having body aches chills along with fevers. Patient had a temperature 102 and is in sinus tachycardia here EMS had stated A. fib but it is a sinus tachycardia likely from her fever she states she can feel her palpitations denies any chest pain denies any abdominal pain denies any cough Associated symptoms: Deny nausea or vomiting Review of Systems Const: Reports: fever(s), chills, body aches and fatigue Eyes: Denies: blurry vision or eye discomfort ENMT: Denies: throat pain or dental pain Card: Reports: palpitations Resp: Denies: dyspnea GI: Denies: abdominal pain, nausea, vomiting or diarrhea : Denies: dysuria Musc: Denies: neck pain or back pain Skin/Breast: Denies: rash Neuro: Denies: headache(s) Psych: Denies: depression Husam/Lymph: Denies: easy bruising All/Imm: Denies: urticaria PFSH ED PFSH: Medical History Anemia Arthritis COVID-17 May 2020 Diabetes Diabetes Hyperlipidemia Hypothyroidism Major depressive disorder, recurrent, in full remission Ovarian cancer Perforated abdominal viscus Psychiatric care Tachycardia Thrombocytopenia UTI (urinary tract infection) Surgical History H/O gastric bypass 1999 H/O: hysterectomy 2019 Family History Sister Clotting disorder Diabetes Thyroid condition Father Hyperlipidemia Hypertension Heart disease Mother Hyperlipidemia Hypertension Stroke Breast cancer mid 50's Family/Other Colon cancer paternal aunt Denies family history of Ovarian cancer Anesthesia complication Bleeding disorder Uterine cancer Social History Smoking and tobacco status: never smoked Second hand smoke exposure: No Smoking risk assessment/counseling performed?: No Alcohol intake: current Alcohol intake frequency: holidays/special occasions only Alcohol type: wine Desire information about alcohol rehabilitation?: No Counseling given: No Desire information about substance/drug rehabilitation?: No Counseling given: Yes Adopted: No Caregiver/support person: No Lives independently: Yes Household members: other Housing: Apartment Marital status: Single Highest education level completed: Bachelor's Degree service: No Current occupational status: employed History of recent travel: No Physical Exam Const: COMMON NORMALS: no acute distress, patient oriented x3 and healthy appearing HENMT: COMMON NORMALS: normocephalic and atraumatic HEAD & SCALP: normocephalic and atraumatic Eye: COMMON NORMALS: Equal, round and reactive pupils present and EOMs intact bilaterally PUPIL: Yes Equal, round and reactive pupils present Neck/C-Spine: COMMON NORMALS: full ROM and supple Chest: COMMONS NORMALS: normal inspection of the chest and normal palpation of entire chest wall Resp: COMMON NORMALS: normal respiratory effort, No retractions, No use of accessory muscles and clear to auscultation bilaterally AUSCULTATION: clear to auscultation bilaterally Cardio: COMMON NORMALS: regular rhythm and No murmurs present (Cardio) RHYTHM: regular rhythm GI: COMMON NORMALS: Normal to inspection, nondistended, normoactive bowel sounds present, Soft to palpation, non-tender and no masses PALPATION: Yes Soft to palpation Extremity: COMMON NORMALS: normal to inspection and full ROM Neuro: COMMON NORMALS: patient oriented x3, moves all extremities and no focal motor deficits Psych: COMMON NORMALS: mental status grossly normal, Normal thought process present and cooperative THOUGHT PROCESS: Normal thought process present Skin: COMMON NORMALS: no rashes or lesions noted and no wounds GENERAL SKIN EXAM: no rashes or lesions noted Course Vital Signs: Vital signs: Vital Signs Temperature 98.4 F 07/19/21 20:41 Pulse Rate 95 07/19/21 20:41 Respiratory Rate 16 07/19/21 20:41 Blood Pressure 120/62 07/19/21 20:41 Pulse Oximetry 93 07/19/21 20:41 MDM - Arrhythmia/Palpitations Medical Decision Making Patient presents here with fever along with body aches she was tachycardic when she initially arrived here likely due to her high fever her heart rates improved after IV fluids and Tylenol blood pressure here has been normal urine shows nitrates plus 4+ bacteria likely a pyelonephritis she has no abdominal pain no vomiting we will give her IV antibiotics she states she still has some weakness so will admit for observation. Lab Data : 07/19/21 18:30 07/19/21 18:30 Radiology Impressions Chest X-Ray 07/19/21 18:32 IMPRESSION: No acute findings. Laboratory Results WBC 10.3 10^3/uL (4.0-10.0) H 07/19/21 18:30 RBC 3.07 10^6/uL (4.1-5.3) L 07/19/21 18:30 Hgb 10.4 g/dL (11.5-15.3) L 07/19/21 18:30 Hct 31.3 % (37.0-47.0) L 07/19/21 18:30 MCV 102.0 fl (81-99) H 07/19/21 18: MCH 33.9 pg (28.0-34.0) 07/19/21 18: MCHC 33.2 g/dL (30.0-36.0) 07/19/21 18: RDW 11.9 % (12.1-15.1) L 07/19/21 18:30 Plt Count 110 10^3/cmm (130-400) L 07/19/21 18:30 MPV 10.4 fL (7.4-10.4) 07/19/21 18:30 Neut % (Auto) 86.5 % 07/19/21 18:30 Lymph % (Auto) 4.7 % 07/19/21 18: Sampson % (Auto) 7.6 % 07/19/21 18: Eos % (Auto) 0.0 % 07/19/21 18: Baso % (Auto) 0.2 % 07/19/21 18:30 Neut # (Auto) 8.92 10^3/uL (1.8-7.7) H 07/19/21 18:30 Lymph # (Auto) 0.5 10^3/uL (0.8-4.8) L 07/19/21 18:30 Sampson # (Auto) 0.8 10^3/uL (0.2-0.9) 07/19/21 18:30 Eos # (Auto) 0.0 10^3/uL (0.0-0.8) 07/19/21 18:30 Baso # (Auto) 0.0 10^3/uL (0.0-0.1) 07/19/21 18:30 Nucleated RBC % (auto) 0 % 07/19/21 18: Nucleated RBCs # 0.0 /100WBC 07/19/21 18:30 Sodium 135 mmol/L (136-145) L 07/19/21 18:30 Potassium 4.1 mmol/L (3.5-5.1) 07/19/21 18: Chloride 98 mmol/L (98-107) 07/19/21 18:30 Carbon Dioxide 22 mmol/L (22-29) 07/19/21 18: Anion Gap 19.1 (5-19) H 07/19/21 18:30 BUN 23 mg/dL (8-23) 07/19/21 18:30 Creatinine 1.1 mg/dL (0.5-0.9) H 07/19/21 18:30 GFR Calculation 50.5 mL/min (90-130) L 07/19/21: Glucose 248 mg/dL (65-115) H 07/19/21 18: Calculated Osmolality 292 mOsm/kg (285-295) 07/19/21 18: Lactic Acid 1.0 mmol/L (0.5-2.2) 07/19/21 18:45 Calcium 9.0 mg/dL (8.5-10.5) 07/19/21 18: Total Bilirubin 0.8 mg/dL (0.15-1.2) 07/19/21 18: AST 101 U/L (0-32) H 07/19/21 18:30 ALT 114 U/L (0-33) H 07/19/21 18:30 Alkaline Phosphatase 163 IU/L (35-105) H 07/19/21 18:30 Total Protein 6.7 g/dL (6.6-8.7) 07/19/21 18: Albumin 3.9 g/dL (3.5-5.2) 07/19/21 18: Globulin 2.8 g/dL (1.3-4.6) 07/19/21 18:30 Urine Color Yellow (Yellow) 07/19/21 20: Urine Appearance Hazy (CLEAR) A 07/19/21 20:30 Urine pH 5 (5-7) 07/19/21 20:30 Ur Specific [place] 1.015 (1.005-1.030) 07/19/21 20:30 Urine Protein Trace (Negative) 07/19/21 20:30 Urine Glucose (UA) Norm (Normal) 07/19/21 20:30 Urine Ketones Negative (Negative) 07/19/21 20:30 Urine Blood 2+ (Negative) H 07/19/21 20:30 Urine Nitrate Positive (Negative) H 07/19/21 20:30 Urine Bilirubin Neg (Negative) 07/19/21 20:30 Urine Urobilinogen 1 mg/dL (Negative) H 07/19/21 20:30 Ur Leukocyte Esterase 2+ (Negative) H 07/19/21 20:30 Urine RBC 10-15 /hpf (0-2) H 07/19/21 20:30 Urine WBC >100 /hpf (0-5) H 07/19/21 20:30 Ur Squamous Epith Cells 0-4 /hpf (0-5) H 07/19/21 20:30 Amorphous Sediment Not Reportable 07/19/21 20:30 Urine Bacteria 4+ /hpf (NONE) H 07/19/21 20:30 Influenza Type A Ag Negative (Negative) 07/19/21 20:30 Influenza Type B Ag Negative (Negative) 07/19/21 20:30 SARS-CoV-2 Ag (Rapid) Negative (Negative) 07/19/21 18:44 EKG Data EKG 1: I personally reviewed and interpreted this EKG as follows: EKG interpretation date: 07/19/21 EKG interpretation time: 18:39 Interpretation: sinus tach hr [address] or t wave abnormalities qrs 93 qtc 372 Other EKG comments: Chest X-Ray 07/19/21 18:32 IMPRESSION: No acute findings. Discharge Plan Discharge Patient Disposition: Admitted As Inpatient Clinical Impression: Pyelonephritis, Fever Condition: Stable Coding Level of Care Code ED Pulp Machine Operator for Chg Fwd Exam Comprehensive
[2021-07-19 18:44] LABS: Basophils % 0.2 %; Hematocrit 31.3 % (37.0-47.0); Hemoglobin 10.4 g/dL (11.5-15.3); Lymphocytes # 0.5 10^3/uL (0.8-4.8); Lymphocytes % 4.7 %; Mean Corpuscular HGB Conc 33.2 g/dL (30.0-36.0); Mean Corpuscular Hemoglobin 33.9 pg (28.0-34.0); Mean Platelet Volume 10.4 fL (7.4-10.4); Monocytes # 0.8 10^3/uL (0.2-0.9); Monocytes % 7.6 %; Neutrophils # 8.92 10^3/uL (1.8-7.7); Neutrophils % 86.5 %; Nucleated Red Blood Cells % 0 %; Platelet Count 110 10^3/cmm (130-400); Red Blood Count 3.07 10^6/uL (4.1-5.3); Red Cell Distribution Width 11.9 % (12.1-15.1); White Blood Count 10.3 10^3/uL (4.0-10.0)
[2021-07-19] MEDS: sodium chloride 0.9% 1,000 ML 999 ML IV (18:48)
--- NOTE | 2021-07-19 18:55 | PC.NURSE ---
PT PLACED ON CONTINUOUS SPO2, NIBP, AND CM.
[2021-07-19 19:03] LABS: Alanine Aminotransferase 114 U/L (0-33); Albumin Level 3.9 g/dL (3.5-5.2); Alkaline Phosphatase 163 IU/L (35-105); Anion Gap 19.1 (5-19); Aspartate Amino Transferase 101 U/L (0-32); Blood Urea Nitrogen 23 mg/dL (8-23); Carbon Dioxide 22 mmol/L (22-29); Chloride 98 mmol/L (98-107); Globulin 2.8 g/dL (1.3-4.6); Glomerular Filtration Rate 50.5 mL/min (90-130); Glucose 248 mg/dL (65-115); Osmolality Calculated 292 mOsm/kg (285-295); Potassium 4.1 mmol/L (3.5-5.1); Sodium 135 mmol/L (136-145); Total Bilirubin 0.8 mg/dL (0.15-1.2); Total Protein 6.7 g/dL (6.6-8.7)
[2021-07-19 19:23] LABS: SARS Covid-2 Antigen Negative (Negative)
--- NOTE | 2021-07-19 20:00 | PC.NURSE ---
received report. 61 yo female presents with rapid heart rate, fever, chills for 2 days. She was hypotensive, 90's systolic. She has received 1 L bolus and labs pending. Awaiting Urine. patient a/o x 4. even non labored respirations. denies pain.
[2021-07-19 20:41] VITALS: BP 120/62; PULSE 95; RESP 16; TEMP 36.9; O2SAT 93
[2021-07-19 20:57] LABS: Protein Urine Trace (Negative); Specific Gravity, Urine 1.015 (1.005-1.030); Urine Appearance Hazy (CLEAR); Urine Color Yellow (Yellow); pH Urine 5 (5-7)
[2021-07-19 20:58] LABS: Bilirubin Urine Neg (Negative); Glucose Urine UA Norm (Normal); Ketones Urine Negative (Negative); Nitrate Urine Positive (Negative)
[2021-07-19 20:59] LABS: Add Urine Microscopic? YES; Leukocyte Esterase Urine 2+ (Negative); Urobilinogen Urine 1 mg/dL (Negative)
[2021-07-19 21:02] LABS: Blood Urine 2+ (Negative)
[2021-07-19 21:03] LABS: Add Urine Culture? Yes; Bacteria Urine 4+ /hpf; Squamous Epithelial Cell Urine 0-4 /hpf (0-5); WBC Urine >100 /hpf (0-5)
[2021-07-19 21:09] LABS: Influenza A by IFA Negative (Negative); Influenza B by IFA Negative (Negative)
[2021-07-19] MEDS: ciprofloxacin 400 MG/200 ML PREMIX 200 MG IV (21:34)
--- NOTE | 2021-07-19 21:51 | PM.HP ---
Providers/Chief Complaint Admitting Physician: Solange Devi DO Primary Care Provider: EVERARDO Davidson Chief Complaint: AFIB WITH RVR; FEVER History of Present Illness The patient is a [age]-year-old female who presents with chief complaint of 24 hour history of rigors.? Aside from this she really endorses no complaints.? She denies fever, nausea, vomiting, cough, wheeze, abdominal pain, diarrhea, myalgia, dysuria, chest pain, dyspnea, flank pain, hematuria.? She presents for further evaluation Review of Systems General: Reports: 10 or more systems reviewed and unremarkable except in HPI and below Medications/Allergies Home Medications Medication Instructions Recorded Confirmed Last Taken Type atorvastatin 10 mg tablet 10 mg PO DAILY@2200 03/20/19 06/17/21 06/16/21 03:00 History tramadol 50 mg tablet 50 mg PO TID PRN 03/20/19 06/17/21 06/16/21 03:00 History lisinopril 10 mg tablet 10 mg PO QAM 10/03/19 06/17/21 06/15/21 15:00 History levothyroxine 175 mcg tablet 175 mcg PO QAM 05/06/20 06/17/21 06/15/21 15:00 History loratadine 10 mg tablet (Claritin) 10 mg PO DAILY 09/29/20 06/17/21 06/15/21 15:00 History acetaminophen 500 mg oral powder 1,000 mg PO BID PRN ea 12/19/20 06/17/21 06/16/21 03:00 History packet (Tylenol Extra Strength) multivitamin 1 tab PO DAILY 12/19/20 06/17/21 06/16/21 03:00 History buspirone 15 mg tablet 15 mg PO BID #60 tab 01/31/21 06/17/21 06/16/21 03:00 Rx sertraline 100 mg tablet (Zoloft) 200 mg PO DAILY #60 tab 01/31/21 06/17/21 06/16/21 03:00 Rx ferrous sulfate 325 mg (65 mg 325 mg PO DAILY 04/21/21 06/17/21 06/16/21 03:00 History iron) tablet (Feosol) zinc 50 mg tablet 50 mg PO DAILY 06/13/21 06/17/21 06/16/21 03:00 History pantoprazole 40 mg tablet,delayed 40 mg PO BIDWMEAL #60 tab 07/11/21 Unknown Rx release (Protonix) Allergies Allergy/AdvReac Type Severity Reaction Status Date / Time amoxicillin Allergy Unknown Unknown Verified 06/17/21 09:44 cephalexin [From Keflex] Allergy Unknown Unknown Verified 06/17/21 09:44 Penicillins Allergy Unknown Unknown Verified 06/17/21 09:44 PFSH Acute PFSH: Medical History Anemia Arthritis COVID-17 May 2020 Diabetes Diabetes Hyperlipidemia Hypothyroidism Major depressive disorder, recurrent, in full remission Ovarian cancer Perforated abdominal viscus Psychiatric care Tachycardia Thrombocytopenia UTI (urinary tract infection) Surgical History H/O gastric bypass 1999 H/O: hysterectomy 2019 Family History Sister Clotting disorder Diabetes Thyroid condition Father Hyperlipidemia Hypertension Heart disease Mother Hyperlipidemia Hypertension Stroke Breast cancer mid 50's Family/Other Colon cancer paternal aunt Denies family history of Ovarian cancer Anesthesia complication Bleeding disorder Uterine cancer Social History Smoking and tobacco status: never smoked Second hand smoke exposure: No Smoking risk assessment/counseling performed?: No Alcohol intake: current Alcohol intake frequency: holidays/special occasions only Alcohol type: wine Desire information about alcohol rehabilitation?: No Counseling given: No Desire information about substance/drug rehabilitation?: No Counseling given: Yes Adopted: No Caregiver/support person: No Lives independently: Yes Household members: other Housing: Apartment Marital status: Single Highest education level completed: Bachelor's Degree service: No Current occupational status: employed History of recent travel: No Vitals/I&O/Wt Last Vital Signs Temp 98.4 F 07/19/21 20:41 Pulse 95 07/19/21 20:41 Resp 16 07/19/21 20:41 BP 120/62 07/19/21 20:41 Pulse Ox 93 07/19/21 20:41 07/19/21 07/19/21 07/19/21 06:59 14:59 22:59 Intake Total 1000 / 1000 Balance 1000 / 1000 Weight last 48 hrs Weight 94.347 kg Physical Exam Narrative: General: -Alert -No acute distress -No dyspnea -No tachypnea Head: -Atraumatic -Normocephalic Eyes: -Pupils equally round and reactive to light and accommodation -Extraocular muscles intact Neurological: -Cranial nerves II-XII intact Neck: -No jugular venous distention -No thyromegaly -No cervical lymphadenopathy Heart: -Regular rate -Regular rhythm -No murmurs -No gallops -No rubs Lungs: -No wheeze -No rhonchi -No rales ? Abdomen: -Normal bowel sounds in all four quadrants -No rebound -No guarding -No tenderness Extremities: -2/4 pulse in all four extremities -No clubbing -No cyanosis -No edema -No calf tenderness present bilaterally -Negative Helio?s sign bilaterally Musculoskeletal: -5/5 bilateral upper extremity strength -5/5 bilateral lower extremity strength -Sensorium of bilateral upper extremities are equal and intact -Sensorium of bilateral lower extremities are equal and intact ? Additional Details / Additional Findings / Exceptions / Miscellaneous: Data : 07/19/21 18:30 07/19/21 18:30 Micro: Microbiology 07/19/21 18:52 Blood Culture - Preliminary Blood SPECIMEN COLLECTED 07/19/21 18:45 Blood Culture - Preliminary Blood SPECIMEN COLLECTED A&P Assessment and plan (1) Pyelonephritis: Status: Acute Plan urinary tract infection with concern for pyelonephritis. Blood culture ?2 drawn the emergency department pending. Levaquin 500 Mill grams IV daily plus IV normal saline 75 ML's per hour Elevated liver function test. Will monitor LFTs periodically with CMP along with PT/INR. Routine kinase level pending. IV normal saline 75 ML's per hour. If these remain elevated, we may consider checking hepatitis panel and right upper quadrant ultrasound especially given her history of cholelithiasis Depression Hypothyroidism. TSH, free T4 pending Anxiety Macrocytic anemia. We will monitor hemoglobin level intermittently. Check serum ferritin, iron panel, fecal occult blood, TSH, free T4, B12, folate level Diabetes. Will check fasting glucose before meals and at bedtime and provide insulin sliding scale GERD Hyperlipidemia Hypertension Obesity. The patient becomes regarding lifestyle modification Endometrial versus ovarian cancer for which the patient is in remission. Patient status post chemotherapy and status post hysterectomy. Outpatient monitoring with hematology/oncology upon discharge as directed Thrombocytopenia. We will monitor platelet count intermittently History of zinc deficiency History of cholelithiasis Arthritis Seasonal allergies DVT Proflex is. Bilateral SCD Attestations Medical Necessity Statement*: the patient's anticipate length of stay is less than 2 midnights for treatment of her urinary tract infection Coding Level of Care Code Acute Crime Scene Technician for Lito Li Diagnoses Pyelonephritis N12
[2021-07-19 22:19] VITALS: BP 105/57; PULSE 96; RESP 16; TEMP 36.9; O2SAT 95
[2021-07-19 22:33] VITALS: BP 100/65; PULSE 92; RESP 19; TEMP 37.3; O2SAT 95
[2021-07-19 22:40] VITALS: BMI 32.7
[2021-07-19] MEDS: acetaminophen 325 mg Tablet 650 MG PO (22:47)
[2021-07-19 22:48] LABS: Glucose Point of Care 270 mg/dL (70-110)
[2021-07-19] MEDS: sodium chloride 0.9% 1,000 ML 75 ML IV (22:48)
[2021-07-19 22:50] LABS: INR 1.04 (0.8-1.2)
[2021-07-19 23:05] LABS: Free T4 Free Thyroxine 1.35 ng/dL (0.82-1.77); Thyroid Stimulating Hormone 0.45 uIU/mL (0.27-4.20)
[2021-07-19 23:15] LABS: Folate Level 19.1 ng/mL (4.8-37.3)
[2021-07-19 23:16] LABS: Iron 14 ug/dL (37-145); Percent Saturation 7.3 % (20-50); Total Iron Binding Capacity 191 mcg/dl; Unsaturated Iron Binding 177 ug/dL (112-347); Vitamin B12 676 pg/mL (232-1245)
[2021-07-20] VITALS (7 sets, daily range): BP systolic 92–117; BP diastolic 61–75; PULSE 72–90; RESP 16–18; TEMP 36.3–37.3; O2SAT 94–98
[2021-07-20 00:01] LABS: Ferritin 2292 ng/mL (15-150)
[2021-07-20 05:36] LABS: Basophils % 0.1 %; Eosinophils % 0.3 %; Hemoglobin 9.5 g/dL (11.5-15.3); Lymphocytes # 0.7 10^3/uL (0.8-4.8); Lymphocytes % 9.6 %; Mean Corpuscular HGB Conc 31.7 g/dL (30.0-36.0); Mean Corpuscular Hemoglobin 34.1 pg (28.0-34.0); Mean Corpuscular Volume 107.5 fl (81-99); Mean Platelet Volume 10.1 fL (7.4-10.4); Monocytes # 0.5 10^3/uL (0.2-0.9); Monocytes % 6.8 %; Neutrophils # 6.29 10^3/uL (1.8-7.7); Neutrophils % 82.7 %; Nucleated Red Blood Cells % 0 %; Platelet Count 85 10^3/cmm (130-400); Red Blood Count 2.79 10^6/uL (4.1-5.3); Red Cell Distribution Width 12.1 % (12.1-15.1); White Blood Count 7.6 10^3/uL (4.0-10.0)
[2021-07-20 05:51] LABS: Alanine Aminotransferase 92 U/L (0-33); Albumin Level 3.5 g/dL (3.5-5.2); Alkaline Phosphatase 137 IU/L (35-105); Anion Gap 14.8 (5-19); Aspartate Amino Transferase 50 U/L (0-32); Blood Urea Nitrogen 22 mg/dL (8-23); Calcium 8.5 mg/dL (8.5-10.5); Carbon Dioxide 25 mmol/L (22-29); Chloride 102 mmol/L (98-107); Glomerular Filtration Rate 45.7 mL/min (90-130); Glucose 163 mg/dL (65-115); Osmolality Calculated 293 mOsm/kg (285-295); Potassium 3.8 mmol/L (3.5-5.1); Sodium 138 mmol/L (136-145); Total Bilirubin 0.5 mg/dL (0.15-1.2); Total Protein 6.5 g/dL (6.6-8.7)
--- NOTE | 2021-07-20 06:11 | PC.NURSE ---
Patient removed hat from toilet, patient educated on need for accurate I/O. Verbalized understanding and stated she had been up to void twice since admission.
[2021-07-20 06:35] LABS: Glucose Point of Care 159 mg/dL (70-110)
[2021-07-20] MEDS: insulin lispro 100 unit/1 mL SUBCUT ×3 (08:48→21:01)
[2021-07-20] MEDS: sertraline 100 mg Tablet 200 MG PO (08:49)
[2021-07-20] MEDS: acetaminophen 325 mg Tablet 650 MG PO ×3 (08:49→23:57)
[2021-07-20] MEDS: levothyroxine 175 mcg Tablet PO (08:49)
[2021-07-20] MEDS: heparin 5,000 unit/mL INJ 1 mL 5000 UNIT SUBCUT ×2 (08:49→20:27)
[2021-07-20] MEDS: pantoprazole DR 40 mg Tablet PO ×2 (08:49→17:19)
[2021-07-20] MEDS: BuSPIRONE 10 mg Tablet PO ×2 (08:49→17:19)
[2021-07-20 09:20] LABS: C Reactive Protein 220.8 mg/L (0.0-4.9)
[2021-07-20 09:21] LABS: Acinetobacter baumannii Not Detected (NOT DETECT); Bacteroides fragilis Not Detected (NOT DETECT); CTX-M Not Detected (NOT DETECT); Citrobacter Not Detected (NOT DETECT); Cronobacter sakazakii Not Detected (NOT DETECT); Enterobacter cloacae complex Not Detected (NOT DETECT); Enterobacter non cloacae Not Detected (NOT DETECT); Fusobacterium necrophorum Not Detected (NOT DETECT); Fusobacterium nucleatum Not Detected (NOT DETECT); Haemophilus influenzae Not Detected (NOT DETECT); IMP Resistance Gene Not Detected (NOT DETECT); KPC Resistance Gene Not Detected (NOT DETECT); Klebsiella pneumoniae group Not Detected (NOT DETECT); Morganella morganii Not Detected (NOT DETECT); NDM Resistance Gene Not Detected (NOT DETECT); Neisseria meningitidis Not Detected (NOT DETECT); OXA Resistance Gene Not Detected (NOT DETECT); Pan Candida Not Detected (NOT DETECT); Pan Gram-Positive Not Detected (NOT DETECT); Proteus mirabilis Not Detected (NOT DETECT); Pseudomonas aeruginosa Not Detected (NOT DETECT); Salmonella Not Detected (NOT DETECT); Serratia Not Detected (NOT DETECT); Serratia marcescens Not Detected (NOT DETECT); Stenotrophomonas maltophilia Not Detected (NOT DETECT); VIM Resistance Gene Not Detected (NOT DETECT)
[2021-07-20 09:26] LABS: Procalcitonin 6.89 ng/mL (0-0.5)
[2021-07-20] MEDS: iodixanol 320 mg/mL 100mL Btl IV (10:16)
[2021-07-20 10:57] LABS: Glucose Point of Care 169 mg/dL (70-110)
[2021-07-20] MEDS: sodium chloride 0.9% 1,000 ML 75 ML IV (11:20)
--- NOTE | 2021-07-20 12:00 | CTR_ITS ---
PROCEDURE INFORMATION: Exam: CT Abdomen And Pelvis With Contrast Exam date and time: 07/20/2021 10:16 AM Age: 61 years old Clinical indication: Other: Pyelonephritis; Prior surgery; Surgery type: Hysto, gastric bypass TECHNIQUE: Imaging protocol: Computed tomography of the abdomen and pelvis with contrast. Radiation optimization: All CT scans at this facility use at least one of these dose optimization techniques: automated exposure control; mA and/or kV adjustment per patient size (includes targeted exams where dose is matched to clinical indication); or iterative reconstruction. Contrast material: VISI 320; Contrast volume: 50 ml; Contrast route: INTRAVENOUS (IV); COMPARISON: CT chest abd pel w con* 12/24/2020 11:31 AM RADIATION DOSE METRICS: Total DLP (mGy-cm): 1882.39 FINDINGS: Heart: A lobulated cystic lesion adjacent to the IVC within the lower chest has been present since 2019 and may reflect a pericardial or duplication cyst. Liver: Normal. No mass. Gallbladder and bile ducts: Cholelithiasis. Pancreas: Normal. No ductal dilation. Spleen: Calcified splenic granulomas. Adrenal glands: Normal. No mass. Kidneys and ureters: No hydronephrosis. Perinephric stranding is seen bilaterally, similar to prior. Stomach and bowel: Postsurgical changes of Ana Laura-en-Y gastric bypass. No bowel obstruction. Appendix: No evidence of appendicitis. Intraperitoneal space: Unremarkable. No free air. No significant fluid collection. Vasculature: Unremarkable. No abdominal aortic aneurysm. Lymph nodes: Unremarkable. No enlarged lymph nodes. Urinary bladder: Unremarkable as visualized. Reproductive: Hysterectomy. Bones/joints: Unremarkable. No acute fracture. Soft tissues: Unremarkable. CT/CT abdomen pelvis w con* [id number] IMPRESSION: No acute findings.
--- NOTE | 2021-07-20 13:01 | ECG_ITS ---
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 Measurements Intervals [place] Rate: 75 P: 36 AK: 185 QRS: -28 QRSD: 95 T: 34 QT: 364 QTc: 407 Interpretive Statements SINUS RHYTHM BORDERLINE LEFT AXIS DEVIATION [QRS AXIS < -20] Compared to ECG 07/19/2021 18:39:58 Sinus tachycardia no longer present Left anterior fascicular block no longer present Myocardial infarct finding no longer present Electronically Signed On 07-21-2021 8:04:57 CDT by David Garcia M.D. [id number]
--- NOTE | 2021-07-20 13:01 | PM.PN ---
Subjective Subjective: Patient was seen this morning, she does complain of chills and rigors, no nausea, no vomiting, no lightheadedness, dizziness, no flank pain, no history of UTIs in the past, no history of pyelonephritis, Vitals/I&O/Wt Last Vital Signs Temp 98.5 F 07/20/21 11:06 Pulse 81 07/20/21 11:06 Resp 17 07/20/21 11:06 BP 104/67 07/20/21 11:06 Pulse Ox 96 07/20/21 11:06 07/19/21 07/20/21 07/20/21 22:59 06:59 14:59 Intake Total 1200 / 1200 240 / 1440 1280 / 1280 Balance 1200 / 1200 240 / 1440 1280 / 1280 Weight last 48 hrs Weight 94.801 kg Weight 94.347 kg Physical Exam Const: COMMON NORMALS: no acute distress and patient oriented x3 Resp: COMMON NORMALS: normal respiratory effort, No retractions, No use of accessory muscles and clear to auscultation bilaterally AUSCULTATION: clear to auscultation bilaterally Cardio: COMMON NORMALS: regular rate, regular rhythm, S1 normal heart sound present and S2 normal heart sound present RATE: regular rate RHYTHM: regular rhythm HEART SOUNDS: S1 normal heart sound present and S2 normal heart sound present GI: COMMON NORMALS: Normal to inspection, nondistended, normoactive bowel sounds present, Soft to palpation and non-tender PALPATION: Yes Soft to palpation Extremity: COMMON NORMALS: no pedal edema Neuro: COMMON NORMALS: patient oriented x3 Psych: COMMON NORMALS: mental status grossly normal Data : 07/20/21 05:25 07/20/21 05:25 Micro: Microbiology 07/19/21 18:52 Blood Culture - Preliminary Blood Escherichia coli 07/19/21 18:45 Blood Culture - Preliminary Blood Escherichia coli A&P Assessment and plan (1) Pyelonephritis: Status: Acute Plan Acute cystitis, pyelonephritis, E. coli bacteremia, blood cultures positive for E. coli. Start normal saline at 75 cc an hour, broaden antibiotic to Primaxin,'s CT abdomen pelvis to evaluate for obstructive uropathy E transaminitis, with elevated alk phos, CT scan abdomen pelvis Grade 3 endometrial carcinoma status post resection,ovarian cancer, status post bilateral salpingo-oophorectomy, total abdominal hysterectomy, pelvic and and para-aortic lymphadenectomy, will maintain activity, received chemotherapy Has a history of duodenal ulcer, status post repair, continue Protonix 40 twice daily, Carafate, monitor hemoglobin closely Depression Hypothyroidism. Continue levothyroxine Anxiety Macrocytic anemia. Has evidence of iron deficiency anemia, we will monitor hemoglobin level intermittently. Hemoccult stool Diabetes. Will check fasting glucose before meals and at bedtime and provide insulin sliding scale GERD Hyperlipidemia Hypertension Obesity. The patient becomes regarding lifestyle modification Endometrial versus ovarian cancer for which the patient is in remission. Patient status post chemotherapy and status post hysterectomy. Outpatient monitoring with hematology/oncology upon discharge as directed Thrombocytopenia. We will monitor platelet count intermittently History of zinc deficiency History of cholelithiasis Arthritis Seasonal allergies DVT Proflex is. Bilateral SCD, heparin for DVT prophylaxis Attestations Medical Necessity Statement*: Patient requires hospitalization for acute cystitis, pyelonephritis, E. coli bacteremia, inpatient, greater than 2 midnights Coding Level of Care Code Acute Logging Crew Supervisor for Lito Li Diagnoses Pyelonephritis N12
[2021-07-20] MEDS: sucralfate 1 gm Tablet PO ×2 (13:23→17:19)
[2021-07-20 14:39] LABS: Basophils % 0.2 %; Eosinophils % 0.3 %; Hemoglobin 9.2 g/dL (11.5-15.3); Lymphocytes # 0.5 10^3/uL (0.8-4.8); Lymphocytes % 8.2 %; Mean Corpuscular HGB Conc 31.7 g/dL (30.0-36.0); Mean Corpuscular Hemoglobin 34.1 pg (28.0-34.0); Mean Corpuscular Volume 107.4 fl (81-99); Mean Platelet Volume 10.4 fL (7.4-10.4); Monocytes # 0.5 10^3/uL (0.2-0.9); Monocytes % 7.7 %; Neutrophils # 5.08 10^3/uL (1.8-7.7); Neutrophils % 83.3 %; Nucleated Red Blood Cells % 0 %; Platelet Count 76 10^3/cmm (130-400); White Blood Count 6.1 10^3/uL (4.0-10.0)
--- NOTE | 2021-07-20 15:01 | ECG_ITS ---
[facility] Test Date: 2021-07-20 Pat Name: Alecia Meier Department: Room: 258 Gender: Female Manager Government: : 1960 Requested By: Damion Manley Order Number: [id number] Lewis MD: David Garcia M.D. Measurements Intervals [place] Rate: 84 P: 78 MT: 184 QRS: -35 QRSD: 96 T: 48 QT: 328 QTc: 390 Interpretive Statements SINUS RHYTHM LEFT AXIS DEVIATION [QRS AXIS < -30] Compared to ECG 07/20/2021 13:48:04 No significant changes Electronically Signed On 07-21-2021 8:06:29 CDT by David Garcia M.D. [id number]
[2021-07-20 15:04] LABS: Troponin(5th) Baseline 12 ng/L (0-10)
[2021-07-20 17:08] LABS: Glucose Point of Care 123 mg/dL (70-110)
[2021-07-20] MEDS: TRAMadol 50 mg Tablet PO (17:19)
[2021-07-20 20:21] LABS: Troponin 5 6HR 12.74 ng/L (0-10)
[2021-07-20 20:42] LABS: Troponin 5 6HR Delta 0.74 ng/L (0-12)
[2021-07-20] MEDS: atorvastatin 40 mg Tablet 10 MG PO (21:00)
[2021-07-20 21:01] LABS: Glucose Point of Care 218 mg/dL (70-110)
[2021-07-21] VITALS (8 sets, daily range): BP systolic 117–138; BP diastolic 64–83; PULSE 69–85; RESP 14–18; TEMP 36.9–37.8; O2SAT 95–97
[2021-07-21] MEDS: sodium chloride 0.9% 1,000 ML 75 ML IV (01:03)
[2021-07-21 04:16] LABS: Eosinophils # 0.1 10^3/uL (0.0-0.8); Eosinophils % 1.1 %; Hematocrit 24.8 % (37.0-47.0); Hemoglobin 7.9 g/dL (11.5-15.3); Lymphocytes # 0.6 10^3/uL (0.8-4.8); Lymphocytes % 12.9 %; Mean Corpuscular HGB Conc 31.9 g/dL (30.0-36.0); Mean Corpuscular Hemoglobin 33.8 pg (28.0-34.0); Monocytes # 0.5 10^3/uL (0.2-0.9); Neutrophils # 3.47 10^3/uL (1.8-7.7); Neutrophils % 74.6 %; Nucleated Red Blood Cells % 0 %; Platelet Count 76 10^3/cmm (130-400); Red Blood Count 2.34 10^6/uL (4.1-5.3); White Blood Count 4.7 10^3/uL (4.0-10.0)
[2021-07-21 04:31] LABS: Slide Review Slide Review Perform
[2021-07-21 04:34] LABS: Alanine Aminotransferase 54 U/L (0-33); Albumin Level 2.9 g/dL (3.5-5.2); Alkaline Phosphatase 116 IU/L (35-105); Anion Gap 12.7 (5-19); Aspartate Amino Transferase 25 U/L (0-32); Blood Urea Nitrogen 19 mg/dL (8-23); Calcium 8.1 mg/dL (8.5-10.5); Carbon Dioxide 22 mmol/L (22-29); Chloride 107 mmol/L (98-107); Globulin 2.6 g/dL (1.3-4.6); Glomerular Filtration Rate 56.4 mL/min (90-130); Glucose 118 mg/dL (65-115); Magnesium 1.9 mg/dL (1.7-2.3); Osmolality Calculated 289 mOsm/kg (285-295); Phosphorus 2.8 mg/dL (2.5-4.5); Potassium 3.7 mmol/L (3.5-5.1); Sodium 138 mmol/L (136-145); Total Bilirubin 0.3 mg/dL (0.15-1.2); Total Protein 5.5 g/dL (6.6-8.7)
[2021-07-21 04:41] LABS: Procalcitonin 3.98 ng/mL (0-0.5)
[2021-07-21] MEDS: sucralfate 1 gm Tablet PO ×2 (06:13→17:36)
[2021-07-21] MEDS: levothyroxine 175 mcg Tablet PO (07:48)
[2021-07-21] MEDS: sertraline 100 mg Tablet 200 MG PO (07:48)
[2021-07-21] MEDS: BuSPIRONE 10 mg Tablet PO ×2 (07:48→17:36)
[2021-07-21] MEDS: heparin 5,000 unit/mL INJ 1 mL 5000 UNIT SUBCUT ×2 (07:49→20:56)
[2021-07-21] MEDS: pantoprazole DR 40 mg Tablet PO ×2 (07:49→17:36)
[2021-07-21] MEDS: TRAMadol 50 mg Tablet PO (07:49)
--- NOTE | 2021-07-21 10:29 | PC.CHAP ---
Pastoral Care Encounter/Spiritual Assessment Type of Contact [] Declined label paster visit [] Patient/Family/Request visit [] Outpatient visit [] Follow-up visit [] Physician referral [] Code/Alert [x] Routine visit [] Staff referral [] Actively dying [] Patient sleeping [] Family support [] [] Out of room [] Palliative care [] [] Receiving care in room [] Pre-surgical visit [] Trauma [] Long length of stay [] ICU visit [] Other: Relational/Emotional Strength [x] Patient feels connected with others/family/visitors/staff [] Distress [] Loneliness/isolation [] Abandonment Spirituality of Patient [x] Person of Gayla [] Attends Evangelical of their Gayla [x] Believes in Prayer [] Reads Bible or Jain materials [] There are Spiritual issues to be addressed Malt Roaster Interventions [x] Prayer [] Active listening [] Non-anxious presence [] Spiritual/emotional support [] Crisis/trauma care [] Spiritual counseling [] Bereavement support [] Provided bereavement packet [] Provided Bible/devotional materials [] Provided toy/stuffed animal, coloring book to patient or family member [] Provided Communion [] Anointing/[place] [] Salvation [x] Completed spiritual assessment [] Other: Impact on Illness or Injury [] Angry [] Fearful [] Anxious [] Often cries [] Exhaustion [] Unable to work [] Unable to attend evangelical [] Unable to walk/stand [] Unable to read [] Unable to drive [] Unable to eat/drink [] Unable to sleep [] Unable to be with family [] Patient intubated [] Other: Summary Time spent with patient 10 min
[2021-07-21 11:35] LABS: Glucose Point of Care 141 mg/dL (70-110)
--- NOTE | 2021-07-21 13:05 | US_ITS ---
WS: [id number] RIGHT UPPER QUADRANT ULTRASOUND HISTORY: gallbladder COMPARISON: 01/16/2020 Liver: 17.7 cm in length. Liver is top normal size. Very mild coarse echotexture throughout. No mass or bile duct dilatation. Portal Vein: Normal hepatopetal flow with monophasic waveform. Gallbladder: Normally distended gallbladder. Numerous stones are present within the dependent portion of the gallbladder. Gallbladder wall measures 2.9 mm. CBD: 0.5 cm Pancreas: Not visualized. Right kidney: 10.6 cm in length. Normal size and echogenicity. No hydronephrosis or mass. Aorta and IVC: Unremarkable abdominal aorta and IVC. No ascites. US/US abdomen limited [id number] IMPRESSION: 1. Cholelithiasis without evidence for acute cholecystitis. 2. Very mild hepatomegaly and hepatic steatosis.
--- NOTE | 2021-07-21 15:22 | PM.PN ---
Subjective Subjective: She states she is overall doing better. Continue to gradually improve. Malaise improving. No vomiting. Tolerating some oral intake. No chest pain or pressure. Reports longstanding history of anemia for which she has been following with hematology. Vitals/I&O/Wt Last Vital Signs Temp 99.1 F 07/21/21 12:00 Pulse 78 07/21/21 12:00 Resp 17 07/21/21 12:00 BP 117/74 07/21/21 12:00 Pulse Ox 96 07/21/21 12:00 07/21/21 07/21/21 07/21/21 06:59 14:59 22:59 Intake Total 1100 / 3060 700 / 700 Output Total 700 / 1200 Balance 400 / 1860 700 / 700 Weight last 48 hrs Weight 94.801 kg Weight 94.347 kg Physical Exam Const: COMMON NORMALS: alert GENERAL APPEARANCE: cooperative NUTRITIONAL APPEARANCE: overweight ORIENTATION/CONSCIOUSNESS: Yes awake HENMT: COMMON NORMALS: normocephalic, EAC's normal, Normal external nose present and moist oral mucous membranes HEAD & SCALP: normocephalic NOSE: Normal external nose present EXTERNAL AUDITORY CANAL: EAC's normal Neck/C-Spine: COMMON NORMALS: no meningeal signs Chest: CHEST: Yes Symmetrical chest wall rise Resp: COMMON NORMALS: clear to auscultation bilaterally AUSCULTATION: clear to auscultation bilaterally Cardio: COMMON NORMALS: regular rate, regular rhythm and No murmurs present (Cardio) RATE: regular rate RHYTHM: regular rhythm GI: COMMON NORMALS: Normal to inspection, nondistended, normoactive bowel sounds present, Soft to palpation and non-tender PALPATION: Yes Soft to palpation Extremity: COMMON NORMALS: no pedal edema Neuro: COMMON NORMALS: moves all extremities SENSORIUM/ORIENTATION: Yes alert MENINGEAL SIGNS: Yes no meningeal signs Psych: COMMON NORMALS: mental status grossly normal Skin: COMMON NORMALS: no wounds RASHES: no rashes Data : 07/21/21 03:47 07/21/21 03:47 Micro: Microbiology 07/19/21 20:30 Urine Culture - Preliminary Urine,Clean Catch Gram Negative Rods 07/21/21 03:47 Blood Culture - Preliminary Blood SPECIMEN COLLECTED 07/21/21 03:42 Blood Culture - Preliminary Blood SPECIMEN COLLECTED A&P Assessment and plan (1) Pyelonephritis: Is gradually improving. Overall intake with some improvement. Noted today having some decrease across all cell lines. Follow for now and to discontinue IVF. Monitor blood pressures. Monitor TORSTEN. Repeat blood culture was obtained today. E. coli growing in urine and blood, discussed with her. Pending sensitivities. Follow-up. History of hysterectomy. She denies any gas in urine, denies any fecal matter in urine, denies any feculent vaginal discharge. Knows to bring to her physician's attention in case of appearance of such symptoms. Needs to improve, anticipating possible return home tomorrow. Status: Acute Plan Macrocytic anemia. Worsened anemia today, hemoglobin down to 7.9, however, decreased across all cell lines, including WBC, platelets. May be dilutional with some component of dehydration at presentation, has been receiving IV hydration. Stop IVF. Reassess blood counts. Has evidence of iron deficiency anemia, we will monitor hemoglobin level intermittently. Hemoccult stool. Has history of longstanding anemia, previously following with hematology, reassessment by bone marrow biopsy, will need to resume follow-up. E transaminitis, with elevated alk phos, CT scan abdomen pelvis noncontributory. Ultrasound with cholelithiasis without evidence of cholecystitis. Very mild hepatomegaly and hepatic steatosis. Hepatic steatosis, incidentally noted, follow-up with primary provider Grade 3 endometrial carcinoma status post resection,ovarian cancer, status post bilateral salpingo-oophorectomy, total abdominal hysterectomy, pelvic and and para-aortic lymphadenectomy, will maintain activity, received chemotherapy Has a history of duodenal ulcer, status post repair, continue Protonix 40 twice daily, Carafate, monitor hemoglobin closely Depression Hypothyroidism. Continue levothyroxine Anxiety Diabetes. Will check fasting glucose before meals and at bedtime and provide insulin sliding scale GERD Hyperlipidemia Hypertension Obesity. The patient becomes regarding lifestyle modification Endometrial versus ovarian cancer for which the patient is in remission. Patient status post chemotherapy and status post hysterectomy. Outpatient monitoring with hematology/oncology upon discharge as directed Thrombocytopenia. We will monitor platelet count intermittently History of zinc deficiency History of cholelithiasis Arthritis Seasonal allergies Attestations Medical Necessity Statement*: Continue admission for assessment management of improving complicated urinary tract infection, pyelonephritis, with E. coli bacteremia. Coding Level of Care Code Acute Lead Clinical Research Coordinator for Lito Li Diagnoses Pyelonephritis N12
[2021-07-21 17:12] LABS: Glucose Point of Care 113 mg/dL (70-110)
[2021-07-21] MEDS: acetaminophen 325 mg Tablet 650 MG PO (17:42)
[2021-07-21 20:27] LABS: Glucose Point of Care 160 mg/dL (70-110)
[2021-07-21] MEDS: atorvastatin 40 mg Tablet 10 MG PO (20:56)
[2021-07-21] MEDS: insulin lispro 100 unit/1 mL SUBCUT (20:57)
[2021-07-22 04:00] VITALS: BP 134/78; PULSE 74; RESP 18; TEMP 36.8; O2SAT 96
[2021-07-22 05:27] LABS: Basophils % 0.3 %; Eosinophils # 0.1 10^3/uL (0.0-0.8); Eosinophils % 1.7 %; Hematocrit 27.5 % (37.0-47.0); Hemoglobin 8.5 g/dL (11.5-15.3); Lymphocytes # 0.7 10^3/uL (0.8-4.8); Lymphocytes % 18.6 %; Mean Corpuscular HGB Conc 30.9 g/dL (30.0-36.0); Mean Corpuscular Hemoglobin 33.5 pg (28.0-34.0); Mean Corpuscular Volume 108.3 fl (81-99); Mean Platelet Volume 10.3 fL (7.4-10.4); Monocytes # 0.5 10^3/uL (0.2-0.9); Monocytes % 13.5 %; Neutrophils # 2.32 10^3/uL (1.8-7.7); Neutrophils % 65.3 %; Nucleated Red Blood Cells % 0 %; Platelet Count 80 10^3/cmm (130-400); Red Blood Count 2.54 10^6/uL (4.1-5.3); Red Cell Distribution Width 11.9 % (12.1-15.1); White Blood Count 3.6 10^3/uL (4.0-10.0)
[2021-07-22 05:59] LABS: Alanine Aminotransferase 41 U/L (0-33); Albumin Level 2.7 g/dL (3.5-5.2); Alkaline Phosphatase 118 IU/L (35-105); Anion Gap 12.7 (5-19); Aspartate Amino Transferase 20 U/L (0-32); Blood Urea Nitrogen 17 mg/dL (8-23); C Reactive Protein 80.3 mg/L (0.0-4.9); Calcium 8.7 mg/dL (8.5-10.5); Carbon Dioxide 22 mmol/L (22-29); Chloride 106 mmol/L (98-107); Globulin 3.4 g/dL (1.3-4.6); Glomerular Filtration Rate 56.4 mL/min (90-130); Glucose 121 mg/dL (65-115); Osmolality Calculated 287 mOsm/kg (285-295); Phosphorus 3.2 mg/dL (2.5-4.5); Potassium 3.7 mmol/L (3.5-5.1); Sodium 137 mmol/L (136-145); Total Bilirubin 0.2 mg/dL (0.15-1.2); Total Protein 6.1 g/dL (6.6-8.7)
[2021-07-22 06:01] LABS: Procalcitonin 2.34 ng/mL (0-0.5)
[2021-07-22] MEDS: sucralfate 1 gm Tablet PO (06:18)
[2021-07-22 06:32] LABS: Glucose Point of Care 127 mg/dL (70-110)
[2021-07-22] MEDS: sertraline 100 mg Tablet 200 MG PO (07:49)
[2021-07-22] MEDS: pantoprazole DR 40 mg Tablet PO (07:49)
[2021-07-22] MEDS: levothyroxine 175 mcg Tablet PO (07:49)
[2021-07-22] MEDS: heparin 5,000 unit/mL INJ 1 mL 5000 UNIT SUBCUT (07:49)
[2021-07-22] MEDS: BuSPIRONE 10 mg Tablet PO (07:49)
[2021-07-22 08:00] VITALS: BP 131/76; PULSE 85; RESP 20; TEMP 36.8; O2SAT 98
[2021-07-22 11:01] LABS: Glucose Point of Care 183 mg/dL (70-110)
[2021-07-22 11:47] VITALS: BP 131/74; PULSE 74; RESP 20; TEMP 36.8; O2SAT 97
[2021-07-22] MEDS: insulin lispro 100 unit/1 mL SUBCUT (12:30)
--- NOTE | 2021-07-22 12:50 | PM.DCS ---
Discharge Providers Date of Admission: 07/19/21 22:33 Date of Discharge: July 22, 2021 Attending Provider at Admission: Solange Devi DO Attending Provider at Discharge: Kerwin Alvarado Primary Care Provider: EVERARDO Davidson Diagnoses at Discharge Discharge Diagnosis (1) Pyelonephritis: Status: Acute Other Information Additional DC diagnoses/information: Macrocytic anemia.? Normal B12, folic acid. Has evidence of iron deficiency anemia, we will monitor hemoglobin level intermittently.? Hemoccult stool.? Has history of longstanding anemia, previously following with hematology, reassessment by bone marrow biopsy, will need to resume follow-up. E transaminitis, with elevated alk phos, CT scan abdomen pelvis noncontributory.? Ultrasound with cholelithiasis without evidence of cholecystitis.? Very mild hepatomegaly and hepatic steatosis. Hepatic steatosis, incidentally noted, follow-up with primary provider Grade 3 endometrial carcinoma status post resection,ovarian cancer, status post bilateral salpingo-oophorectomy, total abdominal hysterectomy, pelvic and and para-aortic lymphadenectomy, will maintain activity, received chemotherapy Has a history of duodenal ulcer, status post repair, continue Protonix 40 twice daily, Carafate, monitor hemoglobin closely Depression Hypothyroidism.? Continue levothyroxine Anxiety Diabetes.? Will check fasting glucose before meals and at bedtime and provide insulin sliding scale GERD Hyperlipidemia Hypertension Obesity.? The patient becomes regarding lifestyle modification Endometrial versus ovarian cancer for which the patient is in remission.? Patient status post chemotherapy and status post hysterectomy.? Outpatient monitoring with hematology/oncology upon discharge as directed Thrombocytopenia.? History of zinc deficiency History of cholelithiasis Arthritis Seasonal allergies Reason for Visit Reason for Visit: AFIB WITH RVR; FEVER Hospital Course Hospital Course Pleasant 61-year-old lady was admitted for assessment management after presenting with rigors, found to have complicated UTI, nonobstructive pyelonephritis, with history of endometrial versus ovarian cancer in remission status post ABIDA/BSO, but denied symptoms of air urinary, fecal matter in urine, or fecal discharge from vaginal canal. CT abdomen pelvis without acute findings. Right upper quadrant ultrasound with cholelithiasis without evidence of acute cholecystitis. Mild hepatomegaly and hepatic steatosis. During hospitalization treated with Levaquin initially, with noted pyelonephritis complicated with gram-negative lashonda bacteremia. Antibiotic was broadened with Primaxin. Last fever yesterday afternoon, 100.1 Fahrenheit, afebrile since then. She is feeling better. Appetite is improving. Please follow-up regarding mild thrombocytopenia which now appears to be showing improvement. Suspected related to acute infection. Please follow-up regarding incidental finding of hepatic steatosis. Please follow-up also regarding incidentally noted chronic mild elevation of alkaline phosphatase. Continue follow-up regarding iron deficiency and macrocytic anemia, consider endoscopic evaluation if not done recently. Vitamin B12, folic acid, TSH normal. Consider also evaluation of MMA. Continue follow-up regarding other chronic conditions. Physical Exam Const: COMMON NORMALS: alert GENERAL APPEARANCE: cooperative NUTRITIONAL APPEARANCE: overweight ORIENTATION/CONSCIOUSNESS: Yes awake HENMT: COMMON NORMALS: normocephalic, EAC's normal, Normal external nose present and moist oral mucous membranes HEAD & SCALP: normocephalic NOSE: Normal external nose present EXTERNAL AUDITORY CANAL: EAC's normal Neck/C-Spine: COMMON NORMALS: no meningeal signs Chest: CHEST: Yes Symmetrical chest wall rise Resp: COMMON NORMALS: clear to auscultation bilaterally AUSCULTATION: clear to auscultation bilaterally Cardio: COMMON NORMALS: regular rate, regular rhythm and No murmurs present (Cardio) RATE: regular rate RHYTHM: regular rhythm GI: COMMON NORMALS: Normal to inspection, nondistended, normoactive bowel sounds present, Soft to palpation and non-tender PALPATION: Yes Soft to palpation Extremity: COMMON NORMALS: no pedal edema Neuro: COMMON NORMALS: moves all extremities SENSORIUM/ORIENTATION: Yes alert MENINGEAL SIGNS: Yes no meningeal signs Psych: COMMON NORMALS: mental status grossly normal Skin: COMMON NORMALS: no wounds RASHES: no rashes Discharge Data Studies Completed and Pending Completed Studies During Hospitalization Category Date Time Status CT abdomen pelvis w con* [id number] Stat Cat Scan 07/20/21 12:00 Completed XR chest 1V portable [id number] Urgent Exams 07/19/21 18:32 Completed US abdomen limited [id number] Routine Ultrasound 07/21/21 13:05 Completed Pending at discharge Category Date Time Status Blood Culture Stat Lab 07/21/21 03:47 Results C Reactive Protein AM LABS Lab 07/23/21 04:00 Ordered Complete Blood Count w/Auto AM LABS Lab 07/23/21 04:00 Ordered Comprehensive Metabolic Panel AM LABS Lab 07/23/21 04:00 Ordered Creatine Kinase w/o Total Routine Lab 07/19/21 18:30 Received Fecal Occult Blood [Immunochemical Fecal OCB] Routine Lab 07/19/21 22:33 Uncollected Magnesium AM LABS Lab 07/23/21 04:00 Ordered Occult Blood Stool [Immunochemical Fecal OCB] Routine Lab 07/21/21 11:43 Uncollected Phosphorus AM LABS Lab 07/23/21 04:00 Ordered Procalcitonin AM LABS Lab 07/23/21 04:00 Ordered Radiology Impressions Chest X-Ray 07/19/21 18:32 IMPRESSION: No acute findings. Abdomen/Pelvis CT 07/20/21 12:00 IMPRESSION: No acute findings. Abdomen Ultrasound 07/21/21 13:05 IMPRESSION: 1. Cholelithiasis without evidence for acute cholecystitis. 2. Very mild hepatomegaly and hepatic steatosis. Laboratory Results WBC 3.6 10^3/uL (4.0-10.0) L 07/22/21 04:45 RBC 2.54 10^6/uL (4.1-5.3) L 07/22/21 04:45 Hgb 8.5 g/dL (11.5-15.3) L 07/22/21 04:45 Hct 27.5 % (37.0-47.0) L 07/22/21 04:45 MCV 108.3 fl (81-99) H 07/22/21 04:45 MCH 33.5 pg (28.0-34.0) 07/22/21 04:45 MCHC 30.9 g/dL (30.0-36.0) 07/22/21 04:45 RDW 11.9 % (12.1-15.1) L 07/22/21 04:45 Plt Count 80 10^3/cmm (130-400) L 07/22/21 04:45 MPV 10.3 fL (7.4-10.4) 07/22/21 04:45 Neut % (Auto) 65.3 % 07/22/21 04:45 Lymph % (Auto) 18.6 % 07/22/21 04:45 Forrest % (Auto) 13.5 % 07/22/21 04:45 Eos % (Auto) 1.7 % 07/22/21 04:45 Baso % (Auto) 0.3 % 07/22/21 04:45 Neut # (Auto) 2.32 10^3/uL (1.8-7.7) 07/22/21 04:45 Lymph # (Auto) 0.7 10^3/uL (0.8-4.8) L 07/22/21 04:45 Forrest # (Auto) 0.5 10^3/uL (0.2-0.9) 07/22/21 04:45 Eos # (Auto) 0.1 10^3/uL (0.0-0.8) 07/22/21 04:45 Baso # (Auto) 0.0 10^3/uL (0.0-0.1) 07/22/21 04:45 Nucleated RBC % (auto) 0 % 07/22/21 04:45 Nucleated RBCs # 0.0 /100WBC 07/22/21 04:45 PT 13.90 SECONDS (12.1-14.9) 07/19/21 18:30 INR 1.04 (0.8-1.2) 07/19/21 18:30 Sodium 137 mmol/L (136-145) 07/22/21 04:45 Potassium 3.7 mmol/L (3.5-5.1) 07/22/21 04:45 Chloride 106 mmol/L (98-107) 07/22/21 04:45 Carbon Dioxide 22 mmol/L (22-29) 07/22/21 04:45 Anion Gap 12.7 (5-19) 07/22/21 04:45 BUN 17 mg/dL (8-23) 07/22/21 04:45 Creatinine 1.0 mg/dL (0.5-0.9) H 07/22/21 04:45 GFR Calculation 56.4 mL/min (90-130) L 07/22/21 04:45 Glucose 121 mg/dL (65-115) H 07/22/21 04:45 POC Glucose 183 mg/dL (70-110) H 07/22/21 10:57 Calculated Osmolality 287 mOsm/kg (285-295) 07/22/21 04:45 Lactic Acid 1.0 mmol/L (0.5-2.2) 07/19/21 18:45 Calcium 8.7 mg/dL (8.5-10.5) 07/22/21 04:45 Phosphorus 3.2 mg/dL (2.5-4.5) 07/22/21 04:45 Magnesium 2.0 mg/dL (1.7-2.3) 07/22/21 04:45 Iron 14 ug/dL (37-145) L 07/19/21 18:30 TIBC 191 mcg/dl 07/19/21 18:30 % Saturation 7.3 % (20-50) L 07/19/21 18:30 Unsat Iron Binding 177 ug/dL (112-347) 07/19/21 18:30 Ferritin 2292 ng/mL (15-150) H 07/19/21 18:30 Total Bilirubin 0.2 mg/dL (0.15-1.2) 07/22/21 04:45 AST 20 U/L (0-32) 07/22/21 04:45 ALT 41 U/L (0-33) H 07/22/21 04:45 Alkaline Phosphatase 118 IU/L (35-105) H 07/22/21 04:45 Troponin T Baseline 12 ng/L (0-10) H 07/20/21 14:21 Troponin T Hi Sens 6Hr 12.74 ng/L (0-10) H 07/20/21 19:44 Troponin T Hi Sens 6Hr Delta 0.74 ng/L (0-12) 07/20/21 19:44 C-Reactive Protein 80.3 mg/L (0.0-4.9) H 07/22/21 04:45 Total Protein 6.1 g/dL (6.6-8.7) L 07/22/21 04:45 Albumin 2.7 g/dL (3.5-5.2) L 07/22/21 04:45 Globulin 3.4 g/dL (1.3-4.6) 07/22/21 04:45 Vitamin B12 676 pg/mL (232-1245) 07/19/21 18:30 Folate 19.1 ng/mL (4.8-37.3) 07/19/21 18:30 Procalcitonin 2.34 ng/mL (0-0.5) H 07/22/21 04:45 TSH 0.45 uIU/mL (0.27-4.20) 07/19/21 18:30 Free T4 1.35 ng/dL (0.82-1.77) 07/19/21 18:30 Urine Color Yellow (Yellow) 07/19/21 20:30 Urine Appearance Hazy (CLEAR) A 07/19/21 20:30 Urine pH 5 (5-7) 07/19/21 20:30 Ur Specific [place] 1.015 (1.005-1.030) 07/19/21 20:30 Urine Protein Trace (Negative) 07/19/21 20: Urine Glucose (UA) Norm (Normal) 07/19/21 20: Urine Ketones Negative (Negative) 07/19/21 20:30 Urine Blood 2+ (Negative) H 07/19/21 20:30 Urine Nitrate Positive (Negative) H 07/19/21 20: Urine Bilirubin Neg (Negative) 07/19/21 20: Urine Urobilinogen 1 mg/dL (Negative) H 07/19/21 20:30 Ur Leukocyte Esterase 2+ (Negative) H 07/19/21 20:30 Urine RBC 10-15 /hpf (0-2) H 07/19/21 20:30 Urine WBC >100 /hpf (0-5) H 07/19/21 20:30 Ur Squamous Epith Cells 0-4 /hpf (0-5) H 07/19/21 20:30 Amorphous Sediment Not Reportable 07/19/21 20:30 Urine Bacteria 4+ /hpf (NONE) H 07/19/21 20:30 Influenza Type A Ag Negative (Negative) 07/19/21 20:30 Influenza Type B Ag Negative (Negative) 07/19/21 20:30 SARS-CoV-2 Ag (Rapid) Negative (Negative) 07/19/21 18:44 Vitals Last Vital Signs Temp 98.3 F 07/22/21 11:47 Pulse 74 07/22/21 11:47 Resp 20 H 07/22/21 11:47 BP 131/74 07/22/21 11:47 Pulse Ox 97 07/22/21 11:47 Discharge Plan Discharge Patient Disposition: Home Condition: Stable Prescriptions: New ciprofloxacin HCl 500 mg tablet 500 mg PO Q12H Qty: 14 0RF Continued tramadol 50 mg tablet 50 mg PO TID PRN (Reason: Pain) 0RF atorvastatin 10 mg tablet 10 mg PO DAILY@2200 0RF lisinopril 10 mg tablet 10 mg PO QAM 0RF ferrous sulfate [Feosol] 325 mg (65 mg iron) tablet 325 mg PO DAILY 0RF buspirone 15 mg tablet 15 mg PO BID Qty: 60 11RF sertraline [Zoloft] 100 mg tablet 200 mg PO DAILY Qty: 60 11RF Tylenol Extra Strength 500 mg powder in packet 1,000 mg PO BID PRN (Reason: Pain) 0RF Protonix 40 mg tablet,delayed release (DR/EC) 40 mg PO BIDWMEAL Qty: 60 3RF levothyroxine 175 mcg Tablet 175 mcg PO QAM 0RF loratadine [Claritin] 10 mg Tablet 10 mg PO DAILY 0RF zinc 50 mg Tablet 50 mg PO DAILY 0RF Discharge Orders: Discharge Order (Routine); Ordered 07/22/21 Ordered By: Kerwin Alvarado Referrals: Marialuisa Molina FNP [Primary Care Provider] - 4-7 days Discharge Diet: Low Cholesterol Discharge Activity: Increase activity as tolerated Patient Instructions: Ciprofloxacin (By mouth), Urinary Tract Infection in Women (GEN), Non-Alcoholic Fatty Liver Disease (GEN), Opioid Safety Activity Restrictions/Additional Instructions: Please follow-up with your primary provider to reassess after urinary tract infection, bacteremia with E. coli. Complete antibiotic course with ciprofloxacin. In case of worsening symptoms, any high fevers, abdominal pain, or any concerning symptoms, seek medical attention. Let your primary provider know in case of development of any symptoms as discussed, including air with urination, fecal matter in urine, vaginal canal, or other symptoms. Please follow-up with your primary provider also regarding anemia, microcytic, but with evidence of iron deficiency. Discuss consideration of endoscopic evaluation if not done recently once you recover from acute illness to look for source of anemia. Please have your primary provider follow-up regarding chronic mild elevation of alkaline phosphatase. Avoid any alcohol intake. Discussed fatty liver infiltration with your primary provider. Discharge Attestations Time Spent in Discharge Care*: greater than 30 min Status at Discharge: Cognitive status at discharge: cognitively intact, Behavioral status at discharge: cooperative, Quality Metrics Clinical Quality Measures [ No reported AMI, CVA or VTE this stay] Coding Level of Care Code Acute Chg FW DC note Diagnoses Pyelonephritis N12
--- NOTE | 2021-07-22 15:19 | PC.NURSE ---
DISCHARGE PAPERWORK GONE OVER WITH PT. ALL QUESTIONS ANSWERED. MEDICATION SENT TO PHARMACY OF PTS CHOICE. IV REMOVED. PT TOLERATED WELL. CATHETER TIP INTACT. WAITING FOR PTS RIDE. WILL CONTINUE TO MONITOR UNTIL PTS LEAVES.
[2021-07-22 15:30] VITALS: BP 131/74; PULSE 74; RESP 20; TEMP 36.8; O2SAT 97
[2021-07-24 13:07] LABS: Creatine Kinase BB Total None Detected (None Detected); Creatine Kinase MB Total 0 % (<5); Creatine Kinase MM Total 100 % (95-100)
== END 2021-07-22 15:31 | disposition home or self-care (01) ==
LOC: ER 21:33 → MEDSURG 07-20 05:58
PROVIDERS: Family Medicine; Admitting Provider Internal Medicine; Emergency Provider Emergency Medicine; PCP Nurse Practitioner Family; Visit Provider Internal Medicine
DX: N12 Tubulo-interstitial nephritis, not specified as acute or chronic (principal); D53.9 Nutritional anemia, unspecified; R74.01 Elevation of levels of liver transaminase levels; K76.0 Fatty (change of) liver, not elsewhere classified; F32.9 Major depressive disorder, single episode, unspecified; E03.9 Hypothyroidism, unspecified; Z87.11 Personal history of peptic ulcer disease; F41.9 Anxiety disorder, unspecified; K21.9 Gastro-esophageal reflux disease without esophagitis; I10 Essential (primary) hypertension; M19.90 Unspecified osteoarthritis, unspecified site; E66.9 Obesity, unspecified; Z68.32 Body mass index [BMI] 32.0-32.9, adult; Z86.16 Personal history of COVID-19; Z85.43 Personal history of malignant neoplasm of ovary
CPT/HCPCS: 36415; 36416; 71045; 74177; 76705; 80053; 81001; 82252; 82607; 82728; 82746; 82962; 83540; 83550; 83605; 83735; 84100; 84145; 84439; 84443; 84484; 85025; 85610; 86140; 87040; 87077; 87086; 87150; 87186; 87205; 87426; 87804; 93005; 96365; 96367; 96372; 99285; G0378; J0743; J0744; J1644; J1815; J7030; Q9967

== ENCOUNTER 2021-08-12 08:23 | Oncology outpatient (recurring) (ONCR) | payer OTHER, SELFPAY | END 2021-08-28 23:59 | disposition home or self-care (01) | PROVIDERS: PCP Nurse Practitioner Family; Visit Provider Internal Medicine Hematology & Oncology | DX: Z45.2 Encounter for adjustment and management of vascular access device (principal) | CPT/HCPCS: 96523 ==

== ENCOUNTER 2021-08-12 10:31 | Outpatient (CLI) | payer OTHER, SELFPAY ==
--- NOTE | 2021-08-12 11:00 | MR_ITS ---
WS: [id number] MRI CERVICAL SPINE NONCONTRAST TECHNIQUE: Sagittal T1, T2 and STIR imaging. Axial T2, gradient, and fiesta imaging. CLINICAL INFORMATION: pain COMPARISON: None. FINDINGS: Straightening of the normal cervical lordosis. Cord signal is normal. Mild disc bulging C5-C6 and C6- C7. C2-C3: Normal. C3-C4: Mild facet arthropathy. Spinal canal and foramen are patent. C4-C5: Mild disc bulging with slight effacement of ventral thecal sac. Tiny shallow central protrusio n. Mild facet arthropathy. Mild bilateral foraminal narrowing. C5-C6: Disc osteophyte complex with endplate ridging. Prominent RIGHT pericentral protrusion with katya ular tear. Mild central canal stenosis. Filling of the RIGHT subarticular recess. Moderate bilateral bony foraminal narrowing LEFT greater than RIGHT. Moderate facet arthropathy. Disc protrusion measure s 7 mm. C6-C7: Mild disc bulging with endplate ridging. Mild RIGHT greater than LEFT foraminal narrowing. Mil d facet arthropathy. Spinal canal is patent. C7-T1: No significant disc bulging. Spinal canal and foramen are patent. Mild disc bulging upper cervical spine at T2-T3 MR/MR cervical spin wo con* [id number] IMPRESSION: 1. Straightening of the normal cervical lordosis. Mild cervical curve. Mild di sc bulging C4-C6. 2. Prominent RIGHT pericentral disc protrusion C5-C6 measuring 7 mm. Filling o f the RIGHT subarticular recess with mild central canal stenosis. This is best seen on the sagittal imaging. 3. Moderate bilateral C5-C6 bony foraminal narrowing LEFT greater than RIGHT. 4. Mild RIGHT C6-C7 bony foraminal narrowing. 5. Moderate facet arthropathy C4-C5 and C5-C6.
== END 2021-08-12 10:32 | disposition home or self-care (01) ==
LOC: RAD 10:32
PROVIDERS: PCP Nurse Practitioner Family; Visit Provider Orthopaedic Surgery
DX: M50.222 Other cervical disc displacement at C5-C6 level (principal)
CPT/HCPCS: 72141

== ENCOUNTER → 2021-08-21 14:57 | Outpatient (BNVA) | payer OTHER, SELFPAY | PROVIDERS: PCP Nurse Practitioner Family; Visit Provider Physician Assistant | DX: M54.2 Cervicalgia (principal) | CPT/HCPCS: 72050 ==

== ENCOUNTER 2021-09-02 06:00 | Outpatient (RCR) | payer OTHER, SELFPAY | END 2021-09-28 23:59 | disposition home or self-care (01) | LOC: SPT 06:00 | PROVIDERS: PCP Nurse Practitioner Family; Referring Provider Physician Assistant; Visit Provider Physician Assistant | DX: M54.2 Cervicalgia (principal) | CPT/HCPCS: 97110; 97140; 97161; 97530 ==

== ENCOUNTER 2021-09-09 12:03 | Oncology outpatient (recurring) (ONCR) | payer OTHER, SELFPAY ==
[2021-09-09 12:27] VITALS: BP 120/77; PULSE 79; RESP 18; TEMP 36.4; O2SAT 98
== END 2021-09-28 23:59 | disposition home or self-care (01) ==
LOC: ONCMED 12:04
PROVIDERS: PCP Nurse Practitioner Family; Visit Provider Internal Medicine Hematology & Oncology
DX: Z45.2 Encounter for adjustment and management of vascular access device (principal)
CPT/HCPCS: 96523

== ENCOUNTER 2021-09-29 06:00 | Outpatient (RCR) | payer OTHER, SELFPAY | END 2021-10-29 23:59 | disposition home or self-care (01) | LOC: SPT 06:00 | PROVIDERS: PCP Nurse Practitioner Family; Referring Provider Physician Assistant; Visit Provider Physician Assistant | DX: M54.2 Cervicalgia (principal) | CPT/HCPCS: 97110; 97530 ==

== ENCOUNTER 2021-10-01 09:57 | Oncology outpatient (recurring) (ONCR) | payer OTHER, SELFPAY ==
[2021-10-01 10:37] LABS: Basophils % 0.4 %; Eosinophils # 0.1 10^3/uL (0.0-0.8); Eosinophils % 1.3 %; Hematocrit 31.8 % (37.0-47.0); Hemoglobin 10.1 g/dL (11.5-15.3); Lymphocytes # 1.6 10^3/uL (0.8-4.8); Lymphocytes % 28.6 %; Mean Corpuscular HGB Conc 31.8 g/dL (30.0-36.0); Mean Corpuscular Hemoglobin 33.6 pg (28.0-34.0); Mean Corpuscular Volume 105.6 fl (81-99); Mean Platelet Volume 9.7 fL (7.4-10.4); Monocytes # 0.4 10^3/uL (0.2-0.9); Monocytes % 6.7 %; Neutrophils # 3.45 10^3/uL (1.8-7.7); Neutrophils % 62.8 %; Nucleated Red Blood Cells % 0 %; Platelet Count 153 10^3/cmm (130-400); Red Blood Count 3.01 10^6/uL (4.1-5.3); Red Cell Distribution Width 12.9 % (12.1-15.1); White Blood Count 5.5 10^3/uL (4.0-10.0)
[2021-10-01 13:32] LABS: Homocysteine 14.27
[2021-10-01 13:52] LABS: Folate Level 18.1 ng/mL (4.8-37.3)
[2021-10-06 05:53] LABS: Methylmalonic Acid 334 nmol/L (87-318)
== END 2021-10-29 23:59 | disposition home or self-care (01) ==
PROVIDERS: PCP Nurse Practitioner Family; Visit Provider Internal Medicine Hematology & Oncology
DX: D64.9 Anemia, unspecified (principal); C56.1 Malignant neoplasm of right ovary
CPT/HCPCS: 36591; 82746; 82747; 83090; 83921; 85025

== ENCOUNTER 2021-10-06 20:00 | Outpatient (CLI) | payer OTHER, SELFPAY | END 2021-10-06 20:01 | disposition home or self-care (01) | LOC: SLEEP 10-07 07:32 | PROVIDERS: PCP Nurse Practitioner Family; Visit Provider Nurse Practitioner Family | DX: G47.33 Obstructive sleep apnea (adult) (pediatric) (principal) | CPT/HCPCS: 95810 ==

== ENCOUNTER → 2021-10-07 10:38 | Outpatient (BNVA) | payer OTHER, SELFPAY | PROVIDERS: PCP Nurse Practitioner Family; Visit Provider Physician Assistant | DX: M25.572 Pain in left ankle and joints of left foot (principal) | CPT/HCPCS: 73610 ==

== ENCOUNTER 2021-10-07 13:47 | Outpatient (CLI) | payer OTHER, SELFPAY | END 2021-10-07 13:48 | disposition home or self-care (01) | LOC: SPT 13:52 | PROVIDERS: PCP Nurse Practitioner Family; Visit Provider Physician Assistant | DX: Z46.89 Encounter for fitting and adjustment of other specified devices (principal); S82.62XD Displaced fracture of lateral malleolus of left fibula, subsequent encounter for closed fracture with routine healing; X58.XXXD Exposure to other specified factors, subsequent encounter | CPT/HCPCS: 97760; L4361 ==

== ENCOUNTER 2021-10-30 06:00 | Outpatient (RCR) | payer OTHER, SELFPAY | END 2021-11-28 23:59 | disposition home or self-care (01) | LOC: SPT 06:00 | PROVIDERS: PCP Nurse Practitioner Family; Visit Provider Physician Assistant | DX: M54.2 Cervicalgia (principal) | CPT/HCPCS: 36416; 82962; 97110; 97140 ==

== ENCOUNTER → 2021-11-04 09:54 | Outpatient (BNVA) | payer OTHER, SELFPAY | PROVIDERS: PCP Nurse Practitioner Family; Visit Provider Physician Assistant | DX: S82.65XA Nondisplaced fracture of lateral malleolus of left fibula, initial encounter for closed fracture (principal); X58.XXXA Exposure to other specified factors, initial encounter | CPT/HCPCS: 73610 ==

== ENCOUNTER 2021-11-04 12:39 | Outpatient (CLI) | payer OTHER, SELFPAY | END 2021-11-04 12:40 | disposition home or self-care (01) | LOC: SPT 12:39 | PROVIDERS: PCP Nurse Practitioner Family; Visit Provider Physician Assistant | DX: S82.63XD Displaced fracture of lateral malleolus of unspecified fibula, subsequent encounter for closed fracture with routine healing (principal); X58.XXXD Exposure to other specified factors, subsequent encounter | CPT/HCPCS: 97760; L1902 ==

== ENCOUNTER 2021-11-11 09:57 | Oncology outpatient (recurring) (ONCR) | payer OTHER, SELFPAY ==
[2021-11-11 10:25] LABS: Basophils % 0.4 %; Eosinophils # 0.1 10^3/uL (0.0-0.8); Eosinophils % 1.5 %; Hematocrit 33.2 % (37.0-47.0); Hemoglobin 10.6 g/dL (11.5-15.3); Lymphocytes # 1.2 10^3/uL (0.8-4.8); Lymphocytes % 22.1 %; Mean Corpuscular HGB Conc 31.9 g/dL (30.0-36.0); Mean Corpuscular Hemoglobin 33.9 pg (28.0-34.0); Mean Corpuscular Volume 106.1 fl (81-99); Mean Platelet Volume 9.6 fL (7.4-10.4); Monocytes # 0.4 10^3/uL (0.2-0.9); Monocytes % 6.5 %; Neutrophils # 3.71 10^3/uL (1.8-7.7); Neutrophils % 69.3 %; Nucleated Red Blood Cells % 0 %; Platelet Count 145 10^3/cmm (130-400); Red Blood Count 3.13 10^6/uL (4.1-5.3); Red Cell Distribution Width 12.5 % (12.1-15.1); White Blood Count 5.4 10^3/uL (4.0-10.0)
== END 2021-11-28 23:59 | disposition home or self-care (01) ==
PROVIDERS: Nurse Practitioner; PCP Nurse Practitioner Family; Visit Provider Internal Medicine Hematology & Oncology
DX: D64.9 Anemia, unspecified (principal); C56.1 Malignant neoplasm of right ovary
CPT/HCPCS: 36415; 36591; 85025

== ENCOUNTER 2021-11-29 06:00 | Outpatient (RCR) | payer OTHER, SELFPAY | END 2021-12-29 23:59 | disposition home or self-care (01) | LOC: SPT 06:00 | PROVIDERS: PCP Nurse Practitioner Family; Visit Provider Physician Assistant | DX: M54.2 Cervicalgia (principal) | CPT/HCPCS: 97110; 97140 ==

== ENCOUNTER 2021-12-16 12:57 | Oncology outpatient (recurring) (ONCR) | payer OTHER, SELFPAY ==
[2021-12-16 13:45] LABS: Basophils % 0.4 %; Eosinophils # 0.1 10^3/uL (0.0-0.8); Eosinophils % 1.3 %; Hematocrit 30.1 % (37.0-47.0); Hemoglobin 9.5 g/dL (11.5-15.3); Lymphocytes # 1.1 10^3/uL (0.8-4.8); Lymphocytes % 23.9 %; Mean Corpuscular HGB Conc 31.6 g/dL (30.0-36.0); Mean Corpuscular Hemoglobin 33.5 pg (28.0-34.0); Mean Platelet Volume 9.5 fL (7.4-10.4); Monocytes # 0.3 10^3/uL (0.2-0.9); Monocytes % 6.9 %; Neutrophils % 67.3 %; Nucleated Red Blood Cells % 0 %; Platelet Count 142 10^3/cmm (130-400); Red Blood Count 2.84 10^6/uL (4.1-5.3); Red Cell Distribution Width 12.2 % (12.1-15.1); White Blood Count 4.8 10^3/uL (4.0-10.0)
== END 2021-12-29 23:59 | disposition home or self-care (01) ==
PROVIDERS: PCP Nurse Practitioner Family; Visit Provider Internal Medicine Hematology & Oncology
DX: D64.9 Anemia, unspecified (principal); C56.1 Malignant neoplasm of right ovary
CPT/HCPCS: 85025

== ENCOUNTER 2021-12-30 06:00 | Outpatient (RCR) | payer OTHER, SELFPAY | END 2022-01-28 23:59 | disposition home or self-care (01) | LOC: SPT 06:00 | PROVIDERS: PCP Nurse Practitioner Family; Visit Provider Physician Assistant | DX: M54.2 Cervicalgia (principal) | CPT/HCPCS: 97110 ==

== ENCOUNTER 2022-01-14 10:55 | Outpatient (CLI) | payer OTHER, SELFPAY ==
[2022-01-14 11:59] LABS: Blood Urea Nitrogen 19 mg/dL (8-23); Glomerular Filtration Rate 56.2 mL/min (90-130)
[2022-01-14] MEDS: iohexol 350 mg/mL 500 mL Btl (per mL) IV (12:21)
--- NOTE | 2022-01-14 12:30 | CT_ITS ---
WS: [id number] CT ABDOMEN PELVIS TECHNIQUE: Contrast-enhanced CT of the abdomen and pelvis with coronal and sagittal reformatted image s. CLINICAL INFORMATION: History of ovarian cancer. COMPARISON: June 30, 2021 DLP: 1322.[address] scans at [facility] use at least one of these dose optimization techniques: automated e xposure control; mA and/or kV adjustment per patient size (includes targeted exams where dose is matc hed to clinical indication); or iterative reconstruction. FINDINGS: Mild diffuse fatty infiltration liver. Normal portal vein and splenic vein. Cholelithiasis. Slightly hydropic gallbladder. No gallbladder wall thickening or pericholecystic fluid. Splenic gran ulomas. Normal GE junction. Normal portal vein and splenic vein. Normal pancreatic parenchymal enhanc ement. Mild fatty atrophy of the pancreas. Adrenal glands are normal. Normal renal parenchymal enhanc ement. No hydronephrosis. Stable small pericardial cyst. Normal sigmoid colon. No evidence of high-grade small or large bowel obstruction. Lung bases are well aerated. Moderate spondylitic changes lumbar spine. Urine distended bladder. No pelvic or inguinal l ymphadenopathy. Prior hysterectomy and gastric bypass. CT/CT abdomen pelvis w con* [id number] IMPRESSION: 1. Mild hepatomegaly. 2. Cholelithiasis. 3. Stable small pericardial cyst. 4. Prior gastric bypass. 5. Prior hysterectomy. 6. No lymphadenopathy in the abdomen or pelvis. No inguinal lymphadenopathy. 7. Moderate spondylitic changes lumbar spine. 8. No other significant findings.
== END 2022-01-14 10:56 | disposition home or self-care (01) ==
PROVIDERS: PCP Nurse Practitioner Family; Visit Provider Internal Medicine Hematology & Oncology
DX: C56.9 Malignant neoplasm of unspecified ovary (principal); R16.0 Hepatomegaly, not elsewhere classified; K80.20 Calculus of gallbladder without cholecystitis without obstruction; I31.8 Other specified diseases of pericardium; Z98.84 Bariatric surgery status; Z90.710 Acquired absence of both cervix and uterus; M47.896 Other spondylosis, lumbar region
CPT/HCPCS: 74177; 82565; 84520

== ENCOUNTER → 2022-01-26 11:25 | Outpatient (BNVA) | payer OTHER, SELFPAY | PROVIDERS: PCP Nurse Practitioner Family; Visit Provider Anesthesiology Pain Medicine | DX: E03.9 Hypothyroidism, unspecified (principal); E11.9 Type 2 diabetes mellitus without complications; M54.2 Cervicalgia; M50.222 Other cervical disc displacement at C5-C6 level; M47.812 Spondylosis without myelopathy or radiculopathy, cervical region; M54.12 Radiculopathy, cervical region | CPT/HCPCS: 36415; 80061; 83036; 84439; 84443 ==

== ENCOUNTER 2022-01-30 07:58 | Oncology outpatient (recurring) (ONCR) | payer OTHER, SELFPAY ==
[2022-01-30 08:25] LABS: Basophils % 0.2 %; Eosinophils # 0.1 10^3/uL (0.0-0.8); Eosinophils % 1.7 %; Hematocrit 31.3 % (37.0-47.0); Hemoglobin 9.9 g/dL (11.5-15.3); Lymphocytes # 1.5 10^3/uL (0.8-4.8); Lymphocytes % 30.5 %; Mean Corpuscular HGB Conc 31.6 g/dL (30.0-36.0); Mean Corpuscular Hemoglobin 33.4 pg (28.0-34.0); Mean Corpuscular Volume 105.7 fl (81-99); Mean Platelet Volume 9.6 fL (7.4-10.4); Monocytes # 0.4 10^3/uL (0.2-0.9); Monocytes % 8.6 %; Neutrophils % 58.8 %; Nucleated Red Blood Cells % 0 %; Platelet Count 131 10^3/cmm (130-400); Red Blood Count 2.96 10^6/uL (4.1-5.3); Red Cell Distribution Width 12.5 % (12.1-15.1); White Blood Count 4.8 10^3/uL (4.0-10.0)
[2022-01-30 08:41] LABS: Alanine Aminotransferase 37 U/L (0-33); Albumin Level 3.9 g/dL (3.5-5.2); Alkaline Phosphatase 154 U/L (35-105); Anion Gap 11.9 (5-19); Aspartate Amino Transferase 22 U/L (0-32); Blood Urea Nitrogen 29 mg/dL (8-23); Calcium 9.1 mg/dL (8.5-10.5); Carbon Dioxide 24 mmol/L (22-29); Chloride 107 mmol/L (98-107); Glomerular Filtration Rate 50.3 mL/min (90-130); Glucose 115 mg/dL (65-115); Osmolality Calculated 293 mOsm/kg (285-295); Potassium 4.9 mmol/L (3.5-5.1); Sodium 138 mmol/L (136-145); Total Bilirubin 0.2 mg/dL (0.15-1.2); Total Protein 6.9 g/dL (6.6-8.7)
[2022-01-30 09:33] LABS: Ferritin 873 ng/mL (15-150); Iron 76 ug/dL (37-145); Percent Saturation 33.4 % (20-50); Total Iron Binding Capacity 227 mcg/dl; Unsaturated Iron Binding 151 ug/dL (112-347)
[2022-01-30 09:48] LABS: Vitamin B12 583 pg/mL (232-1245)
[2022-02-02 20:04] LABS: Zinc Level, Serum or Plasma 58 mcg/dL (60-130)
[2022-02-03 16:23] LABS: Copper Level 127 mcg/dL (70-175)
== END 2022-02-28 23:59 | disposition home or self-care (01) ==
PROVIDERS: PCP Nurse Practitioner Family; Visit Provider Internal Medicine Hematology & Oncology
DX: C56.1 Malignant neoplasm of right ovary; K80.20 Calculus of gallbladder without cholecystitis without obstruction; R16.0 Hepatomegaly, not elsewhere classified; Z90.710 Acquired absence of both cervix and uterus; Z90.722 Acquired absence of ovaries, bilateral; Z98.84 Bariatric surgery status; Z86.16 Personal history of COVID-19; Z92.21 Personal history of antineoplastic chemotherapy; Z79.899 Other long term (current) drug therapy
CPT/HCPCS: 36591; 80053; 82525; 82607; 82728; 83540; 83550; 84630; 85025

== ENCOUNTER 2022-03-03 13:47 | Oncology outpatient (recurring) (ONCR) | payer OTHER, SELFPAY | END 2022-03-31 23:59 | disposition home or self-care (01) | LOC: ONCMED 13:49 | PROVIDERS: PCP Nurse Practitioner Family; Visit Provider Internal Medicine Hematology & Oncology | DX: Z45.2 Encounter for adjustment and management of vascular access device; Z95.828 Presence of other vascular implants and grafts | CPT/HCPCS: 96523 ==

== ENCOUNTER 2022-04-01 20:00 | Outpatient (CLI) | payer OTHER, SELFPAY | END 2022-04-01 20:01 | disposition home or self-care (01) | LOC: SLEEP 04-02 06:18 | PROVIDERS: PCP Nurse Practitioner Family; Visit Provider Nurse Practitioner Family | DX: G47.33 Obstructive sleep apnea (adult) (pediatric) (principal) | CPT/HCPCS: 95811 ==

== ENCOUNTER 2022-04-03 09:53 | Oncology outpatient (recurring) (ONCR) | payer OTHER, SELFPAY ==
[2022-04-07 09:05] LABS: Zinc Level, Serum or Plasma 77 mcg/dL (60-130)
[2022-04-07 17:40] LABS: Copper Level 113 mcg/dL (70-175)
== END 2022-04-28 23:59 | disposition home or self-care (01) ==
LOC: ONCMED 09:55
PROVIDERS: PCP Nurse Practitioner Family; Visit Provider Internal Medicine Hematology & Oncology
DX: Z45.2 Encounter for adjustment and management of vascular access device; N83.299 Other ovarian cyst, unspecified side; C56.9 Malignant neoplasm of unspecified ovary; Z95.828 Presence of other vascular implants and grafts
CPT/HCPCS: 82525; 84630; 96523

== ENCOUNTER 2022-05-06 12:49 | Oncology outpatient (recurring) (ONCR) | payer OTHER, SELFPAY ==
[2022-05-06 13:30] LABS: Basophils % 0.2 %; Eosinophils # 0.1 10^3/uL (0.0-0.8); Eosinophils % 1.4 %; Hematocrit 32.5 % (37.0-47.0); Hemoglobin 10.1 g/dL (11.5-15.3); Mean Corpuscular HGB Conc 31.1 g/dL (30.0-36.0); Mean Corpuscular Hemoglobin 32.6 pg (28.0-34.0); Mean Corpuscular Volume 104.8 fl (81-99); Mean Platelet Volume 9.4 fL (7.4-10.4); Monocytes # 0.3 10^3/uL (0.2-0.9); Monocytes % 5.2 %; Neutrophils % 74.8 %; Nucleated Red Blood Cells % 0 %; Platelet Count 160 10^3/cmm (130-400); White Blood Count 5.6 10^3/uL (4.0-10.0)
[2022-05-06 13:51] LABS: Alanine Aminotransferase 24 U/L (0-33); Albumin Level 3.7 g/dL (3.5-5.2); Alkaline Phosphatase 118 U/L (35-105); Anion Gap 14.1 (5-19); Aspartate Amino Transferase 22 U/L (0-32); Blood Urea Nitrogen 27 mg/dL (8-23); Calcium 8.8 mg/dL (8.5-10.5); Carbon Dioxide 24 mmol/L (22-29); Chloride 104 mmol/L (98-107); Globulin 2.9 g/dL (1.3-4.6); Glomerular Filtration Rate 50.3 mL/min (90-130); Glucose 228 mg/dL (65-115); Osmolality Calculated 296 mOsm/kg (285-295); Potassium 5.1 mmol/L (3.5-5.1); Sodium 137 mmol/L (136-145); Total Bilirubin 0.3 mg/dL (0.15-1.2); Total Protein 6.6 g/dL (6.6-8.7)
== END 2022-05-29 23:59 | disposition home or self-care (01) ==
PROVIDERS: PCP Nurse Practitioner Family; Visit Provider Internal Medicine Hematology & Oncology
DX: C56.1 Malignant neoplasm of right ovary; Z95.828 Presence of other vascular implants and grafts; D64.9 Anemia, unspecified
CPT/HCPCS: 80053; 85025

== ENCOUNTER 2022-06-02 14:22 | Oncology outpatient (recurring) (ONCR) | payer OTHER, SELFPAY ==
[2022-06-02 14:42] VITALS: BP 101/67; PULSE 77; RESP 16; TEMP 36.4; O2SAT 96
== END 2022-06-28 23:59 | disposition home or self-care (01) ==
LOC: ONCMED 14:22
PROVIDERS: PCP Nurse Practitioner Family; Visit Provider Internal Medicine Hematology & Oncology
DX: Z45.2 Encounter for adjustment and management of vascular access device; Z95.828 Presence of other vascular implants and grafts

== ENCOUNTER → 2022-06-15 10:27 | Outpatient (BNVA) | payer OTHER, SELFPAY | PROVIDERS: PCP Nurse Practitioner Family; Visit Provider Internal Medicine | DX: E03.8 Other specified hypothyroidism (principal); E06.3 Autoimmune thyroiditis; E11.9 Type 2 diabetes mellitus without complications; E03.9 Hypothyroidism, unspecified | CPT/HCPCS: 83036; 84439; 84443; 84480 ==

== ENCOUNTER 2022-06-30 13:22 | Oncology outpatient (recurring) (ONCR) | payer OTHER, SELFPAY ==
[2022-06-30 12:20] VITALS: BP 128/63; PULSE 83; RESP 18; TEMP 37.1; O2SAT 98
== END 2022-07-29 23:59 | disposition home or self-care (01) ==
LOC: ONCMED 13:23
PROVIDERS: PCP Nurse Practitioner Family; Visit Provider Internal Medicine Hematology & Oncology
DX: Z45.2 Encounter for adjustment and management of vascular access device (principal)
CPT/HCPCS: J1642

== ENCOUNTER 2022-07-28 10:53 | Outpatient (CLI) | payer OTHER, SELFPAY ==
--- NOTE | 2022-07-28 11:00 | CT_ITS ---
WS: [id number] CT ABDOMEN AND PELVIS WITH CONTRAST HISTORY: Follow-up ovarian cancer. TECHNIQUE: Imaging performed of the abdomen and pelvis with IV contrast. Single phase imaging of the abdomen. Coronal and sagittal reformats are submitted. All CT scans at [facility] use at [address] one of these dose optimization techniques: automated exposure control; mA and/or kV adjustment per patient size (includes targeted exams where dose is matched to clinical indication); or iterative re construction. IV CONTRAST: Omnipaque 350; 100 mL IV. Oral contrast: No DLP: 901.23 mGy.cm COMPARISON: 01/14/2022 Lower thorax: Lung bases are clear. Heart is normal size. Stable pericardial cyst. No hiatal hernia. Liver/biliary system: Normal size with no intrahepatic dilatation. Gallbladder: Cholelithiasis without acute cholecystitis. Pancreas: Normal size pancreas and pancreatic duct. No adjacent inflammation. Spleen: Normal size with granulomata. Adrenal glands: Normal. Right kidney: Normal. Left kidney: Normal. Aorta: Mild atherosclerosis with no aneurysm. Lymphadenopathy: None. Free fluid: None. GI tract: Prior gastric bypass. No small bowel obstruction. Tortuous overlapping loops of colon with no obstruction. Normal appendix. Abdominal wall: Unremarkable abdominal wall. No hernia. Pelvis: Prior hysterectomy. No free fluid or pelvic mass identified. Neither ovary is visualized. No adenopathy. Bones: Moderate thoracolumbar scoliosis with spondylitic changes throughout the visualized spine. Dis c spaces are narrowed with osteophytes. SI joints are negative. CT/CT abdomen pelvis w con* [id number] IMPRESSION: 1. No evidence for metastatic disease within the abdomen or pelvis. 2. Status post complete hysterectomy. No ascites. No mesenteric or omental imp lants. 3. Cholelithiasis without acute cholecystitis. 4. Prior gastric bypass.
[2022-07-28 11:41] LABS: Blood Urea Nitrogen 12 mg/dL (8-23); Glomerular Filtration Rate 56.2 mL/min (90-130)
[2022-07-28] MEDS: iohexol 350 mg/mL 500 mL Btl (per mL) IV (11:47)
== END 2022-07-28 10:54 | disposition home or self-care (01) ==
PROVIDERS: PCP Nurse Practitioner Family; Visit Provider Internal Medicine Hematology & Oncology
DX: C56.1 Malignant neoplasm of right ovary (principal); Z90.710 Acquired absence of both cervix and uterus; K80.20 Calculus of gallbladder without cholecystitis without obstruction; Z98.84 Bariatric surgery status
CPT/HCPCS: 74177; 82565; 84520; Q9967

== ENCOUNTER 2022-08-11 12:23 | Oncology outpatient (recurring) (ONCR) | payer OTHER, SELFPAY ==
[2022-08-11 12:44] VITALS: BP 123/70; PULSE 72; RESP 18; TEMP 36.7; O2SAT 94
[2022-08-11 12:59] LABS: Basophils % 0.4 %; Eosinophils % 0.9 %; Hematocrit 31.2 % (37.0-47.0); Hemoglobin 9.7 g/dL (11.5-15.3); Lymphocytes # 1.5 10^3/uL (0.8-4.8); Lymphocytes % 31.9 %; Mean Corpuscular HGB Conc 31.1 g/dL (30.0-36.0); Mean Corpuscular Hemoglobin 32.6 pg (28.0-34.0); Mean Corpuscular Volume 104.7 fl (81-99); Mean Platelet Volume 9.7 fL (7.4-10.4); Monocytes # 0.3 10^3/uL (0.2-0.9); Monocytes % 7.3 %; Neutrophils # 2.69 10^3/uL (1.8-7.7); Neutrophils % 59.3 %; Nucleated Red Blood Cells % 0 %; Platelet Count 143 10^3/cmm (130-400); Red Blood Count 2.98 10^6/uL (4.1-5.3); Red Cell Distribution Width 12.4 % (12.1-15.1); White Blood Count 4.5 10^3/uL (4.0-10.0)
[2022-08-11 13:35] LABS: Alanine Aminotransferase 21 U/L (0-33); Albumin Level 3.9 g/dL (3.5-5.2); Alkaline Phosphatase 106 U/L (35-105); Aspartate Amino Transferase 18 U/L (0-32); Blood Urea Nitrogen 22 mg/dL (8-23); Carbon Dioxide 24 mmol/L (22-29); Chloride 105 mmol/L (98-107); Free T4 Free Thyroxine 1.47 ng/dL (0.82-1.77); Globulin 2.5 g/dL (1.3-4.6); Glomerular Filtration Rate 63.4 mL/min (90-130); Glucose 75 mg/dL (65-115); Osmolality Calculated 286 mOsm/kg (285-295); Sodium 137 mmol/L (136-145); Thyroid Stimulating Hormone 0.07 uIU/mL (0.27-4.20); Total Bilirubin 0.3 mg/dL (0.15-1.2); Total Protein 6.4 g/dL (6.6-8.7)
[2022-08-11 14:05] LABS: CA 125 5.4 U/mL (0-35)
[2022-08-12 21:40] LABS: T3 Total 83 ng/dL (76-181)
== END 2022-08-28 23:59 | disposition home or self-care (01) ==
PROVIDERS: Internal Medicine; PCP Nurse Practitioner Family; Visit Provider Internal Medicine Hematology & Oncology
DX: C56.9 Malignant neoplasm of unspecified ovary (principal); D64.9 Anemia, unspecified; E03.8 Other specified hypothyroidism; E06.3 Autoimmune thyroiditis
CPT/HCPCS: 36591; 80053; 84439; 84443; 84480; 85025; 86304; J1642

== ENCOUNTER 2022-09-08 08:27 | Oncology outpatient (recurring) (ONCR) | payer OTHER, SELFPAY ==
[2022-09-08 08:35] VITALS: BP 112/64; PULSE 71; RESP 17; TEMP 36.6; O2SAT 97
== END 2022-09-28 23:59 | disposition home or self-care (01) ==
PROVIDERS: PCP Nurse Practitioner Family; Visit Provider Internal Medicine Hematology & Oncology
DX: Z45.2 Encounter for adjustment and management of vascular access device (principal); C56.9 Malignant neoplasm of unspecified ovary
CPT/HCPCS: 96523; J1642

== ENCOUNTER → 2022-09-29 11:25 | Outpatient (BNVA) | payer OTHER, SELFPAY | PROVIDERS: PCP Nurse Practitioner Family; Visit Provider Podiatrist Foot & Ankle Surgery | DX: E11.42 Type 2 diabetes mellitus with diabetic polyneuropathy; L60.3 Nail dystrophy; L84 Corns and callosities; M20.41 Other hammer toe(s) (acquired), right foot; M20.42 Other hammer toe(s) (acquired), left foot | CPT/HCPCS: 73630 ==

== ENCOUNTER 2022-12-01 09:30 | Outpatient (CLI) | payer OTHER, SELFPAY ==
[2022-12-01] MEDS: iohexol 350 mg/mL 500 mL Btl (per mL) PO (09:49)
--- NOTE | 2022-12-01 10:30 | CT_ITS ---
WS: [id number] CT ABDOMEN PELVIS TECHNIQUE: Contrast-enhanced CT of the abdomen and pelvis with coronal and sagittal reformatted image s. CLINICAL INFORMATION: Follow up COMPARISON: CT 07/28/2022 DLP: 910.[address] scans at [facility] use at least one of these dose optimization techniques: automated e xposure control; mA and/or kV adjustment per patient size (includes targeted exams where dose is matc hed to clinical indication); or iterative reconstruction. FINDINGS: Prior postoperative changes hysterectomy. Prior changes of gastric bypass. Cholelithiasis. Mild diffu se fatty infiltration of the liver. Spleenic granulomas. Mild bilateral renal cortical atrophy. No hy dronephrosis. Adrenal glands are normal. Splenic artery calcifications. Moderate spondylitic changes lumbar spine. Dense fecal retention and constipation in the RIGHT colon with luminal narrowing.. Consider further evaluation with colonoscopy. Normal appendix. No abdominal or pelvic lymphadenopathy. No inguinal lymphadenopathy. IMPRESSION: 1. No lymphadenopathy in the abdomen or pelvis. 2. Dense constipation RIGHT colon is new from previous with luminal narrowing. Consider further eval uation with colonoscopy. 3. Cholelithiasis. 4. Diffuse fatty filtration of the liver. 5. Prior hysterectomy. 6. Gastric bypass.
[2022-12-01 11:01] LABS: Blood Urea Nitrogen 20 mg/dL (8-23); Glomerular Filtration Rate 50.3 mL/min (90-130)
[2022-12-01] MEDS: iohexol 350 mg/mL 500 mL Btl (per mL) IV (11:19)
[2022-12-01 11:26] LABS: Estmated Average Glucose 111; Hemoglobin A1C 5.5 % (4.0-6.0)
[2022-12-01 11:46] LABS: Free T4 Free Thyroxine 1.47 ng/dL (0.82-1.77)
[2022-12-02 10:38] LABS: T3 Total 69 ng/dL (76-181)
== END 2022-12-01 09:31 | disposition home or self-care (01) ==
PROVIDERS: Internal Medicine; Internal Medicine Medical Oncology; PCP Nurse Practitioner Family; Visit Provider Internal Medicine Hematology & Oncology
DX: C56.9 Malignant neoplasm of unspecified ovary (principal); E03.9 Hypothyroidism, unspecified; E11.9 Type 2 diabetes mellitus without complications; K59.00 Constipation, unspecified; K80.20 Calculus of gallbladder without cholecystitis without obstruction; K76.0 Fatty (change of) liver, not elsewhere classified; Z98.84 Bariatric surgery status; Z90.710 Acquired absence of both cervix and uterus
CPT/HCPCS: 74177; 82565; 83036; 84439; 84480; 84520; Q9967

== ENCOUNTER → 2022-12-28 13:03 | Outpatient (BNVA) | payer OTHER, SELFPAY | PROVIDERS: PCP Nurse Practitioner Family; Visit Provider Internal Medicine | DX: E03.9 Hypothyroidism, unspecified (principal) | CPT/HCPCS: 84443 ==

== ENCOUNTER 2023-02-03 05:52 | Day surgery (SDC) | payer OTHER, SELFPAY ==
[2023-02-03 06:12] VITALS: BP 164/81; PULSE 81; RESP 18; TEMP 36.4; O2SAT 95; BMI 36.8
[2023-02-03] MEDS: sodium chloride 0.9% 1,000 ML 30 ML IV (06:19)
[2023-02-03 06:23] LABS: Glucose Point of Care 100 mg/dL (70-110)
--- NOTE | 2023-02-03 06:32 | ANES.PREANE2 ---
Pre-Anesthetic Assessment Height/Weight: Height 1.7 m Weight 106.594 kg Temp Pulse Resp BP Pulse Ox O2 Del Method 97.5 F L 81 18 164/81 95 Room Air 02/03/23 06:12 02/03/23 06:12 02/03/23 06:12 02/03/23 06:12 02/03/23 06:12 02/03/23 06:12 Operation Date: 02/03/23 07:00 Proposed Procedures p [id number] egd [id number] diagnositic colonoscopy, G0121 screen colon A risk K59.09,R93.3,K21.9(Not Applicable) - Thomas Lara DO s Colonoscopy(Not Applicable) - Thomas Lara DO Familial anesthetic complications: None Was Beta Stephen taken within 24 hours: N/A Was Clonidine taken within 24 hours: N/A Last intake: Intake Last Liquid Date 02/02/23 Last Liquid Time 23:30 Last Solid Date 02/02/23 Last Solid Time 01:00 Social Alcohol (Social) and No tobacco Exam alert, oriented x 3, clear to auscultation bilaterally and regular rate & rhythm Airway Submandibular: within normal limits Cervical ROM: within normal limits Mallampati: Class III Dentition: loose and false History/ROS No significant history except as noted and No significant complaints Pulmonary Exertional Dyspnea and Sleep Apnea (Uses CPAP) CV/HEM Atrial Fibrillation (History of a fib when she had sepsis a few years ago from a UTI), Anemia and Hypertension Urinary Tract Infection Hepatic None reported GI Gastroesophageal Reflux Disease, Hiatal Hernia and Peptic Ulcer Disease (Perforated ulcer a few years ago) Gastric bypass Metabolic Diabetes Mellitus, Hyperlipidemia, Morbid Obesity and Thyroid Disease Musc/skel Lower Back Pain and Osteoarthritis/DJD (Herniated C5-6) Neuropsych Anxiety, Depression, Headache and Neuropathy Anesthetic Plan ASA status: 3 Anesthesia: Anesthesia Evaluation, General and MAC Risk of > 500 ml blood loss (7ml/kg in children): No Medications/Allergies Home Medications Medication Instructions Recorded Confirmed Last Taken Type atorvastatin 10 mg tablet 10 mg PO DAILY@2200 03/20/19 02/02/23 02/02/23 History tramadol 50 mg tablet 50 mg PO TID PRN Pain 03/20/19 02/02/23 02/02/23 History lisinopril 10 mg tablet 10 mg PO QAM 10/03/19 02/02/23 02/02/23 History buspirone 15 mg tablet 15 mg PO BID #60 tabs 01/31/21 02/02/23 02/02/23 Rx sertraline 100 mg tablet (Zoloft) 200 mg (2 x 100 mg) PO DAILY #60 01/31/21 02/02/23 02/02/23 Rx tabs ferrous sulfate 325 mg (65 mg 325 mg PO DAILY 04/21/21 02/02/23 02/01/23 History iron) tablet (Feosol) cetirizine 10 mg tablet (Zyrtec) 10 mg PO DAILY PRN ALLERGIES 09/29/21 02/02/23 02/02/23 History nkskkutm-pgx-pbyky ac 400 1 tab PO DAILY 09/29/21 02/02/23 02/01/23 History mcg-calcium carb 500 mg-vit K1 20 mcg tablet (Women's 50 Plus Multivitamin) fluticasone propionate 50 1 spray intranasal DAILY 12/18/21 02/02/23 02/02/23 History mcg/actuation nasal spray,suspension pantoprazole 40 mg tablet,delayed 40 mg PO BID #60 tabs 01/26/22 02/02/23 02/01/23 Rx release (Protonix) vit C,E,zinc,copper-mkusb3z 250 1 cap PO DAILY 01/30/22 02/02/23 02/02/23 History mg-lutein 5 mg-zeaxanthin 1 mg capsule (Adult 50 Plus Eye Health) baclofen 10 mg tablet 10 mg PO BID PRN spasm #60 tabs 08/18/22 02/02/23 02/01/23 Rx liraglutide 0.6 mg/0.1 mL (18 mg/3 See Rx Instructions .Route 10/05/22 02/02/23 01/26/23 Rx mL) subcutaneous pen injector .COMPLEX #18 mL (Victoza 3-Alexander) levothyroxine 125 mcg tablet 125 mcg PO DAILY #90 tabs 12/28/22 02/02/23 02/02/23 Rx Tylenol 500 mg PO TID 02/02/23 02/02/23 02/02/23 History gabapentin 300 mg capsule 300 mg PO TID pain 02/02/23 02/02/23 02/02/23 History Allergies Allergy/AdvReac Type Severity Reaction Status Date / Time amoxicillin Allergy Unknown Unknown Verified 02/02/23 08:29 cephalexin [From Keflex] Allergy Unknown Unknown Verified 02/02/23 08:29 Penicillins Allergy Unknown Unknown Verified 02/02/23 08:29 Current Medications Generic Name Dose Route Start Last Admin Trade Name Freq PRN Reason Stop Dose Admin Sodium Chloride 1,000 mls @ 30 mls/hr 02/03/23 06:00 02/03/23 06:19 Sodium Chloride 0.9% IV 02/04/23 05:59 30 mls/hr .Q24H DELIA Administration PFSH Anesthesia Medical History Anemia Ankle fracture, left Arthritis COVID-17 May 2020 Diabetes Diabetes Hyperlipidemia Hypothyroidism Major depressive disorder, recurrent, in full remission Malignant neoplasm of right ovary Ovarian cancer Perforated abdominal viscus Port-A-Cath in place Pyelonephritis Sleep apnea Tachycardia Thrombocytopenia UTI (urinary tract infection) Surgical History H/O gastric bypass 1999 H/O: hysterectomy 2019 Family History Sister Clotting disorder Diabetes Thyroid disease Father Hyperlipidemia Hypertension Heart disease Mother Hyperlipidemia Hypertension Stroke Breast cancer mid 50's Family/Other Colon cancer paternal aunt Denies family history of Ovarian cancer Anesthesia complication Bleeding disorder Uterine cancer Social History Smoking and tobacco/nicotine status: never used tobacco/nicotine Second hand smoke exposure: Yes Alcohol intake: current Alcohol intake frequency: holidays/special occasions only Alcohol type: wine Substance/Drug Use: never Adopted: No Caregiver/support person: No Lives independently: Yes Household members: other Housing: Apartment Marital status: Single Highest education level completed: Bachelor's Degree service: No Current occupational status: employed Data Anesthesia Cardiac Studies: No Data to Display
--- NOTE | 2023-02-03 07:00 | PM.HP ---
Providers/Chief Complaint Primary Care Provider: EVERARDO Davidson Chief Complaint: K59.09, R93.3, K21.9 History of Present Illness Alecia Meier is a 63 year old female Review of Systems General: Reports: 10 or more systems reviewed and unremarkable except in HPI and below Medications/Allergies Home Medications Medication Instructions Recorded Confirmed Last Taken Type atorvastatin 10 mg tablet 10 mg PO DAILY@2200 03/20/19 02/02/23 02/02/23 History tramadol 50 mg tablet 50 mg PO TID PRN Pain 03/20/19 02/02/23 02/02/23 History lisinopril 10 mg tablet 10 mg PO QAM 10/03/19 02/02/23 02/02/23 History buspirone 15 mg tablet 15 mg PO BID #60 tabs 01/31/21 02/02/23 02/02/23 Rx sertraline 100 mg tablet (Zoloft) 200 mg (2 x 100 mg) PO DAILY #60 01/31/21 02/02/23 02/02/23 Rx tabs ferrous sulfate 325 mg (65 mg 325 mg PO DAILY 04/21/21 02/02/23 02/01/23 History iron) tablet (Feosol) cetirizine 10 mg tablet (Zyrtec) 10 mg PO DAILY PRN ALLERGIES 09/29/21 02/02/23 02/02/23 History trexngld-puq-jspyx ac 400 1 tab PO DAILY 09/29/21 02/02/23 02/01/23 History mcg-calcium carb 500 mg-vit K1 20 mcg tablet (Women's 50 Plus Multivitamin) fluticasone propionate 50 1 spray intranasal DAILY 12/18/21 02/02/23 02/02/23 History mcg/actuation nasal spray,suspension pantoprazole 40 mg tablet,delayed 40 mg PO BID #60 tabs 01/26/22 02/02/23 02/01/23 Rx release (Protonix) vit C,E,zinc,copper-jajuv1u 250 1 cap PO DAILY 01/30/22 02/02/23 02/02/23 History mg-lutein 5 mg-zeaxanthin 1 mg capsule (Adult 50 Plus Eye Health) baclofen 10 mg tablet 10 mg PO BID PRN spasm #60 tabs 08/18/22 02/02/23 02/01/23 Rx liraglutide 0.6 mg/0.1 mL (18 mg/3 See Rx Instructions .Route 10/05/22 02/02/23 01/26/23 Rx mL) subcutaneous pen injector .COMPLEX #18 mL (Victoza 3-Alexander) levothyroxine 125 mcg tablet 125 mcg PO DAILY #90 tabs 12/28/22 02/02/23 02/02/23 Rx Tylenol 500 mg PO TID 02/02/23 02/02/23 02/02/23 History gabapentin 300 mg capsule 300 mg PO TID pain 02/02/23 02/02/23 02/02/23 History Allergies Allergy/AdvReac Type Severity Reaction Status Date / Time amoxicillin Allergy Unknown Unknown Verified 02/02/23 08:29 cephalexin [From Keflex] Allergy Unknown Unknown Verified 02/02/23 08:29 Penicillins Allergy Unknown Unknown Verified 02/02/23 08:29 PFSH Acute PFSH: Medical History Anemia Ankle fracture, left Arthritis COVID-17 May 2020 Diabetes Diabetes Hyperlipidemia Hypothyroidism Major depressive disorder, recurrent, in full remission Malignant neoplasm of right ovary Ovarian cancer Perforated abdominal viscus Port-A-Cath in place Pyelonephritis Sleep apnea Tachycardia Thrombocytopenia UTI (urinary tract infection) Surgical History H/O gastric bypass 1999 H/O: hysterectomy 2019 Family History Sister Clotting disorder Diabetes Thyroid disease Father Hyperlipidemia Hypertension Heart disease Mother Hyperlipidemia Hypertension Stroke Breast cancer mid 50's Family/Other Colon cancer paternal aunt Denies family history of Ovarian cancer Anesthesia complication Bleeding disorder Uterine cancer Social History Smoking and tobacco/nicotine status: never used tobacco/nicotine Second hand smoke exposure: Yes Alcohol intake: current Alcohol intake frequency: holidays/special occasions only Alcohol type: wine Substance/Drug Use: never Adopted: No Caregiver/support person: No Lives independently: Yes Household members: other Housing: Apartment Marital status: Single Highest education level completed: Bachelor's Degree service: No Current occupational status: employed Vitals/I&O/Wt Last Vital Signs Temp 97.5 F L 02/03/23 06:12 Pulse 81 02/03/23 06:12 Resp 18 02/03/23 06:12 BP 164/81 02/03/23 06:12 Pulse Ox 95 02/03/23 06:12 O2 Del Method Room Air 02/03/23 06:12 Weight last 48 hrs Weight 235 lb A&P Assessment and plan (1) GERD (gastroesophageal reflux disease): (2) Abnormal CT scan, colon: (3) Chronic constipation: Plan EGD and colonoscopy Attestations Medical Necessity Statement*: Home Coding Level of Care Code Acute Code for Chg Fwd Diagnoses GERD (gastroesophageal reflux disease) K21.[address] scan, colon R93.3 Chronic constipation K59.09
[2023-02-03 07:44] VITALS: BP 98/54; PULSE 59; RESP 18; TEMP 36.1; O2SAT 95
[2023-02-03 08:04] VITALS: BP 121/72; PULSE 59; RESP 18; O2SAT 100
--- NOTE | 2023-02-03 14:12 | ANE.PACU2 ---
Inpatient post-anesthesia follow up: Airway intact: Yes Vital signs: Temperature 97.0 F Pulse Rate 59 Respiratory Rate 18 Blood Pressure 121/72 Pulse Oximetry 100 Oxygen Delivery Me thod Room Air Oxygen Flow Rate Fraction of Inspir ed Oxygen Hydration adequate: Yes Nausea and vomiting: No Pain level: 2 Mental status: Baseline
== END 2023-02-03 08:13 | disposition home or self-care (01) ==
PROVIDERS: PCP Nurse Practitioner Family; Visit Provider Surgery
PROC: 0DJ08ZZ Inspection of Upper Intestinal Tract, Via Natural or Artificial Opening Endoscopic (ICD-10-PCS; CPT 43235; principal; 2023-02-03 07:00)
PROC: 0DJD8ZZ Inspection of Lower Intestinal Tract, Via Natural or Artificial Opening Endoscopic (ICD-10-PCS; CPT 45378; 2023-02-03 07:00)
DX: R93.3 Abnormal findings on diagnostic imaging of other parts of digestive tract (principal); K21.9 Gastro-esophageal reflux disease without esophagitis; K59.09 Other constipation; E11.40 Type 2 diabetes mellitus with diabetic neuropathy, unspecified; E78.5 Hyperlipidemia, unspecified; E03.9 Hypothyroidism, unspecified; Z85.43 Personal history of malignant neoplasm of ovary; Z98.1 Arthrodesis status; K64.8 Other hemorrhoids; I48.91 Unspecified atrial fibrillation; I10 Essential (primary) hypertension; G47.33 Obstructive sleep apnea (adult) (pediatric)
CPT/HCPCS: 36416; 43239; 45378; 82962; 88305; 88342; J2704; J7030

== ENCOUNTER 2023-02-15 10:52 | Oncology outpatient (recurring) (ONCR) | payer OTHER, SELFPAY ==
[2023-02-15 10:58] VITALS: BP 142/73; PULSE 80; RESP 16; TEMP 36.1; O2SAT 98
[2023-02-15 11:19] LABS: Basophils % 0.2 %; Eosinophils # 0.1 10^3/uL (0.0-0.8); Eosinophils % 1.3 %; Lymphocytes # 0.9 10^3/uL (0.8-4.8); Mean Corpuscular HGB Conc 31.7 g/dL (30-55); Mean Corpuscular Hemoglobin 33.1 pg (27-33); Mean Corpuscular Volume 104.5 fl (85-98); Mean Platelet Volume 10.1 fL (7.4-10.4); Monocytes # 0.3 10^3/uL (0.2-0.9); Monocytes % 5.6 %; Neutrophils # 3.42 10^3/uL (1.8-7.7); Neutrophils % 73.7 %; Nucleated Red Blood Cells % 0 %; Platelet Count 174 10^3/cmm (157-399); Red Blood Count 3.35 10^6/uL (3.85-5.65); Red Cell Distribution Width 12.4 % (12.1-15.1); White Blood Count 4.64 10^3/uL (3.29-11.43)
[2023-02-15 11:50] LABS: Alanine Aminotransferase 19 U/L (0-33); Albumin Level 4.1 g/dL (3.5-5.2); Alkaline Phosphatase 110 U/L (35-105); Aspartate Amino Transferase 18 U/L (0-32); Blood Urea Nitrogen 17 mg/dL (8-23); Calcium 9.3 mg/dL (8.5-10.5); Carbon Dioxide 25 mmol/L (22-29); Chloride 106 mmol/L (98-107); Globulin 2.8 g/dL (1.3-4.6); Glomerular Filtration Rate 50.2 mL/min (90-130); Glucose 209 mg/dL (65-115); Osmolality Calculated 298 mOsm/kg (285-295); Sodium 140 mmol/L (136-145); Total Bilirubin 0.3 mg/dL (0.15-1.2); Total Protein 6.9 g/dL (6.6-8.7)
[2023-02-15 14:55] LABS: Add Urine Microscopic? YES; Bilirubin Urine Neg (Negative); Blood Urine Neg (Negative); Glucose Urine UA Norm (Normal); Ketones Urine Negative (Negative); Leukocyte Esterase Urine 2+ (Negative); Nitrate Urine Negative (Negative); Protein Urine Neg (Negative); Specific Gravity, Urine 1.015 (1.005-1.030); Urine Appearance SL Hazy (CLEAR); Urine Color Yellow (Yellow); Urobilinogen Urine Norm (Negative); pH Urine 5 (5-7)
[2023-02-15 14:56] LABS: Add Urine Culture? Yes; Bacteria Urine 1+ /hpf; Squamous Epithelial Cell Urine 0-4 /hpf (0-5); WBC Urine 15-25 /hpf (0-5)
[2023-02-15 17:46] LABS: Vitamin B12 558 pg/mL (232-1245)
== END 2023-02-28 23:59 | disposition home or self-care (01) ==
PROVIDERS: Nurse Practitioner Family; PCP Nurse Practitioner Family; Visit Provider Internal Medicine Hematology & Oncology
DX: Z45.2 Encounter for adjustment and management of vascular access device (principal); C56.9 Malignant neoplasm of unspecified ovary; R35.0 Frequency of micturition; Z79.899 Other long term (current) drug therapy; C56.1 Malignant neoplasm of right ovary; Z53.9 Procedure and treatment not carried out, unspecified reason
CPT/HCPCS: 36415; 80053; 81001; 82607; 85025; 86304; 87086; 87186

== ENCOUNTER 2023-03-09 10:59 | Outpatient (CLI) | payer OTHER, SELFPAY ==
[2023-03-09 12:12] LABS: Free T4 Free Thyroxine 1.19 ng/dL (0.82-1.77); Thyroid Stimulating Hormone 0.68 uIU/mL (0.27-4.20)
== END 2023-03-09 11:00 | disposition home or self-care (01) ==
LOC: LAB 11:00
PROVIDERS: PCP Nurse Practitioner Family; Visit Provider Internal Medicine
DX: E03.9 Hypothyroidism, unspecified (principal)
CPT/HCPCS: 36415; 84439; 84443

== ENCOUNTER 2023-04-20 09:55 | Outpatient (CLI) | payer OTHER, SELFPAY ==
--- NOTE | 2023-04-20 09:59 | MM_ITS ---
WS: [id number] BILATERAL 3D TOMOSYNTHESIS DIGITAL SCREENING MAMMOGRAPHY WITH CAD CLINICAL INFORMATION: SCREENING HISTORY: Screening mammogram. No current complaints. COMPARISON: 2021 TECHNIQUE: Bilateral CC and MLO views. FINDINGS: Scattered fibroglandular densities bilaterally. No suspicious focal mass, asymmetry, calcifications, or architectural distortion. No evidence of malignancy. Benign calcification RIGHT breast. A few tiny incidental punctate calcifications. IMPRESSION: MM/[place] [id number] BI-RADS: 2-Benign FOLLOW UP: 1 Year Follow-up Recommend return to annual screening mammography.
== END 2023-04-20 09:56 | disposition home or self-care (01) ==
LOC: RAD 09:56
PROVIDERS: PCP Nurse Practitioner Family; Visit Provider Nurse Practitioner Family
DX: Z12.31 Encounter for screening mammogram for malignant neoplasm of breast (principal); R92.323 Mammographic fibroglandular density, bilateral breasts; R92.1 Mammographic calcification found on diagnostic imaging of breast
CPT/HCPCS: 77063; 77067

== ENCOUNTER 2023-06-17 10:17 | Outpatient (CLI) | payer OTHER, SELFPAY ==
--- NOTE | 2023-06-17 10:26 | XR_ITS ---
WS: [id number] Exam: XR knee RT 3V* [id number] Date/Time of Exam: 06/17/2023 10:26 AM Reason For Exam: OSTEOARTHRITIS OF KNEES, BILATERAL (M25.561) Comparison 06/25/2017. Tricompartmental degenerative change noted most marked involving the patellofemoral joint and the med ial compartment. No fracture. Minimal effusion in the suprapatellar bursa. Unremarkable soft tissues. IMPRESSION: 1. Tricompartmental DJD and small joint effusion. No fracture. Kellgren-Austyn grade 2.
== END 2023-06-17 10:18 | disposition home or self-care (01) ==
LOC: RAD 10:19
PROVIDERS: PCP Nurse Practitioner Family; Visit Provider Nurse Practitioner Family
DX: M17.0 Bilateral primary osteoarthritis of knee (principal); M25.461 Effusion, right knee
CPT/HCPCS: 73562

== ENCOUNTER 2023-07-30 06:00 | Outpatient (CLI) | payer OTHER, SELFPAY | END 2023-07-30 23:59 | disposition home or self-care (01) | LOC: SPT 08-02 09:19 | PROVIDERS: PCP Nurse Practitioner Family; Visit Provider Student in an Organized Health Care Education/Training Program | DX: Z46.89 Encounter for fitting and adjustment of other specified devices (principal); M25.561 Pain in right knee; M25.562 Pain in left knee; M17.11 Unilateral primary osteoarthritis, right knee; M17.12 Unilateral primary osteoarthritis, left knee | CPT/HCPCS: 97760; L1852 ==

== ENCOUNTER → 2023-07-30 08:36 | Outpatient (BNVA) | payer OTHER, SELFPAY | PROVIDERS: PCP Nurse Practitioner Family; Referring Provider Nurse Practitioner Family; Visit Provider Student in an Organized Health Care Education/Training Program | DX: M25.561 Pain in right knee; M25.562 Pain in left knee; M17.0 Bilateral primary osteoarthritis of knee | CPT/HCPCS: 73560; 73565 ==

== ENCOUNTER 2023-11-12 07:47 | Outpatient (CLI) | payer OTHER, SELFPAY ==
[2023-11-12 08:30] LABS: Free T4 Free Thyroxine 1.24 ng/dL (0.82-1.77); Thyroid Stimulating Hormone 6.46 uIU/mL (0.27-4.20)
== END 2023-11-12 07:48 | disposition home or self-care (01) ==
LOC: LAB 07:49
PROVIDERS: PCP Nurse Practitioner Family; Visit Provider Internal Medicine
DX: E03.8 Other specified hypothyroidism (principal); E06.3 Autoimmune thyroiditis
CPT/HCPCS: 84439; 84443

== ENCOUNTER → 2023-11-23 10:30 | Outpatient (BNVA) | payer OTHER, SELFPAY | PROVIDERS: PCP Nurse Practitioner Family; Visit Provider Student in an Organized Health Care Education/Training Program | DX: M17.0 Bilateral primary osteoarthritis of knee (principal) | CPT/HCPCS: 73560; 73565 ==

== ENCOUNTER 2024-01-26 10:02 | Outpatient (CLI) | payer OTHER, SELFPAY ==
[2024-01-26 11:20] LABS: Free T4 Free Thyroxine 1.19 ng/dL (0.82-1.77); Thyroid Stimulating Hormone 1.41 uIU/mL (0.27-4.20)
== END 2024-01-26 10:03 | disposition home or self-care (01) ==
LOC: LAB 10:03
PROVIDERS: PCP Nurse Practitioner Family; Visit Provider Internal Medicine
DX: E03.8 Other specified hypothyroidism (principal); E06.3 Autoimmune thyroiditis
CPT/HCPCS: 36415; 84439; 84443

== ENCOUNTER → 2024-02-08 13:32 | Outpatient (BNVA) | payer OTHER, SELFPAY | PROVIDERS: PCP Nurse Practitioner Family; Visit Provider Student in an Organized Health Care Education/Training Program | DX: M17.0 Bilateral primary osteoarthritis of knee (principal); M25.561 Pain in right knee; R03.0 Elevated blood-pressure reading, without diagnosis of hypertension; M25.562 Pain in left knee | CPT/HCPCS: 73560; 73565 ==

== ENCOUNTER 2024-05-04 07:34 | Outpatient (CLI) | payer OTHER, SELFPAY ==
[2024-05-04 08:44] LABS: Free T4 Free Thyroxine 1.29 ng/dL (0.82-1.77); Thyroid Stimulating Hormone 0.59 uIU/mL (0.27-4.20)
[2024-05-04 08:51] LABS: Estmated Average Glucose 108; Hemoglobin A1C 5.4 % (4.0-6.0)
== END 2024-05-04 07:35 | disposition home or self-care (01) ==
LOC: LAB 07:35
PROVIDERS: PCP Nurse Practitioner Family; Visit Provider Internal Medicine
DX: E11.9 Type 2 diabetes mellitus without complications (principal); E03.8 Other specified hypothyroidism; E06.3 Autoimmune thyroiditis
CPT/HCPCS: 83036; 84439; 84443

== ENCOUNTER 2024-08-03 11:31 | Outpatient (CLI) | payer OTHER, SELFPAY ==
[2024-08-03 12:14] LABS: Estmated Average Glucose 117; Hemoglobin A1C 5.7 % (4.0-6.0)
[2024-08-03 12:43] LABS: Anion Gap 13.6 (5-19); Blood Urea Nitrogen 23 mg/dL (8-23); Calcium 8.9 mg/dL (8.5-10.5); Carbon Dioxide 25 mmol/L (22-29); Chloride 108 mmol/L (98-107); Free T4 Free Thyroxine 1.21 ng/dL (0.82-1.77); Glucose 102 mg/dL (65-115); Osmolality Calculated 298 mOsm/kg (285-295); Potassium 4.6 mmol/L (3.5-5.1); Sodium 142 mmol/L (136-145); Thyroid Stimulating Hormone 1.16 uIU/mL (0.27-4.20)
== END 2024-08-03 11:32 | disposition home or self-care (01) ==
PROVIDERS: PCP Nurse Practitioner Family; Visit Provider Internal Medicine
DX: E11.9 Type 2 diabetes mellitus without complications (principal); E03.8 Other specified hypothyroidism; E06.3 Autoimmune thyroiditis
CPT/HCPCS: 36415; 80048; 83036; 84439; 84443

== ENCOUNTER 2024-11-03 13:25 | Outpatient (CLI) | payer OTHER, SELFPAY ==
[2024-11-03 14:07] LABS: Creatinine Urine, Random 44 mg/dL (28-217); Microalbum Creatinine Ratio Ur 23 mg/dL (0-20)
[2024-11-03 14:09] LABS: Estmated Average Glucose 128; Hemoglobin A1C 6.1 % (4.0-6.0)
[2024-11-03 14:18] LABS: Alanine Aminotransferase 20 U/L (0-33); Albumin Level 4.0 g/dL (3.5-5.2); Alkaline Phosphatase 135 U/L (35-105); Anion Gap 15.8 (5-19); Aspartate Amino Transferase 19 U/L (0-32); Blood Urea Nitrogen 21 mg/dL (8-23); Calcium 9.1 mg/dL (8.5-10.5); Carbon Dioxide 26 mmol/L (22-29); Chloride 103 mmol/L (98-107); Cholesterol 149 mg/dL (0-200); Free T4 Free Thyroxine 1.05 ng/dL (0.82-1.77); Globulin 3.0 g/dL (1.3-4.6); Glucose 129 mg/dL (65-115); HDL Cholesterol 53 mg/dL (60-100); Osmolality Calculated 295 mOsm/kg (285-295); Potassium 4.8 mmol/L (3.5-5.1); Sodium 140 mmol/L (136-145); Thyroid Stimulating Hormone 7.13 uIU/mL (0.27-4.20); Total Protein 7.0 g/dL (6.6-8.7); Triglycerides 138 mg/dL (0-150)
== END 2024-11-03 13:26 | disposition home or self-care (01) ==
PROVIDERS: PCP Nurse Practitioner Family; Visit Provider Internal Medicine
DX: E11.9 Type 2 diabetes mellitus without complications (principal); E03.8 Other specified hypothyroidism; E06.3 Autoimmune thyroiditis
CPT/HCPCS: 36415; 80053; 80061; 82044; 83036; 84439; 84443

== ENCOUNTER 2025-02-06 13:10 | Outpatient (CLI) | payer BC, MEDICARE, SELFPAY ==
--- NOTE | 2025-02-06 13:22 | XR_ITS ---
WS: [id number] XR lumbar spine min 4V [id number] REASON FOR EXAM: DJD/LUMBAR SPINE PAIN/LOW BACK PAIN FINDINGS: Moderate rotatory levoscoliosis. Straightening of the normal lordosis. Chronic mild biconcave compression deformities L1-L5. Moderate osteophytosis L1- L3 with large osteophytes L3-L5. Severe narrowing of the intervertebral disc spaces at L1-L2 and L5-S1. Moderate narrowing of the L2-L3 disc space. No spondylolysis. No significant spondylolisthesis. XR/XR lumbar spine min 4V [id number] IMPRESSION: Multilevel degenerative spondylosis.
--- NOTE | 2025-02-06 13:22 | XR_ITS ---
WS: [id number] XR hip RT 2-3V wo/w pel* [id number] REASON FOR EXAM: PAIN IN RIGHT HIP FINDINGS: No fracture or focal bone lesion. Mild narrowing of the joint space with mild subchondral sclerosis and osteophytosis of the acetabulum. Mild osteophytosis of the femoral head. XR/XR hip RT 2-3V wo/w pel* [id number] IMPRESSION: Mild osteoarthritis in the right hip.
== END 2025-02-06 13:11 | disposition home or self-care (01) ==
LOC: RAD 13:17
PROVIDERS: PCP Nurse Practitioner Family; Visit Provider Nurse Practitioner Family
DX: M43.8X6 Other specified deforming dorsopathies, lumbar region (principal); M51.362 Other intervertebral disc degeneration, lumbar region with discogenic back pain and lower extremity pain; M51.372 Other intervertebral disc degeneration, lumbosacral region with discogenic back pain and lower extremity pain; M47.26 Other spondylosis with radiculopathy, lumbar region; M25.78 Osteophyte, vertebrae; M41.86 Other forms of scoliosis, lumbar region; M16.11 Unilateral primary osteoarthritis, right hip
CPT/HCPCS: 72110; 73502

== ENCOUNTER 2025-02-09 13:49 | Outpatient (CLI) | payer MEDICARE, BC, SELFPAY ==
--- NOTE | 2025-02-09 13:58 | XR_ITS ---
WS: [id number] DEXA (DUAL ENERGY X-RAY ABSORPTIOMETRY) Bone mineral density was performed using a [employer] machine. HISTORY: POSTMENOPAUSAL/DJD COMPARISON: None available. Lumbar spine BMD (L1-L4): 1.372 g/cm2 T score: 1.6 Z score: 2.0 Total hip BMD: Left: 0.665 g/cm2. T score: -2.7 Z score: -2.3 Right: 0.741 g/cm2. T score: -2.1 Z score: -1.7 10 year probability of a major osteoporotic fracture is 19.5%. XR/XR DEXA axial skeleton* [id number] IMPRESSION: OSTEOPOROSIS based upon the WHO classification for females.
--- NOTE | 2025-02-09 13:58 | MM_ITS ---
WS: [id number] BILATERAL 3D TOMOSYNTHESIS DIGITAL SCREENING MAMMOGRAPHY WITH CAD CLINICAL INFORMATION: SCREENING HISTORY: Screening mammogram. No current complaints. COMPARISON: 2023 TECHNIQUE: Bilateral CC and MLO views. FINDINGS: Scattered fibroglandular densities bilaterally. No suspicious focal mass, asymmetry, calcifications, or architectural distortion. No evidence of malignancy. Benign calcifications RIGHT breast. Vascular calcification. MM/MM scr BI tomosynthesis [id number] IMPRESSION: DENSITY: There are scattered areas of fibroglandular density. BI-RADS: 2 - Benign. FOLLOW UP: 1 Year Follow-up Recommend return to annual screening mammography.
== END 2025-02-09 13:50 | disposition home or self-care (01) ==
LOC: RAD 13:54
PROVIDERS: PCP Nurse Practitioner Family; Visit Provider Nurse Practitioner Family
DX: Z12.31 Encounter for screening mammogram for malignant neoplasm of breast (principal); Z13.820 Encounter for screening for osteoporosis; Z78.0 Asymptomatic menopausal state; R92.323 Mammographic fibroglandular density, bilateral breasts; R92.1 Mammographic calcification found on diagnostic imaging of breast; M81.0 Age-related osteoporosis without current pathological fracture
CPT/HCPCS: 77063; 77067; 77080

== ENCOUNTER → 2025-02-20 10:56 | Outpatient (BNVA) | payer MEDICARE, BC, SELFPAY | PROVIDERS: PCP Nurse Practitioner Family; Visit Provider Internal Medicine Endocrinology, Diabetes & Metabolism | DX: E11.9 Type 2 diabetes mellitus without complications (principal); E03.8 Other specified hypothyroidism; E06.3 Autoimmune thyroiditis | CPT/HCPCS: 99213; 99214 ==